=== PATIENT | female | born 1940 | race Caucasian/White ===

== ENCOUNTER 2022-08-07 15:00 | Outpatient (RCR) | payer MEDICARE, SELFPAY | END 2022-10-04 14:42 | disposition home or self-care (01) | PROVIDERS: PCP Internal Medicine; Visit Provider Orthopaedic Surgery | DX: M79.672 Pain in left foot (principal); Z51.89 Encounter for other specified aftercare | CPT/HCPCS: 97035; 97140; 97162 ==

== ENCOUNTER 2022-10-05 07:01 | Outpatient (CLI) | payer MEDICARE, SELFPAY ==
--- OUTSIDE RECORDS SUMMARY | 2022-10-05 07:04 | XMS_ITS | Encounter Summary ---
:1940 Author Organization [facility] Address [address] [place] [address] Care Team Providers Name Role Phone Doctor, None MD Primary Care Provider Unavailable Encounter Details Date Type Department Care Team Description 10/21/2006 GI Procedure [facility] Naseem Menezes MD None [facility]oscopy [place] XX RETIRED XXX [address] [facility] [place] [address] [place] [address] [phone] Social History Tobacco Use Types Packs/Day Years Used Date Smoking Tobacco: Never Assessed Sex Assigned at Date Recorded Not on file documented as of this encounter Plan of Treatment Not on filedocumented as of this encounter Procedures Procedure Name Priority Date/Time Associated Diagnosis Comme [facility] UPPER GI ENDOSCOPY Routine 10/21/2006 11:30 AM Re sults for this BUSINESS LIAISON MANAGER procedure are i n the results section. documented in this encounter Results UPPER GI ENDOSCOPY (10/21/2006 11:30 AM BUSINESS LIAISON MANAGER) Component Value Ref Test Analysis Performed At [facility] Method Time Signature Upper GI Endoscopy RADIOLOGY Endoscopy RESULTS Patient Name: Sheila Blackburn ? Gender: F ? Procedure Date: 10/21/2006 1 1:30 AM ? Date of : 1940 ? Age: 66 ? Admit Type: Outpatient ? Attending MD: Naseem Menezes ? Procedure: ?Upper GI endoscopy Indications: ?Established gastro-esophageal reflux dis ease - long-term. Providers: ?Naseem Menezes MD Referring MD: ?? Rajinder Mars MD Medicines: ?Fentanyl 100 mcg IV, Midazola m 1.5 mg IV, Benzocaine spray Complications: ??No immediate complications Procedure: ?- A History and Physical has been perfo rmed, and patient ?medi cation allergies have been reviewed. The patient The ?risk s and benefits of the procedure and the sedation options ?and risks were discussed with the patient. All questions were ?answered and informed consent was obtained. Patient ?iden tification and proposed procedure were verified prior to ?the procedure by the physician in the procedure room. Mental ?Stat us Examination: normal. Respiratory Examination: clear to ?ausc ultation. CV Examination: normal. ASA Grade Assessment: ?P1 A normal healthy patient. After reviewing the risks and ?bene fits, the patient was deemed in satisfactory condition to ?undergo the procedure. T he anesthesia plan was to use ?moderate sedation / analgesia (con scious sedation). ?Imme diately prior to administration of medications, the ?gerber ent was re-assessed for adequacy to receive sedatives. ?The heart rate, respiratory rate, oxygen saturations, blood ?pres sure, adequacy of pulmonary ventilation, and response to ?care were monitored throughout the procedure. The physical ?stat us of the patient was re-assessed after the procedure. ?Afte r obtaining informed consent, the endoscope was passed ?unde r direct vision. Throughout the procedure, the patient's ?bloo d pressure, pulse, and oxygen saturations were monitored ?cont inuously. The GIF -Q-180 #[id number] was introduced through ?the mouth, and advanced to the second part of duodenum. The ?uppe r GI endoscopy was accomplished without difficulty. The ?patient tolerated the procedure well . ? Findings: ? The Z-line was regular and was fo und thirty-eight cm from the incisors. ? The cricopharyngeus, upper third of the e sophagus, middle third of the ? esophagus and lower third of the esophagus were michael l. The entire ? examined stomach and gastroesophageal junction (on retroflexion) were ? normal. The duodenal bulb and 2nd part of the duodenu m were normal. ? Impression: ? - Z-line r egular, thirty-eight cm from the incisors and right ?@ diaphram. ?- No rmal cricopharyngeus, upper third of the esophagus, ?middle third of the esophagus and lower third of the ?esophagus. ?- Normal stomach. ?- Normal duodenal bulb and 2nd part of the duodenum. Recommendation: - Discharge patient to home (ambulatory). ?- Continue present medicines. ?- Return to primary care provider [place] N. ? R Riri Zuniga Naseem Menezes MD Signed Date: 10/21/2006 11:55 AM Number of Addenda: 0 I was physically present for the entire viewing portion of t he exam. Note generated on 10/21/2006 11:31 AM Upper GI RADIOLOGY Endoscopy RESULTS Specimen (Source) Anatomical Collection Method Collection Time Re ceived Time Location / / Volume Laterality 10/21/2006 11:30 AM BUSINESS LIAISON MANAGER Naseem Menezes MD PROCEDURES Performing Organization Address City/State/ZIP Code Phon e Number RADIOLOGY RESULTS documented in this encounter Visit Diagnoses Not on filedocumented in this encounter Care Teams Bakery Demonstrator Relationship Specialty Start Date End Date No Palm MD PCP - General 01/16/02 07/28/15 documented as of this encounter
--- OUTSIDE RECORDS SUMMARY | 2022-10-05 07:04 | XMS_ITS | Encounter Summary ---
:1940 Author Organization [facility] Address [address] [place] [address] Care Team Providers Name Role Phone Doctor, None MD Primary Care Provider Unavailable Encounter Details Date Type Department Care Team Description 01/20/2006 Emergency room Gustavo Greer MD EMERGENCY PHYSIC [facility] [address] [place], [place] [address] (Wo rk) Social History Tobacco Use Types Packs/Day Years Used Date Smoking Tobacco: Never Assessed Sex Assigned at Date Recorded Not on file documented as of this encounter Progress Notes Gustavo Greer MD - 01/26/2006 7:34 AM [facility] FINAL CHIEF COMPLAINT: The patient is a 65-year-old female with chief complaint of headache, vomiting anddiarrhea. HISTORY OF PRESENT ILLNESS: The patient is a 65-year-old female with a history migraine headaches, peripheral neuropathy. The patient was in normal state of health up until today. She developed a combination of both vomiting and diarrhea. She has had 4-5 episodes of loose watery stool, 3-4 episodes of vomiting last about an hour ago. She denies hematemesis, she denies hematochezia or melena. She hasdeveloped headache diffusely over the forehead and reports to emergency room for evaluation. PAST MEDICAL HISTORY: Peripheral neuropathy. MEDICATIONS: Neurontin. ALLERGIES: The patient is allergic to codeine which makes her vomit. FAMILY HISTORY: Negative. SOCIAL HISTORY: Here with . REVIEW OF SYSTEMS: The patient is on antibiotics as she is taking this is on a trial basis for chronic UTIs. The patient denies travel, denies atypical food ingestion. All other systems negative except as above. PHYSICAL EXAMINATION: GENERAL: This is a mildly uncomfortable 65-year-old female. VITAL SIGNS: Blood pressure 130/77, pulse 83, respirations 18, oral temperature 95.5 and room air saturation 96%. HEENT: Atraumatic and normocephalic. Conjunctivae are normal. The patient is nonicteric. CHEST: Heart is regular. PULMONARY: Clear. ABDOMEN: No reproducible abdominal tenderness. There is no guarding or rebound. Bowel sounds increased in all 4 quadrants. EXTREMITIES: No edema and edema, no rash. SKIN: Intact. EMERGENCY DEPARTMENT COURSE: Due to complaints of headache and vomiting, the patient had I.V. placed. The patient was given a liter of I.V. fluid. She was given Zofran 4 and Toradol 30 with improvement from 8/10 to 0/10 pain. The patient had lab tests that included white blood cell count, hemoglobin, electrolytes all of which were normal. A stool culture was requested, the patient did not have any diarrhea in the emergency room. I did return to discuss symptoms with the patient. I think most likelythis is either a foodborne illness versus viral gastroenteritis. Differential diagnosis here with diarrhea could also be an early C.diff as patient has been on 2 months of antibiotics. I did discuss this with the patient. For now, the patient's lab tests are normal. She has no fever here. We will discharge with stool culture cup and if she has ongoing diarrhea to bring this to her primary doctor, Dr.Peter Mars with [facility] in [place]. Otherwise, we will discharge with antiemet ics, antidiarrheal medication and follow up. PLAN: Discharge with stool culture cup. Encourage fluids, Zofran p.r.n. nausea and vomiting, Imodium p.r.n. diarrhea. Return with new or worsening symptoms. Follow up with primary doctor. DISCHARGE DIAGNOSES: 1.Viral gastroenteritis 2.Versus foodborne illness. Electronically signed on 01/26/2006 07:33 by GUSTAVO GREER MD MT: [id number] Name: LEIF BLACKBURN Account: [id number] : 1940 Visit Date: 01/20/2006 Document: [id number] FFEUR Gustavo Greer MD - 01/21/2006 9:23 PM [facility] PRELIMINARY CHIEF COMPLAINT: The patient is a 65-year-old female with chief complaint of headache, vomiting anddiarrhea. HISTORY OF PRESENT ILLNESS: The patient is a 65-year-old female with a history migraine headaches, peripheral neuropathy. The patient was in normal state of health up until today. She developed a combination of both vomiting and diarrhea. She has had 4-5 episodes of loose watery stool, 3-4 episodes of vomiting last about an hour ago. She denies hematemesis, she denies hematochezia or melena. She hasdeveloped headache diffusely over the forehead and reports to emergency room for evaluation. PAST MEDICAL HISTORY: Peripheral neuropathy. MEDICATIONS: Neurontin. ALLERGIES: The patient is allergic to codeine which makes her vomit. FAMILY HISTORY: Negative. SOCIAL HISTORY: Here with . REVIEW OF SYSTEMS: The patient is on antibiotics as she is taking this is on a trial basis for chronic UTIs. The patient denies travel, denies atypical food ingestion. All other systems negative except as above. PHYSICAL EXAMINATION: GENERAL: This is a mildly uncomfortable 65-year-old female. VITAL SIGNS: Blood pressure 130/77, pulse 83, respirations 18, oral temperature 95.5 and room air saturation 96%. HEENT: Atraumatic and normocephalic. Conjunctivae are normal. The patient is nonicteric. CHEST: Heart is regular. PULMONARY: Clear. ABDOMEN: No reproducible abdominal tenderness. There is no guarding or rebound. Bowel sounds increased in all 4 quadrants. EXTREMITIES: No edema and edema, no rash. SKIN: Intact. EMERGENCY DEPARTMENT COURSE: Due to complaints of headache and vomiting, the patient had I.V. placed. The patient was given a liter of I.V. fluid. She was given Zofran 4 and Toradol 30 with improvement from 8/10 to 0/10 pain. The patient had lab tests that included white blood cell count, hemoglobin, electrolytes all of which were normal. A stool culture was requested, the patient did not have any diarrhea in the emergency room. I did return to discuss symptoms with the patient. I think most likelythis is either a foodborne illness versus viral gastroenteritis. Differential diagnosis here with diarrhea could also be an early C.diff as patient has been on 2 months of antibiotics. I did discuss this with the patient. For now, the patient's lab tests are normal. She has no fever here. We will discharge with stool culture cup and if she has ongoing diarrhea to bring this to her primary doctor, Dr.Peter Mars with [facility] in [place]. Otherwise, we will discharge with antiemet ics, antidiarrheal medication and follow up. PLAN: Discharge with stool culture cup. Encourage fluids, Zofran p.r.n. nausea and vomiting, Imodium p.r.n. diarrhea. Return with new or worsening symptoms. Follow up with primary doctor. DISCHARGE DIAGNOSES: 1.Viral gastroenteritis 2.Versus foodborne illness. GUSTAVO GREER MD MT: [id number] Name: LEIF BLACKBURN Account: [id number] : 1940 Visit Date: 01/20/2006 Document: [id number] FFEUR documented in this encounter Plan of Treatment Not on filedocumented as of this encounter Visit Diagnoses Not on filedocumented in this encounter Care Teams Jewel Inserter Relationship Specialty Start Date End Date Doctor, MD No PCP - General 01/16/02 07/28/15 documented as of this encounter
--- OUTSIDE RECORDS SUMMARY | 2022-10-05 07:04 | XMS_ITS | Clinical Summary ---
:1940 Author Organization [facility] Address [address] [place] [address] Care Team Providers Name Role Phone Rajinder Mars MD Primary Care Provider Resolved Problems Problem Noted Date Resolved Date Muscle weakness (generalized) 08/06/2019 08/26/2019 Mixed incontinence 08/06/2019 08/26/2019 Urinary frequency 08/06/2019 08/26/2019 Encounters Date Type Specialty Care Team Description 07/23/2022 Travel from Last 3 Months Social History Tobacco Use Types Packs/Day Years Used Date Smoking Tobacco: Never Assessed Sex Assigned at Date Recorded Not on file Plan of Treatment Health Maintenance Due Date Last Done Comments ADVANCE CARE PLANNING 1940 ANNUAL REVIEW OF HM ORDERS 1940 HEPATITIS B IMMUNIZATION (1 1940 of 3 - 3-dose series) COVID-19 Vaccine (#1) 1940 DTAP/TDAP/TD IMMUNIZATION (1 1966 - Tdap) ZOSTER IMMUNIZATION (1 of 2) 1991 FALL RISK ASSESSMENT 2006 MEDICARE ANNUAL WELLNESS 2006 VISIT Pneumococcal Vaccine: 65+ 2006 Years (1 - PCV) PHQ-2 (once per calendar 12/02/2021 year) INFLUENZA VACCINE (#1) 2022 10/06/2002 DEXA 09/15/2030 09/15/2015, 09/07/2015 IPV IMMUNIZATION Aged Out No longer eligi ble based on patient's age to complete this to pic MENINGITIS IMMUNIZATION Aged Out No longe r eligible based on patient's age to complete this to pic Care Teams Television Writer Relationship Specialty Start Date End Date Rajinder Mars MD PCP - General Family Practice 07/29/15 [facility] [address] [place] [phone]
--- OUTSIDE RECORDS SUMMARY | 2022-10-05 07:04 | XMS_ITS | Encounter Summary ---
:1940 Author Organization [facility] Address [address] [place] [address] Care Team Providers Name Role Phone Rajinder Mars MD Primary Care Provider Encounter Details Date Type Department Care Team Description 09/14/2015 Radiant Appointment [facility] [address] [place] [address] Social History Tobacco Use Types Packs/Day Years Used Date Smoking Tobacco: Never Assessed Sex Assigned at Date Recorded Not on file documented as of this encounter Plan of Treatment Not on filedocumented as of this encounter Procedures Procedure Name Priority Date/Time Associated Diagnosis Comme nts DX HIP/PELVIS/SPINE Routine 09/15/2015 10:35 Asymptomatic Resu lts for this AM CDT menopausal state procedure a re in the results section. 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 ??Degenerative changes of the lumbar spine which may fa lsely elevate results. Comparisons from different scanners that have not been cross calibrated, are not necessarily valid. Such a compar dinesh has been performed here; one should interpret with caution. ?? There has been probable significant decr ease in bone density of the lumbar spine. There has been probably no signif icant change in bone density of the hip(s). Recommendations include ensuring adequat e Calcium and Vitamin D. The current NOF Guidelines recommend herminia atment for patients with prior hip or vertebral fracture, T-score -2.5 or b elow, or 10 year risk of any major osteoporotic fracture >20% or [address] of hip fracture >3%, as calculated using the FRAX calculator (adrian w.shef.ac.uk/FRAX or you can google FRAX). ?? Based on these guidelines, treatment (in addition to calcium and vitamin D) is recommended for this patient, afte r ruling out other causes of osteoporosis. This is meant as an aid to clinical deci kip making; one must still use clinical judgement. Follow up can be considered in 2 years. Vania Eng M.D. Electronically signed ?? Narrative 09/15/2015 12:00 PM CDT BONE DENSITOMETRY [address] [address] 09/15/2015 PATIENT: Sheila Blackburn CHART: [id number] : 1940 AGE: [age] year old SEX: female REFERRING PROVIDER: Elvin Pierre MD PROCEDURE: Bone density scanning was per formed using DXA technology of the lumbar spine and hip. Scanning was perfo rmed on a kenxus scanner. Reporting is completed in the form of a T-score. The T-score represents the standard deviation from peak bone ma ss based on a young healthy adult. REFERENCE T-SCORES: Normal -1.0 and greater Osteopenia Between -1.0 and -2.5 Osteoporosis -2.5 and less RISK FACTORS: Post-menopausal, Parent hi story of osteoporosis, history of vertebral fracture. CURRENT TREATMENT: Calcium FINDINGS: Lumbar Spine (L1-L3) T-score: -2.0, leilani ed degenerative changes present at L4, so only L1-3 are evaluated. Left Femoral Neck T-score: -1.4 Right Femoral Neck T-score: -1.8 Forearm (radius 33%) T-score: -1.7 Lumbar spine (L1-3) BMD: 0.927 Previous 0.996 Total Hip Mean BMD: 0.864 ??Previous 0.8 58 Forearm (radius 33%) BMD: 0.588 Previous NA LATERAL VERTEBRAL ASSESSMENT Procedure: ??Vertebral fracture assessme nt was performed in the lateral decubitus position using a Lunar Prodigy ??densitometer. Indications for VFA: T-score of -1.0 or worse and age (female>69) Confounding factors for VFA: Arthritis/d egenerative disc disease, scoliosis and rib shadows. ??The LVA sca n is interpretable from T7 to T12 and L4. VFA Findings: Using the semi-quantitativ e analysis of [employer] there was evidence of spinal deformity as follows: ??moderate (grade 2) wedge fracture of T9. VFA Impression: Sheila Blackburn has one vertebral fracture identified on the LVA. ??If alternative etiologies for the presence of vertebral fractures are excluded, the diagnosis is consistent with severe osteoporosis. Elvin Pierre MD IMG DEXA ORDERABLES documented in this encounter Visit Diagnoses Diagnosis Asymptomatic menopausal state Asymptomatic postmenopausal status (age- related) (natural) documented in this encounter Care Teams Electric Shovel Operator Relationship Specialty Start Date End Date Rajinder Mars MD PCP - General Family Practice 07/29/15 [facility] [address] [place] [address] documented as of this encounter
--- OUTSIDE RECORDS SUMMARY | 2022-10-05 07:04 | XMS_ITS ---
:1940 Author Care Team Providers Name Role Phone Radha Byers Primary Care Provider Unavailable Allergies Code Code System Name Reaction Severity Status Onset 2670 RxNorm Codeine Vomiting ? Active ? Morphine Sulfate ? ? Active ? Medications Name Status Start Date Stop Date ? ? amoxicillin 875 mg tablet Completed ? 2021 TAKE ONE TABLET BY MOUTH TWICE DAILY FOR 10 DAYS gabapentin 600 mg tablet Active ? Not db ilable TAKE TWO TABLETS BY MOUTH NIGHTLY AT BEDTIME Macrobid 100 mg capsule Active ? Not avai lable Take 1 capsule twice a day by oral route as directed for 3 days . omeprazole 20 mg capsule,delayed release Active ? Not available TAKE 1 CAPSULE BY MOUTH ONE TIME DAILY pravastatin 10 mg tablet Active ? Not db ilable TAKE ONE TABLET BY MOUTH EVERY NIGHT AT BEDTIME rosuvastatin 20 mg tablet Active ? Not av ailable TAKE ONE TABLET BY MOUTH EVERY NIGHT AT BEDTIME sumatriptan 25 mg tablet Active ? Not db ilable TAKE 1 TABLET BY MOUTH FOR MIGRAINE NEEDED Problems Name Status Onset Date Source ? Urinary Tract Infectious Disease Active 08/06/2013 History Cystitis Active 11/05/2013 History Nocturia Active 11/05/2013 History Chronic Cystitis Active 06/09/2019 History Overactive Bladder Active 07/21/2019 History Procedures Date Name Performed by ? 02/02/2020 Insert Bladder Catheter Information not available Notes: 02/02/2020 - INSERT BLADDER CAT HETER 10/27/2019 Resect Phalanx of Toe Tumor Information not available Notes: 10/27/2019 - RESECT PHALANX OF TOE TUMOR 07/21/2019 Us Urine Capacity Measure Information no t available Notes: 07/21/2019 - US URINE CAPACITY MEASURE 06/09/2019 Insert Bladder Catheter Information not available Notes: 06/09/2019 - INSERT BLADDER CAT HETER 07/10/2014 Colonoscopy Thru Stoma Spx Information n ot available Notes: 07/10/2014 - COLONOSCOPY THRU S JOSE SPX 08/06/2013 Cystoscopy Information not avai lable Notes: 08/06/2013 - CYSTOSCOPY 08/06/2013 Insert Bladder Catheter Information not available Notes: 08/06/2013 - INSERT BLADDER CAT HETER ? Anterior Colporrhaphy Information not av ailable Notes: ANTERIOR COLPORRHAPHY ? Division of Fallopian Tube Information n ot available Notes: DIVISION OF FALLOPIAN TUBE ? Hysterectomy/revise Vagina Information n ot available Notes: HYSTERECTOMY/REVISE VAGINA ? Removal of Gallbladder Information not a vailable Notes: REMOVAL OF GALLBLADDER ? Removal of Tonsils Information not avai lable Notes: REMOVAL OF TONSILS ? Total Knee Arthroplasty Information not available Notes: TOTAL KNEE ARTHROPLASTY 10/01/2022 US, [facility] Radiology Department [address] [place] [address] (Work Place) Results Lab Results Date Name Specimen Result Interpretation Description Value Range Status Address ? 10/01/2022 Urinalysis, UR ? Color yellow yellow Final [place] [facility]: [address] ? ? UR ? Appearance clear clear Final [place] [facility]: [address] ? ? UR ? Glucose negative negative Final [place] [facility] mg/dL mg/dL [facility]: [address] ? ? UR ? Bilirubin negative negative Final [place] [facility]: [address] ? ? UR ? Ketones negative negative Final [place] [facility] mg/dL mg/dL [facility]: [address] ? ? UR ? Sp. Gill 1.010 1.010-1.0 Final [place] [facility] 25 [facility]: [address] ? ? UR ? pH -[facility] 5.5 5.0-8.0 Final [place] [facility]: [address] ? ? UR ? Protein negative negative Final [place] [facility] mg/dL mg/dL [facility]: [address] ? ? UR ? Urobilinogen 0.2 normal Final [place] [facility]: [address] [address], [place] ? ? UR ? Nitrites negative negative Final [place] [facility]: [address] [address], [place] ? ? UR ? Blood negative negative Final [place] [facility]: [address] [address], [place] ? ? UR ABNORMAL Leukocytes trace negative Final [place] [facility]: [address] [address], [place] ? ? UR ? Performed by romero Nayak ? Final [place] [facility]: [address] [address], [place] ? ? UR ? Total Urine 15 /mL ? Final [place] Volume (mL) [facility]: [address] 10/01/2022 Urinalysis, ABNORMAL U-WBC 2 - 5 0 - 2 Final [place] Microscopic [hpf] [hpf] [facility]: [address] [address], [place] ? ? ? U-RBC 0 - 2 0 - 2 Final [place] [hpf] [hpf] [facility]: [address] [address], [place] ? ? ABNORMAL Bacteria large negative Final [place] [hpf] [hpf] [facility]: [address] [address], [place] ? ? ? Squamous Epi small negative, Final [place] /lpf small Urology - /lpf [facility]: [address] [address], [place] Past Encounters 10/01/2022 Atrophic Vaginitis; Chronic Cystitis; No cturia; Incomplete Emptying of Bladder Radha Byers MD: [address] [facility] , [facility] [address], [place] [address], Ph. Social History Tobacco Smoking Status Former Smoker Vaccine List Vaccine Type COVID-19, mRNA, LNP-S, PF, 30 mcg/0.3 mL dose ([employer]) 01/07/2021 01/28/2021 08/30/2021 COVID-19, mRNA, LNP-S, PF, 30 mcg/0.3 mL dose, alejandro-sucrose ([employer]) 03/21/2022 Hep A, adult 02/18/2008 09/10/2008 Hep B, adult 02/18/2008 03/29/2008 09/10/2008 Influenza vaccine, quadrivalent, adjuvan jesse 08/09/2020 08/23/2021 08/16/2022 influenza, high dose seasonal 09/22/2015 08/06/2017 09/23/2018 09/07/2019 influenza, injectable, quadrivalent, pre servative free 12/26/2009 influenza, seasonal, injectable 10/16/2003 10/01/2008 08/10/2012 novel [id number], all formulation s 12/26/2009 pneumococcal conjugate PCV 13 03/17/2015 10/28/2019 pneumococcal polysaccharide [id number] 06/16/2009 Td (adult) preservative free 11/19/2006 Tdap 09/09/2020 typhoid, ViCPs 02/18/2008 zoster recombinant 05/05/2022 07/25/2022 Plan of Care Reminders Provider Appointments None recorded. ? ? Lab None recorded. ? ? Referral None recorded. ? ? Procedures None recorded. ? ? Surgeries None recorded. ? ? Imaging None recorded. ? ? Vitals None recorded.
--- OUTSIDE RECORDS SUMMARY | 2022-10-05 07:04 | XMS_ITS | Encounter Summary ---
:1940 Author Organization [place] Address [address] [place] [address] Care Team Providers Name Role Phone Doctor, None MD Primary Care Provider Unavailable Encounter Details Date Type Department Care Team Description 01/20/2006 Historic Results INTERFACED REPORT Loretta Fernandez MD EMERGENCY PHYSIC [facility] [address] [place], [place] [address] (Wo rk) Social History Tobacco Use Types Packs/Day Years Used Date Smoking Tobacco: Never Assessed Sex Assigned at Date Recorded Not on file documented as of this encounter Plan of Treatment Not on filedocumented as of this encounter Procedures Procedure Name Priority Date/Time Associated Comments Diagnosis HEMOGRAM DIFFERENTIAL STAT 01/20/2006 9:55 PM Results for this AND PLATELET CHOCOLATE DIPPER procedure are i n the results section. BASIC METABOLIC PANEL STAT 01/20/2006 9:55 PM Results for this CHOCOLATE DIPPER procedure are i n the results section. UA MACROSCOPIC WITH STAT 01/20/2006 9:45 PM Re sults for this REFLEX TO MICRO CHOCOLATE DIPPER procedure ar e in the results section. URINE MICROSCOPIC Routine 01/20/2006 9:45 PM Resu lts for this EXAM CHOCOLATE DIPPER procedure are i n the results section. documented in this encounter Results (ABNORMAL) Hemogram differential and platelet (01/20/2006 9:55 PM CHOCOLATE DIPPER) [facility] Method Time Signature MCV 98 78 - 100 [place] fl MCH 34.3 (H) 26.5 - [facility] 33.0 pg MCHC 34.9 32.0 - [facility] 36.0 g/dL RDW 12.0 10.0 - [facility] 15.0 % WBC 5.5 4.0 - [facility] 11.0 10e9/L RBC Count 4.11 3.8 - 5.2 [facility] 10e12/L Hemoglobin 14.1 11.7 - [facility] 15.7 g/dL Hematocrit 40.3 35.0 - [facility] 47.0 % % Neutrophils 83 (H) 40 - 75 % [facility] % Lymphocytes 9 (L) 20 - 48 % [facility] % Monocytes 6 0 - 12 % [facility] % Eosinophils 0 0 - 6 % [facility] % Basophils 2 0 - 2 % [facility] Platelet Count 203 150 - 450 [place] 10e9/L Absolute 4.6 1.6 - 8.3 [facility] Neutrophil 10e9/L Absolute 0.5 (L) 0.8 - 5.3 [facility] Lymphocytes 10e9/L Absolute 0.3 0.0 - 1.3 [facility] Monocytes 10e9/L Absolute 0.0 0.0 - 0.7 [facility] Eosinophils 10e9/L Absolute 0.1 0.0 - 0.2 [facility] Basophils 10e9/L Diff Method Automated [facility] Method Specimen Anatomical Collection Method Collection Time Receive d Time (Source) Location / / Volume Laterality 01/20/2006 9:55 PM 6 9:33 CHOCOLATE DIPPER PM CHOCOLATE DIPPER Kurtis Fernandez MD LAB - BLOOD ORDERABLES Performing Organization Address City/State/ZIP Code Phon e Number [facility] (ABNORMAL) Basic metabolic panel (01/20/2006 9:55 PM CHOCOLATE DIPPER) P athologist Signature Sodium 136 133 - 144 [place] mmol/L Potassium 3.5 3.4 - 5.3 [place] mmol/L Chloride 99 94 - 109 [place] mmol/L Carbon Dioxide 26 20 - 32 [place] mmol/L Glucose 113 (H) 60 - 110 [place] mg/dL Urea Nitrogen 12 7 - 30 [place] mg/dL Creatinine 0.80 0.60 - [facility] 1.30 mg/dL GFR Estimate 77 >60 [facility] mL/min/1.7 m2 GFR Estimate If >90 >60 [facility] Black mL/min/1.7 m2 Calcium 8.7 8.5 - 10.4 [facility] mg/dL Anion Gap 11 6 - 17 [place] mmol/L Specimen Anatomical Collection Method Collection Time Receive d Time (Source) Location / / Volume Laterality 01/20/2006 9:55 PM 6 9:33 CHOCOLATE DIPPER PM CHOCOLATE DIPPER Kurtis Fernandez MD LAB - BLOOD ORDERABLES Performing Organization Address City/[facility]/ZIP Code Phon e Number [facility] (ABNORMAL) UA macroscopic with reflex to micro (01/20/2006 9:45 PM CHOCOLATE DIPPER) [facility] Method Time Signature Source Midstream [facility] Urine Color Urine Yellow [facility] Appearance Urine Clear [facility] Glucose Urine Negative NEG mg/dL [facility] Bilirubin Urine Negative NEG [facility] Ketones Urine Trace (A) NEG mg/dL [facility] Specific Thorp >1.030 1.003 - [facility] Urine 1.035 Blood Urine Negative NEG [facility] pH Urine 5.5 5.0 - 7.0 [facility] pH Protein Albumin Trace (A) NEG mg/dL [facility] Urine Urobilinogen 0.2 0.2 - 1.0 [facility] Urine EU/dL Nitrite Urine Negative NEG [facility] Leukocyte Negative NEG [facility] Esterase Urine Specimen Anatomical Collection Method Collection Time Receive d Time (Source) Location / / Volume Laterality 01/20/2006 9:45 PM 6 9:33 CHOCOLATE DIPPER PM CHOCOLATE DIPPER Kurtis Fernandez MD LAB - URINE ORDERABLES Performing Organization Address City/[facility]/ZIP Code Phon e Number [facility] (ABNORMAL) Microscopic exam urine (01/20/2006 9:45 PM CHOCOLATE DIPPER) [facility] Method Time Signature WBC Urine 2-5 (A) 0 - 2 [facility] /HPF RBC Urine O - 2 0 - 2 [facility] /HPF Squamous Few FEW /LPF [facility] Epithelial /LPF Urine Bacteria Urine Moderate (A) NEG /HPF [facility] Mucous Urine Present (A) NEG /LPF [facility] Specimen Anatomical Collection Method Collection Time Receive d Time (Source) Location / / Volume Laterality 01/20/2006 9:45 PM 6 CHOCOLATE DIPPER 10:27 PM CHOCOLATE DIPPER Kurtis Fernandez MD LAB - URINE ORDERABLES Performing Organization Address City/State/ZIP Code Phon e Number M[facility] documented in this encounter Visit Diagnoses Not on filedocumented in this encounter Care Teams Grounds Restoration Specialist Relationship Specialty Start Date End Date Doctor, No, PCP - General 01/16/02 07/28/15 documented as of this encounter
--- OUTSIDE RECORDS SUMMARY | 2022-10-05 07:04 | XMS_ITS | Encounter Summary ---
:1940 Author Organization [place] Address [address] [place] [address] [place] [address] Care Team Providers Name Role Phone Rajinder Mars MD Primary Care Provider Reason for Visit (Routine) - Closed Specialty Diagnoses / Procedures Referred By Contact Refer red To Contact Cardiology Procedures Zz Rh Echocardiography ECH DOBUTAMINE STRESS TEST [address] [place] [phone] Phone: Referral ID Status Reason Start Date Expiration Date Visits Requ ested Visits Authorized [id number] Closed 08/01/2015 07/31/2016 1 1 Encounter Details Date Type Department Care Team Description 08/01/2015 Hospital Encounter [facility] Christina Alcantara R , Other chest pain Cardiopulmonary [address] [place] [facility] [id number] [place] [address] [address] (Wo rk) Social History Tobacco Use Types Packs/Day Years Used Date Smoking Tobacco: Never Assessed Sex Assigned at Date Recorded Not on file documented as of this encounter Progress Notes Ember Davey RT - 08/01/2015 1:30 PM CDT Stress echo completed- ordered for a dobutamine stress test and opted to walk on treadmill. documented in this encounter Plan of Treatment Not on filedocumented as of this encounter Procedures Procedure Name Priority Date/Time Associated Diagnosis Comme nts ECHO STRESS TEST Routine 08/01/2015 1:01 PM Other chest pain R esults for this CDT procedure are i n the results section. documented in this encounter Results Exercise Stress Echocardiogram (08/01/2015 1:01 PM CDT) Anatomical Region Laterality Modality Echocardiography Specimen (Source) Anatomical Collection Method Collection Time Re ceived Time Location / / Volume Laterality 08/01/2015 12:43 PM CDT Narrative 08/01/2015 1:57 PM CDT Interpretation Summary [facility]ocardiography [facility] [address] [place] [address] Name: LEIF BLACKBURN : 1940 Study Date: 08/01/2015 12:43 PM Age: 75 yrs Gender: Female Patient Location: [facility] Reason For Study: Chest pain History: Chest Pain Ordering Physician: CHRISTINA ALCANTARA Referring Physician: CHRISTINA ALCANTARA Performed By: Valente Reese RDCS BSA: 2.0 m2 Height: 69 in Weight: 188 lb HR: 71 BP: 118/76 mmHg Medications: gabapentin Procedure Stress Echo Complete. Interpretation Summary A moderate workload was achieved. There was no chest pain or significant S T changes with exercise. No arrhythmia noted. The visual ejection fraction is estimate d at 60-65%. Global LV systolic function augments wit h exercise. Stress Exercise was stopped due to fatigue. The patient did not exhibit any symptoms during exercise. A moderate workload was achieved. Normal blood pressure response to exerci se. Target Heart Rate was achieved. There was no chest pain or significant S T changes with exercise. No arrhythmia noted. The visual ejection fraction is estimate d at 60-65%. Global LV systolic function augments wit h exercise. Left ventricular cavity size decreases w ith exercise. Baseline Normal baseline electrocardiogram. Normal LVEF, aortic sclerosis, mild TR. Stress Results ? Protocol: MODIFIED EDITA ? Maximum Predicted HR: ??146 bpm ?Target HR: ? 124 bpm% Max ? imum Predicted HR: ?? 90 % ?+---------+-------- + +------+---------+ ?: ??Stage ??:Jp on:Heart Rate: ??BPCom ?ment : ?: ? : (mm :ss): ?? (bpm) ??: ?: ? : ?+---------+-------- + +------+---------+ ?: Stage 1 : ??3:00 10 ?0 ?? :140/70: ? : ?+---------+-------- + +------+---------+ ?: Stage 2 : ??3:00 10 ?2 ?? :150/70: ? : ?+---------+-------- + +------+---------+ ?: Stage 3 : ??3:00 11 ?3 ?? :160/70: ? : ?+---------+-------- + +------+---------+ ?: Stage 4 : ??1:23 13 ?1 ?? :170/70:[facility] [id number]: ?+---------+-------- + +------+---------+ ?:Recovery : ??6:00 83 ?:140/70: ? : ?+---------+-------- + +------+---------+ ? Stress Duration: ??10:23 mm:ss * ?Recovery Time: 6:00 mm:ss ?Maximum Stress HR: ?? 131 bpm * ME ?TS: ?6 Doppler Measurements & Calculations TR max octavia: 244.3 cm/sec TR max P.9 mmHg Report approved by: Valentin Solitario 08/01/2015 01:57 PM Procedure Note Biju Arthur MD - 08/01/2015Fo rmatting of this note might be different from the original. Interpretation Summary [facility] [address] [place] [address] Name: LEIF BLACKBURN : 1940 Study Date: 08/01/2015 12:43 PM Age: 75 yrs Gender: Female Patient Location: [facility] Reason For Study: Chest pain History: Chest Pain Ordering Physician: CHRISTINA ALCANTARA Referring Physician: CHRISTINA ALCANTARA Performed By: Valente Reese RDCS BSA: 2.0 m2 Height: 69 in Weight: 188 lb HR: 71 BP: 118/76 mmHg Medications: gabapentin Procedure Stress Echo Complete. Interpretation Summary A moderate workload was achieved. There was no chest pain or significant S T changes with exercise. No arrhythmia noted. The visual ejection fraction is estimate d at 60-65%. Global LV systolic function augments wit h exercise. Stress Exercise was stopped due to fatigue. The patient did not exhibit any symptoms during exercise. A moderate workload was achieved. Normal blood pressure response to exerci se. Target Heart Rate was achieved. There was no chest pain or significant S T changes with exercise. No arrhythmia noted. The visual ejection fraction is estimate d at 60-65%. Global LV systolic function augments wit h exercise. Left ventricular cavity size decreases w ith exercise. Baseline Normal baseline electrocardiogram. Normal LVEF, aortic sclerosis, mild TR. Stress Results Protocol: MODIFIED EDITA Maximum Predic jesse HR: 146 bpm Target HR: 124 bpm% Max imum Predicted HR: 90 % +---------+--------+ +------+- --------+ : Stage :Duration:Heart Rate: BPCom men t : : : (mm:ss): (bpm) : : : +---------+--------+ +------+- --------+ : Stage 1 : 3:00 10 0 :140/70: : +---------+--------+ +------+- --------+ : Stage 2 : 3:00 10 2 :150/70: : +---------+--------+ +------+- --------+ : Stage 3 : 3:00 11 3 :160/70: : +---------+--------+ +------+- --------+ : Stage 4 : 1:23 13 1 :170/70:[facility] [address] : +---------+--------+ +------+- --------+ :Recovery : 6:00 83 :140/70: : +---------+--------+ +------+- --------+ Stress Duration: 10:23 mm:ss * Recovery Time: 6:00 mm:ss Maximum Stress HR: 131 bpm *ME TS: 6 Doppler Measurements & Calculations TR max octavia: 244.3 cm/sec TR max P.9 mmHg Report approved by: Valentin Solitario 08/01/2015 01:57 PM Christina Alcantara MD CV ECHO ORDERABLES documented in this encounter Visit Diagnoses Diagnosis Other chest pain documented in this encounter Care Teams Third Officer Relationship Specialty Start Date End Date Rajinder Mars MD PCP - General Family Practice 07/29/15 [facility] [address] [place] [phone] documented as of this encounter
--- OUTSIDE RECORDS SUMMARY | 2022-10-05 07:04 | XMS_ITS | Clinical Summary ---
:1940 Author Organization [facility] [place] [address] Care Team Providers Name Role Phone Lori Barreto PA-C Unavailable [facility], [facility] Primary Care Provider [phone] Allergies Active Allergy Reactions Severity Noted Date Comments Codeine Vomiting 03/13/2007 Morphine *Unknown High 05/12/2019 Medications Medication Sig Dispensed Refills Start Date End Date Status CRANBERRY ORAL Take 1 Capsule 0 Active by mouth once daily. [id number] Take 1 Tablet by 0 Active utein (Multivitamin 50 mouth once Plus) tab tablet daily. gabapentin (NEURONTIN) Take 1,200 mg by 0 Active 600 mg tablet mouth at bedtime. aspirin chewable 81 mg Chew 81 mg by 0 Active chewable tablet mouth once daily if needed (for pain). omeprazole (PRILOSEC) 20 Take 20 mg by 0 Active mg Delayed-Release mouth once daily capsule if needed (acid reflux). SUMAtriptan (IMITREX) 25 Take 25 mg by 0 Active mg tablet mouth once daily if needed for Migraine. Give at minimum 2hrs apart. Max Dose: 200mg per 24hrs. pravastatin (PRAVACHOL) Take 1 Tablet 90 Tablet 1 07/10/2022 Active 10 mg tabletIndications: (10 mg) by mouth Hyperlipidemia, at bedtime. 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 P t states feeling well to day. Denies current symptom s) 07/10/2022 Travel from Last 3 Months Immunizations Name Administration Dates Next Due Influenza, IIV3 (Age >=3 years) 10/06/2002 Family History Medical History Relation Name Comments Genetic Other nil for cancer ~ no family history with anesthesia Other Sister glaucoma Relation Name Status Comments Other Sister Social History Tobacco Use Types Packs/Day Years Used Date Former Smoker 0 Smokeless Tobacco: Never Used Comments: 1991 Alcohol Use Standard Drinks/Week Comments Not Asked 0 (1 standard drink = 0.6 oz pure alcoho l) rare Alcohol Habits Answer Date Recorded How often do you have a drink containing alcohol? Not asked How many drinks containing alcohol do you have on a typical Not asked day when you are drinking? How often do you have six or more drinks on one occasion? No t asked Comment: rare 07/10/2022 Sex Assigned at Date Recorded Not on file Obstetrics History Last Filed Vital Signs Vital Sign Reading Time Taken Comments Blood Pressure 116/62 07/10/2022 3:01 PM CDT Pulse 62 07/10/2022 3:01 PM CDT Temperature 36.6 ??C (97.8 ??F) 02/04/2022 12:25 PM FILM CLEANER Respiratory Rate 16 02/04/2022 12:25 PM FILM CLEANER Oxygen Saturation 96% 07/10/2022 3:01 PM CDT Inhaled Oxygen Concentration - - Weight 79.4 kg (175 lb) 07/10/2022 3:01 PM CDT Height 177.8 cm (5' 10) 07/10/2022 3:01 PM CDT Body Mass Index 25.11 07/10/2022 3:01 PM CDT Plan of Treatment Health Maintenance Due Date Last Done Comments Tdap 1952 Depression screening for age 12+ 1953 Tetanus booster 1961 Zoster (shingles) series for age 0403/07/1991 50+ (1 of 2) DEXA/DXA scan for age 65+ 2006 Medicare Wellness for age 65+ 2006 Pneumococcal series for age 65+ (1 2006 - PCV) COVID-19 vaccine series (5 - 05/16/2022 03/21/2022, 021, Booster for Pfizer series) 01/28/2021, Additiona l history exists Influenza for age 65+ 08/02/2022 10/06/2002 BMI (ht and wt on same day) for 07/10/2023 07/10/2022 age 18+ Results Not on filefrom Last 3 Months Insurance Payer Benefit Plan / Subscriber ID Effective Dates Phone Addre ss Type Group [employer] MEDICARE [id number] 2021-Present [address] [place] [address] Care Teams Driver Utility Worker Relationship Specialty Start Date End Date Clinic, [facility] PCP - General 07/06/22 [place] [address] [place] [address] Lori Barreto, PARaymonC Family Practice Physician Trestle Mechanic 02/27/22 [address] [place] [address]
--- OUTSIDE RECORDS SUMMARY | 2022-10-05 07:04 | XMS_ITS | Encounter Summary ---
:1940 Author Organization [facility] Address [address] [place] [address] Care Team Providers Name Role Phone Rajinder Mars MD Primary Care Provider Encounter Details Date Type Department Care Team Description 09/07/2015 Radiant Appointment [facility] Osteopenia [address] [place] [address] Social History Tobacco Use Types Packs/Day Years Used Date Smoking Tobacco: Never Assessed Sex Assigned at Date Recorded Not on file documented as of this encounter Plan of Treatment Not on filedocumented as of this encounter Procedures Procedure Name Priority Date/Time Associated Diagnosis Comme nts DX HIP/PELVIS/SPINE Routine 09/07/2015 1:43 PM Osteopenia Re sults for this W LAT FRACTION CDT procedure are in ANALYSIS the results section. documented in this encounter Results DX Hip/Pelvis/Spine w Lateral (09/07/2015 1:43 PM CDT) Anatomical Region Laterality Modality Dexa Computed [...] 2 years. Vania Eng M.D. Electronically signed Narrative 09/15/2015 12:00 PM CDT BONE DENSITOMETRY [address] [address] 09/15/2015 PATIENT: Sheila Blackburn CHART: [id number] : 1940 AGE: [age] year old SEX: female REFERRING PROVIDER: Elvin Pierre MD PROCEDURE: Bone density scanning was per formed using DXA technology of the lumbar spine and hip. Scanning was perfo rmed on a [employer] scanner. Reporting is completed in the form [...] in the lateral decubitus position using a [employer] ??densitometer. Indications for VFA: T-score of -1.0 [...] the diagnosis is consistent with severe osteoporosis. Xu Baltazar MD IMG DEXA ORDERABLES documented in this encounter Visit Diagnoses Diagnosis Osteopenia Disorder of bone and cartilage, unspecif ied documented in this encounter Care Teams Piano Accompanist Relationship Specialty Start Date End Date Rajinder Mars MD PCP - General Family Practice 07/29/15 [facility] [address] [facility] [address] documented as of this encounter
--- OUTSIDE RECORDS SUMMARY | 2022-10-05 07:04 | XMS_ITS | Encounter Summary ---
:1940 Author Organization [facility] Address [address] [place] [address]. [place] [address] Care Team Providers Name Role Phone Rajinder Mars MD Primary Care Provider Encounter Details Date Type Department Care Team Description 07/23/2022 Travel Social History Tobacco Use Types Packs/Day Years Used Date Smoking Tobacco: Never Assessed Sex Assigned at Date Recorded Not on file COVID-19 Exposure Response Date Recorded In the last 10 days, have you been in contact with No / Unsu re 07/23/2022 9:42 PM CDT someone who was confirmed or suspected to have Coronavirus/COVID-19? documented as of this encounter Plan of Treatment Not on filedocumented as of this encounter Visit Diagnoses Not on filedocumented in this encounter Care Teams Licensing Court Magistrate Relationship Specialty Start Date End Date Rajinder Mars MD PCP - General Family Practice 07/29/15 [facility] [address] [place] [phone] documented as of this encounter
--- OUTSIDE RECORDS SUMMARY | 2022-10-05 07:04 | XMS_ITS | Encounter Summary ---
:1940 Author Organization [facility] Address [facility] [place] [address] Care Team Providers Name Role Phone Rajinder Mars MD Primary Care Provider Encounter Details Date Type Department Care Team Description 09/07/2015 [facility] Xu Baltazar R, Os teoporosis Encounter [facility] LEAL (Primary Dx) [address] [facility] [address] [facility] [address] [address] [place] [address] [place], [place] [address] (Wo rk) Social History Tobacco Use Types Packs/Day Years Used Date Smoking Tobacco: Never Assessed Sex Assigned at Date Recorded Not on file documented as of this encounter Plan of Treatment Not on filedocumented as of this encounter Procedures Procedure Name Priority Date/Time Associated Diagnosis Comme nts VITAMIN D DEFICIENCY Routine 09/07/2015 1:00 PM Osteoporosis R esults for this SCREENING CDT procedure are i n the results section. PHOSPHORUS Routine 09/07/2015 1:00 PM Osteoporosis Results f or this CDT procedure are i n the results section. PARATHYROID HORMONE Routine 09/07/2015 1:00 PM Osteoporosis Re sults for this INTACT CDT procedure are i n the results section. CALCIUM Routine 09/07/2015 1:00 PM Osteoporosis Results f or this CDT procedure are i n the results section. BONE SPECIFIC ALK Routine 09/07/2015 1:00 PM Osteoporosis Resu lts for this PHOSPHATASE CDT procedure are i n the results section. documented in this encounter Results Bone specific alk phosphatase (09/07/2015 1:00 PM CDT) P athologist Signature Bone Spec Alk 17.5 [facility] Comment: Unit: ug/L (Note) INTERPRETIVE INFORMATION: Bone Specific Alkaline Phosphatase Premenopausal Female: ?4.5 - 16.9 u g/L Postmenopausal Female: ?? 7.0 - 22.4 ug /L INTERPRETIVE INFORMATION: Bone Specific Alkaline Phosphatase Liver alkaline phosphatase can affect th e measurement of bone specific alkaline phosphatase in th is assay. Each 100 U/L of liver alkaline phosphatase contri butes an additional 2.5 to 5.8 ug/L to the bone specific alk basilio phosphatase result. Performed by [employer], [address] [place] [id number] [email or web address], Geo Balderas MD, L ab. Director Specimen Anatomical Collection Method Collection Time Receive d Time (Source) Location / / Volume Laterality Blood specimen 09/07/2015 1:00 PM 015 1:17 (specimen) CDT PM CDT Xu Baltazar MD LAB - BLOOD ORDERABLES Performing Organization Address City/State/ZIP Code Phon e Number M [facility] [address] [place] [address] [place] [address] [address] [place] [phone] Vitamin D deficiency screening (09/07/2015 1:00 PM CDT) athologist Signature Vitamin D 26 20 - 75 [facility] Deficiency ug/L OR MEDICAL screening [facility] Comment: Season, race, dietary intake, and treatm ent affect the concentration of 54-qfxhmcg-Iipyqsi D. Values may decrea se during winter months and increase during summer months. Values 20-29 ug/L may indicate Vitamin D insufficiency and values <20 ug/L may indicate Vitami n D deficiency. Vitamin D determination is routinely pe rformed by an immunoassay specific for 25 hydroxyvitamin D3. ??If an individua l is on vitamin D2 (ergocalciferol) supplementation, please specify 25 [place] v itamin D2 and D3 level determination by LCMSMS test VITD23. Specimen Anatomical Collection Method Collection Time Receive d Time (Source) Location / / Volume Laterality Blood specimen 09/07/2015 1:00 PM 015 1:17 (specimen) CDT PM CDT Xu Baltazar MD LAB - BLOOD ORDERABLES Performing Organization Address City/[facility]/ZIP Code Phon e Number [address] [address] [facility] Parathormone intact (09/07/2015 1:00 PM CDT) athologist Signature Parathyroid 48 12 - 72 [facility] Hormone Intact pg/mL [facility] Specimen Anatomical Collection Method Collection Time Receive d Time (Source) Location / / Volume Laterality Blood specimen 09/07/2015 1:00 PM 015 1:17 (specimen) CDT PM CDT Xu Baltazar MD LAB - BLOOD ORDERABLES Performing Organization Address City/[facility]/ZIP Code Phon e Number [facility] [address] [place] [address] [facility] Phosphorus (09/07/2015 1:00 PM CDT) athologist Signature Phosphorus 3.2 2.5 - 4.5 [facility] mg/dL HOSPITAL Specimen Anatomical Collection Method Collection Time Receive d Time (Source) Location / / Volume Laterality Blood specimen 09/07/2015 1:00 PM 015 1:17 (specimen) CDT PM CDT Xu Baltazar MD LAB - BLOOD ORDERABLES Performing Organization Address City/[facility]/ZIP [facility] Phon e Number [place] [address] [address] [place] [address] [place] [phone] Calcium (09/07/2015 1:00 PM CDT) athologist Signature Calcium 9.3 8.5 - 10.1 [facility] mg/dL [facility] Specimen Anatomical Collection Method Collection Time Receive d Time (Source) Location / / Volume Laterality Blood specimen 09/07/2015 1:00 PM 015 1:17 (specimen) CDT PM CDT Xu Baltazar MD LAB - BLOOD ORDERABLES Performing Organization Address City/[facility]/ZIP Code Phon e Number M [facility] [address] [place], [place] [address] [facility] [address] [place], [place] [address] [place] [address] documented in this encounter Visit Diagnoses Diagnosis Osteoporosis - Primary Osteoporosis, unspecified documented in this encounter Care Teams Instrument Technologist Relationship Specialty Start Date End Date Rajinder Mars MD PCP - General Family Practice 07/29/15 [facility] [address] [place] [phone] documented as of this encounter
--- OUTSIDE RECORDS SUMMARY | 2022-10-05 07:04 | XMS_ITS | Encounter Summary ---
:1940 Author Organization [facility] Address [address] [place] [address] Care Team Providers Name Role Phone Rajinder Mars MD Primary Care Provider Reason for Visit [facility] (Routine) - Closed Specialty Diagnoses / Procedures Referred By Contact Refer red To Contact Physical Therapist / Diagnoses >4 Urge Incontinence / Dr.Jodi Byers @ [facility] referral exists for 20 visits to 12.01.19 (ab) Patricia Valente, PT Physical Therapy Procedures [facility] [address] [place], [place] [address] Phone: Referral ID Status Reason Start Date Expiration Date Visits Requ ested Visits Authorized [id number] Closed 08/05/2019 12/01/2019 20 18 Encounter Details Date Type Department Care Team Description 08/05/2019 Therapy Visit [facility] Patricia Valente, Pauline le weakness (generalized); Rehabilitation Services PT Mixed incontinence; [place] [address] [address] Urinary frequency [address] [facility] [id number] Social History Tobacco Use Types Packs/Day Years Used Date Smoking Tobacco: Never Assessed Sex Assigned at Date Recorded Not on file documented as of this encounter Progress Notes Patricia Valente PT - 08/05/2019 9:30 AM CDT [facility] Initial Evaluation Subjective: The history is provided by the patient. Type of problem: Incontinence (mixed urge, stress and frequency) Problem details: Patient has chief complaint of mixed incontinence and urinary frequency which started about 2 years ago (MD orders 07/24/2019). She also has incomplete emptying. She gets up 4-5x/nightto void. She wears pads inconsistently, but needs to change clothes frequently. She had a hysterectomy with BSO, AP repair in 01/2010. History of recurrent urinary tract infections. She also had her gall bladder removed in 2009 and scoliosis. Patient reports pain: N/a. Symptoms are exacerbated by coughing, laughing and sneezing and relieved by nothing. Objective: System Pelvic Dysfunction Evaluation: Bladder/Pelvic Problems: Storage Problem: Frequency, urge incontinence and stress incontinence Emptying Problem: Strain to void and incomplete emptying Diagnostic Tests: UA/Urine Sample: UTI's in the past, none recently Flexibility: Tightness present at:Piriformis Abdominal Wall: Trigger Points: Internal obliques, external obliques and transverse abdominals Pelvic Clock Exam: Ischiocavernosis pain: - Bulbocavernosis pain: - Transverse Perineal: - Levator ANI: - Perineal Body: - SI Provocation: NA Reflex Testing: normal External Assessment: Skin Condition: Normal Bearing Down/Coughing: Normal Tissue Symmetry: Normal Introitus: Normal Muscle Contraction/Perineal Mobility: Slight lift, no urogential triangle descent Internal Assessment: Sensory Exam: Normal Contraction/Grade: Fair squeeze, definite lift (3) SEMG Biofeedback: NA Additional History: Delivery History: Vaginal delivery Number of Pregnancies: 4 Number of Live Births: 4 Caffeine Consumption: 2 cups coffee in am General ROS Assessment/Plan: Patient is a 79 year old female with pelvic complaints. Patient has the following significant findings with corresponding treatment plan. Diagnosis 1: Pelvic floor dysfunction Decreased ROM/flexibility - manual therapy and therapeutic exercise Decreased strength - therapeutic exercise, therapeutic activities and home program Impaired muscle performance - biofeedback and neuro re-education Decreased function - therapeutic activities and home program Therapy Evaluation Codes: 1) History comprised of: Personal factors that impact the plan of care: None. Comorbidity factors that impact the plan of care are: None. Medications impacting care: None. 2) Examination of Body Systems comprised of: Body structures and functions that impact the plan of care: Pelvis. Activity limitations that impact the plan of care are: Frequency, Stress incontinence and Urge incontinence. 3) Clinical presentation characteristics are: Stable/Uncomplicated. 4) Decision-Making Low complexity using standardized patient assessment instrument and/or measureable assessment of functional outcome. Cumulative Therapy Evaluation is: Low complexity. 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 Treatment Explanation - The following has been discussed with the patient: RX ordered/plan of care Anticipated outcomes Possible risks and side effects This patient would benefit from PT intervention to resume normal activities. Rehab potential is excellent. Frequency: 1 X week, once daily Duration: for 6 weeks Discharge Plan: Achieve all LTG. Independent in home treatment program. Reach maximal therapeutic benefit. Please refer to the daily flowsheet for treatment today, total treatment time and time spent performing 1:1 timed codes. Archana Lockhart - 08/05/2019 9:30 AM CDT [facility] Initial Evaluation Subjective: Pertinent medical history includes: Implanted device, menopausal, smoking, migraines/headaches, numbness/tingling and osteoarthritis. Objective: System Physical Exam General ROS Assessment/Plan: documented in this encounter Plan of Treatment Not on filedocumented as of this encounter Procedures Procedure Name Priority Date/Time Associated Diagnosis Comme nts [facility] SELF CARE MNGMENT Routine 08/06/2019 11:28 AM Muscle weakn ess TRAINING CDT (generalized) Mixed incontinen ce Urinary frequency [facility] THERAPEUTIC Routine 08/06/2019 11:28 AM Muscle weakness EXERCISES CDT (generalized) Mixed incontinen ce Urinary frequency documented in this encounter Visit Diagnoses Diagnosis Muscle weakness (generalized) Mixed incontinence Mixed incontinence urge and stress (male )(female) Urinary frequency documented in this encounter Care Teams Manager Telecom Relationship Specialty Start Date End Date Rajinder Mars MD PCP - General Family Practice 07/29/15 [facility] [address] [place] [phone] documented as of this encounter
--- OUTSIDE RECORDS SUMMARY | 2022-10-05 07:05 | XMS_ITS | Encounter Summary ---
:1940 Author Reason for Visit None recorded. Assessment and Plan 1. Atrophic vaginitis chronic stable 2. Chronic cystitis chronic improved ? urinalysis, dipstick 3. Nocturia new 4. Incomplete emptying of bladder new ? US, kidney - Please call patient to s chedule ? urodynamic testing, complex (PROC) ? Macrobid 100 mg capsule ? urodynamic studies: about these tests Discussion Note hx of prolapse surgery with co nocturia , daytime frequeny and some incontinence pvr 180 cc today to have urodyanics to help define doubel void Plan of Care Reminders Provider Appointments None recorded. ? ? Lab Urinalysis, Dipstick [facility]2022 [facility] None recorded. ? ? Procedures Urodynamic Testing, Complex 10/01/2022 ? (PROC) Surgeries None recorded. ? ? Imaging US, Kidney 10/01/2022 [facility] Depart ment Medications Name Start Date ? ? gabapentin 600 mg tablet ? TAKE TWO TABLETS BY MOUTH NIGHTLY AT BEDTIME Macrobid 100 mg capsule ? Take 1 capsule twice a day by oral route as directed for 3 days. omeprazole 20 mg capsule,delayed release ? TAKE 1 CAPSULE BY MOUTH ONE TIME DAILY pravastatin 10 mg tablet ? TAKE ONE TABLET BY MOUTH EVERY NIGHT AT BEDTIME rosuvastatin 20 mg tablet ? TAKE ONE TABLET BY MOUTH EVERY NIGHT AT BEDTIME sumatriptan 25 mg tablet ? TAKE 1 TABLET BY MOUTH FOR MIGRAINE NEEDED Medications Administered None recorded. Vitals None recorded. Results Lab Results Date Name Specimen Result Interpretation Description Value Range Status Address ? 10/01/2022 Urinalysis, UR ? Color yellow yellow Final [place] Dipstick -[facility]: [address] [facility] [address], [place] ? ? UR ? Appearance clear clear Final [place] [facility]: [address] [facility] [address], [place] ? ? UR ? Glucose negative negative Final [place] [facility] mg/dL mg/dL [facility]: [address] [place] [address], [place] ? ? UR ? Bilirubin negative negative Final [place] [facility]: [address] [place] [address], [place] ? ? UR ? Ketones negative negative Final [place] [facility] mg/dL mg/dL [facility]: [address] [place] [address], [place] ? ? UR ? Sp. [place] 1.010 1.010-1.0 Final [place] [facility] 25 [facility]: [address] [place] [address], [place] ? ? UR ? pH -[facility] 5.5 5.0-8.0 Final [place] [facility]: [address] [place] [address], [place] ? ? UR ? Protein negative negative Final [place] [facility] mg/dL mg/dL [facility]: [address] [place] [address], [place] ? ? UR ? Urobilinogen 0.2 normal Final [place] [facility]: [address] [place] [address], [place] ? ? UR ? Nitrites negative negative Final [place] [facility]: [address] [place] [address], [place] ? ? UR ? Blood negative negative Final [place] -[facility]: [address] [place] [address], [place] ? ? UR ABNORMAL Leukocytes trace negative Final [place] [facility]: [address] [place] [address], [place] ? ? UR ? Performed by romero Nayak ? Final [place] [facility]: [address] ? ? UR ? Total Urine 15 /mL ? Final [place] Volume (mL) [facility]: [address] [place] [address], [place] Allergies Code Code System Name Reaction Severity Onset 2670 RxNorm Codeine Vomiting ? ? Morphine Sulfate ? ? ? Problems Name Status Onset Date Source ? [...] not available Notes: TOTAL KNEE ARTHROPLASTY 10/01/2022 , [facility] Radiology Department [address] [place] [address] (Work Place) Vaccine List Vaccine Type COVID-19, mRNA, LNP-S, PF, 30 mcg/0.3 mL dose (Pfizer-BioNTech) 01/07/2021 01/28/2021 08/30/2021 COVID-19, mRNA, LNP-S, PF, 30 mcg/0.3 mL dose, alejandro-sucrose ([employer]-BioNTech) 03/21/2022 Hep A, adult 02/18/2008 09/10/2008 Hep B, adult 02/18/2008 03/29/2008 09/10/2008 Influenza vaccine, quadrivalent, adjuvan jesse 08/09/2020 08/23/2021 08/16/2022 influenza, high dose seasonal 09/22/2015 08/06/2017 09/23/2018 09/07/2019 influenza, injectable, quadrivalent, pre servative free 12/26/2009 influenza, seasonal, injectable 10/16/2003 10/01/200808/10/2012 novel [id number], all formulation s 12/26/2009 pneumococcal conjugate PCV 13 03/17/2015 10/28/2019 pneumococcal polysaccharide PPV23 06/16/2009 Td (adult) preservative free 11/19/2006 Tdap 09/09/2020 typhoid, ViCPs 02/18/2008 zoster recombinant 05/05/2022 07/25/2022 Social History Tobacco Smoking Status Former Smoker Marital status Single Race White Functional Status Unknown. Past Encounters 10/01/2022 Atrophic Vaginitis; Chronic Cystitis; No cturia; Incomplete Emptying of Bladder Radha Byers MD: [address] [facility] , [address], [place] [address], Ph. History of Present Illness Note: <div>82 yo female seen last over 2.5 yrs ago with hx of pop repair with mesh at [place] and hx of mixed incotnience with utis. </div><div>when last seen was using estrogren for UTI prevention, she is not using the estrogren cream for at least 2 years. </div><div>
</div><div>2/6 Cr 0.78 </div><div>no urines listed in her charting </div><div>no infections as she used to. she is not using soap near the vagina</div><div>
</div><div>she is coming back as she is bothered with nocturia 3-4 times per night. </div><div>DF q 2 hrs day times, she is drinking more as well </div><div>using a pantyliner (even a drop irritates her) </div><div>caffeine: 2 cups 8 oz in the morning </div><div>stops fluids at night near dinner also pills at night time with water.</div><div>BMs: more diarrhea, daily. </div><div>
</div> Review of Systems ? Comprehensive General Adult ROS Reported By: Patient Physical Exam ? Notes: <div><strong> PHYSICAL EXA MINATION:</strong></div><div><strong>External Genitalia: </strong> No hirs utism, no rash, no scarring, no cyst, no erythematous lesion, no papu lar lesion, no blanched lesion, no warty lesion. No edema.</div><div><strong> Urethral Meatus: </strong> Normal size. Normal position. No discharge.</div ><div><strong>Urethra: </strong> No tenderness, no mass, no scarring.{{No sm all* medium large}} hypermobility. {{No* with +}} leakage. small caruncle </di v><div>Bladder: Normal to palpation, no tenderness, no mass, normal size.</div><div><strong>Vagina: </strong> {{No mild* moderate severe}} atrophy, no stenosis. {{No* small medium large}} rectocele.{{No* small medium large}} cystocele. {{No* small medium large}} enterocele. No mesh felt.</d iv><div> <strong>Kegel: </strong> {{None weak* strong}} </div> <div><strong>Muscle tenderness :</strong> {{None* tight,tender}} sacro iliac {{None* tight,tender}} Levator {{None* tight,tender}} Obtur ator </div><div><strong>Cervix:</strong> No inflammation, no discharge, no lesion, no tenderness, no wart.</div><div><strong>Uter us: </strong> Normal size. Normal consistency. Normal position. No mobility . No descent.</div><div><strong> Parametria:</strong> No tend erness. No adnexal mass. Normal left ovary. Normal right ovary.</div><div><stro ng>Anus and Perineum: </strong> No hemorrhoids. No anal stenosis. No rectal fis sure, no anal fissure. No edema, no dimple, no perineal tenderness, no anal tenderness.</div><div>
</ div><div><strong>MULTI-SYSTEM PHYSICAL EXAMINATION:</strong></div>< div><strong>Constitutional:</strong> Well-nourished. No physical deformities. Normally developed. Good grooming.</div><div><stro ng>Respiratory:</strong> No labored breathing, no use of accessory muscles.</d iv><div><strong>Cardiovascular:</strong> Normal temperature, {{No* small med ium large}} swelling, {{No* +}} varicosities.</div><div><str robin>Skin:</strong> No paleness, no jaundice, no cyanosis. No lesion, no ulce r, no rash.</div><div><strong> Psychiatric: </strong> Oriented to time, oriented to place, oriented to person. No depression, no anxiety, no a gitation.</div><div><strong>Gastrointestinal: </strong> No mass, no tender ness, no rigidity,{{Non obese* obese}} abdomen.</div><div><strong>E yes:</strong> Normal conjunctivae. Normal eyelids.</div><div><strong>M usculoskeletal: </strong> Normal gait and station of head and neck.</div>
--- NOTE | 2022-10-05 07:15 | CRLHL7_ITS ---
For Patients: As a result of the Century Cures Act, medical imaging exams and procedure reports are released immediately into your electronic medical record. You may view this report before your referring provider. If you have questions, please contact your health care provider. CLINICAL HISTORY: INCOMPLETE EMPTYING OF BLADDER COMPARISON: none TECHNIQUE: Perez scale and color Doppler images were acquired of the kidneys and urinary bladder. FINDINGS: Left renal parapelvic cysts are present. No hydronephrosis or solid mass. No stone. The right kidney measures 11.1cm in length and the left kidney measures 10.3cm in length. The renal cortex appears of normal thickness. Prevoid bladder volume 191 cc. Postvoid bladder volume 135-146 cc. Bladder wall 2 millimeters. Mild layering debris noted. Color Doppler images reveal a normal appearance of both ureteral jets. IMPRESSION: Large postvoid residual bladder volume. No hydronephrosis. Dictated by Tian Sharpe MD @ 10/05/2022 1:04:15 PM (Electronically Signed)
== END 2022-10-05 07:02 | disposition home or self-care (01) ==
LOC: US 07:02
PROVIDERS: PCP Internal Medicine; Visit Provider Urology
DX: R39.14 Feeling of incomplete bladder emptying (principal); N28.1 Cyst of kidney, acquired
CPT/HCPCS: 76770

== ENCOUNTER 2022-11-20 13:59 | Outpatient (CLI) | payer MEDICARE, SELFPAY ==
[2022-11-20 21:50] LABS: Albumin* 3.8 g/dL (3.3-5.0); Chloride* 103 mmol/L (96-114); Sodium* 139 mmol/L (135-149)
[2022-11-20 21:51] LABS: Potassium* 4.9 mmol/L (3.6-5.1)
[2022-11-20 21:53] LABS: Aspartate Amino Transferase* 25 U/L (12-35); Bilirubin Total* 0.5 mg/dL (0.1-1.5); Blood Urea Nitrogen* 28 mg/dL (7-30); Carbon Dioxide* 32 mmol/L (20-32); Cholesterol* 119 mg/dL (90-199); Creatinine* 0.6 mg/dL (0.5-1.5); Estimated Glomerular Filt Rate 90 ml/min; Total Protein* 6.3 g/dL (6.0-8.3)
[2022-11-20 21:54] LABS: Alanine Aminotransferase* 18 U/L (4-35); Alkaline Phosphatase* 129 U/L (40-150); Calcium* 9.1 mg/dL (8.4-10.6); Glucose* 77 mg/dL (60-115); HDL Cholesterol* 35 mg/dL (>=50); LDL Cholesterol Calculated 46 mg/dL (<100); Triglycerides* 188 mg/dL (40-149)
== END 2022-11-20 14:00 | disposition home or self-care (01) ==
PROVIDERS: PCP Internal Medicine; Visit Provider Physician Assistant Medical
DX: E78.5 Hyperlipidemia, unspecified (principal); E78.1 Pure hyperglyceridemia; G62.9 Polyneuropathy, unspecified
CPT/HCPCS: 80053; 80061

== ENCOUNTER 2023-05-21 21:37 | Outpatient (REF) | payer MEDICARE, SELFPAY ==
--- OUTSIDE RECORDS SUMMARY | 2023-05-21 21:40 | XMS_ITS | Continuity of Care Document ---
Author Name Unknown Organization [facility] Address [address] [address] [place] [address] Phone Care Team Providers Care Inspector Paper Products Name Role Phone Simon Weinstein CRNA Unavailable Unavailable Allergies, Adverse Reactions, Alerts Substance Reaction Status Criticality morphine Active No Information codeine Vomiting Active No Information Medications Medication Instructions Dosage Effective Dates (start - stop) Status Comments Herbal Medications/Suppleme nts unknown niteworks- po - Active Vitamin D3 1,000 unit tablet take 1 by Oral route every day 1 - Active cranberry 400 mg capsule take 1 Capsule by Oral route every day 1 Capsule - Active sumatriptan 25 mg tablet take 1 tablet by oral route once with fluids as early as possible after the onset of a migraine attack;may repeat after 2 hours if headache returns, not to exceed 200mgin 24hrs 25 MG - Active Imvexxy Maintenance Pack 4 mcg vaginal insert insert 1 vaginal insert by vaginal route 2 times every week (every 3 or 4 days) 4 MCG - Active Neurontin 600 mg Tab Take two tablets by mouth daily - Active Advil 200 mg tablet take 2 Tablet by ORA L route every 6 hours as needed with food 400 MG - Active Procedures Procedure Date Colonoscopy Flex; W/remov Les- 19 Colonoscopy Flex; W/bx 1/mx Level Iv-surg Path Gross/micro 19 Colonoscopy Flex; W/remov Les- 14 Level Iv-surg Path Gross/micro 14 Colorectal Ca Screen Hi Risk I 09 Advance Directives Directive Yes / No Effective Date File Name No Information Encounters Encounter Description Practice Location Reason(s) For Visit Diagnoses Date Provider Providers Copied on Encounter [facility], [address] [address], [place], [place], [id number], [place] [phone] [facility] No Information 9 Js Montes. [address] [facility], [facility] [address], [place], [place], [id number] , [place]. [phone] Referring Provider: Saulo Nayak, [address] [facility] [address], [place], [address]. tel:[phone] [facility], [address] [address], [place], [place], [id number], [place] tel:[phone] [facility] Colorectal polypsEncounter for screening for malignant neoplasm of colonPersonal history of colonic polypsBenign neoplasm of cecumBenign neoplasm of transverse colonBenign neoplasm of cecum 9 Gricelda Vernon. [address] [address], [place], [place], [address] , [place]. tel:[phone] Lorie Youngblood MD. tel:[phone] ring Provider: Rajinder Betts, [address] [place], [address]. [phone] [facility], [address] [address], [place], [place], [id number], [place] [phone] [facility] Colonic polypColon Cancer ScreeningBenign Neoplasm ColonPersonal History Colon Polyps 4 Juarez Gambino. [address] [facility], [facility] [address], [place], [place], [address] , [place]. [phone] Referring Provider: Rajinder Betts, [address] [place], [address]. tel:[phone] [facility], [address] [address], [place], [place], [address], [place] [phone] [facility] Personal History Colon Polyps 9 Juarez Gambino. [address] [facility], [place], [place], [address] , [place]. tel:[phone] Referring Provider: Rajinder Mars MD C, [address] [place], [address]. tel:[phone] Family History Family Member Type Diagnosis Age At Onset Son Problem (finding) diverticulitis of colon Mother Problem (finding) malignant neoplasm of l adam Sister Problem (finding) GERD Son Problem (finding) gallbladder disease Father Problem (finding) stomach cancer Sister Problem (finding) gallbladder disease Sister Problem (finding) Irritable bowel syndrom e Mother Problem (finding) malignant neop lasm of breast in first degree relative Sister Problem (finding) diverticulitis of colon Payers Payer name Insurance type Covered libertarian ID Authoriza tikevin(s) [employer] Medicare MB [id number] Social History Type Description Quantity Date Captured Comments Sex Female Smoking Status No Information Chief Complaint And Reason For Visit No Information Reason For Referral Reason For Referral No Information Plan Of Treatment Date Type Action Status No Information History Of Present Illness Encounter Date Complaint History Of Prese nt Illness No Information Functional Status Date Functional Assessmen t No Information Instructions Date Instruction Additional Infor mation Colon Cancer Prevention Related to Colorectal polyps Colon Polyps Related to Color ectal polyps Hemorrhoids Related to Color ectal polyps Colon Cancer Prevention Related to Colonic polyp Colon Polyps Related to Colon ic polyp Assessments Type Assessment Date No Information Patient Care Teams Name Effective Dates (start - stop) Status Members No Information
[2023-05-21 22:43] LABS: Vitamin D 25 Hydroxy* 46 ng/mL (30-80)
== END 2023-05-21 21:38 | disposition home or self-care (01) ==
LOC: NPINS 21:37
PROVIDERS: PCP Internal Medicine; Visit Provider Orthopaedic Surgery
DX: M25.571 Pain in right ankle and joints of right foot (principal); M85.80 Other specified disorders of bone density and structure, unspecified site; G62.9 Polyneuropathy, unspecified
CPT/HCPCS: 82040; 82306

== ENCOUNTER 2023-05-29 11:02 | Outpatient (CLI) | payer MEDICARE, SELFPAY ==
--- NOTE | 2023-05-29 11:30 | CRLHL7_ITS ---
For Patients: As a result of the Cures Act, medical imaging exams and procedure reports are released immediately into your electronic medical record. You may view this report before your referring provider. If you have questions, please contact your health care provider. BILATERAL SCREENING MAMMOGRAM WITH COMPUTER-AIDED DETECTION AND TOMOSYNTHESIS TECHNIQUE: CC and MLO views were obtained. These mammographic images have been obtained using full-field digital technique. These mammographic images were interpreted with the benefit of computer-aided detection. Breast tomosynthesis was used in this interpretation. COMPARISON FILM: 05/22/21, 05/19/20, 12/01/18. FINDINGS: There are scattered areas of fibroglandular density. IMPRESSION: There is no radiographic evidence for malignancy. ASSESSMENT: BI-RADS Category 1: Negative RECOMMENDATION: Routine screening mammogram in 1 year. A lay language report of this examination will be provided to the patient. TIAN MASSEY M.D. Diagnostic Radiologist [email or web address] Transcribed: 05/29/2023, 2:[address]/Dictated by: Tian Massey MD @ 05/29/2023 11:51:00 AM (Electronically Signed)
== END 2023-05-29 11:03 | disposition home or self-care (01) ==
LOC: MAMMO 11:03
PROVIDERS: PCP Internal Medicine; Visit Provider Internal Medicine
DX: Z12.31 Encounter for screening mammogram for malignant neoplasm of breast (principal)
CPT/HCPCS: 77063; 77067

== ENCOUNTER 2023-07-08 20:40 | Emergency (ER) | payer MEDICARE, SELFPAY ==
[2023-07-08 20:53] VITALS: BP 145/66; PULSE 74; RESP 18; TEMP 36.7; O2SAT 99; BMI 23.6
--- NOTE | 2023-07-08 21:56 | CRLHL7_ITS ---
For Patients: As a result of the Cures Act, medical imaging exams and procedure reports are released immediately into your electronic medical record. You may view this report before your referring provider. If you have questions, please contact your health care provider. INDICATION: Chest pain. TECHNIQUE: Chest 2 views. COMPARISON: February 04, 2022. FINDINGS: Cardiovascular and mediastinum: Heart size and vasculature are normal in caliber and appearance. Lungs and pleural spaces: Lungs are clear. No sign of infiltrate or mass. No sign of pleural effusion. No pneumothorax. Bones and soft tissues: No significant findings. IMPRESSION: No acute findings and no significant changes from the prior exam. Dictated by Saulo Mcgill MD @ 07/08/2023 10:17:10 PM (Electronically Signed)
--- NOTE | 2023-07-08 21:57 | ED_ITS ---
HPI - General Adult General Time Seen by Provider: 21:40 Date Seen: 07/08/23 Chief complaint: Chest Pain Stated complaint: Chest pain Time Seen by Provider: 07/08/23 21:00 Source: patient, RN notes reviewed and old records reviewed Mode of arrival: ambulatory Limitations: no limitations History of Present Illness HPI narrative: 83-year-old female who presents today with substernal chest pain. She has met for brushing her dog and she experienced substernal chest pain the last about 2 hours. No associated nausea, vomiting, or shortness of breath. Did not take a ny medication and pain is now resolved. Pain started about 3 hours prior to coming the emergency department. No prior cardiac history, no lightheadedness or dizziness with this. Related Data Home Medications Medication Instructions Recorded Confirmed digestive enzymes (Enzyme Digest 1 cap PO QDAY 08/10/22 07/08/23 capsule) lactobacillus combination no.4 3 3,000 mmu cells PO QDAY 08/10/22 07/08/23 billion cell capsule (Probiotic) multivitamin 1 tab PO QDAY 08/10/22 07/08/23 omega 4-iqo-ocv-fish oil 100 2 cap PO QDAY 08/10/22 07/08/23 mg-160 mg-1,000 mg capsule (Fish Oil) pravastatin 10 mg tablet 10 mg PO HS heart 07/08/23 07/08/23 trospium 20 mg tablet 20 mg PO BID 07/08/23 07/08/23 Previous Rx's Medication Instructions Recorded gabapentin 600 mg tablet 600 mg PO TID #270 tabs 11/20/22 Allergies Allergy/AdvReac Type Severity Reaction Status Date / Time codeine AdvReac Mild nausea and Verified 07/08/23 20:56 vomitting morphine AdvReac Mild Nausea Verified 07/08/23 20:56 PFSH PFSH Surgical History (Updated 11/02/22 @ 16:28 by Madelaine Middleton) History of cholecystectomy (12/11/10) ?Z90.49 - Acquired absence of other specified parts of digestive tract (ICD- 10) History of tubal ligation (12/11/10) ?Z98.51 - Tubal ligation status (ICD-10) History of tonsillectomy (12/11/10) ?Z90.89 - Acquired absence of other organs (ICD-10) History of hysterectomy (02/29/12) ?Z90.710 - Acquired absence of both cervix and uterus (ICD-10) History of colonoscopy with polypectomy ?Z98.890 - Other specified postprocedural states (ICD-10) ?Z86.010 - Personal history of colonic polyps (ICD-10) Status post bilateral foot surgery (04/07/08) ?Z98.890 - Other specified postprocedural states (ICD-10) Status post finger joint fusion (01/04/10) ?Z98.1 - Arthrodesis status (ICD-10) Status post right foot surgery (01/04/10) ?Z98.890 - Other specified postprocedural states (ICD-10) Status post arthroscopy of right shoulder (06/02/14) ?Z98.890 - Other specified postprocedural states (ICD-10) Status post left foot surgery (~2019) ?Z98.890 - Other specified postprocedural states (ICD-10) 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) ?Z96.659 - Presence of unspecified artificial knee joint (ICD-10) History of foot surgery (09/20/10) ?Z98.890 - Other specified postprocedural states (ICD-10) Family History (Updated 11/02/22 @ 16:29 by Madelaine Middleton) Mother Breast cancer CHF (congestive heart failure) Sister COPD (chronic obstructive pulmonary disease) Father Stomach cancer Social History (Reviewed 02/07/23 @ 12:48 by Amira Isabel ~ [facility]) Narrative: Does not drink alcohol Does not use illicit drugs Former smoker Smoking Status: Former smoker What tobacco products do you use: cigarettes Smoking quit date/years: >15 years ago Do you use any of these nicotine containing products: None Second hand tobacco smoke exposure: No How often do you have a drink containing alcohol: monthly or less How many standard drinks containing alcohol do you have on a typical day: 1 or 2 How often do you have six or more drinks on one occasion: Never AUDIT-C Alcohol total score: 1 Non-prescribed substance use: denies use service: No Exam Narrative: Exam Narrative: General: Well-developed and well-nourished, no acute distress Head: Atraumatic and normocephalic Eyes: Pupils are equal reactive, extraocular motions intact, conjunctiva clear ENT: External nose and ears are normal, posterior pharynx without erythema or exudate Neck: No midline cervical tenderness, full spontaneous range of motion the neck, trachea midline, no adenopathy Heart: Regular rate and rhythm no murmurs or thrills Lungs: Clear to auscultation bilaterally without wheezes or crackles Abdomen: Soft, nontender, nondistended with active bowel sounds Musculoskeletal: No tenderness, deformity, or edema Neurologic: Awake, alert, and oriented x3, no gross focal neurologic deficits, cranial nerves intact as tested Psych: Mood and affect are appropriate Skin: No rashes Const: Vital Signs, click to edit/add: Vital Signs - 24 hr 07/08/23 20:53 Temperature 98.0 F Pulse Rate [Right Pulse Oximeter] 74 Respiratory Rate 18 Blood Pressure [Ri ght Upper Arm] 145/66 H Pulse Oximetry 99 Oxygen Delivery Me thod Room Air Course Course Hospital Course: Patient seen examined, prior records reviewed. Patient presents today with episode of chest pain at home, substernal, nonradiating, occurred when she was bending forward. EKG is reassuring, labs are ordered including troponin. EKG is reassuring and patient is currently pain-free. Reevaluation(s) Time of Reevaluation #1: 23:01 Reevaluation #1: Labs independently interpreted be me with negative troponin, mild hyponatremia, normal CBC. Chest x-ray independently interpreted by me negative for acute findings. Patient remains pain-free. Discussed admission for continued observation, patient declines and would like to go home with outpatient follow- up. Vital Signs Vital signs: Initial Vital Signs Temperature 98.0 F 07/08/23 20:53 Temperature Source Temporal Artery Scan 07/08/23 20:53 Pulse Rate 74 07/08/23 20:53 Respiratory Rate 18 07/08/23 20:53 Blood Pressure 145/66 H 07/08/23 20:53 Blood Pressure Mean 92 07/08/23 20:53 Blood Pressure Position Sitting 07/08/23 20:53 Pulse Oximetry 99 07/08/23 20:53 Oxygen Delivery Method Room Air 07/08/23 20:53 Vital Signs Temperature 98.0 F 07/08/23 20:53 Pulse Rate 74 07/08/23 20:53 Respiratory Rate 18 07/08/23 20:53 Blood Pressure 145/66 H 07/08/23 20:53 Pulse Oximetry 99 07/08/23 20:53 Oxygen Delivery Method Room Air 07/08/23 20:53 Temperature 98.0 F 07/08/23 20:53 Pulse Rate 74 07/08/23 20:53 Respiratory Rate 18 07/08/23 20:53 Blood Pressure 145/66 H 07/08/23 20:53 Pulse Oximetry 99 07/08/23 20:53 Oxygen Delivery Method Room Air 07/08/23 20:53 Medical Decision Making Lab Data Labs: Lab Results 07/08/23 07/08/23 Range/Units 21:47 22:20 WBC 6.98 (4.50-11.00) K/uL RBC 3.82 L (4.00-5.20) m/uL Hgb 13.3 (12.0-16.0) gm/dL Hct 38.9 (33.0-51.0) % MCV 102 H (80-100) fL MCH 35 H (26-34) pg MCHC 34 (32-36) gm/dL RDW Coeff of Laurent 12.0 (11.5-15.5) % Plt Count 178 (140-440) K/uL Neut % (Auto) 56.7 (42.0-72.0) % Lymph % (Auto) 32.7 (20-44) % [place] % (Auto) 7.3 (0.0-11.0) % Eos % (Auto) 2.0 (0.0-7.0) % Baso % (Auto) 0.3 (0.0-3.0) % Neut # (Auto) 3.96 (1.7-7.0) K/uL Lymph # (Auto) 2.28 (0.90-2.90) K/uL [place] # (Auto) 0.50 (0.00-0.90) K/UL Eos # (Auto) 0.14 (0.00-0.50) K/uL Baso # (Auto) 0.02 (0.00-0.30) K/uL Abs Immat Gran (auto) 0.07 (0.00-0.30) K/uL Imm/Tot Granulo (auto) 1.0 % Sodium 132 L (135-149) mmol/L Potassium 5.1 (3.6-5.1) mmol/L Chloride 95 L (96-114) mmol/L Carbon Dioxide 33 H (20-32) mmol/L BUN 21 (7-30) mg/dL Creatinine 0.7 (0.5-1.5) mg/dL Estimated Creat Clear 43.75 Estimated GFR 86 ml/min Glucose 87 (60-115) mg/dL Calcium 9.1 (8.4-10.6) mg/dL Magnesium 1.9 (1.5-2.6) mg/dL POC Troponin I 0.00 L (0.01-0.04) ng/ml ECG Data Attestation: I personally reviewed and interpreted this ECG as follows: Prior ECG tracings: not available for review Interpretation: Performed at 8:55 p.m. demonstrates normal sinus rhythm rate 65, no acute ST elevations or depressions, normal intervals, normal axis, QTC 430, NV 144. No prior for comparison. Discharge Plan Discharge Clinical Impression: Chest pain Patient Disposition: Home, Self-Care Condition: Stable Instructions: Chest Pain (DC) Additional Instructions: Your tests today do not show any sign of heart damage or heart attack. Follow- up with your primary care doctor this week for further testing. Activity Level: No Restrictions Prescriptions: No Action multivitamin Tablet 1 tab PO QDAY Probiotic 3 billion cell capsule 3,000 mmu cells PO QDAY Rx Instructions: administer with a meal Enzyme Digest Capsule 1 cap PO QDAY Rx Instructions: administer with food; swallow whole; do not crush/chew/dissolve/break/cut Fish Oil 100-160-1,000 mg capsule 2 cap PO QDAY gabapentin 600 mg tablet 600 mg PO TID Qty: 270 3RF pravastatin 10 mg tablet 10 mg PO HS trospium 20 mg tablet 20 mg PO BID Follow Up/Referrals: Lorie Youngblood MD [Primary Care Provider] - Stand Alone Forms: My[facility] Info Instructions
--- NOTE | 2023-07-08 22:01 | ED.NURSE ---
Pt reports the chest pain started while she was brushing her large dog. Pain has now resolved. EKG showed normal sinus rhythm, given to Dr. Mcgee for review. Pt placed on patient monitor.
[2023-07-08 22:41] LABS: Chloride* 95 mmol/L (96-114); Potassium* 5.1 mmol/L (3.6-5.1); Sodium* 132 mmol/L (135-149)
[2023-07-08 22:44] LABS: Basophils Absolute Auto 0.02 K/uL (0.00-0.30); Basophils Percent Auto 0.3 % (0.0-3.0); Carbon Dioxide* 33 mmol/L (20-32); Creatinine* 0.7 mg/dL (0.5-1.5); Eosinophils Absolute Auto 0.14 K/uL (0.00-0.50); Est. Creatinine Clearance* 43.75; Estimated Glomerular Filt Rate 86 ml/min; Hematocrit 38.9 % (33.0-51.0); Hemoglobin* 13.3 gm/dL (12.0-16.0); Immature Granulocytes Abs Auto 0.07 K/uL (0.00-0.30); Lymphocytes Absolute Auto 2.28 K/uL (0.90-2.90); Lymphocytes Percent Auto 32.7 % (20-44); Mean Corpuscular HGB Conc 34 gm/dL (32-36); Mean Corpuscular Hemoglobin 35 pg (26-34); Mean Corpuscular Volume 102 fL (80-100); Monocytes Percent Auto 7.3 % (0.0-11.0); Neutrophils Absolute Auto 3.96 K/uL (1.7-7.0); Neutrophils Percent Auto 56.7 % (42.0-72.0); Platelet Count* 178 K/uL (140-440); Red Blood Count 3.82 m/uL (4.00-5.20); White Blood Count* 6.98 K/uL (4.50-11.00)
[2023-07-08 22:45] LABS: Blood Urea Nitrogen* 21 mg/dL (7-30); Calcium* 9.1 mg/dL (8.4-10.6); Glucose* 87 mg/dL (60-115); Magnesium* 1.9 mg/dL (1.5-2.6)
[2023-07-08 22:48] LABS: Slide Review Reflex No
== END 2023-07-08 23:12 | disposition home or self-care (01) ==
PROVIDERS: Emergency Provider Family Medicine; PCP Internal Medicine
DX: R07.9 Chest pain, unspecified (principal)
CPT/HCPCS: 36415; 71046; 80048; 83735; 84484; 85025; 93005; 99284

== ENCOUNTER 2024-01-03 09:33 | Outpatient (CLI) | payer MEDICARE, SELFPAY | END 2024-01-03 09:34 | disposition home or self-care (01) | LOC: CT 09:34 | PROVIDERS: PCP Internal Medicine; Visit Provider Orthopaedic Surgery Sports Medicine | DX: M19.011 Primary osteoarthritis, right shoulder (principal); M12.811 Other specific arthropathies, not elsewhere classified, right shoulder; M75.101 Unspecified rotator cuff tear or rupture of right shoulder, not specified as traumatic | CPT/HCPCS: 73200 ==

== ENCOUNTER 2024-01-16 10:25 | Outpatient (CLI) | payer MEDICARE, SELFPAY | END 2024-01-16 10:26 | disposition home or self-care (01) | PROVIDERS: PCP Internal Medicine; Visit Provider Physician Assistant Medical | DX: E78.2 Mixed hyperlipidemia (principal); Z79.899 Other long term (current) drug therapy | CPT/HCPCS: 80061; 84450; 84460 ==

== ENCOUNTER 2024-01-27 06:27 | Inpatient (IN) | payer MEDICARE, SELFPAY ==
[2024-01-27] VITALS (23 sets, daily range): BP systolic 94–144; BP diastolic 49–93; PULSE 62–82; RESP 14–20; TEMP 35–36.7; O2SAT 87–98; BMI 23.8
[2024-01-27] MEDS: ACETAMINOPHEN 500 MG TABLET 1000 MG PO ×3 (07:00→20:59)
[2024-01-27] MEDS: LACTATED RINGERS 1000 ML 1,000 ML 100 ML IV ×2 (07:00→09:10)
[2024-01-27] MEDS: OXYCODONE (CR) 10 MG TAB.ER.12H PO (07:00)
[2024-01-27] MEDS: SODIUM CHLORIDE 0.9 % (FLUSH) 10 ML SYRINGE IVF (07:00)
--- NOTE | 2024-01-27 07:14 | XR_ITS ---
Patient: LEIF HUTCHISON Facility:?[facility] Patient ID:?[id number] Site Patient ID:?[id number]. Site :?[id number] Study:?XRay-Extremity Right SHOULDER 2V-01/27/2024 10:23:18 AM Ordering Physician:BRIAN Final Report: Indication: Postop Technique: Two views right shoulder Findings/Impression: Hardware from a right total shoulder arthroplasty is in satisfactory position. Bone alignment is normal. No sign of acute fracture. Postop changes are within normal limits. Dictated by Tian Sharpe MD @ 01/27/2024 10:25:36 AM Signed by:?Tian Sharpe MD @01/27/2024 10:25:36 AM (Electronic Signature)
[2024-01-27] MEDS: fentaNYL 100 MCG/2 ML inj IVP (07:30)
[2024-01-27] MEDS: MIDAZOLAM HCL 1 MG/ML inj IVP (07:30)
--- NOTE | 2024-01-27 07:43 | SUR.PREOP ---
TIME?OUT:?0730 PT/RN/MDA?VERIFICATION?OF?SURGICAL?SITE,?PROCEDURE,?AND?CONSENT OBTAINED?PRIOR?TO?INVASIVE?PROCEDURE.
[2024-01-27] MEDS: CEFAZOLIN 2 GM in 0.9 % SODIUM CHLORIDE Mini-bag 100 ML IVPB (07:48)
[2024-01-27] MEDS: TRANEXAMIC ACID 100 MG/ML INJ 1000 MG IV (07:48)
--- NOTE | 2024-01-27 09:34 | W.PM.H&PU ---
History & Physical Update History & Physical Update H&P Reviewed and patient assessed: No changes noted
--- NOTE | 2024-01-27 09:35 | P.ORPRC_ITS ---
Procedure Note Date of procedure: 01/27/24 Procedure: PREOPERATIVE DIAGNOSIS: 1. Right shoulder osteoarthrosis, with deficient supraspinatus rotator cuff 2. Right long head of the biceps tendinopathy and tenosynovitis POSTOPERATIVE DIAGNOSIS: 1. Right shoulder osteoarthrosis, with deficient supraspinatus rotator cuff 2. Right long head of the biceps tendinopathy and tenosynovitis PROCEDURE: 1. Right reverse shoulder arthroplasty. 2. Right long head of biceps open tenodesis SURGEON: Home Neal MD. ASSET LIABILITY ANALYST: Scar CONNOLLY - Of note, a skilled geological survey field assistant was critical for this case to aid in patient positioning, tissue retraction, limb manipulation/positioning, retraction for glenoid exposure, which was challenging, awareness and protection of critical structures, and closure. ANESTHESIA: General plus supraclavicular block EBL: 100 ml IMPLANTS: DJ0 surgical Altivate humeral stem size 10 small shell, short with P2 porous coating vitamin E neutral poly small socket insert RSP glenoid base plate P2 porous coating with 4 perimeter locking screws 32 neutral glenosphere with retaining screw COMPLICATIONS: None evident INDICATIONS: The patient is a pleasant 83-year-old female who has experienced severe right shoulder pain and difficulty with use. Workup included imaging which revealed severe osteoarthrosis along with concern for rotator cuff quality. Physical exam was consistent with associated pain. Given the deformity, the dysfunction, and the pain, and failure of nonoperative management, recommendation was made for surgery. DESCRIPTION OF PROCEDURE: Following a thorough discussion of risks, benefits, and alternatives, consent was obtained and the left shoulder was marked. The patient was brought to the operating room and placed supine on the operating table. Induction of anesthesia was undertaken. 1 g IV Ancef and 1 g tranex amic acid was administered within 1 hr of incision preoperatively. Appropriate time-out was performed identifying proper patient, site, and procedure. The operative extremity was prepped and draped in the appropriate sterile fashion using ChloraPrep after the patient was positioned in the lazy beach chair position with head in neutral alignment and all bony prominences well padded. A longitudinal incision was made for deltopectoral approach. Deltoid was retracted laterally. Cephalic vein was identified and retracted laterally initially, but did require ligation eventually. The clavipectoral fascia was identified and divided longitudinally staying lateral to the conjoined tendon / coracoid. The conjoined tendon was protected with a blunt Hohmann. The long head of the biceps tendon was identified and the bicipital sheath released. The upper 1/4 of the pectoralis major was also released from its insertion. The long head of the biceps was tenodesed to the pectoralis major tendon. The remaining proximal tendon tissue was excised. The rotator cuff was inspected and found to have good integrity with the subscapularis but fair integrity with a supraspinatus], and a decision for a reverse shoulder arthroplasty was confirmed. The long head of biceps, of note, was significant flattened, thickened, with abundant tenosynovitis. A subscapularis cuff of tissue was left via tenotomy for later repair with the remaining subscapularis released in a subperiosteal fashion with the Bovie. This was tagged for later repair. The 3 sisters were cauterized. The upper subscapularis was released from the capsule with a curved Moffett scissors towards the glenoid. The inferior subscapularis was divided from the capsular tissue on its caudal surface with particular caution for the axillary nerve. This was palpated anterior to the subscapularis both prior to and near the finish of the case. Inferior humeral head osteophytes were excised with caution taken throughout the case with regards to the axillary nerve. The humerus was dislocated, and humeral head cut completed. Then a protector plate was applied. We turned our attention to the glenoid. The humerus was retracted posteriorly. The subscap was protected anteriorly and the labrum/long head biceps origin was excised circumferentially. The capsule was released along the anterior and inferior portions of the glenoid cautiously with a Callejas elevator being careful not to penetrate deep. The glenoid had appropriate exposure, and was prepared with the cannulated system with a target of approximately 5-10? of inferior tilt and neutral anteversion (patient had 9? of retroversion initially). [Utilizing the match templating process, the pin location was estimated, placed, and palpated along the anterior glenoid. It could not clearly be palpated confirming that its position was appropriate. We also estimated given the 10 degree inferior tilt guide and adjusted based on the preop plan. The tap was placed and reaming performed over the tap. The real base plate was opened, and inserted, and excellent compression/purchase was achieved with the central screw. Peripheral screws were then drilled, measured, and placed. The glenosphere was then placed consistent with the preoperative plan utilizing the above noted glenosphere. After securing the glenosphere with the locking, torque limited screw, attention was turned back to the humerus. A canal finder was placed followed by various reamers by hand. The real humeral stem was then opened and inserted with excellent metaphyseal fit and stability. Trial poly was placed and the shoulder reduced. Excellent reduction and stability achieved with appropriate tension on the conjoined tendon. At this stage, trial implants were removed, and the real implants inserted and the shoulder reduced. A 3 minute Betadine soak was performed followed by a thorough irrigation with normal saline. Subscapularis was repaired with #1 PDS to the cuff of tissue on the lesser tuberosity. Excellent reapproximation of tissue achieved. Hemostasis was found to be appropriate. The deltopectoral interval was reapproximated with 0 Vicryl, subcutaneous and subcuticular closure was then performed with number 2-0 Vicryl and 4-0 Monocryl, respectively. A skilled geological survey field assistant was critical for this case to aid in patient positioning, tissue retraction, limb manipulation/positioning, retraction for glenoid exposure, which was challenging, awareness and protection of critical structures, and closure. PLAN: 1. Sling at all times for the operative upper extremity. 2. AROM of elbow, forearm, wrist, and digits as tolerated. 3. PT/OT consults for education and assistance. 4. Social consult for discharge planning. 5. 23 hr perioperative antibiotics. 6. Early ambulation, and SCDs for DVT prophylaxis. 7. Admit to the hospital for the above 8. Analgesics p.r.n.
--- NOTE | 2024-01-27 10:16 | W.ANESCHARGE ---
Anesthesia Charges Start Date/Time Anesthesia Start Date: 01/27/24 Anesthesia Start Time: 07:34 Stop Date/Time Anesthesia Stop Date: 01/27/24 Anesthesia Stop Time: 10:02
--- NOTE | 2024-01-27 11:20 | P.NB_ITS ---
Nerve Block Nerve Block Time Seen by Provider: 07: Date Seen: 01/27/24 Type of block requested by surgeon for post-operative analgesia: supraclavicular Side: right Time out performed: Yes Verification of patient name: Yes Verification of date of : Yes Site marking: site marked Name of person performing procedure: Juan Continuous monitoring Was continuous monitoring of O2 sat, B/P, technology resource teacher, recorded every 15 minutes?: Yes Procedure Checklist: sterile prep, needles and gloves Ultrasound guided. Images saved: Yes Medications given in 5ml increments after negative aspiration: Ropivicaine %: 0.5 mL: 20 Needle gauge: 22 Decadron (mg): 10 Precedex (mcg): 25 Patient tolerated procedure well: Yes Block Charges Block Charge (with Pro Fee): Brachial Plexus Use of Ultrasound Machine for Block: Yes- US Guidance/pain block
--- NOTE | 2024-01-27 11:20 | W.ANESCHARGE ---
Anesthesia Charges Start Date/Time Anesthesia Start Date: 01/27/24 Anesthesia Start Time: 07:34 Stop Date/Time Anesthesia Stop Date: 01/27/24 Anesthesia Stop Time: 10:02 Summary Extremes of Age - Over 70 or under 1: MDA
[2024-01-27] MEDS: CEFAZOLIN 1 GM in 0.9 % SODIUM CHLORIDE Mini-bag 100 ML IVPB ×2 (14:34→22:55)
--- NOTE | 2024-01-27 15:17 | PC.NURSE ---
End of Shift Note: Patient arrived to the unit around 11:30 from PACU. She had a block placed and has not complained of pain as of yet. Did state she was getting a little sensation back but is not able to wiggle her fingers yet. She did receive scheduled tylenol and was assisted to sit up in the chair. She is tolerating her diet. VSS. Will continue to monitor until next shift arrives.
[2024-01-27] MEDS: BENZOCAINE/MENTHOL 1 EACH LOZENGE MUCOUS MEM ×3 (16:31→22:34)
--- NOTE | 2024-01-27 16:58 | PC.SOCIAL ---
Discharge planning: Met with pt multiple times throughout the day regarding discharge plan. Pt is requesting rehab placement at a group home facility. Provided pt with resource list of facilities with Department of Health ratings. Pt initially requested placement at [facility] and was accepted to a double room at that facility for discharge tomorrow. When social group worker met with pt, she refused a double room and requested a private room at one of the following facilities. Contacted the following facilities with the listed results: 1. [facility] - no bed available for tomorrow. 2. [facility] - only a shared room available. 3. [facility] - only a shared room available. 4. [facility] - has a private room and offered for admit tomorrow between 11-1 or 3pm-7pm. Met with pt who is accepting the private room at [facility] and has requested her brother pick her up for transport from the hospital at noon tomorrow. rubber factory worker to follow up as needed.
--- NOTE | 2024-01-27 17:26 | P.IMCN_ITS ---
Date of Consult Consult date: 01/27/24 Primary Care Provider: Lori Barreto PA-C Consult Narrative Reason for consult: Medical management of comorbidities Narrative: Sheila Blackburn is a 83 year old female who presented to the hospital today for an elective R total shoulder with Dr. Neal of Orthopedic Surgery. There were no surgical or anesthetic complications noted during procedure. Patient's H&P reviewed, PCP is Lori Barreto. Past medical history significant for: Osteopenia, peripheral neuropathy, urinary incontinence History of blood clots: No Postoperative plan: SNF given right hand dominance; patient also lives alone Review of Systems Status of ROS: Reports: 10 or more systems reviewed and unremarkable except as noted in History and below [facility] Medical History (Updated 01/23/24 @ 13:02 by Deysi Hercules RN) Hyperlipidemia ?E78.5 - Hyperlipidemia, unspecified (ICD-10) Tubular adenoma of colon (07/28/19) ?D12.6 - Benign neoplasm of colon, unspecified (ICD-10) Recurrent urinary tract infection (12/11/10) ?N39.0 - Urinary tract infection, site not specified (ICD-10) Polyp of colon (12/11/10) ?K63.5 - Polyp of colon (ICD-10) Peripheral neuropathy (12/11/10) ?G62.9 - Polyneuropathy, unspecified (ICD-10) Osteopenia (12/11/10) ?M85.80 - Other specified disorders of bone density and structure, unspecified site (ICD-10) Migraine headache (12/11/10) ?G43.909 - Migraine, unspecified, not intractable, without status migrainosus (ICD-10) Mean red blood cell volume increased ?R71.8 - Other abnormality of red blood cells (ICD-10) Lung nodule (12/11/10) ?R91.1 - Solitary pulmonary nodule (ICD-10) Hypertriglyceridemia ?E78.1 - Pure hyperglyceridemia (ICD-10) Counseling regarding advanced directives (11/19/17) ?Z71.89 - Other specified counseling (ICD-10) Scapular dyskinesis ?G25.89 - Other specified extrapyramidal and movement disorders (ICD-10) Right rotator cuff tear arthropathy ?M75.101 - Unspecified rotator cuff tear or rupture of right shoulder, not specified as traumatic (ICD-10) ?M12.811 - Other specific arthropathies, not elsewhere classified, right shoulder (ICD-10) Osteoarthritis of left knee ?M17.12 - Unilateral primary osteoarthritis, left knee (ICD-10) Surgical History (Updated 01/27/24 @ 18:54 by Lynda Eisenberg MD) Status post total shoulder arthroplasty ?Z96.619 - Presence of unspecified artificial shoulder joint (ICD-10) History of cholecystectomy (12/11/10) ?Z90.49 - Acquired absence of other specified parts of digestive tract (ICD- 10) History of tubal ligation (12/11/10) ?Z98.51 - Tubal ligation status (ICD-10) History of tonsillectomy (12/11/10) ?Z90.89 - Acquired absence of other organs (ICD-10) History of hysterectomy (02/29/12) ?Z90.710 - Acquired absence of both cervix and uterus (ICD-10) History of colonoscopy with polypectomy ?Z98.890 - Other specified postprocedural states (ICD-10) ?Z86.010 - Personal history of colonic polyps (ICD-10) Status post bilateral foot surgery (04/07/08) ?Z98.890 - Other specified postprocedural states (ICD-10) Status post finger joint fusion (01/04/10) ?Z98.1 - Arthrodesis status (ICD-10) Status post right foot surgery (01/04/10) ?Z98.890 - Other specified postprocedural states (ICD-10) Status post arthroscopy of right shoulder (06/02/14) ?Z98.890 - Other specified postprocedural states (ICD-10) Status post left foot surgery (~2019) ?Z98.890 - Other specified postprocedural states (ICD-10) 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) ?Z96.659 - Presence of unspecified artificial knee joint (ICD-10) History of foot surgery (09/20/10) ?Z98.890 - Other specified postprocedural states (ICD-10) Family History (Updated 11/02/22 @ 16:29 by Madelaine Middleton) Mother Breast cancer CHF (congestive heart failure) Sister COPD (chronic obstructive pulmonary disease) Father Stomach cancer Social History Narrative: Does not drink alcohol Does not use illicit drugs Former smoker What is your current living situation?: I presently have a place to live Problems where you live: no known problems Problems where you live details: none In the past 12 months, utilities in danger of being shut off: no In past 12 months, lack of transportation kept you from medical appts, meetings, work, or getting things needed for daily living: no In the past 12 mos, have been you worried that your food would run out before you had money to buy more?: never true In the past 12 mos, the food you bought just didn't last and you didn't have money to buy more?: never true Smoking Status: Never smoker Do you use any of these nicotine containing products: None Second hand tobacco smoke exposure: No How often do you have a drink containing alcohol: never How many standard drinks containing alcohol do you have on a typical day: 1 or 2 How often do you have six or more drinks on one occasion: Never AUDIT-C Alcohol total score: 0 Non-prescribed substance use: denies use Caffeine: Yes (2c/day) How often does anyone, including family, friends and others, physically hurt you : never How often does anyone, including family, friends and others, insult or talk down to you: never How often does anyone, including family, friends and others, threaten you with harm: never How often does anyone, including family, friends and others, scream or curse at you: never service: No Meds Home Medications and Allergies Home Medications Medication Instructions Recorded Confirmed Type digestive enzymes (Enzyme Digest 1 cap PO DAILY 08/10/22 01/27/24 History capsule) lactobacillus combination no.4 3 3,000 mmu cells PO DAILY 08/10/22 01/27/24 History billion cell capsule (Probiotic) trospium 20 mg tablet 20 mg PO BID 07/08/23 01/27/24 History multivitamin (Multiple Vitamins 1 tab PO DAILY 10/30/23 01/27/24 History tablet) gabapentin 600 mg tablet 1,200 mg PO QHS 01/27/24 01/27/24 History gabapentin 600 mg tablet 600 mg PO QAM 01/27/24 01/27/24 History Allergies Allergy/AdvReac Type Severity Reaction Status Date / Time codeine AdvReac Mild nausea and Verified 01/16/24 10:40 vomitting morphine AdvReac Mild Nausea Verified 01/16/24 10:40 Exam Narrative: Exam Narrative: GEN: Alert and sitting up in bed, answering questions appropriately HEENT: EOMIs bilaterally, no scleral icterus CV: RRR, + systolic murmur heard best at RSB, no radiation (per patient, she's had murmur for years and is asymptomatic) R: LCTA bilaterally without concerning wheezing, air movement adequate Ext: wwp, no concerning edema Skin: No concerning skin lesions or rashes on exposed skin Neuro: Nonfocal Psych: Appropriate Const: Vital Signs, click to edit/add: Vital Signs - 24 hr 01/27/24 07:00 01/27/24 09:57 01/27/24 10:05 Temperature 97.2 F L 97.0 F L Pulse Rate 73 70 65 Pulse Rate [Left P ulse Oximeter] Respiratory Rate 16 14 16 Blood Pressure 134/66 116/60 106/55 L Blood Pressure [Le ft Arm] Pulse Oximetry 98 89 95 Oxygen Delivery Me thod Room Air Nasal Cannula Nasal Cannula Oxygen Flow Rate 2 2 Fraction of Inspir ed Oxygen 100 100 01/27/24 10:10 01/27/24 10:15 01/27/24 10:20 Temperature Pulse Rate 68 67 72 Pulse Rate [Left P ulse Oximeter] Respiratory Rate 14 14 16 Blood Pressure 94/70 102/54 L 106/56 L Blood Pressure [Le ft Arm] Pulse Oximetry 96 95 94 Oxygen Delivery Me thod Nasal Cannula Nasal Cannula Nasal Cannula Oxygen Flow Rate 2 2 2 Fraction of Inspir ed Oxygen 100 100 100 01/27/24 10:25 01/27/24 10:30 01/27/24 10:42 Temperature 97.1 F L 97.1 F L 96.0 F L Pulse Rate 69 70 69 Pulse Rate [Left P ulse Oximeter] Respiratory Rate 16 16 16 Blood Pressure 104/57 L 103/88 Blood Pressure [Le ft Arm] 101/57 L Pulse Oximetry 92 91 87 L Oxygen Delivery Me thod Nasal Cannula Room Air Nasal Cannula Oxygen Flow Rate 2 1 Fraction of Inspir ed Oxygen 100 01/27/24 10:42 01/27/24 12:00 01/27/24 12:15 Temperature 96.0 F L 95.0 F L 96.0 F L Pulse Rate Pulse Rate [Left P ulse Oximeter] 62 76 75 Respiratory Rate 16 18 18 Blood Pressure Blood Pressure [Le ft Arm] 102/55 L 104/52 L 109/62 Pulse Oximetry 92 93 93 Oxygen Delivery Me thod Nasal Cannula Nasal Cannula Room Air Oxygen Flow Rate 2 2 Fraction of Inspir ed Oxygen 01/27/24 12:30 01/27/24 12:45 01/27/24 13:00 Temperature 96.0 F L 96.0 F L Pulse Rate Pulse Rate [Left P ulse Oximeter] 76 82 76 Respiratory Rate 20 20 20 Blood Pressure Blood Pressure [Le ft Arm] 111/84 113/60 104/59 L Pulse Oximetry 94 94 91 Oxygen Delivery Me thod Room Air Room Air Room Air Oxygen Flow Rate Fraction of Inspir ed Oxygen 01/27/24 13:15 01/27/24 13:45 01/27/24 14:45 Temperature Pulse Rate Pulse Rate [Left P ulse Oximeter] 77 Respiratory Rate 20 Blood Pressure Blood Pressure [Le ft Arm] 115/59 L 144/93 H 118/60 Pulse Oximetry 90 Oxygen Delivery Me thod Room Air Oxygen Flow Rate Fraction of Inspir ed Oxygen 01/27/24 15:00 01/27/24 15:00 01/27/24 15:15 Temperature 98.1 F Pulse Rate Pulse Rate [Left P ulse Oximeter] 82 Respiratory Rate 20 Blood Pressure Blood Pressure [Le ft Arm] 109/55 L 109/55 L 101/55 L Pulse Oximetry 94 96 Oxygen Delivery Me thod Room Air Room Air Oxygen Flow Rate Fraction of Inspir ed Oxygen Assessment and Plan Assessment and plan (1) Status post total shoulder arthroplasty: Problem comment: Ángel Roman, 01/27/24 Status: Acute Plan - pain management and prophylaxis per orthopedic surgery team - continue home medications for comorbidities - anticipate routine postoperative course and discharge to [facility] tomorrow
[2024-01-27] MEDS: LACTATED RINGERS 1000 ML 1,000 ML 75 ML IV (17:27)
--- NOTE | 2024-01-27 19:28 | PC.NURSE ---
End of Shift: Patient pleasant and cooperative. Afebrile. Denies pain. Dressing to right shoulder C/D/I. Unable to move right hand/fingers, CMS intact. Up to bathroom and chair with SBA and gait belt. Tolerating regular diet with no nausea.
[2024-01-27] MEDS: GABAPENTIN 600 MG TABLET 1200 MG PO (20:59)
[2024-01-27] MEDS: SENNOSIDES 1 TAB TABLET 2 TAB PO (20:59)
[2024-01-27] MEDS: PRAVASTATIN SODIUM 20 MG TABLET 10 MG PO (20:59)
[2024-01-28] MEDS: OXYCODONE 5 MG TABLET PO ×4 (02:03→10:30)
[2024-01-28 03:00] VITALS: BP 104/58; PULSE 72; RESP 18; TEMP 36.4; O2SAT 91
[2024-01-28] MEDS: ACETAMINOPHEN 500 MG TABLET 1000 MG PO ×2 (03:19→08:29)
--- NOTE | 2024-01-28 05:25 | PC.NURSE ---
Shift note: Pt is doing well with SBA. Able to wiggle right fingers and raise arm. Hand feels warm to touch but slight diminish pulse on palpation. Tolerated regular diet well. Pain level rated at 3 maximum. dressing appears clean and dry. Right arm has been sling throughout the shift. Vitally stable.
[2024-01-28] MEDS: CEFAZOLIN 1 GM in 0.9 % SODIUM CHLORIDE Mini-bag 100 ML IVPB (06:04)
[2024-01-28 06:54] LABS: Potassium* 4.2 mmol/L (3.6-5.1); Sodium* 136 mmol/L (135-149)
[2024-01-28 06:55] LABS: Hematocrit 34.4 % (33.0-51.0); Hemoglobin* 11.5 gm/dL (12.0-16.0); Mean Corpuscular HGB Conc 33 gm/dL (32-36); Mean Corpuscular Hemoglobin 35 pg (26-34); Mean Corpuscular Volume 105 fL (80-100); Platelet Count* 187 K/uL (140-440); Red Blood Count 3.29 m/uL (4.00-5.20); White Blood Count* 10.24 K/uL (4.50-11.00)
[2024-01-28 06:57] LABS: Blood Urea Nitrogen* 12 mg/dL (7-30); Creatinine* 0.5 mg/dL (0.5-1.5); Est. Creatinine Clearance* 43.75; Estimated Glomerular Filt Rate 94 ml/min
[2024-01-28 06:59] LABS: Slide Review Reflex No
[2024-01-28 07:00] VITALS: BP 120/62; PULSE 75; RESP 20; TEMP 35.6; O2SAT 97
[2024-01-28] MEDS: SENNOSIDES 1 TAB TABLET 2 TAB PO (08:29)
[2024-01-28] MEDS: GABAPENTIN 600 MG TABLET PO (08:29)
--- NOTE | 2024-01-28 09:35 | PC.NURSE ---
Patient will be transferring to [facility] today for continued rehab from having shoulder surgery. Nurse to Nurse report was given to Maryanne. All questions have been answered. Awaiting for her brother to arrive who will transport patient to the rehab facility.
--- NOTE | 2024-01-28 09:43 | PM.IMPN1 ---
Progress Note: A&P Assessment and plan (1) Status post total shoulder arthroplasty: Problem details: - Ángel Gillespie, 01/27/24. Postoperative recommendations and follow-up per Orthopedic surgery Status: Acute Plan Discharged to [facility] Time Spent With Patient Total time spent: Total time spent caring for the patient today was 30 minutes. This includes time spent for the visit reviewing the chart, time spent during the visit, time spent after the visit and documentation and planning in coordination of care. Subjective Date Seen: 01/28/24 Interval history: Patient is seen on morning of discharge, following up on consultation from yesterday. Patient is being discharged to [facility] and will be transported by her brother. No events reported overnight. Remains vitally stable. Postoperative recommendations and follow-up per Orthopedic surgery. Exam Narrative: Exam Narrative: PHYSICAL EXAM General: Pleasant, conversant, NAD Cardiovascular: RRR Pulmonary: No dyspnea Neurological: Alert, answering questions appropriately Skin: Warm, dry. Const: Vital Signs, click to edit/add: Vital Signs - 24 hr 01/27/24 09:57 01/27/24 10:05 01/27/24 10:10 Temperature 97.0 F L Pulse Rate 70 65 68 Pulse Rate [Left P ulse Oximeter] Pulse Rate [Right Radial] Respiratory Rate 14 16 14 Blood Pressure 116/60 106/55 L 94/70 Blood Pressure [Le ft Arm] Pulse Oximetry 89 95 96 Oxygen Delivery Me thod Nasal Cannula Nasal Cannula Nasal Cannula Oxygen Flow Rate 2 2 2 Fraction of Inspir ed Oxygen 100 100 100 01/27/24 10:15 01/27/24 10:20 01/27/24 10:25 Temperature 97.1 F L Pulse Rate 67 72 69 Pulse Rate [Left P ulse Oximeter] Pulse Rate [Right Radial] Respiratory Rate 14 16 16 Blood Pressure 102/54 L 106/56 L 104/57 L Blood Pressure [Le ft Arm] Pulse Oximetry 95 94 92 Oxygen Delivery Me thod Nasal Cannula Nasal Cannula Nasal Cannula Oxygen Flow Rate 2 2 2 Fraction of Inspir ed Oxygen 100 100 100 01/27/24 10:30 01/27/24 10:42 01/27/24 10:42 Temperature 97.1 F L 96.0 F L 96.0 F L Pulse Rate 70 69 Pulse Rate [Left P ulse Oximeter] 62 Pulse Rate [Right Radial] Respiratory Rate 16 16 16 Blood Pressure 103/88 Blood Pressure [Le ft Arm] 101/57 L 102/55 L Pulse Oximetry 91 87 L 92 Oxygen Delivery Me thod Room Air Nasal Cannula Nasal Cannula Oxygen Flow Rate 1 2 Fraction of Inspir ed Oxygen 01/27/24 12:00 01/27/24 12:15 01/27/24 12:30 Temperature 95.0 F L 96.0 F L 96.0 F L Pulse Rate Pulse Rate [Left P ulse Oximeter] 76 75 76 Pulse Rate [Right Radial] Respiratory Rate 18 18 20 Blood Pressure Blood Pressure [Le ft Arm] 104/52 L 109/62 111/84 Pulse Oximetry 93 93 94 Oxygen Delivery Me thod Nasal Cannula Room Air Room Air Oxygen Flow Rate 2 Fraction of Inspir ed Oxygen 01/27/24 12:45 01/27/24 13:00 01/27/24 13:15 Temperature 96.0 F L Pulse Rate Pulse Rate [Left P ulse Oximeter] 82 76 77 Pulse Rate [Right Radial] Respiratory Rate 20 20 20 Blood Pressure Blood Pressure [Le ft Arm] 113/60 104/59 L 115/59 L Pulse Oximetry 94 91 90 Oxygen Delivery Me thod Room Air Room Air Room Air Oxygen Flow Rate Fraction of Inspir ed Oxygen 01/27/24 13:45 01/27/24 14:45 01/27/24 15:00 Temperature Pulse Rate Pulse Rate [Left P ulse Oximeter] Pulse Rate [Right Radial] Respiratory Rate Blood Pressure Blood Pressure [Le ft Arm] 144/93 H 118/60 109/55 L Pulse Oximetry 94 Oxygen Delivery Me thod Room Air Oxygen Flow Rate Fraction of Inspir ed Oxygen 01/27/24 15:00 01/27/24 15:15 01/27/24 16:00 Temperature 98.1 F Pulse Rate Pulse Rate [Left P ulse Oximeter] 82 76 Pulse Rate [Right Radial] Respiratory Rate 20 18 Blood Pressure Blood Pressure [Le ft Arm] 109/55 L 101/55 L 104/59 L Pulse Oximetry 96 92 Oxygen Delivery Me thod Room Air Room Air Oxygen Flow Rate Fraction of Inspir ed Oxygen 01/27/24 17:00 01/27/24 19:00 01/27/24 23:00 Temperature 97.0 F L 97.5 F L Pulse Rate Pulse Rate [Left P ulse Oximeter] 75 75 Pulse Rate [Right Radial] 77 77 Respiratory Rate 18 18 Blood Pressure Blood Pressure [Le ft Arm] 108/60 109/49 L Pulse Oximetry 96 91 Oxygen Delivery Me thod Room Air Room Air Oxygen Flow Rate Fraction of Inspir ed Oxygen 01/27/24 23:00 01/28/24 03:00 01/28/24 07:00 Temperature 97.5 F L 97.5 F L 96.0 F L Pulse Rate Pulse Rate [Left P ulse Oximeter] Pulse Rate [Right Radial] 77 72 75 Respiratory Rate 18 18 20 Blood Pressure Blood Pressure [Le ft Arm] 102/50 L 104/58 L 120/62 Pulse Oximetry 91 91 97 Oxygen Delivery Me thod Room Air Room Air Room Air Oxygen Flow Rate Fraction of Inspir ed Oxygen 01/28/24 07:00 Temperature Pulse Rate Pulse Rate [Left P ulse Oximeter] 75 Pulse Rate [Right Radial] 75 Respiratory Rate 20 Blood Pressure Blood Pressure [Le ft Arm] Pulse Oximetry Oxygen Delivery Me thod Oxygen Flow Rate Fraction of Inspir ed Oxygen Labs Labs: Laboratory Results - last 24 hr 01/28/24 06:00 WBC 10.24 RBC 3.29 L Hgb 11.5 L Hct 34.4 MCV 105 H MCH 35 H MCHC 33 Plt Count 187 Sodium 136 Potassium 4.2 BUN 12 Creatinine 0.5 Estimated Creat Clear 43.75 Estimated GFR 94
--- NOTE | 2024-01-28 09:49 | PM.ORPN ---
Subjective Subjective Date Seen: 01/28/24 Principal diagnosis: Status postop day 1 right reverse total shoulder arthroplasty Interval history: Patient reports doing okay, noticing right shoulder pain as the block wears off. No acute events over night. Pain managed with scheduled and PRN medications, ice. DVT prophylaxis: Bilateral knee high Yariel stockings, SCDs, walking. Denies fevers, chills, aches, N/V, CP, SOB/LUNDBERG, or lightheadedness. She asks me to help with her cell phone, as she is spilled orange juice on it. Ortho Exam Narrative Exam Narrative: -Patient appears comfortable in recliner; no apparent acute distress -Alert and oriented times 3 -Operative shoulder mildly swollen; soft, supple tissues; no obvious erythema. Ecchymosis minimal. Warmth appropriate -Surgical dressing clean, dry, intact; no obvious drainage, no erythematous streaking peripheral to the bandage -Bilateral calves soft and supple; no significant swelling, edema, tenderness, erythema, discoloration, warmth, or palpable cords -2+ radial pulse, intact dermatomes and myotomes distally (5/5 strength) Const Vital Signs, click to edit/add: Vital Signs - 24 hr 01/27/24 09:57 01/27/24 10:05 01/27/24 10:10 Temperature 97.0 F L Pulse Rate 70 65 68 Pulse Rate [Left Pulse Oximeter] Pulse Rate [Right Radial] Respiratory Rate 14 16 14 Blood Pressure 116/60 106/55 L 94/70 Blood Pressure [Left Arm] Pulse Oximetry 89 95 96 Oxygen Delivery Method Nasal Cannula Nasal Cannula Nasal Cannula Oxygen Flow Rate 2 2 2 Fraction of Inspired Oxygen 100 100 100 01/27/24 10:15 01/27/24 10:20 01/27/24 10:25 Temperature 97.1 F L Pulse Rate 67 72 69 Pulse Rate [Left Pulse Oximeter] Pulse Rate [Right Radial] Respiratory Rate 14 16 16 Blood Pressure 102/54 L 106/56 L 104/57 L Blood Pressure [Left Arm] Pulse Oximetry 95 94 92 Oxygen Delivery Method Nasal Cannula Nasal Cannula Nasal Cannula Oxygen Flow Rate 2 2 2 Fraction of Inspired Oxygen 100 100 100 01/27/24 10:30 01/27/24 10:42 01/27/24 10:42 Temperature 97.1 F L 96.0 F L 96.0 F L Pulse Rate 70 69 Pulse Rate [Left Pulse Oximeter] 62 Pulse Rate [Right Radial] Respiratory Rate 16 16 16 Blood Pressure 103/88 Blood Pressure [Left Arm] 101/57 L 102/55 L Pulse Oximetry 91 87 L 92 Oxygen Delivery Method Room Air Nasal Cannula Nasal Cannula Oxygen Flow Rate 1 2 Fraction of Inspired Oxygen 01/27/24 12:00 01/27/24 12:15 01/27/24 12:30 Temperature 95.0 F L 96.0 F L 96.0 F L Pulse Rate Pulse Rate [Left Pulse Oximeter] 76 75 76 Pulse Rate [Right Radial] Respiratory Rate 18 18 20 Blood Pressure Blood Pressure [Left Arm] 104/52 L 109/62 111/84 Pulse Oximetry 93 93 94 Oxygen Delivery Method Nasal Cannula Room Air Room Air Oxygen Flow Rate 2 Fraction of Inspired Oxygen 01/27/24 12:45 01/27/24 13:00 01/27/24 13:15 Temperature 96.0 F L Pulse Rate Pulse Rate [Left Pulse Oximeter] 82 76 77 Pulse Rate [Right Radial] Respiratory Rate 20 20 20 Blood Pressure Blood Pressure [Left Arm] 113/60 104/59 L 115/59 L Pulse Oximetry 94 91 90 Oxygen Delivery Method Room Air Room Air Room Air Oxygen Flow Rate Fraction of Inspired Oxygen 01/27/24 13:45 01/27/24 14:45 01/27/24 15:00 Temperature Pulse Rate Pulse Rate [Left Pulse Oximeter] Pulse Rate [Right Radial] Respiratory Rate Blood Pressure Blood Pressure [Left Arm] 144/93 H 118/60 109/55 L Pulse Oximetry 94 Oxygen Delivery Method Room Air Oxygen Flow Rate Fraction of Inspired Oxygen 01/27/24 15:00 01/27/24 15:15 01/27/24 16:00 Temperature 98.1 F Pulse Rate Pulse Rate [Left Pulse Oximeter] 82 76 Pulse Rate [Right Radial] Respiratory Rate 20 18 Blood Pressure Blood Pressure [Left Arm] 109/55 L 101/55 L 104/59 L Pulse Oximetry 96 92 Oxygen Delivery Method Room Air Room Air Oxygen Flow Rate Fraction of Inspired Oxygen 01/27/24 17:00 01/27/24 19:00 01/27/24 23:00 Temperature 97.0 F L 97.5 F L Pulse Rate Pulse Rate [Left Pulse Oximeter] 75 75 Pulse Rate [Right Radial] 77 77 Respiratory Rate 18 18 Blood Pressure Blood Pressure [Left Arm] 108/60 109/49 L Pulse Oximetry 96 91 Oxygen Delivery Method Room Air Room Air Oxygen Flow Rate Fraction of Inspired Oxygen 01/27/24 23:00 01/28/24 03:00 01/28/24 07:00 Temperature 97.5 F L 97.5 F L 96.0 F L Pulse Rate Pulse Rate [Left Pulse Oximeter] Pulse Rate [Right Radial] 77 72 75 Respiratory Rate 18 18 20 Blood Pressure Blood Pressure [Left Arm] 102/50 L 104/58 L 120/62 Pulse Oximetry 91 91 97 Oxygen Delivery Method Room Air Room Air Room Air Oxygen Flow Rate Fraction of Inspired Oxygen 01/28/24 07:00 Temperature Pulse Rate Pulse Rate [Left Pulse Oximeter] 75 Pulse Rate [Right Radial] 75 Respiratory Rate 20 Blood Pressure Blood Pressure [Left Arm] Pulse Oximetry Oxygen Delivery Method Oxygen Flow Rate Fraction of Inspired Oxygen Assessment and Plan Assessment and plan (1) Status post total shoulder arthroplasty: Problem details: - Ángel Gillespie, 01/27/24. Postoperative recommendations and follow-up per Orthopedic surgery Status: Acute Plan - Complete 23 hour perioperative antibiotics. - PT/OT consult for education and assistance. - Social work consult for discharge planning - she is requesting SNF, which social work has found for [place] - she will go there today for recovery. - Prescribed analgesics as needed - DVT prophylaxis: bilateral knee high Yariel Hose stockings and SCDs - Anticipation is for discharge to SNF today, 01/28/2024 if the patient remains medically stable, pain is controlled, and they are safe with mobilization. - Of note, with verbal permission from patient, I was able to restart her cellphone and reapply the protective covering/case. When leaving her room, her phone appeared to be restarting successfully.
== END 2024-01-28 12:01 | DRG 483 ==
PROVIDERS: Admitting Provider Orthopaedic Surgery Sports Medicine; PCP Physician Assistant Medical; Visit Provider Orthopaedic Surgery Sports Medicine
PROC: 0RRJ0JZ Replacement of Right Shoulder Joint with Synthetic Substitute, Open Approach (ICD-10-PCS; CPT 23472; principal; 2024-01-27 07:30)
DX: M19.011 Primary osteoarthritis, right shoulder (principal); M75.101 Unspecified rotator cuff tear or rupture of right shoulder, not specified as traumatic; M75.21 Bicipital tendinitis, right shoulder; G89.18 Other acute postprocedural pain; E78.5 Hyperlipidemia, unspecified; G62.9 Polyneuropathy, unspecified; M85.80 Other specified disorders of bone density and structure, unspecified site
CPT/HCPCS: 01638; 36415; 64415; 73030; 76942; 82565; 84132; 84295; 84520; 85027; 97161; 97165; 99100; A9270; C1713; C1776; J0330; J0690; J1100; J2250; J2371; J2405; J2704; J2710; J2795; J3010; J7120

== ENCOUNTER 2024-05-13 15:15 | Outpatient (RCR) | payer MEDICARE, SELFPAY ==
--- NOTE | 2024-01-09 13:39 | OT.OPOE ---
OT Outpatient Ortho Eval OT Outpatient Ortho Eval* Start: 01/09/24 09:45 Freq: Status: Active Protocol: Document 01/09/24 09:45 KATIA (Rec: 01/09/24 13:25 KATIA [id number]) E-signed By Chacha Ulrich OTR/L, CLT OT OP Ortho Eval Details Complexity Complexity Medium Insurance Information Insurance Information Medicare B Outpatient History/Precautions Current Condition/Medical Diagnosis Referring Provider Dr. Neal Treatment Diagnosis Primary Osteoarthritis, right shoulder & Pain in R shoulder Date of Onset Chronic Other Precautions MEDICAL DX: M19.011 Primary Osteoarthritis of the R shoulder Other Conditions MAGING: Grashey, Y-view and Axillary views of the right shoulder were compared to images obtained on 02/15/2022, and show severe osteoarthrosis with gplj-kg-thad joint space loss glenohumeral joint, moderate inferior humeral head osteophyte. Superior humeral migration that is moderate as well suggesting cuff tear arthropathy. Slight flattening to the humeral head . Some subchondral sclerosis as well of the humeral head. Assessment & Plan (1) Scoliosis: Problem Comment: Scoliosis (thoracic right curvature and lumbar left curvature) Scoliosis type: unspecified scoliosis Spinal region: thoracolumbar (2) Right rotator cuff tear arthropathy: Per the provider's note, patient's R rotator cuff tear arthropathy/osteoarthritic changes have progressed since 2021. Medical/Functional History Medical History Reviewed Yes Prior Level of Function/Mobility Instability of left foot joint (Acute) M25.375 - Other instability, left foot (ICD-10) Hyperlipidemia (Acute) E78.5 - Hyperlipidemia, unspecified (ICD-10) Tubular adenoma of colon ( Acute 07/28/19) Two tubular adenoma removed by outside colonoscopy at [facility], 07/28/2019 D12.6 - Benign neoplasm of colon, unspecified (ICD-10) Recurrent urinary tract infection (Acute 12/11/10) N39.0 - Urinary tract infection, site not specified (ICD-10) Polyp of colon (Acute 12/11/10 ) by history benign in 2004, repeat tubular adenoma by colonoscopy 07/15 due again 5Y K63.5 - Polyp of colon (ICD-10 ) Peripheral neuropathy (Acute 12/11/10) stable on gabapentin G62.9 - Polyneuropathy, unspecified (ICD-10) Osteopenia (Acute 12/11/10) M85.80 - Other specified disorders of bone density and structure, unspecified site ( ICD-10) Migraine headache (Acute 12/11) G43.909 - Migraine, unspecified, not intractable, without status migrainosus ( ICD-10) Mean red blood cell volume increased (Acute) R71.8 - Other abnormality of red blood cells (ICD-10) Lung nodule (Acute 12/11/10) Resolved, stable by multiple imaging (02/07, 08/10, 08/11), no further imaging needed R91.1 - Solitary pulmonary nodule (ICD-10) Hypertriglyceridemia (Acute) E78.1 - Pure hyperglyceridemia (ICD-10) Counseling regarding advanced directives (Acute 11/19/17) Health care directive completed on 11/19/2017. 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 G25.89 - Other specified extrapyramidal and movement disorders (ICD-10) Scoliosis (Acute) Scoliosis (thoracic right curvature and lumbar left curvature) M41.9 - Scoliosis, unspecified (ICD-10) Right rotator cuff tear arthropathy (Acute) M75.101 - Unspecified rotator cuff tear or rupture of right shoulder, not specified as traumatic (ICD-10) M12.811 - Other specific arthropathies, not elsewhere classified, right shoulder ( ICD-10) Osteoarthritis of left knee ( Acute) M17.12 - Unilateral primary osteoarthritis, left knee (ICD -10) Osteoarthritis (Acute 12/11/10 ) M19.90 - Unspecified osteoarthritis, unspecified site (ICD-10) Social History Employment Status Retired Other Critical Job Demands Taking care of her 2 dogs Hobbies Bird Watching and Gardening Fitness Very Active Ortho Subjective Subjective Subjective Patient lives in [place], in a split entry home. From the garage to enter the home she reports 3 steps to enter the house (no railings) Recommending a railing being properly installed. 7 steps to go up or down. To go upstairs the railing is on the Right Side. To go downstairs the railing is on the Right side. Tub shower combo upstairs ( with railings installed, left side horizontal and front wall of shower vertical bar) this has a glass door. Comfort height toilets installed, with one raised toilet seat that has hand rails. Upstairs bathroom has a countertop on the L side Laundry room downstairs with a full bathroom, again shower tub combo Sliding door to the back deck, right off the dining room, patient uses this to let her dogs out multiple times per day (son will keep both dogs for a little bit, then just the little dog will be home initially). Master bedroom has a door that goes right into the bathroom, she sleeps on the L side of the bed, getting out towards her left side. She sleeps in a Maurizio size bed-standard flat mattress (she reports it is high off the ground but doesn 't know the height. Recommending we do a home assessment Pain Assessment Pain Present Pain Present Pain Reported Location Right Shoulder Description Radiating,Sharp,Throbbing,With Movement Intensity 4 Hand Pinch/Steel Pourer Strength Hand Left Steel Pourer Strength Position 1 (lbs) 40 Steel Pourer Strength Position 2 (lbs) 40 Lateral Pinch Strength (lbs) 10 Three Point Pinch (lbs) 7 Right Steel Pourer Strength Position 1 (lbs) 45 Steel Pourer Strength Position 2 (lbs) 45 Lateral Pinch Strength (lbs) 10 Three Point Pinch (lbs) 12 OT Problems Problems Problems Decreased Strength,Decreased Range of Motion,Pain Problems Comments Patient reports that her Right hand goes asleep on her when holding the steering wheel, unable to tell therapist which fingers, she states her whole hand, all the fingers go numb Other Problems Opening Containers,Fasteners Patient Potential Good Assessment Assessment Assessment Patient is a 83-year-old female patient who has been chronically dealing with pain in her R (dominant UE) for years due to severe OA in the R shoulder as well as tearing of her RC muscle (CT was ordered to further evaluate this. Upon her apt with Ortho, a plan was made for surgery to address her discomfort after conservative measures have not provided relief (has had PT and injections to the R shoulder). Patient will have a right reverse shoulder arthroplasty on 01/27/24 with follow up in 10-14 days with a PA for wound check. Follow up with Dr. Neal in 6 weeks for clinical reassessment and repeat x-rays, three views right shoulder. During today's Eval, therapist thought a home assessment prior to surgery was warranted and patient agreed with this plan. Therapist will go to patient' s house next week and patient will do a dry run of her day -to-day routine while wearing a sling to the R UE. Therapist will then be able to make appropriate recommendations based on findings at home Eval . Occupational Therapy Treatment Plan - OP Potential Rehabilitation Potential Good Barriers Barriers to goal attainment Patient's willingness to change-follow recommendations given Patient does not want to ask for help, lives alone and may do more than she should do (1) Scoliosis: (thoracic right curvature and lumbar left curvature) Scoliosis type: unspecified scoliosis: thoracolumbar (2) Right rotator cuff tear arthropathy: IMAGING: Grashey, Y-view and Axillary views of the right shoulder were compared to images obtained on 02/15/2022 and show severe osteoarthrosis with xmdw-rd-sinc joint space loss glenohumeral joint, moderate inferior humeral head osteophyte. Superior humeral migration that is moderate as well suggesting cuff tear arthropathy. Slight flattening to the humeral head . Some subchondral sclerosis as well of the humeral head. Set Goals Goals Set with Patient Yes Goals Goals 1. Patient will be Indep with her HEP that is for post-op RSA of the R (dominant) UE ( surgery on 01/27/24). 2. Patient will complete a home assessment in order to have the necessary resources/ recommendations in place to successfully recover s/p RSA ( surgery on 01/27/24). Target Date 2 weeks Treatment Plan Treatment Plan Evaluation,Therapeutic Exercise,Self Care/Home Management,Education Expected Frequency As Needed Expected Duration 2-4 Weeks Home Program Home Program Home Program Initiated Home Program Specifics Showed patient her post surgery exercises for her R UE , handout was included in her folder and will review again at her Home Assessment next week. Recertification Information Recertification Information Initial Certification Date 01/09/24 Recertification Due Date 04/08/24 Click To Default 'Per treatment plan' Per treatment plan Continued Plan of Care and Interventions Per treatment plan Provider Signature Shows Agreement With POC & Medical Necessity Physician Comment/Change Comment or Changes Physician NPI Number #
--- NOTE | 2024-02-11 12:24 | PT.OPE ---
PT [place] Out[facility] Eval PT [facility] Outpatient Eval Start: 02/11/24 10:38 Freq: Status: Active Protocol: Document 02/11/24 10:58 LSL (Rec: 02/11/24 12:12 LSL [id number]) E-signed By Courtney Ennis PT Physical Therapy Outpatient Evaluation Insurance Information Recert Due Date 05/11/24 Insurance Name Medicare B,are Medical Diagnosis s/p R rev TSA, open biceps tenodesis Referring MD Neal Subjective Subjective Pt. reports she is able to manage pain with Tylenol, not wearing sling as much as I should because it is aggravating my scoliosis. Mostly I am sitting and reading. The pain I had the surgery for is gone. I am seeing a chiropractor and he adjusts me with an activator in sitting and standing. Before surgery I was walking 2 -3 miles/day. I only have my little dog right now and my son still has my bigger dog. Denies struggling with things at home except for folding blankets. I do what I can do and leave what I can't and then my cleaning lady who comes once a month does the things I can't. Currently pain is in the posterior shoulder along the lats. Pain Comments 0/10 best, 5/10 worst Date of Last Physician Visit 02/06/24 Date of Next Physician Visit 03/12/24 Date of Surgery (If applicable) 01/27/24 Current Work Status Retired Precautions Therapy Limitations/Systems Review Other Medical Problem Objective Range of Motion PROM - elbow WNL, shoulder flexion 115, abduction 95, ER in neutral 26 degrees, IR in neutral WNL AROM - elbow WNL Strength Elbow and Wrist - 5/5 with mild pain on elbow extension Swelling Mild to none Palpation R thoracic paraspinals tight and painful, infraspinatus, teres, lats, subscapularis, UT , biceps all tender Posture Significant kyphoscoliosis with forward head, 3 incision in the anterior shoulder Assessment Assessment/Impression Pt. is doing well s/p R rev TSA with minimal pain that she can control with Tylenol and good first session PROM for flexion and abduction. Due to her significant kyphosis she is having pain wearing her sling, so she tends to avoid it. I encouraged her to wear it when she is up and moving and to prop with a pillow under her arm when sleeping to avoid excessive extension. Treatment will be 1x/week until her follow up when AAROM can begin and then we will progress to 2x/week to work on functional ROM and strength so she is able to return to her hobbies of bluebirding and gardening. Primary Functional Limitations dressing, reaching, tucking in a shirt, wearing a bra, lifting, carrying, squeezing Plan of Care Rehabilitation Potential Good Physical Therapy Goals SHORT TERM GOALS: (4 weeks) 1. Functional abduction and flexion PROM to allow progression into AAROM. 2. Pt. to maintain elbow ROM. 3. Pt. preventing shoulder extension during sleep by using a pillow. SKILLED NURSING GOALS: (12 weeks) 1. Pt. to have 4/5 or greater RC and scap stabilizer strength to allow her to lift and carry up to 20 pounds with both UE. 2. Pt. able to squeeze bluebird houses to check them. 3. Pt. able to manage her bigger dog with both UE. 4. Pt. able to complete household cleaning chores with pain less than 3/10. 5. Functional AROM of R shoulder. Coordination/Communication With Referral Source Treatment Plan/Direct Interventions Manual Therapy,Neuromuscular Re-ed,Self-Care/Home Management,Therapeutic Exercises Frequency/Duration 1x/week 4 weeks, then 2x/week 4-6 weeks, then 1x/week 4 weeks Patient Will Be Discharged From Therapy Completion of LTG(s),Skills Plateau,Independent w/HEP, Independently Progressing Evaluation Billing Untimed Code Treatment Minutes 25 Complexity Low Certification Information Initial Certification Date 02/11/24 Ending Certification Date 05/11/24 Provider Signature Shows Agreement With POC & Medical Necessity Physician Signature & Date Requested Please Sign/Date Here Physician Comment/Change : Physician NPI Number #
== END 2024-07-08 11:26 | disposition home or self-care (01) ==
PROVIDERS: PCP Internal Medicine; Visit Provider Orthopaedic Surgery Sports Medicine
DX: M19.011 Primary osteoarthritis, right shoulder (principal); Z96.611 Presence of right artificial shoulder joint; Z51.89 Encounter for other specified aftercare
CPT/HCPCS: 97110; 97140; 97161; 97166; 97535; X5282

== ENCOUNTER 2024-06-09 09:56 | Outpatient (CLI) | payer MEDICARE, SELFPAY ==
--- OUTSIDE RECORDS SUMMARY | 2024-06-09 09:59 | XMS_ITS | Clinical Summary ---
Author Organization [facility] Address [address] [place] [id number] Care Team Providers Care Road Maker Name Role Phone Rajinder Mars MD Primary Care Provider [phone] Resolved Problems Problem Noted Date Diagnosed Date Resolved Date Muscle weakness (generalized) 08/06/2019 08/26/2019 Mixed incontinence 08/06/2019 9 Urinary frequency 08/06/2019 08/26/2019 Social History Tobacco Use Types Packs/Day Years Used Date Smoking Tobacco: Never Assessed Adolescent Education Answer Date Record ed Getting School Help Needed Not on file 09/01 Sex and Gender Information Value Date Recorded Sex Assigned at Not on file Gender Identity Not on file Sexual Orientation Not on file Plan of Treatment Health Maintenance Due Date Last Done Comments ADVANCE CARE PLANNING 1940 ANNUAL REVIEW OF HM ORDERS 1940 DTAP/TDAP/TD IMMUNIZATION (1 - Tdap) 1966 ZOSTER IMMUNIZATION (1 of 2) 1991 RSV VACCINE ( & 60+ ) (1 - 1-dose 60+ series) 2001 FALL RISK ASSESSMENT 2006 MEDICARE ANNUAL WELLNESS VISIT 2006 Pneumococcal Vaccine: 65+ Years (1 of 1 - PCV) 2006 COVID-19 Vaccine ( - 2022-2 4 season) 2023 PHQ-2 (once per calendar year) 2023 INFLUENZA VACCINE (Season Ended) 2024 10/06/2002 DEXA 09/15/2030 09/15/2015, 09/07/2015 HPV IMMUNIZATION Aged Out No longer e ligible based on patient's age to complete this topic IPV IMMUNIZATION Aged Out No longer e ligible based on patient's age to complete this topic MENINGITIS IMMUNIZATION Aged Out No l onger eligible based on patient's age to complete this topic RSV MONOCLONAL ANTIBODY Aged Out No l onger eligible based on patient's age to complete this topic Procedures Procedure Name Priority Date/Time Associated Diagnosis Comments DX BONE DENSITY Routine 09/15/2015 10:35 AM CDT Asymptomatic menopausal state from Last 3 Months or Most Recently Relevant to Health Maintenance Results * DX Hip/Pelvis/Spine (09/15/2015 10:35 AM CDT) Anatomical Region Laterality Modality Dexa Computed Radiogr aphy Impressions 09/15/2015 12:00 PM CDT 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 ??Degenerative changes of the lumbar spine which may falsely elevate results. Comparisons from different scanners that have not been cross calibrated, are not necessarily valid. Such a comparison has been performed here; one should interpret with caution. ?? There has been probable significant decrease in bone density of the lumbar spine. There has been probably no significant change in bone density of the hip(s). Recommendations include ensuring adequate Calcium and Vitamin D. The current NOF Guidelines recommend treatment for patients with prior hip or vertebral fracture, T-score -2.5 or below, or 10 year risk of any major osteoporotic fracture >20% or 10 year risk of hip fracture >3%, as calculated using the FRAX calculator (www.shef.ac.uk/FRAX or you can google FRAX). ?? Based on these guidelines, treatment (in addition to calcium and vitamin D) is recommended for this patient, after ruling out other causes of osteoporosis. This is meant as an aid to clinical decision making; one must still use clinical judgement. Follow up can be considered in 2 years. Vania Eng M.D. Electronically signed ?? Narrative 09/15/2015 12:00 PM CDT BONE DENSITOMETRY [address] [address] 09/15/2015 PATIENT: Sheila Blackburn CHART: [id number] : 1940 AGE: [age] year old SEX: female REFERRING PROVIDER: Elvin Pierre MD PROCEDURE: Bone density scanning was performed using DXA technology of the lumbar spine and hip. Scanning was performed on a [employer] scanner. Reporting is completed in the form of a T-score. The T-score represents the standard deviation from peak bone mass based on a young healthy adult. REFERENCE T-SCORES: Normal -1.0 and greater Osteopenia Between -1.0 and -2.5 Osteoporosis -2.5 and less RISK FACTORS: Post-menopausal, Parent history of osteoporosis, history of vertebral fracture. CURRENT TREATMENT: Calcium FINDINGS: Lumbar Spine (L1-L3) T-score: -2.0, marked degenerative changes present at L4, so only L1-3 are evaluated. Left Femoral Neck T-score: -1.4 Right Femoral Neck T-score: -1.8 Forearm (radius 33%) T-score: -1.7 Lumbar spine (L1-3) BMD: 0.927 Previous 0.996 Total Hip Mean BMD: 0.864 ??Previous 0.858 Forearm (radius 33%) BMD: 0.588 Previous NA LATERAL VERTEBRAL ASSESSMENT Procedure: ??Vertebral fracture assessment was performed in the lateral decubitus position using a [employer] ??densitometer. Indications for VFA: T-score of -1.0 or worse and age (female>69) Confounding factors for VFA: Arthritis/degenerative disc disease, scoliosis and rib shadows. ??The LVA scan is interpretable from T7 to T12 and L4. VFA Findings: Using the semi-quantitative analysis of Genradha there was evidence of spinal deformity as follows: ??moderate (grade 2) wedge fracture of T9. VFA Impression: Sheila Blackburn has one vertebral fracture identified on the LVA. ??If alternative etiologies for the presence of vertebral fractures are excluded, the diagnosis is consistent with severe osteoporosis. Elvin Pierre MD IMG DEXA ORDERABLES from Last 3 Months or Most Recently Relevant to Health Maintenance Care Teams Road Maker Relationship Specialty Start Date End Date Rajinder Mars MD [facility] [address] [place] [id number] PCP - General Family Practice 07/29/15
--- OUTSIDE RECORDS SUMMARY | 2024-06-09 09:59 | XMS_ITS | Clinical Summary ---
Author Organization [facility] Address [address] [place] [address] Care Team Providers Care Anesthetic Assistant Name Role Phone Unavailable Primary Care Provider Unavailabl e Source Comments You are receiving this document as you are listed as the primary care provider,follow-up provider, or the patient has been referred to you for consultation.This is in compliance with the Medicare and[facility] EHR Incentive Program,which states Providers who transition their patient to another setting of careor provider of care or refers their patient to another provider of care shouldprovide summary care record for each transition of care or referral. [facility] Allergies No known active allergies Medications No known medications Social History Tobacco Use Types Packs/Day Years Used Date Smoking Tobacco: Never Assessed Sex and Gender Information Value Date Recorded Sex Assigned at Not on file Gender Identity Not on file Sexual Orientation Not on file Last Filed Vital Signs Vital Sign Reading Time Taken Comments Blood Pressure - - Pulse - - Temperature - - Respiratory Rate - - Oxygen Saturation - - Inhaled Oxygen Concentration - - Weight 69.9 kg (154 lb) 06/27/2023 10:11 AM CDT Height 172.7 cm (5' 8) 06/27/2023 10:11 AM CDT Body Mass Index 23.42 06/27/2023 10:11 AM CDT Plan of Treatment Health Maintenance Due Date Last Done Comments Dexa 2006 COVID-19 Vaccine ( season) 2023 10/05/2022, 03/21/2022, 08/30/2021, Additional history exists Medicare Annual Wellness Visit 12/02/2023 Influenza (#1) 2024 08/16/2022, 08/03, 08/09/2020, Additional history exists DTaP/Tdap/Td (2 - Tdap) 09/09/2030 09/09/2020, 11/19 HepA Aged Out 09/10/2008, 02/18/2008 No lo nger eligible based on patient's age to complete this topic Pneumococcal 65+ Yrs Completed 10/28/2019, 03/17/2015, 06/16/2009 Zoster/Shingles Completed 07/25/2022, 05/05/2022 HepB Aged Out No longer eligi ble based on patient's age to complete this topic Hib Aged Out No longer eligi ble based on patient's age to complete this topic IPV (Polio) Aged Out No longer eligi ble based on patient's age to complete this topic MCV4 Aged Out No longer eligi ble based on patient's age to complete this topic
--- OUTSIDE RECORDS SUMMARY | 2024-06-09 09:59 | XMS_ITS | Referral Summary ---
Author Organization [facility] Address [address] [place] [address] Care Team Providers Care Monogram Maker Name Role Phone Rajinder Mars MD Primary Care Provider [phone] Resolved Problems Problem Noted Date Diagnosed Date [...] Orientation Not on file Plan of Treatment Not on file Procedures Procedure Name Priority Date/Time Associated Diagnosis [...] Narrative 09/15/2015 12:00 PM CDT BONE DENSITOMETRY [address] [address] 09/15/2015 PATIENT: Sheila Blackburn CHART: [id number] : 1940 AGE: [age] year old SEX: female REFERRING PROVIDER: Elvin Pierre MD PROCEDURE: Bone density scanning was performed using DXA technology of the lumbar spine and hip. Scanning was performed on a [employer] scanner. Reporting is completed in the form [...] in the lateral decubitus position using a [employer] ??densitometer. Indications for VFA: T-score of -1.0 [...] Recently Relevant to Health Maintenance Care Teams Monogram Maker Relationship Specialty Start Date End Date Rajinder Mars MD [facility] [address] [place] [id number] PCP - General Family Practice 07/29/15
--- OUTSIDE RECORDS SUMMARY | 2024-06-09 09:59 | XMS_ITS | Clinical Summary ---
Author Organization [facility] Address [place], [place] [address] Care Team Providers Care Cableman Name Role Phone Lori Barreto KINGSLEY Unavailable [phone] Pcp, No Primary Care Provider Unavailabl e Allergies Active Allergy Reactions Criticality Noted Date Comments Codeine Vomiting 03/13/2007 Morphine *Unknown High 05/12/2019 Medications Medication Sig Dispensed Refills Start Date End Date Status multivitamins-minera ls-lutein (Multivitamin 50 Plus) tab tablet Take 1 Tablet by mouth once daily. Active pravastatin (PRAVACHOL) 10 mg tabletIndications:Hy perlipidemia, unspecified hyperlipidemia type Take 1 Tablet (10 mg) by mouth at bedtime. 90 Tablet 1 07/10/2022 Active acetaminophen (TYLENOL EXTRA STRGTH) 500 mg tablet Take 1-2 Tablets (500-1,000 mg) by mouth 3 times daily if needed. Max acetaminophen dose: 4000mg in 24 hrs. 01/28/2024 Active Lactobacillus rhamnosus GG (Culturelle) 15 billion cell capsule Take 1 Capsule by mouth once daily. 01/28/2024 Active gabapentin (NEURONTIN) 600 mg tablet Take 1 Tablet (600 mg) by mouth every morning AND 2 Tablets (1,200 mg) at bedtime. 01/28/2024 Active oxyCODONE (ROXICODONE) 5 mg immediate release tablet Take 0.5-1 Tablets (2.5-5 mg) by mouth every 4 hours if needed for Pain. 01/28/2024 Active sennosides-docusate (SENOKOT S) (8.6-50 mg) tablet Take 1-4 Tablets by mouth 2 times daily if needed for Constipation. 01/28/2024 Active trospium (SANCTURA) 20 mg tablet Take 1 Tablet by mouth two times daily. 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 12/13/2016 Blepharitis of upper eyelids of both eyes 2016 Nuclear senile cataract of both eyes 12/13/2016 VITREOUS DEGENERATION-OD 01/07/2003 THROMBOPHLEBITIS NOS 10/28/2000 ALLERGIES 05/27/2000 SINUSITIS, ACUTE NOS BRONCHITIS, ACUTE Immunizations Name Administration Dates Next Due Influenza, IIV3 (Age >=3 years) 10/06/2002 Family History Medical History Relation Name Comments Genetic Other nil for cancer ~no family history with anesthesia Other Sister glaucoma Relation Name Status Comments Other Sister Social History Tobacco Use Types Packs/Day Years Used Date Smoking Tobacco: Former Cigarettes Smokeless Tobacco: Never Comments:1991 Alcohol Use Standard Drinks/Week Comments Not Asked 0 (1 standard drink = 0.6 oz pur e alcohol) rare Social Connections Answer Date Recorded Frequency of Communication with Friends and Fami ly Not on file 07/10/2022 Sex and Gender Information Value Date Recorded Sex Assigned at Not on file Gender Identity Not on file Sexual Orientation Not on file Obstetrics History Last Filed Vital Signs Vital Sign Reading Time Taken Comments Blood Pressure 116/62 07/10/2022 3:01 PM CDT Pulse 62 07/10/2022 3:01 PM CDT Temperature 36.6 ??C (97.8 ??F) 02/04/2022 12:[address] Respiratory Rate 16 02/04/2022 12:25 PM LYE PEEL OPERATOR Oxygen Saturation 96% 07/10/2022 3:01 PM CDT [...] booster 1961 Zoster (shingles) series for age 50+ (1 of 2) 1991 DEXA/DXA scan for age 65+ 2006 Medicare Wellness for age 65+ 2006 Pneumococcal series for age 65+ (1 of 1 - PCV) 2006 BMI (ht and wt on same day) for age 18+ 07/10/2023 07/10/2022 COVID-19 vaccine series (2022-24 season) 2023 10/05/2022, 03/21/2022, 08/30/2021, Additional history exists Influenza for age 65+ 08/02/2024 10/06/2002 Care Teams Cableman Relationship Specialty Start Date End Date Pcp, No . PCP - General 11/13/23 Lori Barreto, [facility] [address] [place] [address] Family Practice Physician Material Analyst 02/27/22
--- NOTE | 2024-06-09 10:15 | CRLHL7_ITS ---
For Patients: As a result of the Cures Act, medical imaging exams and procedure reports are released immediately into your electronic medical record. You may view this report before your referring provider. If you have questions, please contact your health care provider. BILATERAL SCREENING MAMMOGRAM WITH COMPUTER-AIDED DETECTION AND TOMOSYNTHESIS TECHNIQUE: CC and MLO views were obtained. These mammographic images have been obtained using full-field digital technique. These mammographic images were interpreted with the benefit of computer-aided detection. Breast Tomosynthesis was used in this interpretation. COMPARISON FILM: 05/29/23, 05/28/22, 05/22/21. FINDINGS: There are scattered areas of fibroglandular density IMPRESSION: There is no radiographic evidence for malignancy. ASSESSMENT: BI-RADS Category 2: Benign RECOMMENDATION: Routine screening mammogram in 1 year. A lay language report of this examination will be provided to the patient. PAULO CHANDLER M.D. Diagnostic/Nuclear Medicine Radiologist [email or web address] CANDE:sharan Transcribed: 1:37 p.mJoe tsang/Dictated by: Paulo Chandler MD @ 06/11/2024 9:40:00 AM (Electronically Signed)
== END 2024-06-09 09:57 | disposition home or self-care (01) ==
LOC: MAMMO 09:57
PROVIDERS: PCP Physician Assistant Medical; Visit Provider Physician Assistant Medical
DX: Z12.31 Encounter for screening mammogram for malignant neoplasm of breast (principal)
CPT/HCPCS: 77063; 77067

== ENCOUNTER 2024-09-02 21:22 | Inpatient (IN) | payer MEDICARE, SELFPAY ==
[2024-09-02 21:32] VITALS: BP 122/81; PULSE 100; RESP 18; TEMP 36.7; O2SAT 97; BMI 23.6
--- NOTE | 2024-09-02 21:44 | CRLHL7_ITS ---
For Patients: As a result of the Century Cures Act, medical imaging exams and procedure reports are released immediately into your electronic medical record. You may view this report before your referring provider. If you have questions, please contact your health care provider. INDICATION: Abdominal pain. TECHNIQUE: CT abdomen and pelvis acquired with 76 cc Isovue 370 IV contrast. COMPARISON: None. FINDINGS: Lower chest: Small peripheral areas of bronchiolitis. Liver: Unremarkable. Normal in size and attenuation. No suspicious masses. Gallbladder and bile ducts: Post cholecystectomy. Pancreas: Unremarkable. No mass or inflammation. Spleen: Unremarkable. Normal in size. No masses. Adrenal glands: Unremarkable. No nodules. Kidneys: Unremarkable. No suspicious masses, stones, or hydronephrosis. GI tract: There is what appears to be an internal hernia in the right lower quadrant resulting in a small bowel obstruction. The herniated small bowel loop is dilated up to 5.5 cm. Remainder of the GI tract is unremarkable. Vasculature: Abdominal aorta is normal in caliber. Mesenteric arteries are patent. Lymph nodes: No lymphadenopathy. Peritoneum/Abdominal Wall: Unremarkable. No sign of mass or infiltration. No free air or significant free fluid. Pelvis: Unremarkable. Bones: Unremarkable for age. IMPRESSION: Right lower quadrant internal hernia resulting in a small bowel obstruction. This could be a closed loop obstruction. Surgical consultation is recommended for management. No other acute abnormality evident. Please note that all CT scans at this facility use dose modulation, iterative reconstruction, and/or weight-based dosing when appropriate to reduce radiation dose to as low as reasonably achievable. Dictated by Yusef Sheikh MD @ 09/02/2024 11:00:08 PM (Electronically Signed)
--- NOTE | 2024-09-02 21:47 | ED.ABDPAIN ---
HPI - Abdominal Pain General Chief Complaint: Abdominal Pain Stated Complaint: abdominal pain, bloating Time Seen by Provider: 09/02/24 21:31 History of Present Illness HPI narrative: This 84-year-old female comes in with abdominal pain and nausea with occasional vomiting. This is been going on for several days or more than a week and she has attributed it to gas pain. She did present to clinic a couple times and labs an x-ray returned with no findings to explain the symptoms. She was encouraged to get a CT scan and an order was placed for this to occur perhaps tomorrow. She comes in stating that she did not think she could make it through the night because of her abdominal pain. She has not had any diarrhea or passing any gas for the past couple days. She states that if she takes anything by mouth she has immediate nausea and a feeling like she wants to vomit. Related Data Home Medications ?Medication ?Instructions ?Recorded ?Confirmed digestive enzymes (Enzyme Digest 1 cap PO DAILY 08/10/22 09/02/24 capsule) lactobacillus combination no.4 3 3,000 mmu cells PO DAILY 08/10/22 09/02/24 billion cell capsule (Probiotic) multivitamin (Multiple Vitamins 1 tab PO DAILY 10/30/23 09/02/24 tablet) gabapentin 600 mg tablet 1,200 mg PO QHS 01/27/24 09/02/24 gabapentin 600 mg tablet 600 mg PO QAM 01/27/24 09/02/24 Previous Rx's ?Medication ?Instructions ?Recorded pravastatin 10 mg tablet 10 mg PO HS heart #90 tabs 01/16/24 acetaminophen 500 mg capsule 500 - 1,000 mg (1 - 2 x 500 mg) PO 01/28/24 Q8H PRN #60 caps Allergies Allergy/AdvReac Type Severity Reaction Status Date / Time codeine AdvReac Mild nausea and Verified 09/02/24 21:53 vomitting morphine AdvReac Mild Nausea Verified 09/02/24 21:53 Review of Systems Status of ROS Reports: 10 or more systems reviewed and unremarkable except as noted in History and below Narrative Constitutional: No fevers, no weight gain or loss. Eyes: No discharge. No vision changes. HENT: No congestion, no sore throat, no ear pain. Cardiovascular: No chest pain, no palpitations. Respiratory: No shortness of breath, no wheezes, no cough. Gastrointestinal: Abdominal pain with nausea and vomiting. Genitourinary: No dysuria, no hematuria. Musculoskeletal: Normal range of motion. Skin: No rashes, no pruritis. Neurological: No dizziness, weakness, sensory change, speech change. Endo/Heme/Allergies: No bruising or bleeding. No polydipsia. Pysch: no suicidality, no anxiety, no insomnia. All other systems reviewed and are negative. [facility] Medical History (Updated 09/02/24 @ 23:12 by Biju Mckinney MD) Polyp of colon (12/11/10) ?K63.5 - Polyp of colon (ICD-10) Mean red blood cell volume increased ?R71.8 - Other abnormality of red blood cells (ICD-10) Lung nodule (12/11/10) ?R91.1 - Solitary pulmonary nodule (ICD-10) Instability of left foot joint ?M25.375 - Other instability, left foot (ICD-10) Tubular adenoma of colon (07/28/19) ?D12.6 - Benign neoplasm of colon, unspecified (ICD-10) Hordeolum of right lower eyelid ?H00.012 - Hordeolum externum right lower eyelid (ICD-10) Blister (nonthermal), right foot, initial encounter ?S90.821A - Blister (nonthermal), right foot, initial encounter (ICD-10) Right foot pain ?M79.671 - Pain in right foot (ICD-10) Counseling regarding advanced directives (11/19/17) ?Z71.89 - Other specified counseling (ICD-10) Scapular dyskinesis ?G25.89 - Other specified extrapyramidal and movement disorders (ICD-10) Right rotator cuff tear arthropathy ?M75.101 - Unspecified rotator cuff tear or rupture of right shoulder, not specified as traumatic (ICD-10) ?M12.811 - Other specific arthropathies, not elsewhere classified, right shoulder (ICD-10) Osteoarthritis of left knee ?M17.12 - Unilateral primary osteoarthritis, left knee (ICD-10) Surgical History (Updated 08/31/24 @ 10:50 by Lori Barreto PA-C) 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) ?Z96.619 - Presence of unspecified artificial shoulder joint (ICD-10) 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) ?Z96.611 - Presence of right artificial shoulder joint (ICD-10) History of cholecystectomy (12/11/10) ?Z90.49 - Acquired absence of other specified parts of digestive tract (ICD-10) History of tubal ligation (12/11/10) ?Z98.51 - Tubal ligation status (ICD-10) History of tonsillectomy (12/11/10) ?Z90.89 - Acquired absence of other organs (ICD-10) History of hysterectomy (02/29/12) ?Z90.710 - Acquired absence of both cervix and uterus (ICD-10) History of colonoscopy with polypectomy ?Z98.890 - Other specified postprocedural states (ICD-10) ?Z86.010 - Personal history of colonic polyps (ICD-10) Status post bilateral foot surgery (04/07/08) ?Z98.890 - Other specified postprocedural states (ICD-10) Status post finger joint fusion (01/04/10) ?Z98.1 - Arthrodesis status (ICD-10) Status post right foot surgery (01/04/10) ?Z98.890 - Other specified postprocedural states (ICD-10) Status post arthroscopy of right shoulder (06/02/14) ?Z98.890 - Other specified postprocedural states (ICD-10) Status post left foot surgery (~2019) ?Z98.890 - Other specified postprocedural states (ICD-10) 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) ?Z96.659 - Presence of unspecified artificial knee joint (ICD-10) History of foot surgery (09/20/10) ?Z98.890 - Other specified postprocedural states (ICD-10) Family History (Updated 11/02/22 @ 16:29 by Madelaine Middleton) Mother Breast cancer CHF (congestive heart failure) Sister COPD (chronic obstructive pulmonary disease) Father Stomach cancer Social History Narrative: Does not drink alcohol Does not use illicit drugs Former smoker What is your current living situation?: I presently have a place to live Problems where you live: no known problems Problems where you live details: none In the past 12 months, utilities in danger of being shut off: no In past 12 months, lack of transportation kept you from medical appts, meetings, work, or getting things needed for daily living: no In the past 12 mos, have been you worried that your food would run out before you had money to buy more?: never true In the past 12 mos, the food you bought just didn't last and you didn't have money to buy more?: never true Smoking Status: Never smoker Do you use any of these nicotine containing products: None Second hand tobacco smoke exposure: No How often do you have a drink containing alcohol: never How many standard drinks containing alcohol do you have on a typical day: 1 or 2 How often do you have six or more drinks on one occasion: Never AUDIT-C Alcohol total score: 0 Non-prescribed substance use: denies use Caffeine: Yes (2c/day) How often does anyone, including family, friends and others, physically hurt you: never How often does anyone, including family, friends and others, insult or talk down to you: never How often does anyone, including family, friends and others, threaten you with harm: never How often does anyone, including family, friends and others, scream or curse at you: never service: No Exam Narrative: Exam Narrative: Constitutional: Well-developed, well-nourished, no acute distress. HEENT: Normocephalic, atraumatic. Neck: Normal range of motion. Nontender. Supple. Heart: Regular. No murmurs. Normal rate. Intact distal pulses. Lungs: Clear to auscultation. No chest discomfort. No wheezes, rhonchi, or rales. Abdomen: Decreased bowel sounds. Tenderness is more present across the lower abdomen. Rebound tenderness is present. Genitalia: Deferred. Back: No midline tenderness. Normal range of motion. Extremities: Normal range of motion. No injury. Skin: Intact. No rash. Warm. No erythema or pallor. Neurologic: No altered sensation. No weakness. Alert and oriented. Psychiatric: No suicidality. No anxiety or depression. No insomnia. Nursing notes and vitals signs are reviewed. Const: Vital Signs, click to edit/add: Vital Signs - 24 hr 09/02/24 21:32 09/02/24 22:39 Temperature 98.1 F Pulse Rate [Pulse Oximeter] 100 79 Respiratory Rate 18 16 Blood Pressure [Ri ght Upper Arm] 122/81 125/61 Pulse Oximetry 97 98 Oxygen Delivery Me thod Room Air Nasal Cannula Oxygen Flow Rate 2 Course Vital Signs Vital signs: Initial Vital Signs Temperature 98.1 F 09/02/24 21:32 Temperature Source Temporal Artery Scan 09/02/24 21:32 Pulse Rate 100 09/02/24 21:32 Pulse Rhythm Regular 09/02/24 21:32 Respiratory Rate 18 09/02/24 21:32 Blood Pressure 122/81 09/02/24 21:32 Blood Pressure Mean 94 09/02/24 21:32 Blood Pressure Position Sitting 09/02/24 21:32 Pulse Oximetry 97 09/02/24 21:32 Oxygen Delivery Method Room Air 09/02/24 21:32 Vital Signs Temperature 98.1 F 09/02/24 21:32 Pulse Rate 100 09/02/24 21:32 Respiratory Rate 18 09/02/24 21:32 Blood Pressure 122/81 09/02/24 21:32 Pulse Oximetry 97 09/02/24 21:32 Oxygen Delivery Method Room Air 09/02/24 21:32 Temperature 98.1 F 09/02/24 21:32 Pulse Rate 79 09/02/24 22:39 Respiratory Rate 16 09/02/24 22:39 Blood Pressure 125/61 09/02/24 22:39 Pulse Oximetry 98 09/02/24 22:39 Oxygen Delivery Method Nasal Cannula 09/02/24 22:39 Oxygen Flow Rate 2 09/02/24 22:39 Medications Administered Medications: Discontinued Medications Generic Name Dose Route Start Last Admin Trade Name Freq PRN Reason Stop Dose Admin Hydromorphone HCl 0.2 mg 09/02/24 21:44 09/02/24 21:56 Hydromorphone 0.5 Mg/0.5 Ml Inj IVP 09/02/24 21:45 0.2 mg ONCE ONE Administration Sodium Chloride 1,000 mls @ 1,000 mls/hr 09/02/24 22:00 09/02/24 21:58 0.9 % Sodium Chloride 1000 Ml IV 09/02/24 22:59 1,000 mls/hr .Q1H ROSANGELA Administration Ondansetron HCl 4 mg 09/02/24 21:46 09/02/24 21:57 Ondansetron 2 Mg/Ml Inj IVP 09/02/24 21:47 4 mg ONCE ONE Administration MDM - Abdominal Pain MDM Narrative Medical decision making narrative: This 84-year-old female comes in with severe abdominal pain. An IV was established and CT imaging of the abdomen and pelvis is obtained. This shows evidence of an internal hernia with the possibility of a closed loop obstruction. The patient did receive an IV dose of Dilaudid 0.2 mg and Zofran 4 mg. I spoke with the surgeon on-call, Dr. Escalante, who will arrange for surgery this evening. Lab Data Labs: Lab Results 09/02/24 Range/Units 21:55 WBC 7.43 (4.50-11.00) K/uL RBC 3.95 L (4.00-5.20) m/uL Hgb 13.6 (12.0-16.0) gm/dL Hct 40.7 (33.0-51.0) % MCV 103 H (80-100) fL MCH 34 (26-34) pg MCHC 33 (32-36) gm/dL RDW Coeff of Laurent 12.7 (11.5-15.5) % Plt Count 185 (140-440) K/uL Neut % (Auto) 71.1 (42.0-72.0) % Lymph % (Auto) 17.4 L (20-44) % Phillips % (Auto) 8.1 (0.0-11.0) % Eos % (Auto) 2.6 (0.0-7.0) % Baso % (Auto) 0.1 (0.0-3.0) % Neut # (Auto) 5.29 (1.7-7.0) K/uL Lymph # (Auto) 1.30 (0.90-2.90) K/uL Phillips # (Auto) 0.60 (0.00-0.90) K/UL Eos # (Auto) 0.19 (0.00-0.50) K/uL Baso # (Auto) 0.01 (0.00-0.30) K/uL Abs Immat Gran (auto) 0.05 (0.00-0.30) K/uL Imm/Tot Granulo (auto) 0.7 % Sodium 132 L (135-149) mmol/L Potassium 3.9 (3.6-5.1) mmol/L Chloride 97 (96-114) mmol/L Carbon Dioxide 28 (20-32) mmol/L Anion Gap 7 (7-15) mEq/L BUN 17 (7-30) mg/dL Creatinine 0.7 (0.5-1.5) mg/dL Estimated Creat Clear 43.00 Estimated GFR 86 ml/min Glucose 105 (60-115) mg/dL Lactate 0.7 (0.5-1.9) mmol/L Calcium 9.4 (8.4-10.6) mg/dL Total Bilirubin 0.7 (0.1-1.5) mg/dL Direct Bilirubin 0.2 (0.0-0.5) mg/dL AST 33 (12-35) U/L ALT 15 (4-35) U/L Alkaline Phosphatase 114 (40-150) U/L Total Protein 7.2 (6.0-8.3) g/dL Albumin 4.4 (3.3-5.0) g/dL Imaging Data CT scan - abdomen: Radiologist's impression: Right lower quadrant internal hernia resulting in a small bowel obstruction. This could be a closed loop obstruction. Surgical consultation is recommended for management. No other acute abnormality evident. Discharge Plan Discharge Clinical Impression: Bowel obstruction Patient Disposition: XFER to OR Condition: Unchanged Prescriptions: No Action Probiotic 3 billion cell capsule 3,000 mmu cells PO DAILY Rx Instructions: administer with a meal Enzyme Digest Capsule 1 cap PO DAILY Rx Instructions: administer with food; swallow whole; do not crush/chew/dissolve/break/cut multivitamin [Multiple Vitamins] Tablet 1 tab PO DAILY pravastatin 10 mg tablet 10 mg PO HS Qty: 90 3RF gabapentin 600 mg tablet 1,200 mg PO QHS gabapentin 600 mg tablet 600 mg PO QAM acetaminophen 500 mg capsule 500 - 1,000 mg PO Q8H MDD 3000mg PRNQty: 60 0RF Follow Up/Referrals: Lori Barreto PA-C [Primary Care Provider] -
[2024-09-02] MEDS: HYDROmorphone 0.5 mg/0.5 ml inj 0.2 MG IVP (21:56)
[2024-09-02] MEDS: ONDANSETRON 2 MG/ML inj 4 MG IVP (21:57)
[2024-09-02] MEDS: 0.9 % SODIUM CHLORIDE 1000 ml 1,000 ML IV (21:58)
[2024-09-02 22:00] LABS: Lactate* 0.7 mmol/L (0.5-1.9)
[2024-09-02 22:19] LABS: Albumin* 4.4 g/dL (3.3-5.0); Chloride* 97 mmol/L (96-114); Sodium* 132 mmol/L (135-149)
[2024-09-02 22:20] LABS: Potassium* 3.9 mmol/L (3.6-5.1)
[2024-09-02 22:21] LABS: Bilirubin Direct* 0.2 mg/dL (0.0-0.5); Bilirubin Total* 0.7 mg/dL (0.1-1.5)
[2024-09-02 22:22] LABS: Alanine Aminotransferase* 15 U/L (4-35); Alkaline Phosphatase* 114 U/L (40-150); Aspartate Amino Transferase* 33 U/L (12-35); Creatinine* 0.7 mg/dL (0.5-1.5); Estimated Glomerular Filt Rate 86 ml/min; Total Protein* 7.2 g/dL (6.0-8.3)
[2024-09-02 22:23] LABS: Anion Gap 7 mEq/L (7-15); Blood Urea Nitrogen* 17 mg/dL (7-30); Calcium* 9.4 mg/dL (8.4-10.6); Carbon Dioxide* 28 mmol/L (20-32); Glucose* 105 mg/dL (60-115)
[2024-09-02 22:30] LABS: Basophils Absolute Auto 0.01 K/uL (0.00-0.30); Basophils Percent Auto 0.1 % (0.0-3.0); Eosinophils Absolute Auto 0.19 K/uL (0.00-0.50); Eosinophils Percent Auto 2.6 % (0.0-7.0); Hematocrit 40.7 % (33.0-51.0); Hemoglobin* 13.6 gm/dL (12.0-16.0); Immature Granulocytes Abs Auto 0.05 K/uL (0.00-0.30); Immature Granulocytes Pct Auto 0.7 %; Lymphocytes Percent Auto 17.4 % (20-44); Mean Corpuscular HGB Conc 33 gm/dL (32-36); Mean Corpuscular Hemoglobin 34 pg (26-34); Mean Corpuscular Volume 103 fL (80-100); Monocytes Percent Auto 8.1 % (0.0-11.0); Neutrophils Absolute Auto 5.29 K/uL (1.7-7.0); Neutrophils Percent Auto 71.1 % (42.0-72.0); Platelet Count* 185 K/uL (140-440); RDW Coefficient of Variation % 12.7 % (11.5-15.5); Red Blood Count 3.95 m/uL (4.00-5.20); White Blood Count* 7.43 K/uL (4.50-11.00)
[2024-09-02 22:39] VITALS: BP 125/61; PULSE 79; RESP 16; O2SAT 98
[2024-09-02 22:47] LABS: Slide Review Reflex No
--- OUTSIDE RECORDS SUMMARY | 2024-09-02 23:08 | XMS_ITS | Encounter Summary ---
Author Organization [facility] Address [address] [place] [address]. [place] [address] Care Team Providers Care Industrial Relations Commissioner Name Role Phone Rajinder Mars MD Primary Care Provider [phone] Encounter Details Date Type Department Care Team (Latest Contact Info) Description 07/17/2024 Travel Social History Tobacco Use Types Packs/Day Years Used Date Smoking Tobacco: Never Assessed Adolescent Education Answer Date Record ed Getting School Help Needed Not on file 09/01 Sex and Gender Information Value Date Recorded Sex Assigned at Not on file Gender Identity Not on file Sexual Orientation Not on file documented as of this encounter Plan of Treatment Not on file documented as of this encounter Visit Diagnoses Not on filedocumented in this encounter Care Teams Industrial Relations Commissioner Relationship Specialty Start Date End Date Rajinder Mars MD [facility] [address] [place] [address] PCP - General Family Practice 07/29/15 documented as of this encounter
--- OUTSIDE RECORDS SUMMARY | 2024-09-02 23:08 | XMS_ITS | Encounter Summary ---
Author Organization [facility] Address [address] [place] [address] Care Team Providers Care Relationship Counselor Name Role Phone Rajinder Mars MD Primary Care Provider [phone] Reason for Visit * Rehab Therapy Integrated Services - Authorized Specialty Diagnoses / Procedures Referred By Ailyn nieto Referred To Contact Diagnoses Overactive bladder [address] [address] Referral ID Status Reason Start Date Expiration Date V isits Requested Visits Authorized [id number] Authorized 07/09/2024 12/01/2024 365 365 Encounter Details Date Type Department Care Team (Latest Contact Info) Description 07/24/2024 8:00 AM CDT Therapy Visit [facility] [address] [place] [address] Abril Cabezas PA-C [facility] [address] [place] [phone] Arabella Duran, PT [facility] [address] [place] [address] [address] [place] [address] Mixed incontinence (Primary Dx) Social History Tobacco Use Types Packs/Day Years [...] documented as of this encounter Visit Diagnoses Diagnosis Mixed incontinence- Primary Mixed incontinence urge and stress (male)(female) documented in this encounter Care Teams Relationship Counselor Relationship Specialty Start Date End Date Rajinder Mars MD [facility] [address] [place] [address] PCP - General Family Practice 07/29/15 documented as of this encounter
--- OUTSIDE RECORDS SUMMARY | 2024-09-02 23:08 | XMS_ITS | Encounter Summary ---
Author Organization [facility] Address [address] [place] [address] Care Team Providers Care Yarn Packer Name Role Phone Rajinder Mars MD Primary Care Provider [phone] Reason for Referral * Rehab Therapy Integrated Services - Authorized Specialty Diagnoses / Procedures Referred By Ailyn nieto Referred To Contact Diagnoses Overactive bladder [address] [address] Referral ID Status Reason Start Date Expiration Date V isits Requested Visits Authorized [id number] Authorized 07/09/2024 12/01/2024 365 365 Question Answer Course of Action: Evaluation and Treatment Specialty Services: Pelvic Health Pelvic Health: Urinary Frequency/Urgency Scheduling Instructions: [facility] will call you to coordinate your care as prescribed by your provider. If you don't hear from a client services representative within 2 business days, please call . Additional Information: [place] location Comments Please be aware that coverage of these services is subject to the terms and limitations of your health insurance plan. Call member services at your health plan with any benefit or coverage questions. [facility] will call you to coordinate your care as prescribed by your provider. If you don't hear from a client services representative within 2 business days, please call . Encounter Details Date Type Department Care Team (Latest Contact Info) Description 06/15/2024 Transcribe Orders GENERIC EXTERNAL DATA DEPARTMENT Abril Cabezas PA-C [facility] [place] [address] Overactive bladder (Primary Dx) Social History Tobacco Use Types Packs/Day Years Used Date Smoking Tobacco: Never Assessed Adolescent Education Answer Date Record ed Getting School Help Needed Not on file 09/01 Sex and Gender Information Value Date Recorded Sex Assigned at Not on file Gender Identity Not on file Sexual Orientation Not on file documented as of this encounter Plan of Treatment Scheduled Referrals Name Type Priority Associated Diagnoses Orde r Schedule Physical Therapy Er Nurse Referral Referral Routine Overactive bladder Expected: 06/15/2024 (Approximate), Expires: 06/15/2025 documented as of this encounter Visit Diagnoses Diagnosis Overactive bladder- Primary Hypertonicity of bladder documented in this encounter Care Teams Yarn Packer Relationship Specialty Start Date End Date Rajinder Mars MD [facility] [address] [place] [address] PCP - General Family Practice 07/29/15 documented as of this encounter
--- OUTSIDE RECORDS SUMMARY | 2024-09-02 23:08 | XMS_ITS | Continuity of Care Document ---
Author Organization [facility] Address [address] [address] [place] [address] Phone Care Team Providers Care Slicing Machine Operator Name Role Phone Simon Weinstein CRNA Unavailable Unavailable Allergies, Adverse Reactions, Alerts Substance Reaction Status Criticality morphine Active No Information codeine Vomiting Active No Information Medications Medication Instructions Dosage Effective Dates (start - stop) Status Comments Herbal Medications/Supplemen ts unknown niteworks- po - Active Vitamin D3 1,000 unit tablet take 1 by Oral route every day 1 - Active cranberry 400 mg capsule take 1 Capsule by Oral route every day - Active sumatriptan 25 mg tablet take [...] Procedures Procedure Date Colonoscopy Flex; W/remov Les- Colonoscopy Flex; W/bx 1/mx Level Iv-surg Path Gross/micro 19 Colonoscopy Flex; W/remov Les- 14 Level Iv-surg Path Gross/micro 14 Colorectal Ca Screen Hi Risk I 09 Advance Directives Directive Yes / No Effective Date File Name No Information Encounters Encounter Description Practice Location Reason(s) For Visit Diagnoses Date Provider Providers Copied on Encounter [facility], [address] [address], [place], [place], [id number], [place] tel:[phone] [facility] No Information 9 Js Montes. [address] [facility], [facility] [address], [place], [place], [id number] , [place]. tel:[phone] Referring Provider: Saulo Nayak, [address] [facility] [address], [place], [address]. tel:[phone] [facility], [address] [address], [place], [place], [id number], [place] tel:[phone] [facility] Colorectal polypsEncounter for screening for malignant neoplasm of colonPersonal history of colonic polypsBenign neoplasm of cecumBenign neoplasm of transverse colonBenign neoplasm of cecum 9 Gricelda Vernon. [address] [facility], [facility] [address], [place], [id number] , [place]. tel:[phone] Lorie Youngblood MD. tel:[phone] ring Provider: Rajinder Betts, [address] [place], [address]. [phone] [facility], [address] [address], [place], [place], [id number], [place] tel:[phone] [facility] Colonic polypColon Cancer ScreeningBenign Neoplasm ColonPersonal History Colon Polyps 4 Juarez Gambino. [address] [facility], [address], [place], [place], [id number] , [place]. [phone] Referring Provider: Rajinder Betts, [address] [place], [address]. tel:[phone] [facility], [address] [address], [place], [place], [id number], [place] tel:[phone] [facility] Personal History Colon Polyps 9 Juarez Gambino. [address] [facility], [address], [place], [place], [id number] , [place]. [phone] Referring Provider: Rajinder Mars MD [place], [address] [place], [address]. tel:[phone] Family History Family Member Type Diagnosis Age [...] colon Payers Payer name Insurance type Covered republican ID Authorsherria jaye(s) [employer] Medicare [place] [id number] Social History Type Description Quantity Date Captured Comments Sex Female Smoking Status No Information Chief Complaint And Reason For Visit No Information Reason For Referral Reason For Referral No Information History Of Present Illness Encounter [...]
--- OUTSIDE RECORDS SUMMARY | 2024-09-02 23:08 | XMS_ITS | Encounter Summary ---
Author Organization [facility] Address [address] [place] [address]. [place] [address] Care Team Providers Care Mixing Plant Operator Name Role Phone Rajinder Mars MD Primary Care Provider [phone] Encounter Details Date Type Department Care Team (Latest Contact Info) Description 07/30/2024 Travel Social History Tobacco Use Types Packs/Day [...] on filedocumented in this encounter Care Teams Mixing Plant Operator Relationship Specialty Start Date End Date Rajinder Mars MD [facility] [address] [place] [address] PCP - General Family Practice 07/29/15 documented as of this encounter
--- OUTSIDE RECORDS SUMMARY | 2024-09-02 23:08 | XMS_ITS | Encounter Summary ---
Author Organization [facility] Address [address] [place] [address] Care Team Providers Care Blood Tester Name Role Phone Rajinder Mars MD Primary Care Provider [phone] Reason for Visit * Rehab Therapy Integrated Services - Authorized Specialty Diagnoses / Procedures Referred By Ailyn nieto Referred To Contact Diagnoses Overactive bladder [address] [address] Referral ID Status Reason Start Date Expiration Date V isits Requested Visits Authorized [id number] Authorized 07/09/2024 12/01/2024 365 365 Encounter Details Date Type Department Care Team (Latest Contact Info) Description 07/17/2024 8:00 AM CDT Therapy Visit [facility] [address] [place] [address] Abril Cabezas PA-C [facility] [address] [place] [phone] Arabella Duran, PT [facility] [address] [place] [address] [address] [place] [address] Mixed incontinence (Primary Dx); Overactive bladder Social History Tobacco Use Types Packs/Day Years Used Date Smoking Tobacco: Never Assessed Adolescent Education Answer Date Record ed Getting School Help Needed Not on file 09/01 Sex and Gender Information Value Date Recorded Sex Assigned at Not on file Gender Identity Not on file Sexual Orientation Not on file documented as of this encounter Progress Notes * Arabella Duran, PT - 07/17/2024 8:00 AM CDT PHYSICAL THERAPY EVALUATION Type of Visit: Evaluation Fall Risk Screen: Fall screen completed by: PT Have you fallen 2 or more times in the past year?: Yes Have you fallen and had an injury in the past year?: No Is patient a fall risk?: No Subjective Pt reporting urine leaking case when she stands up after sitting for a long period of time. Pt wearspads at all times. Urgency overnight. Voiding as often as once every 60-90 minutes. VEENA with coughing and sneezing on a full bladder. Normal bowel movements. Pt reports low plain water intake. Pt drinks carbonated flavored water (ICE), Sandy Tea, milk, coffee, V8. Working on drinking some plain water. Walks dogs 2-3 miles, sometimes has leaking of loose stool. Pt did do two visits of PFPT in 2018, had a good experience and her bladder symptoms were reduced. Pt has a history of gallbladder removal, bladder prolapse surgery, and total hysterectomy. Getting TKA in September of this year. Presenting condition or subjective complaint: urine leakage Date of onset: 06/15/24 (MD order) Relevant medical history: Dates & types of surgery: too many to list Prior diagnostic imaging/testing results: Other Prior therapy history for the same diagnosis, illness or injury: Prior Level of Function Transfers: Independent Ambulation: Independent ADL: Independent Living Environment Social support: Alone Type of home: House; 2-story Stairs to enter the home: Ramp: No Stairs inside the home: Yes 7 Is there a railing: Yes Help at home: None Equipment owned: Employment: Hobbies/Interests: Patient goals for therapy: hold urine until I get to the bathroom Pain assessment: Pain denied Objective PELVIC EVALUATION ADDITIONAL HISTORY: Sex assigned at : Female Gender identity: Female Pronouns: Bladder History: Feels bladder filling: No Triggers for feeling of inability to wait to go to the bathroom: Yes during the night How long can you wait to urinate: I cannot hold it then Gets up at night to urinate: Yes 1 to 2 times or more Can stop the flow of urine when urinating: No Volume of urine usually released: Other issues: Slow or hesitant urine stream Number of bladder infections in last 12 months: Fluid intake per day: Medications taken for bladder: Activities causing urine leak: Cough; Sneeze; Hurrying to the bathroom due to a strong urge to urinate (pee); Other activities Amount of urine typically leaked: Pads used to help with leaking: Bowel History: Frequency of bowel movement: usually daily Consistency of stool: Soft Ignores the urge to defecate: No Other bowel issues: Length of time spent trying to have a bowel movement: Sexual Function History: Sexual orientation: Straight Sexually active: Lubrication used: Pelvic pain: Pain or difficulty with orgasms/erection/ejaculation: No State of menopause: Post-menopause (I am done with menopause) Hormone medications: Are you currently : No Number of previous pregnancies: 4 Number of deliveries: 4 If you have delivered before, did you have any of these issues during delivery: Tearing; Vaginal delivery Have you been diagnosed with pelvic prolapse or abdominal separation: No Have you tried pelvic floor strengthening exercises for 4 weeks: No Do you have any history of trauma that is relevant to your care that you???d like to share: No Discussed reason for referral regarding pelvic health needs and external/internal pelvic floor muscle examination with patient/guardian. Opportunity provided to ask questions and verbal consent for assessment and intervention was given. POSTURE: Sitting Posture: Rounded shoulders, Forward head, Thoracic kyphosis increased, pt also with scoliosis PELVIC EXAM External Visual Inspection: At rest: Normal With voluntary pelvic floor contraction: Uncertain Integumentary: Introitus: Unremarkable External Digital Palpation per Perineum: Ischiocavernosis: Unremarkable Bulbo cavernosis: Unremarkable Transverse perineal: Unremarkable Levator ani: Unremarkable Internal Digital Palpation: Per Vagina: Digital Muscle Performance: P (Power): 1/5 before coaching, 2/5 with exhale Assessment & Plan CLINICAL IMPRESSIONS Medical Diagnosis: urinary frequency/urgency Treatment Diagnosis: mixed incontinence Impression/Assessment: Patient is a 84 year old female with mixed incontinence complaints. The following significant findings have been identified: Decreased strength, Impaired muscle performance, and Decreased activity tolerance. These impairments interfere with their ability to perform self care tasks, recreational activities, household mobility, and community mobility as compared to previous level of function. Clinical Decision Making (Complexity): Clinical Presentation: Stable/Uncomplicated Clinical Presentation Rationale: based on medical and personal factors listed in PT evaluation Clinical Decision Making (Complexity): Low complexity PLAN OF CARE Treatment Interventions: Interventions: Manual Therapy, Neuromuscular Re-education, Therapeutic Activity, Therapeutic Exercise, Self-Care/Home Management Agriculture Manager Goals PT Goal 1 Goal Identifier: incontinence Goal Description: pt will be able to reduce leaking from daily to a few times a week Rationale: to maximize safety and independence with performance of ADLs and functional tasks Target Date: 10/09/24 Frequency of Treatment: once per week Duration of Treatment: 12 weeks Recommended Referrals to Other Professionals: NA Education Assessment: Learner/Method: Patient Education Comments: Pt educated on PT role and plan of care Risks and benefits of evaluation/treatment have been explained. Patient/Family/caregiver agrees with Plan of Care. Evaluation Time: PT Mihir Jean Minutes ([id number]): 25 Signing Clinician: Arabella Duran PT [facility] OUTPATIENT PHYSICAL THERAPY PLAN OF TREATMENT FOR OUTPATIENT REHABILITATION Patient's Last Name, First Name, TessJoeGarrettJoe BlackburnSheila B Date of : 1940 Provider's Name [facility] Onset Date: 06/15/24 (MD order) Start of Care Date: 07/17/24 Medical Diagnosis: urinary frequency/urgency PT Treatment Diagnosis: mixed incontinence Plan of Treatment Frequency/Duration: once per week/ 12 weeks Certification date from 07/17/24 to 10/09/24 See note for plan of treatment details and functional goals Arabella Duran, PT I CERTIFY THE NEED FOR THESE SERVICES FURNISHED UNDER THIS PLAN OF TREATMENT AND WHILE UNDER MY CARE (Physician attestation of this document indicates review and certification of the therapy plan). Referring Provider: Abril Cabezas V Initial Assessment See Epic Evaluation- Start of Care Date: 07/17/24 Associated attestation - Abril Cabezas PA-C - 07/23/2024 11:30 AM CDT Physician Attestation I agree with the information in this note. Abril Cabezas PA-C documented in this encounter Plan of Treatment Not on file documented as of this encounter Visit Diagnoses Diagnosis Mixed incontinence- Primary Mixed incontinence urge and stress (male)(female) Overactive bladder Hypertonicity of bladder documented in this encounter Care Teams Blood Tester Relationship Specialty Start Date End Date Rajinder Mars MD [facility] [address] [place] [address] PCP - General Family Practice 07/29/15 documented as of this encounter
--- OUTSIDE RECORDS SUMMARY | 2024-09-02 23:08 | XMS_ITS | Encounter Summary ---
Author Organization [facility] Address [address] [place] [address] Care Team Providers Care Utility Worker Name Role Phone Rajinder Mars MD Primary Care Provider [phone] Reason for Visit * Rehab Therapy Integrated Services - Authorized Specialty Diagnoses / Procedures Referred By Ailyn nieto Referred To Contact Diagnoses Overactive bladder [address] [address] Referral ID Status Reason Start Date Expiration Date V isits Requested Visits Authorized [id number] Authorized 07/09/2024 12/01/2024 365 365 Encounter Details Date Type Department Care Team (Latest Contact Info) Description 07/30/2024 8:00 AM CDT Therapy Visit [facility] [address] [place] [address] Abril Cabezas PA-C [facility] [address] [place] [phone] Arabella Duran, PT [facility] [address] [place] [address] [address] [place] [address] Mixed incontinence (Primary Dx) Social History Tobacco [...] (male)(female) documented in this encounter Care Teams Utility Worker Relationship Specialty Start Date End Date Rajinder Mars MD [facility] [address] [place] [address] PCP - General Family Practice 07/29/15 documented as of this encounter
--- OUTSIDE RECORDS SUMMARY | 2024-09-02 23:08 | XMS_ITS | Encounter Summary ---
Author Organization [facility] Address [address] [place] [address]. [place] [address] Care Team Providers Care Senior Design Engineer Name Role Phone Rajinder Mars MD Primary Care Provider [phone] Encounter Details Date Type Department Care Team (Latest Contact Info) Description 07/24/2024 Travel Social History Tobacco Use Types Packs/Day [...] on filedocumented in this encounter Care Teams Senior Design Engineer Relationship Specialty Start Date End Date Rajinder Mars MD [facility] [address] [place] [phone] PCP - General Family Practice 07/29/15 documented as of this encounter
--- OUTSIDE RECORDS SUMMARY | 2024-09-02 23:08 | XMS_ITS | Clinical Summary ---
Author Organization [facility] Address [address] [place] [address] Care Team Providers Care Hydraulic Press Tender Name Role Phone Rajinder Mars MD Primary Care Provider [phone] Active Problems Problem Noted Date Diagnosed Date Mixed incontinence 08/06/2019 Resolved Problems Problem Noted Date Diagnosed Date Resolved Date Muscle weakness (generalized) 08/06/2019 08/26/2019 Urinary frequency 08/06/2019 08/26/2019 Encounters Date Type Department Care Team Description 07/30/2024 8:00 AM CDT Therapy Visit [address] [place] [address] Abril Cabezas PA-C Dickinson, Kelly, PT Mixed incontinence (Primary Dx) 07/30/2024 Travel 07/24/2024 8:00 AM CDT Therapy Visit [address] [place] [address] Abril Cabezas PA-C Dickinson, Kelly, PT Mixed incontinence (Primary Dx) 07/24/2024 Travel 07/17/2024 8:00 AM CDT Therapy Visit [address] [place] [address] Abril Cabezas PA-C Dickinson, Kelly, PT Mixed incontinence (Primary Dx); Overactive bladder 07/17/2024 Travel 06/15/2024 Transcribe Orders GENERIC EXTERNAL DATA DEPARTMENT Abril Cabezas PA-C Overactive bladder (Primary Dx) from Last 3 Months Social History Tobacco Use Types Packs/Day Years Used Date Smoking Tobacco: Never Assessed Adolescent Education Answer Date Record ed Getting School Help Needed Not on file 10/01 /2023 Sex and Gender Information Value Date Recorded Sex Assigned at Not on file Gender Identity Not on file Sexual Orientation Not on file Plan of Treatment Health Maintenance Due Date Last Done Comments ADVANCE CARE PLANNING 1940 ANNUAL REVIEW OF HM ORDERS 1940 FALL RISK ASSESSMENT 2006 MEDICARE ANNUAL WELLNESS VISIT 2006 RSV VACCINE (1 - 1-dose 75+ series) 2016 PHQ-2 (once per calendar year) 2023 COVID-19 Vaccine ( - 2023- season) 2024 10/05/2022, 03/21/2022, 08/30/2021, Additional history exists INFLUENZA VACCINE (#1) 2024 2, 08/16/2022, 08/23/2021, Additional history exists DTAP/TDAP/TD IMMUNIZATION (2 - Td or Tdap) 09/09/2030 09/09/2020, 11/19/2006 DEXA 09/15/2030 09/15/2015, 09/07/2015 Pneumococcal Vaccine: 65+ Years Completed 10/28/2019, 03/17/2015, 06/16/2009 ZOSTER IMMUNIZATION Completed 07/25/2022, 2 HPV IMMUNIZATION Aged Out No longer e [...] Narrative 09/15/2015 12:00 PM CDT BONE DENSITOMETRY [address] [address] 09/15/2015 PATIENT: Sheila Blackburn CHART: [id number] : 1940 AGE: [age] year old SEX: female REFERRING PROVIDER: Elvin Pierre MD PROCEDURE: Bone density scanning was performed using DXA technology of the lumbar spine and hip. Scanning was performed on a Satellier scanner. Reporting is completed in the form [...] in the lateral decubitus position using a Oligasisigy ??densitometer. Indications for VFA: T-score of -1.0 [...] Recently Relevant to Health Maintenance Care Teams Hydraulic Press Tender Relationship Specialty Start Date End Date Rajinder Mars MD [facility] [address] [place] [phone] PCP - General Family Practice 07/29/15
--- OUTSIDE RECORDS SUMMARY | 2024-09-02 23:08 | XMS_ITS | Clinical Summary ---
Author Organization [facility] Address [address] [place] [address] Care Team Providers Care Animal Hospital Clerk Name Role Phone Unavailable Primary Care Provider Unavailabl e Source Comments You are receiving this document as you are listed as the primary care provider,follow-up provider, or the patient has been referred to you for consultation.This is in compliance with the Medicare andSt. [facility] Hospital[facility] EHR Incentive Program,which states Providers who [...] Due Date Last Done Comments Dexa 2006 RSV (1 - 1-dose 75+ series) 2016 Medicare Annual Wellness Visit 12/02/2023 COVID-19 Vaccine ( season) 2024 10/05/2022, 03/21/2022, 08/30/2021, Additional history exists Influenza (#1) 2024 08/16/2022, 08/03, 08/09/2020, Additional [...]
--- OUTSIDE RECORDS SUMMARY | 2024-09-02 23:08 | XMS_ITS | Referral Summary ---
Author Organization [facility] Address [address] [place] [address] Care Team Providers Care Clinic Charge Nurse Name Role Phone Rajinder Mars MD Primary Care Provider [phone] Encounters Date Type Department Care Team Description 07/30/2024 Travel 07/30/2024 8:00 AM CDT Therapy Visit [address] [place] [address] Abril Cabezas PA-C Dickinson, Kelly, PT Mixed incontinence (Primary Dx) 07/24/2024 Travel 07/24/2024 8:00 AM CDT Therapy Visit [address] [place] [address] Abril Cabezas PA-C Dickinson, Kelly, PT Mixed incontinence (Primary Dx) 07/17/2024 Travel 07/17/2024 8:00 AM CDT Therapy Visit [address] [place] [address] Abril Cabezas PA-C Dickinson, Kelly, PT Mixed incontinence (Primary Dx); Overactive bladder 06/15/2024 Transcribe Orders GENERIC EXTERNAL DATA DEPARTMENT Abril Cabezas PA-C Overactive bladder (Primary Dx) from Last 3 Months Active Problems Problem Noted Date Diagnosed Date Mixed incontinence 08/06/2019 Resolved Problems Problem Noted Date Diagnosed Date Resolved Date Muscle weakness (generalized) 08/06/2019 08/26/2019 Urinary frequency 08/06/2019 08/26/2019 Social History Tobacco [...] Narrative 09/15/2015 12:00 PM CDT BONE DENSITOMETRY [address] [address] 09/15/2015 PATIENT: Sheila Blackburn CHART: [id number] : 1940 AGE: [age] year old SEX: female REFERRING PROVIDER: Elvin Pierre MD PROCEDURE: Bone density scanning was performed using DXA technology of the lumbar spine and hip. Scanning was performed on a Kihon scanner. Reporting is completed in the form [...] in the lateral decubitus position using a StreetHubigy ??densitometer. Indications for VFA: T-score of -1.0 [...] Recently Relevant to Health Maintenance Care Teams Clinic Charge Nurse Relationship Specialty Start Date End Date Rajinder Mars MD [facility] [address] [place] [address] PCP - General Family Practice 07/29/15
--- OUTSIDE RECORDS SUMMARY | 2024-09-02 23:09 | XMS_ITS | Clinical Summary ---
Author Organization [facility] Address [place], [place] [address] Care Team Providers Care Aviation Operations Specialist Name Role Phone Lori Barreto KINGSLEY Unavailable [phone] Pcp, No Primary Care Provider Unavailabl [...] ST Respiratory Rate 16 02/04/2022 12:25 PM DIRECTOR OF BUSINESS CONTINUITY Oxygen Saturation 96% 07/10/2022 3:01 PM CDT [...] 65+ (1 of 1 - PCV) 2006 RSV vaccine for adults or (1 - 1-dose 75+ series) 2016 BMI (ht and wt on same day) for age 18+ 07/10/2023 07/10/2022 COVID-19 vaccine series (2023- season) 2024 10/05/2022, 03/21/2022, 08/30/2021, Additional history exists Influenza for age 65+ 08/02/2024 10/06/2002 Care Teams Aviation Operations Specialist Relationship Specialty Start Date End Date Pcp, No . PCP - General 11/13/23 Lori Barreto, PARaymonC [address] [place] [address] Family Practice Physician Business Integration Analyst 02/27/22
--- OUTSIDE RECORDS SUMMARY | 2024-09-02 23:12 | XMS_ITS | Continuity of Care Document ---
Author Organization [facility] Address [address] [address] [place] [address] Phone Care Team Providers Care Winder Fixer Name Role Phone Simon Weinstein CRNA Unavailable [...] Diagnoses Date Provider Providers Copied on Encounter [facility], [address] [address], [place], [place], [id number], [place] tel:[phone] [facility] No Information 9 Js Montes. [address] [facility], [facility] [address], [place], [place], [id number] , [place]. [phone] Referring Provider: Saulo Nayak, [address] [facility] [address], [place], [address]. tel:[phone] [facility], [address] [address], [place], [place], [id number], [place] tel:[phone] [facility] Colorectal polypsEncounter for screening for malignant neoplasm of colonPersonal history of colonic polypsBenign neoplasm of cecumBenign neoplasm of transverse colonBenign neoplasm of cecum 9 Gricelda Vernon. [address] [facility], [facility] [address], [place], [id number] , [place]. tel:[phone] Lorie Youngblood MD. tel:[phone] ring Provider: Rajinder Betts, [address] [place], [address]. [phone] [facility], [address] [address], [place], [place], [id number], [place] tel:[phone] [facility] Colonic polypColon Cancer ScreeningBenign Neoplasm ColonPersonal History Colon Polyps 4 Juarez Gambino. [address] [facility], [address], [place], [place], [id number] , [place]. [phone] Referring Provider: Rajinder Betts, [address] [place], [address]. tel:[phone] [facility], [address] [address], [place], [place], [address], [place] tel:[phone] [facility] Personal History Colon Polyps 9 Juarez Gambino. [address] [facility], [address], [place], [place], [id number] , [place]. [phone] Referring Provider: Rajinder Mars MD C, [address] [place], [address]. tel:[phone] Family History Family Member Type Diagnosis Age [...] colon Payers Payer name Insurance type Covered alliance party ID Authorsherria jaye(s) [employer] Medicare [place] [id number] Social History Type Description Quantity Date Captured [...]
[2024-09-02] MEDS: LACTATED RINGERS 1000 ML 1,000 ML 125 ML IV (23:30)
--- NOTE | 2024-09-02 23:54 | PM.IMHP1 ---
Hospitalist- H&P: HPI History of Present Illness Date Seen: 09/02/24 Chief complaint: abdominal pain, bloating Narrative: Sheila Blackburn is a 84 year old female admitted through the emergency department with 6 day history of abdominal pain and vomiting. Symptoms were initially milder and intermittent. During the week the became more severe. She had recurrent emesis, initially yellow in color than green in color. Nonbloody. She had a diarrhea stool 2 days ago but no BM or passing gas since then. She has been eating and drinking poorly. Her last meal was this morning about 9:30 a.m.. She did not vomit after that meal. Since then she has had no food but she has been taking sips of water on and off during the day. Her last attempt to drink water was before coming to the hospital. She arrived here about 9:[address] in the emergency department showed a small bowel obstruction possibly caused by an internal hernia with a closed loop obstruction. No previous bowel obstruction. She has had previous abdominal surgery including cholecystectomy. She had tubal ligation. Had a hysterectomy which was possibly vaginal hysterectomy. Multiple other orthopedic surgeries. She reports no serious problems with anesthesia except for postoperative nausea. No history of bleeding or clotting problems. She is not aware of any heart disease. She has been told she has a heart murmur. She has no cardiac or respiratory symptoms associated with her routine activity. She is quite active. She has 2 dogs that she takes for a walk every day. She walks about 2 miles. She also mows her lawn. No dyspnea or chest pain associated with her walks. She has continued to do these activities despite her abdominal symptoms. Review of Systems Narrative: Prior to this past 6 days of abdominal symptoms she reports generally doing well. [facility] Medical History (Updated 09/03/24 @ 00:16 by Thomas Marie MD) Heart murmur ?R01.1 - Cardiac murmur, unspecified (ICD-10) Polyp of colon (12/11/10) ?K63.5 - Polyp of colon (ICD-10) Mean red blood cell volume increased ?R71.8 - Other abnormality of red blood cells (ICD-10) Lung nodule (12/11/10) ?R91.1 - Solitary pulmonary nodule (ICD-10) Instability of left foot joint ?M25.375 - Other instability, left foot (ICD-10) Tubular adenoma of colon (07/28/19) ?D12.6 - Benign neoplasm of colon, unspecified (ICD-10) Hordeolum of right lower eyelid ?H00.012 - Hordeolum externum right lower eyelid (ICD-10) Blister (nonthermal), right foot, initial encounter ?S90.821A - Blister (nonthermal), right foot, initial encounter (ICD-10) Right foot pain ?M79.671 - Pain in right foot (ICD-10) Counseling regarding advanced directives (11/19/17) ?Z71.89 - Other specified counseling (ICD-10) Scapular dyskinesis ?G25.89 - Other specified extrapyramidal and movement disorders (ICD-10) Right rotator cuff tear arthropathy ?M75.101 - Unspecified rotator cuff tear or rupture of right shoulder, not specified as traumatic (ICD-10) ?M12.811 - Other specific arthropathies, not elsewhere classified, right shoulder (ICD-10) Osteoarthritis of left knee ?M17.12 - Unilateral primary osteoarthritis, left knee (ICD-10) Surgical History 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) ?Z96.619 - Presence of unspecified artificial shoulder joint (ICD-10) 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) ?Z96.611 - Presence of right artificial shoulder joint (ICD-10) History of cholecystectomy (12/11/10) ?Z90.49 - Acquired absence of other specified parts of digestive tract (ICD-10) History of tubal ligation (12/11/10) ?Z98.51 - Tubal ligation status (ICD-10) History of tonsillectomy (12/11/10) ?Z90.89 - Acquired absence of other organs (ICD-10) History of hysterectomy (02/29/12) ?Z90.710 - Acquired absence of both cervix and uterus (ICD-10) History of colonoscopy with polypectomy ?Z98.890 - Other specified postprocedural states (ICD-10) ?Z86.010 - Personal history of colonic polyps (ICD-10) Status post bilateral foot surgery (04/07/08) ?Z98.890 - Other specified postprocedural states (ICD-10) Status post finger joint fusion (01/04/10) ?Z98.1 - Arthrodesis status (ICD-10) Status post right foot surgery (01/04/10) ?Z98.890 - Other specified postprocedural states (ICD-10) Status post arthroscopy of right shoulder (06/02/14) ?Z98.890 - Other specified postprocedural states (ICD-10) Status post left foot surgery (~2019) ?Z98.890 - Other specified postprocedural states (ICD-10) 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 She has 2 dogs that she takes for a walk every day for about 2 miles. She does her own lawn mowing. She lives very independently. Closest family is her son, Naseem De Leon, of [place] who was taking care of her dogs and is designated healthcare power of consumer attorney . Secondary healthcare power of consumer attorney would be her brother Jai Blackburn who lives in [place]. Does not drink alcohol Does not use illicit drugs Former smoker What is your current living situation?: I presently have a place to live Problems where you live: no known problems Problems where you live details: none In the past 12 months, utilities in danger of being shut off: no In past 12 months, lack of transportation kept you from medical appts, meetings, work, or getting things needed for daily living: no In the past 12 mos, have been you worried that your food would run out before you had money to buy more?: never true In the past 12 mos, the food you bought just didn't last and you didn't have money to buy more?: never true Smoking Status: Never smoker Do you use any of these nicotine containing products: None Second hand tobacco smoke exposure: No How often do you have a drink containing alcohol: never How many standard drinks containing alcohol do you have on a typical day: 1 or 2 How often do you have six or more drinks on one occasion: Never AUDIT-C Alcohol total score: 0 Non-prescribed substance use: denies use Caffeine: Yes (2c/day) How often does anyone, including family, friends and others, physically hurt you: never How often does anyone, including family, friends and others, insult or talk down to you: never How often does anyone, including family, friends and others, threaten you with harm: never How often does anyone, including family, friends and others, scream or curse at you: never service: No Meds Home Medications and Allergies Home Medications ?Medication ?Instructions ?Recorded ?Confirmed ?Type digestive enzymes (Enzyme Digest 1 cap PO DAILY 08/10/22 09/02/24 History capsule) lactobacillus combination no.4 3 3,000 mmu cells PO DAILY 08/10/22 09/02/24 History billion cell capsule (Probiotic) multivitamin (Multiple Vitamins 1 tab PO DAILY 10/30/23 09/02/24 History tablet) gabapentin 600 mg tablet 1,200 mg PO QHS 01/27/24 09/03/24 History gabapentin 600 mg tablet 600 mg PO QAM 01/27/24 09/03/24 History Allergies Allergy/AdvReac Type Severity Reaction Status Date / Time codeine AdvReac Mild nausea and Verified 09/02/24 21:53 vomitting morphine AdvReac Mild Nausea Verified 09/02/24 21:53 Exam Narrative: Exam Narrative: She is alert and appears in no distress. She gives her own history. Eyes normal. Oropharynx with dry mucous membranes. Otherwise normal. Neck is supple without mass or adenopathy. Respirations are clear to auscultation. Breathing is unlabored. Cardiovascular: S1, S2, 2/6 systolic ejection murmur heard across the precordium most prominently in the right upper sternal border. Regular rate and rhythm. Abdomen is soft with diminished bowel sounds. Tenderness primarily in the left lower quadrant. There is a fullness there was some guarding but no distinct mass. Const: Vital Signs, click to edit/add: Vital Signs - 24 hr 09/02/24 21:32 09/02/24 22:39 Temperature 98.1 F Pulse Rate [Pulse Oximeter] 100 79 Respiratory Rate 18 16 Blood Pressure [Ri ght Upper Arm] 122/81 125/61 Pulse Oximetry 97 98 Oxygen Delivery Me thod Room Air Nasal Cannula Oxygen Flow Rate 2 Documenting provider has reviewed patient's vital signs: yes Hospitalist - H&P: Result Labs Labs: Short CBC 09/02/24 Range/Units 21:55 WBC 7.43 (4.50-11.00) K/uL Hgb 13.6 (12.0-16.0) gm/dL Hct 40.7 (33.0-51.0) % Plt Count 185 (140-440) K/uL BMP 09/02/24 21:55 Sodium 132 L Potassium 3.9 Chloride 97 Carbon Dioxide 28 BUN 17 Creatinine 0.7 Glucose 105 Calcium 9.4 Liver Function 09/02/24 Range/Units 21:55 Total Bilirubin 0.7 (0.1-1.5) mg/dL Direct Bilirubin 0.2 (0.0-0.5) mg/dL AST 33 (12-35) U/L ALT 15 (4-35) U/L Alkaline Phosphatase 114 (40-150) U/L Albumin 4.4 (3.3-5.0) g/dL ECG Attestation: I personally reviewed and interpreted this ECG as follows: (Normal sinus rhythm. Rate of 82. No acute ST-T changes) ECG interpretation date: 09/02/[address] scan - abdomen: Radiologist's impression: INDICATION: Abdominal pain. TECHNIQUE: CT abdomen and pelvis acquired with 76 cc Isovue 370 IV contrast. COMPARISON: None. FINDINGS: Lower chest: Small peripheral areas of bronchiolitis. Liver: Unremarkable. Normal in size and attenuation. No suspicious masses. Gallbladder and bile ducts: Post cholecystectomy. Pancreas: Unremarkable. No mass or inflammation. Spleen: Unremarkable. Normal in size. No masses. Adrenal glands: Unremarkable. No nodules. Kidneys: Unremarkable. No suspicious masses, stones, or hydronephrosis. GI tract: There is what appears to be an internal hernia in the right lower quadrant resulting in a small bowel obstruction. The herniated small bowel loop is dilated up to 5.5 cm. Remainder of the GI tract is unremarkable. Vasculature: Abdominal aorta is normal in caliber. Mesenteric arteries are patent. Lymph nodes: No lymphadenopathy. Peritoneum/Abdominal Wall: Unremarkable. No sign of mass or infiltration. No free air or significant free fluid. Pelvis: Unremarkable. Bones: Unremarkable for age. IMPRESSION: Right lower quadrant internal hernia resulting in a small bowel obstruction. This could be a closed loop obstruction. Surgical consultation is recommended for management. No other acute abnormality evident. Assessment and Plan Assessment and plan (1) Bowel obstruction: Problem comment: Bowel obstruction with possible closed loop obstruction and internal hernia. Going to the OR for surgery tonight. Status: Acute (2) Heart murmur: Problem comment: Systolic outflow murmur heard across the precordium, prominent at right upper sternal border, suspicious for aortic stenosis. Currently not symptomatic. Consider further evaluation after surgery. Status: Acute (3) Peripheral neuropathy: Problem comment: On moderately high dose of gabapentin. At risk for withdrawal symptoms if she is unable to take oral gabapentin postoperatively Status: Acute Plan 84-year-old female with bowel obstruction possibly caused by internal hernia and closed loop obstruction. Urgent surgery is indicated. At this time I see no contraindication to proceeding directly to surgery. She appears to be volume depleted at this time so will recommend additional fluid resuscitation. Grande catheter to monitor urine output and also will be needed for surgery. Total Time Spent Total Time Spent: Total time spent is 60 minutes in reviewing records and evaluation and management and discussing with patient and other providers management of bowel obstruction
[2024-09-03] VITALS (26 sets, daily range): BP systolic 91–139; BP diastolic 40–69; PULSE 60–96; RESP 14–18; TEMP 35.9–37.2; O2SAT 88–100
--- NOTE | 2024-09-03 00:40 | P.GSCN_ITS ---
History of Present Illness Consult details Date Seen: 09/03/24 Consult date: 09/03/24 Narrative: Patient is an 84-year-old female who presented to the emergency department this evening with a bowel obstruction. For the past 5-6 days she states that she has felt bloated? like a balloon. ? She has not been passing gas from below. She states that she has had a significant amount of belching. She has not been able to eat much. On Saturday she vomited. Today she was able to take in apple juice and toast for breakfast. However after that she was unable to eat. She states that if she tried to eat after this she would have significant pressure and pain in her abdomen. She presented to the clinic 2 days ago and x-ray and labs were obtained. She was encouraged to get a CT scan and an order was placed, however her pain became more severe, up to a 8 of [address] herself to the emergency department. She was found to have what appeared to be a closed loop obstruction from an internal hernia. She has had a cholecystectomy and tubal ligation as well as a vaginal hysterectomy in the past. She has never had a bowel obstruction previously. Pain medication has helped her discomfort. [facility] Medical History (Updated 09/03/24 @ 00:16 by Thomas Marie MD) Heart murmur ?R01.1 - Cardiac murmur, unspecified (ICD-10) Polyp of colon (12/11/10) ?K63.5 - Polyp of colon (ICD-10) Mean red blood cell volume increased ?R71.8 - Other abnormality of red blood cells (ICD-10) Lung nodule (12/11/10) ?R91.1 - Solitary pulmonary nodule (ICD-10) Instability of left foot joint ?M25.375 - Other instability, left foot (ICD-10) Tubular adenoma of colon (07/28/19) ?D12.6 - Benign neoplasm of colon, unspecified (ICD-10) Hordeolum of right lower eyelid ?H00.012 - Hordeolum externum right lower eyelid (ICD-10) Blister (nonthermal), right foot, initial encounter ?S90.821A - Blister (nonthermal), right foot, initial encounter (ICD-10) Right foot pain ?M79.671 - Pain in right foot (ICD-10) Counseling regarding advanced directives (11/19/17) ?Z71.89 - Other specified counseling (ICD-10) Scapular dyskinesis ?G25.89 - Other specified extrapyramidal and movement disorders (ICD-10) Right rotator cuff tear arthropathy ?M75.101 - Unspecified rotator cuff tear or rupture of right shoulder, not specified as traumatic (ICD-10) ?M12.811 - Other specific arthropathies, not elsewhere classified, right shoulder (ICD-10) Osteoarthritis of left knee ?M17.12 - Unilateral primary osteoarthritis, left knee (ICD-10) Surgical History 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) ?Z96.619 - Presence of unspecified artificial shoulder joint (ICD-10) 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) ?Z96.611 - Presence of right artificial shoulder joint (ICD-10) History of cholecystectomy (12/11/10) ?Z90.49 - Acquired absence of other specified parts of digestive tract (ICD- 10) History of tubal ligation (12/11/10) ?Z98.51 - Tubal ligation status (ICD-10) History of tonsillectomy (12/11/10) ?Z90.89 - Acquired absence of other organs (ICD-10) History of hysterectomy (02/29/12) ?Z90.710 - Acquired absence of both cervix and uterus (ICD-10) History of colonoscopy with polypectomy ?Z98.890 - Other specified postprocedural states (ICD-10) ?Z86.010 - Personal history of colonic polyps (ICD-10) Status post bilateral foot surgery (04/07/08) ?Z98.890 - Other specified postprocedural states (ICD-10) Status post finger joint fusion (01/04/10) ?Z98.1 - Arthrodesis status (ICD-10) Status post right foot surgery (01/04/10) ?Z98.890 - Other specified postprocedural states (ICD-10) Status post arthroscopy of right shoulder (06/02/14) ?Z98.890 - Other specified postprocedural states (ICD-10) Status post left foot surgery (~2019) ?Z98.890 - Other specified postprocedural states (ICD-10) 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 She has 2 dogs that she takes for a walk every day for about 2 miles. She does her own lawn mowing. She lives very independently. Closest family is her son, Naseem De Leon, of [place] who was taking care of her dogs and is designated healthcare power of senior trial attorney . Secondary healthcare power of senior trial attorney would be her brother Jai Blackburn who lives in [place]. Does not drink alcohol Does not use illicit drugs Former smoker What is your current living situation?: I presently have a place to live Problems where you live: no known problems Problems where you live details: none In the past 12 months, utilities in danger of being shut off: no In past 12 months, lack of transportation kept you from medical appts, meetings, work, or getting things needed for daily living: no In the past 12 mos, have been you worried that your food would run out before you had money to buy more?: never true In the past 12 mos, the food you bought just didn't last and you didn't have money to buy more?: never true Smoking Status: Never smoker Do you use any of these nicotine containing products: None Second hand tobacco smoke exposure: No How often do you have a drink containing alcohol: never How many standard drinks containing alcohol do you have on a typical day: 1 or 2 How often do you have six or more drinks on one occasion: Never AUDIT-C Alcohol total score: 0 Non-prescribed substance use: denies use Caffeine: Yes (2c/day) How often does anyone, including family, friends and others, physically hurt you : never How often does anyone, including family, friends and others, insult or talk down to you: never How often does anyone, including family, friends and others, threaten you with harm: never How often does anyone, including family, friends and others, scream or curse at you: never service: No Meds Home Medications and Allergies Home Medications ?Medication ?Instructions ?Recorded ?Confirmed ?Type digestive enzymes (Enzyme Digest 1 cap PO DAILY 08/10/22 09/02/24 History capsule) lactobacillus combination no.4 3 3,000 mmu cells PO DAILY 08/10/22 09/02/24 History billion cell capsule (Probiotic) multivitamin (Multiple Vitamins 1 tab PO DAILY 10/30/23 09/02/24 History tablet) gabapentin 600 mg tablet 1,200 mg PO QHS 01/27/24 09/03/24 History gabapentin 600 mg tablet 600 mg PO QAM 01/27/24 09/03/24 History Allergies Allergy/AdvReac Type Severity Reaction Status Date / Time codeine AdvReac Mild nausea and Verified 09/02/24 21:53 vomitting morphine AdvReac Mild Nausea Verified 09/02/24 21:53 Exam Narrative: Exam Narrative: General appearance: Alert, cooperative, and in no distress Eyes: PERRLA, eye lids clear, and sclera white HENT Head: Normocephalic Ears: External ears normal Pulmonary: Breathing nonlabored on room air Cardiovascular Heart: Regular rate Extremities: warm and well perfused Gastrointestinal Abdominal: Scars consistent with surgical history. Laparoscopic scars noted. She has a distended abdomen which is firm and she is tender about the mid abdomen to palpation. No guarding or rebound. Musculoskeletal: Extremities: Upper: Both upper extremities have normal joint range of motion and intact strength. Lower: Both lower extremities have normal joint range of motion and intact strength. Skin: Normal skin color, texture, and turgor. Neurologic: No focal deficits Psychiatric: Alert, oriented, cooperative, normal affect. Const: Vital Signs, click to edit/add: Vital Signs - 24 hr 09/02/24 21:32 09/02/24 22:39 Temperature 98.1 F Pulse Rate [Pulse Oximeter] 100 79 Respiratory Rate 18 16 Blood Pressure [Ri ght Upper Arm] 122/81 125/61 Pulse Oximetry 97 98 Oxygen Delivery Me thod Room Air Nasal Cannula Oxygen Flow Rate 2 Results Labs Labs: Abnormal lab results 09/02/24 Range/Units 21:55 RBC 3.95 L (4.00-5.20) m/uL MCV 103 H (80-100) fL Lymph % (Auto) 17.4 L (20-44) % Sodium 132 L (135-149) mmol/L Diabetes panel 09/02/24 Range/Units 21:55 Sodium 132 L (135-149) mmol/L Potassium 3.9 (3.6-5.1) mmol/L Chloride 97 (96-114) mmol/L Carbon Dioxide 28 (20-32) mmol/L BUN 17 (7-30) mg/dL Creatinine 0.7 (0.5-1.5) mg/dL Glucose 105 (60-115) mg/dL Calcium 9.4 (8.4-10.6) mg/dL AST 33 (12-35) U/L ALT 15 (4-35) U/L Alkaline Phosphatase 114 (40-150) U/L Total Protein 7.2 (6.0-8.3) g/dL Albumin 4.4 (3.3-5.0) g/dL Calcium panel 09/02/24 Range/Units 21:55 Calcium 9.4 (8.4-10.6) mg/dL Albumin 4.4 (3.3-5.0) g/dL Pituitary panel 09/02/24 Range/Units 21:55 Sodium 132 L (135-149) mmol/L Potassium 3.9 (3.6-5.1) mmol/L Chloride 97 (96-114) mmol/L Carbon Dioxide 28 (20-32) mmol/L BUN 17 (7-30) mg/dL Creatinine 0.7 (0.5-1.5) mg/dL Glucose 105 (60-115) mg/dL Calcium 9.4 (8.4-10.6) mg/dL Adrenal panel 09/02/24 Range/Units 21:55 Sodium 132 L (135-149) mmol/L Potassium 3.9 (3.6-5.1) mmol/L Chloride 97 (96-114) mmol/L Carbon Dioxide 28 (20-32) mmol/L BUN 17 (7-30) mg/dL Creatinine 0.7 (0.5-1.5) mg/dL Glucose 105 (60-115) mg/dL Calcium 9.4 (8.4-10.6) mg/dL Total Bilirubin 0.7 (0.1-1.5) mg/dL AST 33 (12-35) U/L ALT 15 (4-35) U/L Alkaline Phosphatase 114 (40-150) U/L Total Protein 7.2 (6.0-8.3) g/dL Albumin 4.4 (3.3-5.0) g/dL All other labs normal. Imaging Abdominal x-ray: report reviewed and image reviewed Abdomen CT scan report/results: report reviewed and image reviewed Additional studies: X-ray abdomen 08/31/2024: Findings: Curvature of the spine. Postop changes right upper quadrant. No large volume pleural effusion. No dilated bowel loops. Impression: No bowel obstruction. Dictated by Tian Sharpe MD @ 08/31/2024 11:14:[address] abdomen pelvis done 09/02/2024: IMPRESSION: Right lower quadrant internal hernia resulting in a small bowel obstruction. This could be a closed loop obstruction. Surgical consultation is recommended for management. No other acute abnormality evident. Dictated by Yusef Sheikh MD @ 09/02/2024 11:00:08 PM Progress Note:A&P Assessment and plan (1) Bowel obstruction: Status: Acute (2) Peripheral neuropathy: Status: Acute Plan The patient is an 84-year-old female with what appears to be a closed loop bowel obstruction. I reviewed the imaging myself and with the radiologist. Radiologist feels as though the very extremely dilated loop of bowel in her abdomen is small bowel. Surprisingly her labs are normal, however given her radiographic findings and abdominal discomfort I do think exploration is warranted. I explained the pathology of adhesions and the cause of the adhesion. I discussed that given the twisting and dilatation of her bowel, there is risk for vascular compromise leading to ischemia. I discussed laparotomy, lysis of adhesions and possible bowel resection with Sheila. If the large dilated loop of bowel happens to be her colon, we did discuss the small possibility possibility of ostomy, which would be reversible with a 2nd surgery in the future. We discussed other risks of surgery including bleeding, infection, anastomotic leak and her expected recovery including 3-5 days in the hospital followed by discharge home versus rehab. She is agreeable to proceed to the OR emergently.
--- NOTE | 2024-09-03 00:53 | PM.GSPRC ---
Operative Note Date of procedure: 09/03/24 Pre-op diagnosis: Closed loop bowel obstruction causing internal hernia Post-op diagnosis: Closed loop obstruction causing cecal volvulus, secondary to intra-abdominal adhesions Type of Procedure: 1. Exploratory laparotomy 2. Lysis of adhesions 3. Right hemicolectomy with primary anastomosis Indications: The patient is an 84-year-old female who has had 5-6 days of abdominal pain and bloating. Her symptoms became worse today and she presented to the emergency department to be evaluated. She was found to have what appeared to be a closed loop obstruction with a markedly dilated loop of small bowel. Because of this finding and her 8 pain, I recommended exploration. Procedure Description: After discussing the risks and benefits of the procedure, the patient signed informed consent.? The operative site was marked and the patient was brought to the operating room and placed on the operating table in supine position.? Care was taken to pad the patient's pressure points.?? The patient was then intubated by anesthesia. A TAP block was performed. Please see their note for details.?? The operative site was then prepped and draped in the usual sterile fashion.? A time-out was then performed. An upper midline incision was created using a scalpel. Dissection was taken down through the subcutaneous fat using cautery. The fascia was incised in the midline. The peritoneum was then entered sharply with a scissor. The fascia was opened along the length of the incision exposing the bowel. There was some ascites noted. Immediately a dilated cecum was noted in the field. This was identified because of the attached appendix. The cecum was dilated with patchy hemorrhagic areas. I was able to determine that there was an adhesion wrapped around the mesentery of the terminal ileum and cecum causing twisting of the cecal mesentery and cecal volvulus. The adhesion appeared to be omentum which was adherent down in the pelvis. There were actually 2 different adhesions adjacent to each other. I was able to divide this using a combination of cautery as well as clamps and ties to divide the omentum. Once this was free I was then able to untwist the cecum. At this point, given the extremely mobile and floppy nature of the cecum as well as the hemorrhagic areas from distension and possible ischemia from the mesenteric volvulus, I elected to resect the right colon. The lateral peritoneal attachments were incised using cautery. The hepatic flexure was tethered at the site of the patient's prior cholecystectomy. This was able to be carefully dissected free using cautery, dissecting the filmy attachments with a right angle. I was able to pull the hepatic flexure up into view, fully mobilizing the hepatic flexure. Once this was done an [employer] wound protector was then placed into the wound. Green towels were placed down and I chose my location for resection. A healthy area of ileum just proximal to the ileal fat pad was chosen. A mesenteric window was created and a blue load JENNIFER stapler was passed through. The bowel was divided. A small bleeding vessel on the mesentery was oversewn with 3-0 silk suture. I then chose an area on the transverse colon that was proximal to the middle colic vessels and where there was a palpable pulse in the mesentery. The omental fat overlying this area was dissected away with cautery. A mesenteric window was then created and through this a blue load JENNIFER stapler was passed. This was fired, dividing the colon. There is no bleeding from the staple line. I then divided the colon and small bowel mesentery using LigaSure. The mesentery was hemostatic at the completion of this. The specimen was sent to pathology. I then turned my attention to creating the anastomosis. A stay stitch was then created at the ends of the bowel with care to ensure that there was no twisting of the mesentery. A colotomy and enterotomy were then created with cautery. Through this, each end of a blue load JENNIFER stapler was passed. A 70 cm anastomosis was created 1 the stapler was fired. The staple line was inspected and there was no bleeding. The common enterotomy was then closed with interrupted 3-0 silk Lembert sutures. The anastomosis was widely patent. A crotch stitch was placed. The abdomen was examined and there was no bleeding noted. The anastomosis was placed down into the abdomen in the right upper quadrant. Instruments and gloves were then changed for a clean closure. The fascia was then closed with looped 0 Maxon in a running fashion. The skin was closed with 3-0 Vicryl dermal and 4-0 Monocryl running subcuticular suture. Sterile dressings were applied. The patient was then woken and transported to the recovery area in stable condition. ? The patient tolerated the procedure well. Findings: Intra-abdominal adhesion causing closed loop obstruction and cecal volvulus. Anesthesia: GETA Surgeon: Kymberly Escalante MD Estimated blood loss (mL): 5 Specimen: Other Additional Specimen Information: Right colon and terminal ileum Condition: stable Disposition: PACU
[2024-09-03] MEDS: PIPERACILLIN/TAZOBACTAM 3.375 GM INJ IVPB (01:11)
--- NOTE | 2024-09-03 01:53 | SUR.OPER ---
DENTURES REMOVED, PUT IN CONTAINER, LABELED, & SENT WITH PATIENT TO FLOOR/MED/SURG.
[2024-09-03] MEDS: LACTATED RINGERS 1000 ML 1,000 ML 125 ML IV ×2 (02:06→06:27)
--- NOTE | 2024-09-03 02:20 | W.PM.NB ---
Nerve Block Nerve Block Time Seen by Provider: 01:05 Date Seen: 09/03/24 Type of block requested by surgeon for post-operative analgesia: TAP Side: bilateral Time out performed: Yes Verification of patient name: Yes Verification of date of : Yes Site marking: site marked Name of person performing procedure: Azeem Johnson Continuous monitoring Was continuous monitoring of O2 sat, B/P, electronic device monitor, recorded every 15 minutes?: Yes Procedure Checklist: sterile prep, needles and gloves Ultrasound guided. Images saved: Yes Medications given in 5ml increments after negative aspiration: Marcaine %: 0.25 mL: 30 Needle gauge: 20 and Exparel mL: 10 Needle gauge: 20 Patient tolerated procedure well: Yes Additional comments: Injected in 5 mL increments after negative aspiration Block Charges Block Charge (with Pro Fee): TAP Bilateral Use of Ultrasound Machine for Block: Yes- US Guidance/pain block
--- NOTE | 2024-09-03 03:15 | P.ANES_ITS ---
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
--- NOTE | 2024-09-03 03:15 | W.ANESCHARGE ---
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
[2024-09-03] MEDS: fentaNYL 100 MCG/2 ML inj 50 MCG IVP ×3 (03:19→03:40)
[2024-09-03] MEDS: 0.9 % SODIUM CHLORIDE 1000 ml 1,000 ML IV (04:55)
--- NOTE | 2024-09-03 07:58 | PC.NURSE ---
Alert and oriented x3. Afebrile. Pt reports 0-4/10 pain in abdomen, pain medications offered pt refused. Pt's abdomen dressing is CDI. Pt is up SBA, voiding and tolerating ice chips. Pt had soft bp's after coming back from PACU around 0355, hot metal charger updated MD Gann, orders given for a 1 L bolus NS, blood pressure improved. Pt came back from PACU on 2L O2 via nasal cannula, pt was titrated to room air but then stats dropped to 88% while asleep, place pt back on 0.5 L to maintain O2 stats of 90%.
[2024-09-03] MEDS: HYDROCODONE-ACETAMIN 5-325 MG 1 TAB PO ×3 (08:42→21:43)
[2024-09-03] MEDS: GABAPENTIN 600 MG TABLET PO (08:43)
[2024-09-03] MEDS: PIPERACILLIN/TAZOBACTAM 3.375 GM in 0.9 % SODIUM CHLORIDE Mini-bag 100 ML IVPB ×3 (08:45→20:56)
[2024-09-03 09:13] LABS: Basophils Absolute Auto 0.01 K/uL (0.00-0.30); Basophils Percent Auto 0.1 % (0.0-3.0); Hematocrit 38.5 % (33.0-51.0); Hemoglobin* 12.7 gm/dL (12.0-16.0); Immature Granulocytes Abs Auto 0.02 K/uL (0.00-0.30); Immature Granulocytes Pct Auto 0.2 %; Mean Corpuscular HGB Conc 33 gm/dL (32-36); Mean Corpuscular Hemoglobin 35 pg (26-34); Mean Corpuscular Volume 105 fL (80-100); Monocytes Percent Auto 4.4 % (0.0-11.0); Neutrophils Percent Auto 91.3 % (42.0-72.0); Platelet Count* 159 K/uL (140-440); RDW Coefficient of Variation % 12.8 % (11.5-15.5); Red Blood Count 3.66 m/uL (4.00-5.20); White Blood Count* 10.42 K/uL (4.50-11.00)
[2024-09-03 09:15] LABS: Slide Review Reflex No
[2024-09-03 09:21] LABS: Chloride* 100 mmol/L (96-114); Sodium* 132 mmol/L (135-149)
[2024-09-03 09:23] LABS: Creatinine* 0.5 mg/dL (0.5-1.5); Estimated Glomerular Filt Rate 93 ml/min
[2024-09-03 09:24] LABS: Anion Gap 7 mEq/L (7-15); Blood Urea Nitrogen* 12 mg/dL (7-30); Calcium* 8.2 mg/dL (8.4-10.6); Carbon Dioxide* 25 mmol/L (20-32); Glucose* 178 mg/dL (60-115)
--- NOTE | 2024-09-03 11:59 | PM.GSPN ---
Subjective Subjective Date Seen: 09/03/24 Interval history: Sheila is doing well this morning. She states that her pain is well controlled. No nausea. She is in good spirits. She has been up walking this morning without difficulty. Exam Narrative: Exam Narrative: General: No acute distress CV: Regular rate Respiratory: Breathing nonlabored on room air Abdomen: Dressing is clean and dry. Const: Vital Signs, click to edit/add: Vital Signs - 24 hr 09/02/24 21:32 09/02/24 22:39 09/03/24 03:00 Temperature 98.1 F 97.6 F Pulse Rate 68 Pulse Rate [Pulse Oximeter] 100 79 Respiratory Rate 18 16 17 Blood Pressure 125/69 Blood Pressure [Ri ght Arm] Blood Pressure [Ri ght Upper Arm] 122/81 125/61 Pulse Oximetry 97 98 97 Oxygen Delivery Me thod Room Air Nasal Cannula OxyMask Oxygen Flow Rate 2 6 09/03/24 03:05 09/03/24 03:10 09/03/24 03:15 Temperature 98.5 F Pulse Rate 66 66 69 Pulse Rate [Pulse Oximeter] Respiratory Rate 17 17 17 Blood Pressure 139/66 134/66 131/62 Blood Pressure [Ri ght Arm] Blood Pressure [Ri ght Upper Arm] Pulse Oximetry 99 97 99 Oxygen Delivery Me thod OxyMask OxyMask OxyMask Oxygen Flow Rate 6 3 3 09/03/24 03:20 09/03/24 03:25 09/03/24 03:30 Temperature 97.3 F L Pulse Rate 69 69 65 Pulse Rate [Pulse Oximeter] Respiratory Rate 18 18 18 Blood Pressure 125/67 125/67 120/59 L Blood Pressure [Ri ght Arm] Blood Pressure [Ri ght Upper Arm] Pulse Oximetry 99 99 100 Oxygen Delivery Me thod Room Air Room Air OxyMask Oxygen Flow Rate 3 6 09/03/24 03:35 09/03/24 03:40 09/03/24 03:45 Temperature Pulse Rate 71 63 71 Pulse Rate [Pulse Oximeter] Respiratory Rate 18 18 14 Blood Pressure 127/61 108/60 106/63 Blood Pressure [Ri ght Arm] Blood Pressure [Ri ght Upper Arm] Pulse Oximetry 99 98 92 Oxygen Delivery Me thod Nasal Cannula Room Air Room Air Oxygen Flow Rate 4 09/03/24 03:50 09/03/24 04:15 09/03/24 04:28 Temperature 97.5 F L 97.4 F L Pulse Rate 64 62 Pulse Rate [Pulse Oximeter] 60 Respiratory Rate 14 14 14 Blood Pressure 110/56 L 93/50 L Blood Pressure [Ri ght Arm] 102/50 L Blood Pressure [Ri ght Upper Arm] Pulse Oximetry 97 92 95 Oxygen Delivery Me thod Nasal Cannula Nasal Cannula Nasal Cannula Oxygen Flow Rate 2 1 2 09/03/24 04:28 09/03/24 04:30 09/03/24 05:00 Temperature 97.5 F L 97.6 F Pulse Rate 64 71 Pulse Rate [Pulse Oximeter] Respiratory Rate 14 14 14 Blood Pressure 92/45 L 91/54 L Blood Pressure [Ri ght Arm] Blood Pressure [Ri ght Upper Arm] Pulse Oximetry 95 94 91 Oxygen Delivery Me thod Room Air Nasal Cannula Nasal Cannula Oxygen Flow Rate 2 1 1 09/03/24 05:16 09/03/24 05:46 09/03/24 05:46 Temperature 97.6 F Pulse Rate 69 70 70 Pulse Rate [Pulse Oximeter] Respiratory Rate 14 14 18 Blood Pressure 92/45 L 115/62 115/62 Blood Pressure [Ri ght Arm] Blood Pressure [Ri ght Upper Arm] Pulse Oximetry 96 96 96 Oxygen Delivery Me thod Nasal Cannula Room Air Room Air Oxygen Flow Rate 1 09/03/24 06:30 09/03/24 07:00 09/03/24 07:00 Temperature 97.7 F Pulse Rate 72 Pulse Rate [Pulse Oximeter] Respiratory Rate 16 14 Blood Pressure 99/55 L Blood Pressure [Ri ght Arm] Blood Pressure [Ri ght Upper Arm] Pulse Oximetry 88 98 98 Oxygen Delivery Me thod Room Air Room Air Oxygen Flow Rate 0.5 09/03/24 07:00 09/03/24 07:30 09/03/24 08:30 Temperature 96.9 F L 96.7 F L Pulse Rate 62 83 Pulse Rate [Pulse Oximeter] 80 Respiratory Rate 16 16 16 Blood Pressure 95/52 L 128/62 Blood Pressure [Ri ght Arm] Blood Pressure [Ri ght Upper Arm] Pulse Oximetry 98 96 Oxygen Delivery Me thod Nasal Cannula Nasal Cannula Oxygen Flow Rate 0.5 09/03/24 09:30 Temperature 96.9 F L Pulse Rate 71 Pulse Rate [Pulse Oximeter] Respiratory Rate 16 Blood Pressure 95/50 L Blood Pressure [Ri ght Arm] Blood Pressure [Ri ght Upper Arm] Pulse Oximetry 98 Oxygen Delivery Me thod Room Air Oxygen Flow Rate Labs/Imaging Labs Labs: Hemoglobin is normal at 12. Remains mildly hyponatremic. Progress Note:A&P Assessment and plan (1) Cecal volvulus: Status: Acute (2) S/P right hemicolectomy: Status: Acute (3) Hypertriglyceridemia: Status: Acute (4) Hyponatremia: Status: Acute Plan Sheila is an 84-year-old female who is postop day 0 from right hemicolectomy for cecal volvulus secondary to closed loop obstruction due to intra-abdominal adhesion. -okay to continue clear diet -have restarted home dose of gabapentin. -continue Zosyn for 24 hours postop secondary to bowel resection. -maintenance IV fluids changed to normal saline given mild hyponatremia saline lock when p.o. adequate -encourage IS and ambulation -will recheck hemoglobin tomorrow and start Lovenox for DVT prophylaxis if this is within acceptable range. -patient has been doing well ambulating, however if there are concerns about ability to discharge home when she has met treatment goals, may consider PT consult.
[2024-09-03] MEDS: 0.9 % SODIUM CHLORIDE 1000 ml 1,000 ML 100 ML IV (13:08)
--- NOTE | 2024-09-03 13:21 | PM.IMPN1 ---
Progress Note: A&P Assessment and plan (1) Cecal volvulus: Problem details: POD#0 s/p right hemicolectomy for cecal volvulus secondary to close loop obstruction due to intra-abdominal adhesion, Dr Escalante SBP 90-120 postoperatively, asymptomatic, receiving IVF, continue to monitor Continue clear diet, maintenance IVF Encourage IS and ambulation Status: Acute (2) Bowel obstruction: Problem details: CT shows Right lower quadrant internal hernia resulting in a small bowel obstruction. This could be a closed loop obstruction. As above in #1 Status: Acute (3) Heart murmur: Problem details: Systolic outflow murmur heard across the precordium, prominent at right upper sternal border, suspicious for aortic stenosis. Currently not symptomatic. Consider further outpatient evaluation after surgery. Status: Acute (4) Peripheral neuropathy: Problem details: On moderately high dose of gabapentin. Restarted postoperatively Status: Acute (5) Hyponatremia: Problem details: Acute on chronic, sodium 132 perioperatively. Receive normal saline IVF. Monitor Status: Acute Plan Postoperative management, discharge planning per General surgery Time Spent With Patient Total time spent: Total time spent caring for the patient today was 45 minutes. This includes time spent for the visit reviewing the chart, time spent during the visit, time spent after the visit and documentation and planning in coordination of care. Subjective Date Seen: 09/03/24 Interval history: Patient is seen sitting up in bed this morning. Reports feeling pretty good. Pain thus far has been well managed. Tolerating clears without nausea or vomiting. Has not yet passed gas. Remains afebrile. Denies headache or dizziness. Denies chest pain or shortness of breath Exam Narrative: Exam Narrative: PHYSICAL EXAM General: Pleasant, conversant, NAD HEENT: Normocephalic, atraumatic, sclera white, EOMI, oral mucosa moist Cardiovascular: RRR, S1S2. No pitting edema Pulmonary: CTA bilaterally without rhonchi, rales, expiratory wheezes. No dyspnea on room air Abdominal: Soft, nondistended, dressing in place, dry. No significant postoperative tenderness on palpate Neurological: Alert, answering questions appropriately, cranial nerves intact, no focal findings Extremities: No gross joint deformity or swelling. AROMI. Neurovascularly intact Skin: Warm, dry. Const: Vital Signs, click to edit/add: Vital Signs - 24 hr 10/02/24 21:32 09/02/24 22:39 09/03/24 03:00 Temperature 98.1 F 97.6 F Pulse Rate 68 Pulse Rate [Pulse Oximeter] 100 79 Respiratory Rate 18 16 17 Blood Pressure 125/69 Blood Pressure [Ri ght Arm] Blood Pressure [Ri ght Upper Arm] 122/81 125/61 Pulse Oximetry 97 98 97 Oxygen Delivery Me thod Room Air Nasal Cannula OxyMask Oxygen Flow Rate 2 6 09/03/24 03:05 09/03/24 03:10 09/03/24 03:15 Temperature 98.5 F Pulse Rate 66 66 69 Pulse Rate [Pulse Oximeter] Respiratory Rate 17 17 17 Blood Pressure 139/66 134/66 131/62 Blood Pressure [Ri ght Arm] Blood Pressure [Ri ght Upper Arm] Pulse Oximetry 99 97 99 Oxygen Delivery Me thod OxyMask OxyMask OxyMask Oxygen Flow Rate 6 3 3 09/03/24 03:20 09/03/24 03:25 09/03/24 03:30 Temperature 97.3 F L Pulse Rate 69 69 65 Pulse Rate [Pulse Oximeter] Respiratory Rate 18 18 18 Blood Pressure 125/67 125/67 120/59 L Blood Pressure [Ri ght Arm] Blood Pressure [Ri ght Upper Arm] Pulse Oximetry 99 99 100 Oxygen Delivery Me thod Room Air Room Air OxyMask Oxygen Flow Rate 3 6 09/03/24 03:35 09/03/24 03:40 09/03/24 03:45 Temperature Pulse Rate 71 63 71 Pulse Rate [Pulse Oximeter] Respiratory Rate 18 18 14 Blood Pressure 127/61 108/60 106/63 Blood Pressure [Ri ght Arm] Blood Pressure [Ri ght Upper Arm] Pulse Oximetry 99 98 92 Oxygen Delivery Me thod Nasal Cannula Room Air Room Air Oxygen Flow Rate 4 09/03/24 03:50 09/03/24 04:15 09/03/24 04:28 Temperature 97.5 F L 97.4 F L Pulse Rate 64 62 Pulse Rate [Pulse Oximeter] 60 Respiratory Rate 14 14 14 Blood Pressure 110/56 L 93/50 L Blood Pressure [Ri ght Arm] 102/50 L Blood Pressure [Ri ght Upper Arm] Pulse Oximetry 97 92 95 Oxygen Delivery Me thod Nasal Cannula Nasal Cannula Nasal Cannula Oxygen Flow Rate 2 1 2 09/03/24 04:28 09/03/24 04:30 10/03/24 05:00 Temperature 97.5 F L 97.6 F Pulse Rate 64 71 Pulse Rate [Pulse Oximeter] Respiratory Rate 14 14 14 Blood Pressure 92/45 L 91/54 L Blood Pressure [Ri ght Arm] Blood Pressure [Ri ght Upper Arm] Pulse Oximetry 95 94 91 Oxygen Delivery Me thod Room Air Nasal Cannula Nasal Cannula Oxygen Flow Rate 2 1 1 09/03/24 05:16 09/03/24 05:46 09/03/24 05:46 Temperature 97.6 F Pulse Rate 69 70 70 Pulse Rate [Pulse Oximeter] Respiratory Rate 14 14 18 Blood Pressure 92/45 L 115/62 115/62 Blood Pressure [Ri ght Arm] Blood Pressure [Ri ght Upper Arm] Pulse Oximetry 96 96 96 Oxygen Delivery Me thod Nasal Cannula Room Air Room Air Oxygen Flow Rate 1 09/03/24 06:30 09/03/24 07:00 09/03/24 07:00 Temperature 97.7 F Pulse Rate 72 Pulse Rate [Pulse Oximeter] Respiratory Rate 16 14 Blood Pressure 99/55 L Blood Pressure [Ri ght Arm] Blood Pressure [Ri ght Upper Arm] Pulse Oximetry 88 98 98 Oxygen Delivery Me thod Room Air Room Air Oxygen Flow Rate 0.5 09/03/24 07:00 09/03/24 07:30 09/03/24 08:30 Temperature 96.9 F L 96.7 F L Pulse Rate 62 83 Pulse Rate [Pulse Oximeter] 80 Respiratory Rate 16 16 16 Blood Pressure 95/52 L 128/62 Blood Pressure [Ri ght Arm] Blood Pressure [Ri ght Upper Arm] Pulse Oximetry 98 96 Oxygen Delivery Me thod Nasal Cannula Nasal Cannula Oxygen Flow Rate 0.5 09/03/24 09:30 09/03/24 11:00 Temperature 96.9 F L 96.8 F L Pulse Rate 71 Pulse Rate [Pulse Oximeter] 77 Respiratory Rate 16 16 Blood Pressure 95/50 L Blood Pressure [Ri ght Arm] 100/63 Blood Pressure [Ri ght Upper Arm] Pulse Oximetry 98 94 Oxygen Delivery Me thod Room Air Room Air Oxygen Flow Rate Labs Labs: Laboratory Results - last 24 hr 09/02/24 09/03/24 21:55 09:03 WBC 7.43 10.42 RBC 3.95 L 3.66 L Hgb 13.6 12.7 Hct 40.7 38.5 MCV 103 H 105 H MCH 34 35 H MCHC 33 33 RDW Coeff of Laurent 12.7 12.8 Plt Count 185 159 Neut % (Auto) 71.1 91.3 H Lymph % (Auto) 17.4 L 4.0 L [place] % (Auto) 8.1 4.4 Eos % (Auto) 2.6 0.0 Baso % (Auto) 0.1 0.1 Neut # (Auto) 5.29 9.50 H Lymph # (Auto) 1.30 0.40 L [place] # (Auto) 0.60 0.50 Eos # (Auto) 0.19 0.00 Baso # (Auto) 0.01 0.01 Abs Immat Gran (auto) 0.05 0.02 Imm/Tot Granulo (auto) 0.7 0.2 Sodium 132 L 132 L Potassium 3.9 4.0 Chloride 97 100 Carbon Dioxide 28 25 Anion Gap 7 7 BUN 17 12 Creatinine 0.7 0.5 Estimated Creat Clear 43.00 43.00 Estimated GFR 86 93 Glucose 105 178 H Lactate 0.7 Calcium 9.4 8.2 L Total Bilirubin 0.7 Direct Bilirubin 0.2 AST 33 ALT 15 Alkaline Phosphatase 114 Total Protein 7.2 Albumin 4.4
[2024-09-03] MEDS: GABAPENTIN 600 MG TABLET 1200 MG PO (18:13)
--- NOTE | 2024-09-03 20:13 | PC.NURSE ---
Shift Note: Pt friendly and cooperative. BP's mildly soft, VS otherwise WNL. Afebrile. Moves well with SBA, she ambulated around the unit 200ft as well as throughout her room. Surgical dressing c,d,and i with active ice as tolerated. Rates pain 5/10 with movement, otherwise denies any discomfort. Denies flatus but has reported burping. BS active. Tolerating clears without difficulty.
[2024-09-03] MEDS: PRAVASTATIN SODIUM 20 MG TABLET 10 MG PO (20:58)
[2024-09-03] MEDS: 0.9 % SODIUM CHLORIDE 500 ML 500 ML IV (21:41)
[2024-09-04] VITALS (9 sets, daily range): BP systolic 91–139; BP diastolic 44–73; PULSE 82–93; RESP 16–18; TEMP 36.4–37.7; O2SAT 90–94
[2024-09-04] MEDS: 0.9 % SODIUM CHLORIDE 1000 ml 1,000 ML 100 ML IV (00:48)
[2024-09-04] MEDS: PIPERACILLIN/TAZOBACTAM 3.375 GM in 0.9 % SODIUM CHLORIDE Mini-bag 100 ML IVPB (02:41)
[2024-09-04] MEDS: HYDROmorphone 0.5 mg/0.5 ml inj IVP (02:55)
--- NOTE | 2024-09-04 06:15 | PC.NURSE ---
End of shift note [id number]: Pt alert & oriented x 4 and able to make needs known. IV to L forearm patent with NS running per order. One dose of PRN [place] and one dose of IV Dilaudid given for c/o ?8/10? abdominal pain. Pt describes pain as ?gas pain?. Pt noted to be hypotensive though asymptomatic with B/P of 91/40 last evening. 500 mL IV bolus given per order. Pt transferring/ambulating with SBA using IV pole. SCDs worn to BLEs. Bowel sounds noted to be hypoactive x 4 and pt reports she is not yet passing flatus when asked. Surgical dressing to abdomen noted to be C/D/I upon inspection. Pt tolerating CL diet and has been denying nausea when asked. SCDs worn to BLEs most of shift. ?
[2024-09-04 06:38] LABS: Basophils Absolute Auto 0.01 K/uL (0.00-0.30); Basophils Percent Auto 0.1 % (0.0-3.0); Eosinophils Absolute Auto 0.18 K/uL (0.00-0.50); Eosinophils Percent Auto 2.2 % (0.0-7.0); Hematocrit 34.5 % (33.0-51.0); Hemoglobin* 11.2 gm/dL (12.0-16.0); Immature Granulocytes Abs Auto 0.01 K/uL (0.00-0.30); Immature Granulocytes Pct Auto 0.1 %; Lymphocytes Percent Auto 15.3 % (20-44); Mean Corpuscular HGB Conc 33 gm/dL (32-36); Mean Corpuscular Hemoglobin 34 pg (26-34); Mean Corpuscular Volume 105 fL (80-100); Neutrophils Percent Auto 76.3 % (42.0-72.0); Platelet Count* 166 K/uL (140-440); Red Blood Count 3.28 m/uL (4.00-5.20); White Blood Count* 8.11 K/uL (4.50-11.00)
[2024-09-04 06:41] LABS: Slide Review Reflex No
[2024-09-04 06:51] LABS: Chloride* 103 mmol/L (96-114); Sodium* 133 mmol/L (135-149)
[2024-09-04 06:52] LABS: Potassium* 4.5 mmol/L (3.6-5.1)
[2024-09-04 06:54] LABS: Anion Gap 2 mEq/L (7-15); Blood Urea Nitrogen* 9 mg/dL (7-30); Carbon Dioxide* 28 mmol/L (20-32); Creatinine* 0.6 mg/dL (0.5-1.5); Estimated Glomerular Filt Rate 89 ml/min
[2024-09-04 06:55] LABS: Calcium* 8.3 mg/dL (8.4-10.6); Glucose* 94 mg/dL (60-115)
[2024-09-04] MEDS: GABAPENTIN 600 MG TABLET PO (08:11)
[2024-09-04] MEDS: HYDROCODONE-ACETAMIN 5-325 MG 1 TAB PO ×3 (08:11→22:52)
--- NOTE | 2024-09-04 12:04 | P.GSPN_ITS ---
Subjective Subjective Date Seen: 09/04/24 Interval history: Sheila is doing well. She has been passing gas. She has been walking in the halls. She has no nausea. She would like to try full liquid diet today if possible. He has no chest pain or shortness of breath but did have some s houlder pain earlier. She did get 1 hydrocodone for this. Exam Narrative: Exam Narrative: General: No acute distress CV: Regular rate and rhythm Respiratory: Clear bilaterally. Abdomen: Incision with surrounding ecchymosis. No erythema. Abdomen is nondistended. Const: Vital Signs, click to edit/add: Vital Signs - 24 hr 09/03/24 15:00 09/03/24 15:00 09/03/24 15:00 Temperature Pulse Rate [Pulse Oximeter] 84 Respiratory Rate 16 16 Blood Pressure [Ri ght Arm] Pulse Oximetry 96 94 Oxygen Delivery Me thod Room Air Oxygen Flow Rate 09/03/24 15:00 09/03/24 19:00 09/03/24 23:00 Temperature 97.6 F 98.4 F Pulse Rate [Pulse Oximeter] 78 88 72 Respiratory Rate 16 16 16 Blood Pressure [Ri ght Arm] 109/65 91/40 L Pulse Oximetry 96 92 Oxygen Delivery Me thod Room Air Room Air Oxygen Flow Rate 09/03/24 23:00 09/03/24 23:00 09/03/24 23:00 Temperature 99.0 F Pulse Rate [Pulse Oximeter] 96 Respiratory Rate 18 18 Blood Pressure [Ri ght Arm] 103/62 Pulse Oximetry 94 94 94 Oxygen Delivery Me thod Room Air Room Air Oxygen Flow Rate 0.5 09/04/24 03:00 09/04/24 07:30 09/04/24 07:30 Temperature 98.2 F 98.3 F Pulse Rate [Pulse Oximeter] 88 93 Respiratory Rate 18 18 Blood Pressure [Ri ght Arm] 96/73 124/69 Pulse Oximetry 90 91 91 Oxygen Delivery Me thod Room Air Room Air Oxygen Flow Rate 09/04/24 07:35 09/04/24 07:35 Temperature Pulse Rate [Pulse Oximeter] 93 Respiratory Rate 18 18 Blood Pressure [Ri ght Arm] Pulse Oximetry 91 Oxygen Delivery Me thod Room Air Oxygen Flow Rate Labs/Imaging Labs Labs: Remains mildly hyponatremic with a sodium of 133. Hemoglobin is down slightly today. Progress Note:A&P Assessment and plan (1) Hyponatremia: Status: Acute (2) S/P right hemicolectomy: Status: Acute (3) Cecal volvulus: Status: Acute Plan The patient is an 84-year-old female who is postop day 1 from exploratory laparotomy, lysis of adhesions and right hemicolectomy for cecal volvulus. -she is doing well. She is passing some gas. I think advancement to a full liquid diet is reasonable. -urine output has been excellent. She is taking adequate p.o.. Saline lock IV fluids. -no need for ongoing antibiotics. -will start Lovenox for DVT prophylaxis. -PT and OT ordered today to help with mobilization and to work towards discharge home
--- NOTE | 2024-09-04 13:24 | P.IMPN_ITS ---
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 advance diet and activities as tolerated. I have asked PT and OT to assess and assist. Status: Acute (2) S/P right hemicolectomy: Problem details: 09/03/24 for cecal volvulus Status: Acute (3) Hyponatremia: Problem details: Acute on chronic, sodium 132 perioperatively. Receive normal saline IVF. Monitor Status: Acute (4) Bowel obstruction: Problem details: CT shows Right lower quadrant internal hernia resulting in a small bowel ob struction. This could be a closed loop obstruction. As above in #1 Status: Acute (5) Heart murmur: Problem details: Systolic outflow murmur heard across the precordium, prominent at right upper sternal border, suspicious for aortic stenosis. Currently not symptomatic. Consider further outpatient evaluation after surgery. Status: Acute (6) Peripheral neuropathy: Problem details: On moderately high dose of gabapentin. Restarted postoperatively Status: Acute Plan 1. Reviewed impression with patient 2. Reviewed impression with her general surgeon and agreed upon plan of care 3. Answered patient's questions to her satisfaction 4. Patient agreeable with above stated plans and recommendations. Time Spent With Patient Total time spent: 30 minutes Subjective Date Seen: 09/04/24 Interval history: Postop day 1. Status post right hemicolectomy 09/03/2024. Hospital day 2. Present to the hospital with bowel obstruction and found to have a cecal v olvulus. Underwent emergent right hemicolectomy yesterday. Already starting to pass flatus. Tolerating increased activities. Looking forward to eating and drinking. Exam Narrative: Exam Narrative: Examined patient in her hospital room. Appears comfortable no acute distress. Vision and hearing are adequate. Friendly, articulate, cooperative. Alert and oriented to self, place, time, situation. Lungs are clear to auscultation. Heart tones with regular rhythm. Murmur across precordium. Abdomen with scattered occasional bowel sounds. Nontender. Extremities without edema. Independent with transfers, station, gait. No focal motor neurologic deficits. Const: Vital Signs, click to edit/add: Vital Signs - 24 hr 09/03/24 15:00 09/03/24 15:00 09/03/24 15:00 Temperature Pulse Rate [Pulse Oximeter] 84 Respiratory Rate 16 16 Blood Pressure [Ri ght Arm] Pulse Oximetry 96 94 Oxygen Delivery Me thod Room Air Oxygen Flow Rate 09/03/24 15:00 09/03/24 19:00 09/03/24 23:00 Temperature 97.6 F 98.4 F Pulse Rate [Pulse Oximeter] 78 88 72 Respiratory Rate 16 16 16 Blood Pressure [Ri ght Arm] 109/65 91/40 L Pulse Oximetry 96 92 Oxygen Delivery Me thod Room Air Room Air Oxygen Flow Rate 09/03/24 23:00 09/03/24 23:00 09/03/24 23:00 Temperature 99.0 F Pulse Rate [Pulse Oximeter] 96 Respiratory Rate 18 18 Blood Pressure [Ri ght Arm] 103/62 Pulse Oximetry 94 94 94 Oxygen Delivery Me thod Room Air Room Air Oxygen Flow Rate 0.5 09/04/24 03:00 09/04/24 07:30 09/04/24 07:30 Temperature 98.2 F 98.3 F Pulse Rate [Pulse Oximeter] 88 93 Respiratory Rate 18 18 Blood Pressure [Ri ght Arm] 96/73 124/69 Pulse Oximetry 90 91 91 Oxygen Delivery Me thod Room Air Room Air Oxygen Flow Rate 09/04/24 07:35 09/04/24 07:35 09/04/24 13:04 Temperature 98.5 F Pulse Rate [Pulse Oximeter] 93 82 Respiratory Rate 18 18 18 Blood Pressure [Ri ght Arm] 91/44 L Pulse Oximetry 91 94 Oxygen Delivery Me thod Room Air Room Air Oxygen Flow Rate Labs Labs: Laboratory Results - last 24 hr 09/04/24 05:53 WBC 8.11 RBC 3.28 L Hgb 11.2 L Hct 34.5 MCV 105 H MCH 34 MCHC 33 RDW Coeff of Laurent 13.0 Plt Count 166 Neut % (Auto) 76.3 H Lymph % (Auto) 15.3 L [place] % (Auto) 6.0 Eos % (Auto) 2.2 Baso % (Auto) 0.1 Neut # (Auto) 6.20 Lymph # (Auto) 1.20 [place] # (Auto) 0.50 Eos # (Auto) 0.18 Baso # (Auto) 0.01 Abs Immat Gran (auto) 0.01 Imm/Tot Granulo (auto) 0.1 Sodium 133 L Potassium 4.5 Chloride 103 Carbon Dioxide 28 Anion Gap 2 L BUN 9 Creatinine 0.6 Estimated Creat Clear 43.00 Estimated GFR 89 Glucose 94 Calcium 8.3 L
[2024-09-04] MEDS: GABAPENTIN 600 MG TABLET 1200 MG PO (18:29)
--- NOTE | 2024-09-04 19:10 | PC.NURSE ---
Pt is pleasant, alert, oriented and vitally stable. Pt advanced to a full liquid diet and is tolerating well. Pt is now saline locked per MD. Moves independently and tolerates well, pt did also shower today.
[2024-09-04] MEDS: PRAVASTATIN SODIUM 20 MG TABLET 10 MG PO (21:01)
[2024-09-04] MEDS: ENOXAPARIN 40 MG/0.4 ML INJ SUBCUT (21:02)
--- NOTE | 2024-09-04 22:39 | PC.NURSE ---
End of shift [id number]: Pt AxOx4. Talkative and cooperative. VSS on RA. Pt denies pain/nausea/vomiting/chest pain upon exertion. Surgical site CDI with surrounding bruising. Bowel sounds active. Pt passing flatus. Pt indep, tolerating well. Pt appears resting watching television with call light in reach.
[2024-09-05 03:00] VITALS: BP 111/64; PULSE 88; RESP 16; TEMP 37.4; O2SAT 89
[2024-09-05] MEDS: HYDROCODONE-ACETAMIN 5-325 MG 1 TAB PO (06:17)
--- NOTE | 2024-09-05 06:59 | PC.NURSE ---
END OF SHIFT NOTE: PT PLEASANT AND COOPERATIVE. A&O. DENIES CP, SOB, N/V. AMBULATES INDEPENDENTLY WITHIN ROOM. VSS ON RA; AFEBRILE. REPORTS PAIN TO ABD OF 6-7/10 WITH RELIEF FROM PRN PAIN MED (SEE EMAR). MIDLINE INCISION CDI. PT [place]- PATRICK AT BEDSIDE. CALL LIGHT WITHIN PT?S REACH. NIGHT UNEVENTFUL.
[2024-09-05] MEDS: ACETAMINOPHEN 325 MG TABLET 650 MG PO (08:36)
[2024-09-05] MEDS: GABAPENTIN 600 MG TABLET PO (08:36)
[2024-09-05 08:40] VITALS: BP 126/61; PULSE 91; RESP 20; O2SAT 92
[2024-09-05 11:00] VITALS: BP 114/64; PULSE 77; RESP 16; TEMP 37; O2SAT 92
[2024-09-05] MEDS: BENZOCAINE/MENTHOL 1 EACH LOZENGE MUCOUS MEM (11:15)
--- NOTE | 2024-09-05 13:07 | PM.IMPN1 ---
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 Passing stool and flatus. Patient afraid of eating because of loose stools. Status: Acute (2) S/P right hemicolectomy: Problem details: 09/03/24 for cecal volvulus Status: Acute (3) Hyponatremia: Problem details: Acute on chronic, sodium 132 perioperatively. Receive normal saline IVF. Monitor 09/05/2024: Sodium 133 Status: Acute (4) Bowel obstruction: Problem details: CT shows Right lower quadrant internal hernia resulting in a small bowel obstruction. This could be a closed loop obstruction. As above in #1 Status: Acute (5) Heart murmur: Problem details: Systolic outflow murmur heard across the precordium, prominent at right upper sternal border, suspicious for aortic stenosis. Currently not symptomatic. Consider further outpatient evaluation after surgery. Status: Acute (6) Peripheral neuropathy: Problem details: On moderately high dose of gabapentin. Restarted postoperatively Status: Acute Plan 1. Reviewed impression with patient 2. Reviewed plan recommendations with patient. 3. Patient ready for discharge from medical perspective. General surgeon to determine when patient is ready for discharge. 4. Patient agreeable with above stated plans and recommendations. Time Spent With Patient Total time spent: 30 minutes Subjective Date Seen: 09/05/24 Interval history: Postop day 2. Status post right hemicolectomy 09/03/2024. Hospital day 3. Presented to the hospital with bowel obstruction and found to have a cecal volvulus. Underwent emergent right hemicolectomy 09/03/2024. Passing stool and flatus. Tolerating increased activities. Patient afraid to eat because of loose stools. Denies abdominal pain aside from surgical incision discomfort. Denies nausea vomiting. No blood loss of any sort. Denies dysuria, urgency, frequency, hematuria. Exam Narrative: Exam Narrative: I examine her in her room. Appears comfortable. Friendly, articulate, cooperative. Alert and oriented x4. Lungs clear to auscultation. Heart tones with regular rhythm, chronic murmur unchanged. Abdomen with active bowel sounds, soft. Independent in transfer, station, and gait. Const: Vital Signs, click to edit/add: Vital Signs - 24 hr 09/04/24 14:56 09/04/24 14:57 09/04/24 14:59 Temperature 97.6 F Pulse Rate [Pulse Oximeter] 92 92 Respiratory Rate 18 18 18 Blood Pressure [Ri ght Arm] 136/69 Pulse Oximetry 94 92 Oxygen Delivery Me thod Room Air Room Air 09/04/24 19:00 09/04/24 23:15 09/04/24 23:15 Temperature 98.8 F Pulse Rate [Pulse Oximeter] 92 92 Respiratory Rate 16 16 16 Blood Pressure [Ri ght Arm] 110/63 Pulse Oximetry 90 90 Oxygen Delivery Me thod Room Air Room Air 09/04/24 23:15 09/05/24 03:00 09/05/24 08:40 Temperature 99.8 F H 99.3 F Pulse Rate [Pulse Oximeter] 92 88 91 Respiratory Rate 16 16 20 Blood Pressure [Ri ght Arm] 139/70 111/64 Pulse Oximetry 92 89 Oxygen Delivery Me thod Room Air Room Air 09/05/24 08:40 09/05/24 08:40 09/05/24 11:00 Temperature 98.6 F Pulse Rate [Pulse Oximeter] 91 77 Respiratory Rate 20 20 16 Blood Pressure [Ri ght Arm] 126/61 114/64 Pulse Oximetry 92 92 92 Oxygen Delivery Me thod Room Air Room Air Room Air
[2024-09-05 15:00] VITALS: BP 130/76; PULSE 84; PULSE 88; RESP 16; O2SAT 92
--- NOTE | 2024-09-05 16:44 | PC.NURSE ---
Nursing Care Hours: [id number] Pt this shift calm and cooperative, alert and oriented. Pain rated 5/10, Tylenol given per eMAR in AM. Pain controlled without meds the rest of shift. Pt declines ice d/t getting too cold. Up walking the halls independently. Incision bruised but intact. BS active, pt denies nausea. BM x3, loose and dark red/black. Pt educated on expected findings and signs and symptoms to report. Tolerating regular low fiber diet. VSS. DC instructions given, questions and concerns addressed. IV removed. Wheeled out to friends vehicle.
--- NOTE | 2024-09-07 07:39 | PM.DS1 ---
DS: Providers Provider Date Seen: 09/05/24 Date of admission: 09/03/24 03:59 Primary care physician: Lori Barreto PA-C Admitting Clinician: Kymberly Escalante MD Consults: 09/04/24 11:08 Consult to Occupational Therapy [CONS] Routine Comment: Reason(s) for OT Consult:: Evaluate and Treat Any Restrictions?:: No Restrictions Consult to Physical Therapy [CONS] Routine Comment: Reason(s) for PT Consult:: Evaluate and Treat Any Restrictions?:: No Restrictions Attending Physician on discharge: Kymberly Escalante MD DS: Diagnosis Discharge Diagnosis (1) S/P right hemicolectomy: Status: Acute Problem details: 09/03/24 for cecal volvulus (2) Hyponatremia: Status: Acute Problem details: Acute on chronic, sodium 132 perioperatively. Receive normal saline IVF. Monitor 09/05/2024: Sodium 133 DS: Summary Hospital Course Hospital Course: The patient is an 84 [id number] who Presented to the emergency department on 09/02/24 with abdominal pain. Imaging revealed possible closed loop bowel obstruction. Given her pain and CT findings of what appeared to be a severely dilated small bowel, she was taken emergently to the operating room for exploration. She was found to have cecal volvulus which had volvulized in herniated through an internal hernia from adhesions. She underwent right hemicolectomy. Postoperatively she was admitted to the hospital. by postoperative day 2 she was tolerating a diet and had return of bowel function. Pain was controlled on oral meds. she underwent evaluation with physical therapy and was deemed safe for discharge home. Time Spent with Patient Time attestation: Total time spent providing and/or coordinating discharge services: DS: Data Data Completed and Pending Completed studies during hospitalization: Procedures Replacement of Right Shoulder Joint with Reverse Ball and Socket Synthetic Substitute, Open Approach (01/27/24) Reposition Right Upper Arm Tendon, Open Approach (01/27/24) Discharge Plan Discharge Disposition: Home, Self-Care Date of Admission: 09/03/24 03:59 Primary Care Provider: Lori Barreto Condition: Improved Anticipated Discharge Date/Time: 09/05/24 18:00 Discharge Medications: New hydrocodone-acetaminophen 5-325 mg Tablet 1 tab PO Q6H PRN (Reason: Pain) Qty: 5 0RF Continued Probiotic 3 billion cell capsule 3,000 mmu cells PO DAILY Rx Instructions: administer with a meal Enzyme Digest Capsule 1 cap PO DAILY Rx Instructions: administer with food; swallow whole; do not crush/chew/dissolve/break/cut multivitamin [Multiple Vitamins] Tablet 1 tab PO DAILY pravastatin 10 mg tablet 10 mg PO HS Qty: 90 3RF gabapentin 600 mg tablet 1,200 mg PO QHS gabapentin 600 mg tablet 600 mg PO QAM acetaminophen 500 mg capsule 500 - 1,000 mg PO Q8H MDD 3000mg PRNQty: 60 0RF Discharge Orders: Discharge Order (Routine); Ordered 09/05/24 Ordered By: Kymberly Escalante Patient Education: Hydrocodone/Acetaminophen (By mouth), Bowel Obstruction (DC), Colectomy Diet (DC), Colectomy (DC) Additional Instructions: Wound care: Your sutures are under the skin and will dissolve over time. Leave steri strips (white bandages) over incisions until they fall off (or remove after 7 days). OK to shower tomorrow but avoid bathing, soaking or swimming for 2 weeks. Pat the incisions dry. No need to wash or scrub the area. Apply ice to the area as needed for swelling. It is also OK to use a heating pad if this provides more comfort to you. Pain control: You were prescribed a pain medication. This medication contains acetaminophen (Tylenol). If you are taking your prescribed pain pills 4 times daily, do not take additional acetaminophen. Do not take this medication at the same time as your scheduled gabapentin as both medications can cause drowsiness. As your pain improves, you can try taking acetaminophen instead of the prescribed pain pill. Do not take this medication at the same time as your scheduled gabapentin. Take an [id number]-fluocty stool softener while you are taking prescribed pain medications to help alleviate constipation. I recommend Senna and/or Colace. Take as directed on package. If you have not had a bowel movement in 3 days, try taking Miralax as directed on the package. All of these are available over the counter. Follow-up Follow up with Dr. Escalante in 3-4 weeks in [place] Please call if you are experiencing severe pain, nausea, vomiting, difficulty urinating, fever or have not had bowel movement in 4 days after surgery. Activity Level: Activity as Tolerated and No strenuous activity Activity Detail: No lifting more than 20 lb for 4 weeks after surgery. Discharge Diet: Regular Follow Up Appointments: Kymberly Escalante MD [Staff Physician] - 09/30/24 9:45 am ([facility] for follow-up.) Lori Barreto PA-C [Primary Care Provider] - Forms: [employer] Info Instructions
== END 2024-09-05 16:21 | disposition home or self-care (01) | DRG 330 ==
LOC: ED 23:05 → OR 23:10 → MEDSURG 09-03 04:00
PROVIDERS: Admitting Provider Surgery; Emergency Provider Emergency Medicine Emergency Medical Services; PCP Physician Assistant Medical; Visit Provider Surgery
PROC: 0DTF0ZZ Resection of Right Large Intestine, Open Approach (ICD-10-PCS; CPT 49000; principal; 2024-09-03 00:30)
DX: K56.2 Volvulus (principal); E87.1 Hypo-osmolality and hyponatremia; K45.0 Other specified abdominal hernia with obstruction, without gangrene; K56.50 Intestinal adhesions [bands], unspecified as to partial versus complete obstruction; G89.18 Other acute postprocedural pain; R01.1 Cardiac murmur, unspecified; G62.9 Polyneuropathy, unspecified; E78.1 Pure hyperglyceridemia
CPT/HCPCS: 00840; 36415; 64488; 74177; 76942; 80048; 80076; 83605; 85025; 88307; 94761; 97161; 97165; 97535; 99100; 99140; 99285; A9270; C9290; J0330; J0665; J1100; J1171; J1650; J1885; J2371; J2405; J2543; J2704; J2710; J3010; J7030; J7120; Q9967

== ENCOUNTER 2024-11-10 08:30 | Outpatient (CLI) | payer MEDICARE, SELFPAY | END 2024-11-10 08:31 | disposition home or self-care (01) | PROVIDERS: PCP Physician Assistant Medical; Visit Provider Physician Assistant Medical | DX: E87.1 Hypo-osmolality and hyponatremia (principal); E78.5 Hyperlipidemia, unspecified; E78.1 Pure hyperglyceridemia; M15.2 Bouchard's nodes (with arthropathy); M85.80 Other specified disorders of bone density and structure, unspecified site; G62.9 Polyneuropathy, unspecified; Z13.0 Encounter for screening for diseases of the blood and blood-forming organs and certain disorders involving the immune mechanism; Z13.228 Encounter for screening for other metabolic disorders | CPT/HCPCS: 80053; 80061; 84443 ==

== ENCOUNTER 2024-12-16 12:38 | Outpatient (CLI) | payer MEDICARE, SELFPAY | END 2024-12-16 12:39 | disposition home or self-care (01) | PROVIDERS: PCP Physician Assistant Medical; Visit Provider Physician Assistant Medical | DX: R01.1 Cardiac murmur, unspecified (principal); I35.0 Nonrheumatic aortic (valve) stenosis; I51.7 Cardiomegaly; I34.0 Nonrheumatic mitral (valve) insufficiency; I07.1 Rheumatic tricuspid insufficiency | CPT/HCPCS: 93306 ==

== ENCOUNTER 2024-12-23 12:45 | Outpatient (CLI) | payer MEDICARE, SELFPAY | END 2024-12-23 12:46 | disposition home or self-care (01) | LOC: RAD 12:46 | PROVIDERS: PCP Physician Assistant Medical; Visit Provider Physician Assistant Medical | DX: Z78.0 Asymptomatic menopausal state (principal); M81.0 Age-related osteoporosis without current pathological fracture | CPT/HCPCS: 77080 ==

== ENCOUNTER 2024-12-31 14:01 | Outpatient (CLI) | payer MEDICARE, SELFPAY | END 2024-12-31 14:02 | disposition home or self-care (01) | LOC: FRMREF 14:02 | PROVIDERS: PCP Physician Assistant Medical; Visit Provider Physician Assistant Medical | DX: E87.5 Hyperkalemia (principal); L08.9 Local infection of the skin and subcutaneous tissue, unspecified | CPT/HCPCS: 84132 ==

== ENCOUNTER 2025-01-04 13:51 | Outpatient (CLI) | payer MEDICARE, SELFPAY | END 2025-01-04 13:52 | disposition home or self-care (01) | LOC: WOUND 13:51 | PROVIDERS: PCP Physician Assistant Medical; Visit Provider Nurse Practitioner Family | DX: G90.09 Other idiopathic peripheral autonomic neuropathy (principal); L97.515 Non-pressure chronic ulcer of other part of right foot with muscle involvement without evidence of necrosis | CPT/HCPCS: 11043; 87070; 87186; 96372; G0463; J0696 ==

== ENCOUNTER 2025-01-04 15:18 | Outpatient (CLI) | payer MEDICARE, SELFPAY ==
--- NOTE | 2025-01-04 15:30 | CRLHL7_ITS ---
For Patients: As a result of the Century Cures Act, medical imaging exams and procedure reports are released immediately into your electronic medical record. You may view this report before your referring provider. If you have questions, please contact your health care provider. 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 Intact fixation screw across the big toe interphalangeal joint. Soft tissue ulcer noted. No cortical destruction, fracture or periostitis. Impression: No evidence of osteomyelitis. Dictated by Tian Sharpe MD @ 01/05/2025 8:18:25 AM (Electronically Signed)
== END 2025-01-04 15:19 | disposition home or self-care (01) ==
LOC: RAD 15:19
PROVIDERS: PCP Physician Assistant Medical; Visit Provider Nurse Practitioner Family
DX: L97.512 Non-pressure chronic ulcer of other part of right foot with fat layer exposed (principal)
CPT/HCPCS: 73630

== ENCOUNTER 2025-01-07 14:38 | Outpatient (CLI) | payer MEDICARE, SELFPAY | END 2025-01-07 14:39 | disposition home or self-care (01) | LOC: WOUND 14:38 | PROVIDERS: PCP Physician Assistant Medical; Visit Provider Nurse Practitioner Family | DX: G90.09 Other idiopathic peripheral autonomic neuropathy (principal); L97.515 Non-pressure chronic ulcer of other part of right foot with muscle involvement without evidence of necrosis; L03.031 Cellulitis of right toe | CPT/HCPCS: G0463 ==

== ENCOUNTER 2025-01-08 17:46 | Emergency (ER) | payer MEDICARE, SELFPAY ==
--- OUTSIDE RECORDS SUMMARY | 2025-01-08 17:48 | XMS_ITS | Clinical Summary ---
Author Organization [facility] Address [address] [place] [address] Care Team Providers Care Ios Developer Name Role Phone Unavailable Primary Care Provider Unavailabl e Source Comments You are receiving this document as you are listed as the primary care provider,follow-up provider, or the patient has been referred to you for consultation.This is in compliance with the Medicare and[facility]centive [facility],which states Providers who transition [...] RSV (1 - 1-dose 75+ series) 2016 COVID-19 Vaccine ( season) 2024 10/05/2022, 03/21/2022, 08/30/2021, Additional history exists Influenza (#1) 2024 08/16/2022, 08/03, 08/09/2020, Additional history exists Medicare Annual Wellness Visit 12/02/2024 DTaP/Tdap/Td (2 - Tdap) 09/09/2030 09/09/2020, 11/19 [...]
--- OUTSIDE RECORDS SUMMARY | 2025-01-08 17:48 | XMS_ITS | Clinical Summary ---
Author Organization [email or web address] Address [place], [place] [address] Care Team Providers Care Respiratory Care Technician Name Role Phone Lori Barreto PA-C Unavailable [phone] Pcp, No Primary Care Provider Unavailabl e Allergies Active Allergy Reactions Criticality Noted Date Comments Codeine Vomiting 03/13/2007 Morphine *Unknown High 05/12/2019 Medications multivitamins-mine rals-lutein (Multivitamin 50 Plus) tab tablet Take 1 Tablet by mouth once daily. Active pravastatin (PRAVACHOL) 10 mg tabletIndications: Hyperlipidemia, unspecified hyperlipidemia type Take 1 Tablet (10 mg) by mouth at bedtime. 90 Tablet 1 07/10/20 22 Active acetaminophen (TYLENOL EXTRA STRGTH) 500 mg tablet Take 1-2 Tablets (500-1,000 mg) by mouth 3 times daily if needed. Max acetaminophen dose: 4000mg in 24 hrs. 01/28/20 24 Active Lactobacillus rhamnosus GG (Culturelle) 15 billion cell capsule Take 1 Capsule by mouth once daily. 01/28/20 24 Active gabapentin (NEURONTIN) 600 mg tablet Take 1 Tablet (600 mg) by mouth every morning AND 2 Tablets (1,200 mg) at bedtime. 01/28/20 24 Active oxyCODONE (ROXICODONE) 5 mg immediate release tablet Take 0.5-1 Tablets (2.5-5 mg) by mouth every 4 hours if needed for Pain. 01/28/20 24 Active sennosides-docusat e (SENOKOT S) (8.6-50 mg) tablet Take 1-4 Tablets by mouth 2 times daily if needed for Constipation. 01/28/20 24 Active trospium (SANCTURA) 20 mg tablet Take 1 Tablet by mouth two times daily. 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 12/13/2016 Blepharitis of upper eyelids of both eyes 2016 Nuclear senile cataract of both eyes 12/13/2016 VITREOUS DEGENERATION-OD 01/07/2003 THROMBOPHLEBITIS NOS 10/28/2000 ALLERGIES 05/27/2000 SINUSITIS, ACUTE NOS BRONCHITIS, ACUTE Encounters Date Type Department Care Team Description 01/04[facility]2025 [facility] [address] [facility] [address] [place] [address] Terrance House MD Results (Heart Monitor) 01/04/2025 Orders Only [facility] [address] [place] [address] Sara Blanchard 1 scan: (1-Ord) Zio Report 12/24/2024 10:00 AM PROTECTIVE SERVICES CASE WORKER Office Visit [address] [address] Terrance House MD 12/16/2024 1:00 PM PROTECTIVE SERVICES CASE WORKER Ancillary Procedure [address] [address] from Last 3 Months Immunizations Name Administration [...] and Fami ly Not on file 07/10/2022 Comments No Sex and Gender Information Value Date Recorded Sex Assigned at Not on file Legal Sex Female 6:53 AM PROTECTIVE SERVICES CASE WORKER Gender Identity Not on file Sexual Orientation Not on file Obstetrics History Last Filed Vital Signs Vital Sign Reading Time Taken Comments Blood Pressure 116/62 07/10/2022 3:01 PM CDT Pulse 62 07/10/2022 3:01 PM CDT Temperature 36.6 C (97.8 F) 02/04/2022 12:25 PM PROTECTIVE SERVICES CASE WORKER Respiratory Rate 16 02/04/2022 12:25 PM PROTECTIVE SERVICES CASE WORKER Oxygen Saturation 96% 07/10/2022 3:01 PM CDT Inhaled Oxygen Concentration - - Weight 79.4 kg (175 lb) 07/10/2022 3:01 PM CDT Height 177.8 cm (5' 10) 07/10/2022 3:01 PM CDT Body Mass Index 25.11 07/10/2022 3:01 PM CDT Plan of Treatment Health Maintenance Due Date Last Done Comments Tdap 1952 Depression screening for age 12+ 1953 Pneumococcal series for age 50+ (1 of 2 - PCV) 1960 Tetanus booster 1961 Zoster (shingles) series for age 50+ (1 of 2) 1991 DEXA/DXA scan for age 65+ 2006 Medicare Wellness for age 65+ 2006 RSV vaccine for adults or (1 - 1-dose 75+ series) 2016 BMI (ht and wt on same day) for age 18+ 07/10/2023 07/10/2022 Influenza for age 65+ 08/02/2024 10/06/2002 COVID-19 vaccine series Completed 09/16/20 24, 10/05/2022, 03/21/2022, Additional history exists Procedures Procedure Name Priority Date/Time Associated Diagnosis Comments EXTENDED HOLTER Routine 01/04/2025 PVC (premature ventricular contraction) ECHO TTE COMPLETE WO CONTRAST Routine 12/16/2024 1:46 PM PROTECTIVE SERVICES CASE WORKER Cardiac murmur from Last 3 Months Results * EXTENDED HOLTER (01/04/2025) us Terrance House MD CARDIAC SERVICES ORD F inal Result * ECHO TTE COMPLETE WO CONTRAST (12/16/2024 1:46 PM PROTECTIVE SERVICES CASE WORKER) AORTIC VALVE MEAN PG 25 mmHg EJECTION FRACTION 63 % PEAK TR VELOCITY 2.3 m/s LVEDD 3.8 cm Anatomical Region Laterality Modality Ultrasound 12/16/2024 1:01 PM PROTECTIVE SERVICES CASE WORKER Narrative 12/16/2024 1:57 PM PROTECTIVE SERVICES CASE WORKER ECHOCARDIOGRAM LEIF BLACKBURN : 1940 84 years Study Date: 12/16/2024 1:01:36 PM Gender: F BP: 126/73 mmHg Height: 170.00 cm BSA: 1.81 m Weight: 70.00 kg Tech: DAHLIA Referring MD: LORI BARRETO Site: [facility] Reading Location: Mobile OP Patient Location: Outpatient. Procedure: 2D, Color Doppler and Spectral Doppler. Indication for study: Murmur Cardiac Rhythm: Irregular.Study quality: Good. Final Impressions: 1. Normal left ventricular size, normal wall thickness, normal global systolic function, calculated EF of 63 %. 2. The aortic valve is trileaflet and calcified, moderate to severe stenosis and trivial regurgitation. The aortic valve peak velocity is 3.4 m/s, the peak gradient is 45 mmHg, and the mean gradient is 25 mmHg. The aortic valve area is 0.97 cm with a dimensionless index of 0.31. The stroke volume index is 43.0 ml/m . 3. Mildly enlarged left atrium. 4. The mitral valve is sclerotic, mild mitral regurgitation. 5. Moderate-severe tricuspid regurgitation. 6. 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 Chamber Sizes and Function Normal left ventricular size, normal wall thickness, normal global systolic function, calculated EF of 63 %. No resting regional wall motion abnormality visualized. Left atrial size is mildly enlarged. Right ventricular cavity size is normal, global systolic RV function is normal. The right atrium is mildly enlarged. Right atrial area is 21 cm . The pulmonary artery is of normal size and origin. The sinus of Valsalva is normal sized. The ascending aorta is dilated. Valves, RV Pressures and Diastolic Function The aortic valve is trileaflet and calcified, moderate to severe stenosis and trivial regurgitation. The mitral valve is sclerotic, mild mitral regurgitation. Spectral Doppler shows Grade 1 pattern of LV diastolic filling. The tricuspid valve is normal in structure. Tricuspid regurgitation is moderate-severe. The tricuspid regurgitant velocity is 2.3 m/s, the estimated right ventricular systolic pressure is 22 mmHg plus right atrial pressure. There is normal estimated pulmonary pressure by tricuspid regurgitation velocity and right atrial pressure. The pulmonic valve is normal. Trace pulmonary regurgitation. TTE images do not appear adequate for transcather intervention with patient supine. Masses, Effusion, Shunts There is no pericardial effusion. The inferior vena cava is normal sized, respiratory size variation greater than 50%. No left to right shunting was detected by limited color flow Doppler interrogation of the interatrial septum. MEASUREMENTS AND CALCULATIONS 2-D Measurements and LV Function: LVID (d) 3.8 cm Planimetered EF 63 % LVID (s) 2.2 cm LV FS% (2D) 43 % IVS (d) 1.0 cm LVOT diameter 2.0 cm LVPW (d) 1.1 cm HR 60 bpm Ao Sinus 3.6 cm LA Vol index 40 ml/m2 Asc Ao 4.4 cm RA area 21 cm RV Max 4C (d) 4.0 cm Diastology: Mitral Tissue Doppler E Peak 0.7 m/s e', Septum 0.07 m/s A Peak 0.9 m/s e', Lateral 0.09 m/s E/A 0.8 E/e' Average 9.47 DT 220 msec Aortic Valve: Vmax 3.4 m/s ROSS (V) 0.86 cm VTI 0.80 m ROSS (I) 0.97 cm LVOT V max 0.9 m/s Max PG 45 mmHg LVOT VTI 0.24 m Mean PG 25 mmHg SV 78 ml Dim Index 0.31 SV index 43 ml/m CO 4.7 l/min CI 2.6 l/min/m Mitral Valve: MVA 3.4 cm MV P 1/2 64 msec Tricuspid Valve and estimated PA pressures: TR Vmax 2.3 m/s TAPSE 2.7 cm TR maxG 22 mmHg . This study was interpreted by an IAC accredited facility. CC: [facility] ([facility]) [facility]. Final Procedure Note Eric Gamble MD - 12/16/2024 ECHOCARDIOGRAM LEIF BLACKBURN : 1940 84 years Study Date: 12/16/2024 1:01:36 PM Gender: F BP: 126/73 mmHg Height: 170.00 cm BSA: 1.81 m Weight: 70.00 kg Tech: DAHLIA Referring MD: LORI BARRETO Site: [facility] Reading Location: Mobile OP Patient Location: Outpatient. Procedure: 2D, Color Doppler and Spectral Doppler. Indication for study: Murmur Cardiac Rhythm: Irregular.Study quality: Good. Final Impressions: 1. Normal left ventricular size, normal wall thickness, normal globalsystolic function, calculated EF of 63 %. 2. The aortic valve is trileaflet and calcified, moderate to severestenosis and trivial regurgitation. The aortic valve peak velocity is 3.4m/s, the peak gradient is 45 mmHg, and the mean gradient is 25 mmHg. Theaortic valve area is 0.97 cm with a dimensionless index of 0.31. Thestroke volume index is 43.0 ml/m . 3. Mildly enlarged left atrium. 4. The mitral valve is sclerotic, mild mitral regurgitation. 5. Moderate-severe tricuspid regurgitation. 6. 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 Chamber Sizes and Function Normal left ventricular size, normal wall thickness, normal globalsystolic function, calculated EF of 63 %. No resting regional wall motionabnormality visualized. Left atrial size is mildly enlarged. Rightventricular cavity size is normal, global systolic RV function is normal.The right atrium is mildly enlarged. Right atrial area is 21 cm . Thepulmonary artery is of normal size and origin. The sinus of Valsalva isnormal sized. The ascending aorta is dilated. Valves, RV Pressures and Diastolic Function The aortic valve is trileaflet and calcified, moderate to severe stenosisand trivial regurgitation. The mitral valve is sclerotic, mild mitralregurgitation. Spectral Doppler shows Grade 1 pattern of LV diastolicfilling. The tricuspid valve is normal in structure. Tricuspidregurgitation is moderate-severe. The tricuspid regurgitant velocity is2.3 m/s, the estimated right ventricular systolic pressure is 22 mmHg plusright atrial pressure. There is normal estimated pulmonary pressure bytricuspid regurgitation velocity and right atrial pressure. The pulmonicvalve is normal. Trace pulmonary regurgitation. TTE images do not appearadequate for transcather intervention with patient supine. Masses, Effusion, Shunts There is no pericardial effusion. The inferior vena cava is normal sized,respiratory size variation greater than 50%. No left to right shunting wasdetected by limited color flow Doppler interrogation of the interatrialseptum. MEASUREMENTS AND CALCULATIONS 2-D Measurements and LV Function: LVID (d) 3.8 cm Planimetered EF 63 % LVID (s) 2.2 cm LV FS% (2D) 43 % IVS (d) 1.0 cm LVOT diameter 2.0 cm LVPW (d) 1.1 cm HR 60 bpm Ao Sinus 3.6 cm LA Vol index 40 ml/m2 Asc Ao 4.4 cm RA area 21 cm RV Max 4C (d) 4.0 cm Diastology: Mitral Tissue Doppler E Peak 0.7 m/s e', Septum 0.07 m/s A Peak 0.9 m/s e', Lateral 0.09 m/s E/A 0.8 E/e' Average 9.47 DT 220 msec Aortic Valve: Vmax 3.4 m/s ROSS (V) 0.86 cm VTI 0.80 m ROSS (I) 0.97 cm LVOT V max 0.9 m/s Max PG 45 mmHg LVOT VTI 0.24 m Mean PG 25 mmHg SV 78 ml Dim Index 0.31 SV index 43 ml/m CO 4.7 l/min CI 2.6 l/min/m Mitral Valve: MVA 3.4 cm MV P 1/2 64 msec Tricuspid Valve and estimated PA pressures: TR Vmax 2.3 m/s TAPSE 2.7 cm TR maxG 22 mmHg . This study was interpreted by an IAC accredited facility. CC: [facility] (med records) [facility]. Final Lori Barreto PA-C ECHO ORD Final Result from Last 3 Months Insurance [facility] MEDICARE ADVANTAGE MR Care Teams Respiratory Care Technician Relationship Specialty Start Date End Date Pcp, No . PCP - General 11/13/23 Lori Barreto, SHAVONC [address] [place] [address] Family Practice Physician Mucking Machine Operator 02/27/22
--- OUTSIDE RECORDS SUMMARY | 2025-01-08 17:48 | XMS_ITS | Continuity of Care Document ---
Author Organization [facility] Address [address] [address] [place] [address] Phone Care Team Providers Care Printer Machine Name Role Phone Simon Weinstein CRNA Unavailable [...] Diagnoses Date Provider Providers Copied on Encounter [facility], [address] [address], [place], [place], [id number], [place] tel:[phone] [facility] No Information 9 Js Montes. [address] [facility], [facility] [address], [place], [place], [id number] , [place]. [phone] Referring Provider: Saulo Nayak, [address] [facility] [address], [place], [address]. tel:[phone] [facility], [address] [address], [place], [place], [id number], [place] tel:[phone] [facility] Colorectal polypsEncounter for screening for malignant neoplasm of colonPersonal history of colonic polypsBenign neoplasm of cecumBenign neoplasm of transverse colonBenign neoplasm of cecum 9 Gricelda Vernon. [address] [facility], [facility] [address], [place], [id number] , [place]. [phone] Lorie Youngblood MD. tel:[phone] ring Provider: Rajinder Betts, [address] [place], [address]. [phone] [facility], [address] [address], [place], [place], [id number], [place] tel:[phone] [facility] Colonic polypColon Cancer ScreeningBenign Neoplasm ColonPersonal History Colon Polyps 4 Juarez Gambino. [address] [facility], [address], [place], [place], [id number] , [place]. [phone] Referring Provider: Rajinder Betts, [address] [place], [address]. tel:[phone] [facility], [address] [address], [place], [place], [id number], [place] tel:[phone] [facility] Personal History Colon Polyps 9 Juarez Gambino. [address] [facility], [address], [place], [place], [id number] , [place]. [phone] Referring Provider: Rajinder Mars MD C, [address] [place], [address]. tel:[phone] Family History Family Member Type Diagnosis Age [...] colon Payers Payer name Insurance type Covered green party ID Authorsherria jaye(s) [employer] Medicare MB [id number] Social History Type Description Quantity Date Captured [...]
--- OUTSIDE RECORDS SUMMARY | 2025-01-08 17:49 | XMS_ITS | Clinical Summary ---
Author Organization [facility] Address [address] [place] [id number] Care Team Providers Care Mechanical Equipment Sales Engineer Name Role Phone Rajinder Mars MD Primary Care Provider [phone] Resolved Problems Problem Noted Date Diagnosed Date Resolved Date Muscle weakness (generalized) 08/06/2019 08/26/2019 Mixed incontinence 08/06/2019 4 Urinary frequency 08/06/2019 08/26/2019 Social History Tobacco Use Types Packs/Day Years Used Date Smoking Tobacco: Never Assessed Adolescent Education Answer Date Record ed Getting School Help Needed Not on file 09/01 Comments Unknown Sex and Gender Information Value Date Recorded Sex Assigned at Not on file Legal Sex Female 3:25 AM BROADCAST DIRECTOR OPERATIONS Gender Identity Not on file Sexual Orientation Not on file Plan of Treatment Health Maintenance Due Date Last Done Comments ADVANCE CARE PLANNING 1940 ANNUAL REVIEW OF HM ORDERS 1940 FALL RISK ASSESSMENT 2006 MEDICARE ANNUAL WELLNESS VISIT 2006 RSV VACCINE (1 - 1-dose 75+ series) 2016 COVID-19 Vaccine ( season) 2024 10/05/2022, 03/21/2022, 08/30/2021, Additional history exists INFLUENZA VACCINE (#1) 2024 2, 08/16/2022, 08/23/2021, Additional history exists PHQ-2 (once per calendar year) 2024 DTAP/TDAP/TD IMMUNIZATION (2 - Td or Tdap) 09/09/2030 09/09/2020, 11/19/2006 DEXA 09/15/2030 09/15/2015, 09/07/2015 Pneumococcal Vaccine: 50+ Years Completed 10/28/2019, 03/17/2015, 06/16/2009 ZOSTER IMMUNIZATION [...] osteoporosis on the basis of vertebral fracture. Degenerative changes of the lumbar spine which may falsely elevate results. Comparisons from different scanners that have not been cross calibrated, are not necessarily valid. Such a comparison has been performed here; one should interpret with caution. There has been probable significant decrease in [...] calculator (www.shef.ac.uk/FRAX or you can google FRAX). Based on these guidelines, treatment (in addition to calcium and vitamin D) is recommended for this patient, after ruling out other causes of osteoporosis. This is meant as an aid to clinical decision making; one must still use clinical judgement. Follow up can be considered in 2 years. Vania Eng M.D. Electronically signed Narrative 09/15/2015 12:00 PM CDT BONE DENSITOMETRY [address] [address] 09/15/2015 PATIENT: Sheila Blackburn CHART: [id number] : 1940 AGE: [age] year old SEX: female REFERRING PROVIDER: Elvin Pierre MD PROCEDURE: Bone density scanning was performed using DXA technology of the lumbar spine and hip. Scanning was performed on a Nanali scanner. Reporting is completed in the form [...] Previous 0.996 Total Hip Mean BMD: 0.864 Previous 0.858 Forearm (radius 33%) BMD: 0.588 Previous NA LATERAL VERTEBRAL ASSESSMENT Procedure: Vertebral fracture assessment was performed in the lateral decubitus position using a Collectricigy densitometer. Indications for VFA: T-score of -1.0 or worse and age (female>69) Confounding factors for VFA: Arthritis/degenerative disc disease, scoliosis and rib shadows. The LVA scan is interpretable from T7 to T12 and L4. VFA Findings: Using the semi-quantitative analysis of Genant there was evidence of spinal deformity as follows: moderate (grade 2) wedge fracture of T9. VFA Impression: Sheila Blackburn has one vertebral fracture identified on the LVA. If alternative etiologies for the presence of vertebral fractures are excluded, the diagnosis is consistent with severe osteoporosis. Elvin Pierre MD IMG DEXA ORDERABLES Final Result from Last 3 Months or Most Recently Relevant to Health Maintenance Insurance [facility] MEDICARE [employer] MEDICARE Care Teams Mechanical Equipment Sales Engineer Relationship Specialty Start Date End Date Rajinder Mars MD [facility] [id number] [place] [phone] PCP - General Family Practice 07/29/15
--- OUTSIDE RECORDS SUMMARY | 2025-01-08 17:49 | XMS_ITS | Data Portability ---
Author Organization [facility] Sushil gy, [facility] Address [address] [place] [address] Care Team Providers Care Dental Internship Name Role Phone ROSA PEREZ Primary Care Provider [phone] Assessment No assessment recorded. Plan of Treatment Reminders Order Date Submit Date Provider Last Modified By Organization Details Last Modified Time Details Appointments None recorded. Lab None recorded. Referral None recorded. Procedures None recorded. Surgeries None recorded. Imaging None recorded. Medication Orders trospium 20 mg tablet 2022 023 [facility], [address] [place], [address], 11:31:58 solifenacin 5 mg tablet 2023 024 [facility] #1651, [address] [place], [address], 14:33:46 tolterodine ER 2 mg capsule,ext ended release 24 hr 2023 024 [facility]1651, [address] [place], [address], 4 14:44:52 Gemtesa 75 mg tablet 2023 024 [email or web address] [facility]1651, [address] [place], [address], 09:51:51 Gemtesa 75 mg tablet 2023 024 [email or web address] [facility] #1651, [address] [place], [address], 4 09:51:51 Gemtesa 75 mg tablet 2023 024 RICARDO [facility]1651, [address] [place], [address], 4 10:07:06 Patient TargetsNo targets recorded. Patient Instructions Encounter Date Encounter Id Patient Instructions Last Modified By Organization Details Last Modified Time 03/27/2023 [id number] History of prola pse surgery, nocturia, daytime frequency and incontinence: -Encourage double voiding. PVR low today. -Improvement with trospium 20 mg BID. Continue. -UDS 01/16/23- no good contraction. -Patient not interested in PFPT. -Follow up in 12 months, sooner if issues. [email or web address] Not available 03/27/2023 15:47:50 04/01/2024 [id number] History of prola pse surgery, nocturia, daytime frequency and incontinence: -Encourage double voiding. PVR low today. -Improvement with trospium 20 mg BID. discontinue. -UDS 01/16/23- no good contraction. -Patient not interested in PFPT. -Trial vesicare 5 mg once daily. monitor for s/e. -Follow up in 2 months with pvr rbourget Not available 04/01/2024 11:33:08 06/11/2024 [id number] History of prola pse surgery, nocturia, daytime frequency and incontinence: -Encourage double voiding. pvr 166 cc today. continue to monitor. -UDS 01/16/23-no VEENA, no detrusor overactivity, compliance intact no inc tonus limb, able to empty her bladder variably, but down to 55 with good flow, coordinated EMG weak detrusor pressure noted, no clear good contraction. -Patient will go to PFPT. referral placed. -Improvement with trospium 20 mg BID initially but discontinued at last visit due to more leakage. -Failed Vesicare 5 mg once daily. Had dry mouth and no benefit -trial tolterodine ER 2 mg once daily. monitor for s/e. -Follow up in 2 months with pvr [email or web address] Not available 06/11/2024 11:40:10 07/20/2024 [id number] History of prola pse surgery, nocturia, daytime frequency and incontinence: -Encourage double voiding. emptying well today. continue to monitor. -UDS 01/16/23-no VEENA, no detrusor overactivity, compliance intact no inc tonus limb, able to empty her bladder variably, but down to 55 with good flow, coordinated EMG weak detrusor pressure noted, no clear good contraction. -continue PFPT and home exercises. -Failed trospium 20 mg BID (lack of benefit), Vesicare 5 mg once daily (dry mouth and no benefit) -discontinue tolterodine ER 2 mg once daily. void anticholinergics with age and side effect profile. -trial gemtesa 75 mg once daily. monitor for s/e. -Reviewed third-line therapies in detail. Gave information on sacral neuromodulation, intravesical Botox, and PTNM. After hearing these options, she will consider. -Follow up in 2 months with pvr [email or web address] Not available 07/20/2024 14:45:19 10/14/2024 [id number] History of prola pse surgery, nocturia, daytime frequency and incontinence: -Encourage double voiding. emptying well today. continue to monitor. -UDS 01/16/23-no VEENA, no detrusor overactivity, compliance intact no inc tonus limb, able to empty her bladder variably, but down to 55 with good flow, coordinated EMG weak detrusor pressure noted, no clear good contraction. -continue PFPT and home exercises. -Failed trospium 20 mg BID (lack of benefit), Vesicare 5 mg once daily (dry mouth and no benefit), tolterodine ER 2 mg once daily. Avoid anticholinergics with age and side effect profile. -continue gemtesa 75 mg once daily. working well. will try a tier exception or PA to see if costs can be down. -Reviewed third-line therapies in detail. Gave information on sacral neuromodulation, intravesical Botox, and PTNM. After hearing these options, she will consider but would rather trial another medicaton prior. -Follow up in 12 months, sooner if needing to change treatment plan. [email or web address] Not available 10/14/2024 10:07:42 Reason for Referral None Reported. Problems Name Problem SNOMED Code Status Onset Date Resolution Date Notes Provider Name and Address Organization Details Recorded Time Chronic cystitis 15126052 Active 2018 N30.20 : Chronic cystitis Not Available [facility] 0 23:42:04 Cystitis 06967337 Active 2012 N30.90 : Cystitis Not Available [facility] 0 23:42:04 Overactiv e urinary bladder 403973496 Active 2018 N32.81 : Bladder muscle dysfunctio n - overactive Not Available [facility] 0 23:42:04 Nocturia 359682443 Active 2012 R35.1 : Nocturia Not Available [facility] 0 23:42:04 Urinary tract infectiou s disease 22156327 Active 2012 N39.0 : Urinary tract infectious disease Not Available [facility] 0 23:42:04 Hyperchol esterolem ia 53498237 Active 2023 Allison la [facility] 4 11:07:14 History of statin therapy 441373423 Active 2023 Allison la [facility] 4 11:07:45 Problem Notes None recorded. Procedures Surgical History Date Name Laterality Status Provider Name and Address Organization Details Recorded Time COMPLEX VISIT completed QASIM Landry [address] [place] [address],[address], [address], [facility] 10/13/2024 22:31:45 024 Bladder Scan completed QASIM Landry [address] [place] [address],[address], [address], [facility] 10/14/2024 09:57:23 024 COMPLEX VISIT completed QASIM Landry [address] [place] [address],[facility] [address], [address], [facility] 07/19/2024 19:32:09 024 Bladder Scan completed Allison Pablo [facility] 07/20/2024 14:26:35 024 Bladder Scan completed QASIM Landry [address], [place], [address], [facility] 06/11/2024 11:21:18 024 COMPLEX VISIT completed QASIM Landry [address], [place], [address], [facility] 04/01/2024 11:15:33 024 Past Data Reviewed completed QASIM Landry [address] [place] [address],[address], [place], [address], [facility] 04/01/2024 11:15:50 024 Bladder Scan completed Allison Pablo [facility] 04/01/2024 11:25:35 023 Bladder Scan completed QASIM Landry [address] [place] [address],[address], [place], [address], [facility] 03/27/2023 15:40:29 023 Urodynamic Studies completed Radha Byers MD [address] [place] [address],[address], [place], [address], [facility] 01/18/2023 08:42:29 023 Urinalysis completed JOSH ENCINAS [address] [place] [address],[address], [place], [address], [facility] 01/15/2023 10:37:53 022 Past Data Reviewed completed Radha Byers MD [address] [place] [address],[address], [place], [address], [facility] 10/01/2022 08:50:58 022 In and Out Catheterization- female completed Radha Byers MD [address] [place] [address],[address], [place], [address], [facility] 10/01/2022 15:59:54 020 Insert bladder catheter completed Not Available [facility] 05/12/2020 13:36:11 019 Resect phalanx of toe tumor completed Not Available [facility] 05/12/2020 13:36:11 08/20/2 019 Us urine capacity measure completed Not Available [facility] 05/12/2020 13:36:11 019 Insert bladder catheter completed Not Available [facility] 05/12/2020 13:36:11 014 Colonoscopy thru stoma spx completed Not Available [facility] 05/12/2020 13:36:11 013 Cystourethroscopy completed Not Available [facility] 05/12/2020 13:36:11 013 Insert bladder catheter completed Not Available [facility] 05/12/2020 13:36:11 Division of fallopian tube completed Not Available [facility] 05/12/2020 13:36:11 Removal of tonsils completed Not Available [facility] 05/12/2020 13:36:11 Removal of gallbladder completed Not Available [facility] 05/12/2020 13:36:11 Hysterectomy/revise vagina completed Not Available [facility] 05/12/2020 13:36:11 Anterior colporrhaphy completed Not Available [facility] 05/12/2020 13:36:11 Total knee arthroplasty completed Not Available [facility] 05/12/2020 13:36:11 Imaging Results None recorded. Procedure Notes None recorded. Medical Equipment None Reported. Allergies Allergen ID Allergen Name Allergen Category Reaction Reaction Severity Criticality Documentation Date Start Date Code Code System Note Provider Name and Address Organization Details Recorded Time 307095 morphine sulfate medicatio n Not available Not available Not available 05/11/2020 04613 RxNorm Not Available Not Available Not Available 785812 codeine medicatio n vomiting Not available Not available 05/11/2020 2670 RxNorm Not Available Not Available Not Available Medications Name Sig Start Date Stop Date Status Note LastModified by Organization Details LastModified Time tolterodine ER 2 mg capsule,ext ended release 24 hr TAKE ONE CAPSULE BY MOUTH EVERY MORNING* 07/20 completed Not Available Not Available Not Available gabapentin 600 mg tablet take 1 tablet by mouth in the morning and 2 tablets at bedtime* active Not Available Not Available No t Available azithromyci n 250 mg tablet TAKE 2 TABLETS BY MOUTH ON DAY 1, THEN 1 TABLET DAILY ON DAYS 2-5* 04/01 completed Not Available Not Available Not Available hydrocodone 5 mg-acetamin ophen 325 mg tablet TAKE ONE TABLET BY MOUTH EVERY SIX HOURS NEEDED FOR PAIN* active Not Available Not Available No t Available sumatriptan 25 mg tablet TAKE 1 TABLET BY MOUTH FOR MIGRAINE NEEDED 04/01 completed Not Available Not Available Not Available tramadol 50 mg tablet TAKE ONE TABLET BY MOUTH TWICE A DAY NEEDED FOR PAIN 04/01 completed Not Available Not Available Not Available amoxicillin 875 mg tablet TAKE ONE TABLET BY MOUTH TWICE DAILY FOR 10 DAYS 10/01 completed Not Available Not Available Not Available pravastatin 10 mg tablet TAKE 1 TABLET BY MOUTH AT BEDTIME FOR HEART (CHOLESTE ROL)* active Not Available Not Available No t Available cephalexin 500 mg capsule TAKE 1 CAPSULE BY MOUTH 4 TIMES DAILY FOR 7 DAYS* active Not Available Not Available No t Available erythromyci n 5 mg/gram (0.5 %) eye ointment 1/4 INCH RIBBON IN THE RIGHT EYE THREE TIMES DAILY X 7 DAYS 04/01 completed Not Available Not Available Not Available polymyxin B sulfate 10,000 unit-trimet hoprim 1 mg/mL eye drops place 1 drop into each eye four times daily for 7 days* 04/01 completed Not Available Not Available Not Available omeprazole 20 mg capsule,del ayed release TAKE 1 CAPSULE BY MOUTH ONE TIME DAILY 04/01 completed Not Available Not Available Not Available rosuvastati n 20 mg tablet TAKE ONE TABLET BY MOUTH EVERY NIGHT AT BEDTIME 04/01 completed Not Available Not Available Not Available nitrofurant oin monohydrate /macrocryst als 100 mg capsule TAKE ONE CAPSULE BY MOUTH TWICE DAILY FOR 3 DAYS PRIOR TO URODYNAMI CS 01/28 completed Not Available Not Available Not Available trospium 20 mg tablet TAKE 1 TABLET BY MOUTH TWICE DAILY* 04/01 completed Not Available Not Available Not Available solifenacin 5 mg tablet TAKE 1 TABLET BY MOUTH ONE TIME DAILY* 07/20 completed Not Available Not Available Not Available Gemtesa 75 mg tablet Take 1 tablet every day by oral route. 2024 active Not Available Not Available Not Avai lable Vitals Date Recorded Body height Body mass index (BMI) Body weight Provider Name and Address Organization Details Last Updated DateTime 04/01/2024 172.72 cm 22.8 kg/m2 46767.86 g Allison Pablo [place] [facility] 04/01/2024 11:06:44 Date Recorded Body height Body mass index (BMI) Body weight Provider Name and Address Organization Details Last Updated DateTime 06/11/2024 172.72 cm 22.8 kg/m2 66030.86 rosie Cooper Pablo [facility] 06/11/2024 11:06:15 Date Recorded Body height Body mass index (BMI) Body weight Provider Name and Address Organization Details Last Updated DateTime 07/20/2024 172.72 cm 22.8 kg/m2 47274.86 rosie Allison Pablo [facility] 07/20/2024 14:21:08 Date Recorded Body weight Provider Name an d Address Organization Details Last Updated DateTime 10/14/2024 81074.04 rosie Allison Pablo [facility] 10/14/2024 09:51:27 Date Recorded Body height Body mass index (BMI) Provider Name and Address Organization Details Last Updated DateTime 10/14/2024 175.26 cm 22.4 kg/m2 Not Available Health Note 09:49:10 Social History Question Answer Notes LastModified by Organizat ion Details LastModified Time Tobacco Smoking Status Former Smoker Not Available Health Note 10/13/2024 16:24:38 Do You Have An Advance Directive? Yes [email or web address] Information not available 10/13/2024 What Is Your Level Of Alcohol Consumption? None Information not available 10/14/2024 What Is Your Level Of Caffeine Consumption? Moderate [email or web address] Information not available 10/13/2024 How Much Tobacco Do You Chew? None [email or web address] Information not available 10/13/2024 Are You Currently Employed? No [email or web address] Information not available 04/01/2024 Do You Or Have You Ever Used E-cigarettes Or Vape? Never Used Electronic Cigarettes [email or web address] Information not available 10/13/2024 When Did You Quit Smoking? 16+yearssincel astcigarette [email or web address] Information not available 10/14/2024 Race White [email or web address] Information n ot available 05/12/2020 Ethnicity Not /Latin o [email or web address] Information not available 04/01/2024 Preferred Language Wallisian [email or web address] Information not available 04/01/2024 Number Of Pregnancies 4 [email or web address] Information not available 04/01/2024 Number Of Vaginal Deliveries 4 [email or web address] Information not available 04/01/2024 Number Of Caesarean Sections 0 [email or web address] Information not available 10/13/2024 Could You Be ? No [email or web address] Information not available 04/01/2024 Marital Status Single radha Informati on not available 05/12/2020 Do You Have A Medical Power Of Die Repairer Stamping? Yes [email or web address] Information not available 10/13/2024 What Was The Date Of Your Most Recent Tobacco Screening? 10/14/2024 [email or web address] Information not available 10/13/2024 What Is Your Relationship Status? [email or web address] Information not available 10/13/2024 Are You Sexually Active? No [email or web address] Information not available 10/13/2024 Do You Or Have You Ever Used Smokeless Tobacco? Never Used Smokeless Tobacco [email or web address] Information not available 10/13/2024 Do You Use Any Illicit Or Recreational Drugs? No [email or web address] Information not available 10/13/2024 Has Tobacco Cessation Counseling Been Provided? No [email or web address] Information not available 01/28/2023 How Many Years Have You Smoked Tobacco? 28 [email or web address] Information not available 10/13/2024 Do You Or Have You Ever Used Any Other Forms Of Tobacco Or Nicotine? No [email or web address] Information not available 01/28/2023 How Many Days In The Past Year Have You Consumed 4 Or More Drinks? 0 [email or web address] Information no t available 10/13/2024 Sex: Unknown Functional Status None recorded. Mental Status None recorded. Family History Nothing Reported Notes:Cancer-reoriductive sy stem :Father Cancer, breast:Mother Congestive Heart Failure:Mother COPD:Sister Cancer, stomach:Father Glaucoma:Sister arthritis:Sister Cancer-reoriductive system :Mother Osteoporosis:Mother Medical History Condition Response Sexually Transmitted Infection N Diabetes N Other N Bleeding Disorder N High Blood Pressure N Kidney Stones N High Cholesterol Y GERD/Acid Reflux N Heart Disease N Cancer N Depression N Lung Disease N Gynecological History Statement/Question Response Irregular periods N If Post Menopausal, Age at Menopause 56 Heavy periods N Hormone Therapy N Sexually Active? N Pain with intercourse N Leaking urine with intercourse N Obstetrics History GPAL:G 0 P 0 0 0 0 Immunizations Vaccine Type Date Status Note Provider Nam e and Address Organization Details Recorded Time pneumococcal polysaccharide PPV23 2 completed Not Available Health Note 10/13/2024 16:24:42 SARS-COV-2 (COVID-19) vaccine, UNSPECIFIED 4 completed Not Available Health Note 10/13/2024 16:24:42 influenza, unspecified formulation 4 completed Not Available Health Note 10/13/2024 16:24:42 zoster live 0 completed Not Available Health Note 10/13/2024 16:24:42 Pneumococcal conjugate PCV 13 3 completed Not Available Health Note 10/13/2024 16:24:42 COVID-19, mRNA, LNP-S, PF, 30 mcg/0.3 mL dose 1 completed Shira Cabezas null, [facility] 10/01/2022 15:44:50 Influenza, high-dose, trivalent, PF 8 completed Shira Cabezas null, [facility] 10/01/2022 15:44:50 Pneumococcal conjugate PCV 13 5 completed Shira Cabezas null, [facility] 10/01/2022 15:44:50 COVID-19, mRNA, LNP-S, PF, 30 mcg/0.3 mL dose, alejandro-sucrose 2 completed Shira la, [facility] 10/01/2022 15:44:50 Novel [id number], all formulations 0 completed Shira Cabezas null, [facility] 10/01/2022 15:44:50 Influenza, split virus, trivalent, preservative 8 completed Shira Cabezas null, [facility] 10/01/2022 15:44:50 Hep B, adult 8 completed Shira L Raulito null, [facility] 10/01/2022 15:44:50 Hep A, adult 8 completed Shira L Raulito null, [facility] 10/01/2022 15:44:50 Influenza, split virus, trivalent, preservative 3 completed Shira Cabezas null, [facility] 10/01/2022 15:44:50 Hep A, adult 8 completed Shira L Raulito null, [facility] 10/01/2022 15:44:50 typhoid, ViCPs 8 completed Shira L Raulito null, [facility] 10/01/2022 15:44:50 Hep B, adult 8 completed Shira L Raulito null, [facility] 10/01/2022 15:44:50 Influenza, adjuvanted, quadrivalent, PF 2 completed Shira L Raulito null, [facility] 10/01/2022 15:44:50 Influenza, adjuvanted, quadrivalent, PF 1 completed Shira L Raulito null, [facility] 10/01/2022 15:44:50 Influenza, high-dose, trivalent, PF 7 completed Shira L Raulito null, [facility] 10/01/2022 15:44:50 Hep B, adult 8 completed Shira L Raulito null, [facility] 10/01/2022 15:44:50 Influenza, adjuvanted, quadrivalent, PF 0 completed Shira L Raulito null, [facility] 10/01/2022 15:44:50 Tdap 0 completed Shira L Raulito null, [facility] 10/01/2022 15:44:50 Influenza, high-dose, trivalent, PF 5 completed Shira L Raulito null, [facility] 10/01/2022 15:44:50 Influenza, split virus, quadrivalent, PF 0 completed Shira L Raulito null, [facility] 10/01/2022 15:44:50 Influenza, split virus, trivalent, preservative 2 completed Shira L Raulito null, [facility] 10/01/2022 15:44:50 COVID-19, mRNA, LNP-S, PF, 30 mcg/0.3 mL dose 1 completed Shira L Raulito null, [facility] 10/01/2022 15:44:50 Td (adult), 5 Lf tetanus toxoid, preservative free, adsorbed 6 completed Shira la, [facility] 10/01/2022 15:44:50 pneumococcal polysaccharide PPV23 9 completed Shira la, [facility] 10/01/2022 15:44:50 zoster recombinant 2 completed Shira la, [facility] 10/01/2022 15:44:50 zoster recombinant 2 completed Shira la, [facility] 10/01/2022 15:44:50 Influenza, high-dose, trivalent, PF 9 completed Shira la, [facility] 10/01/2022 15:44:50 COVID-19, mRNA, LNP-S, PF, 30 mcg/0.3 mL dose 1 completed Shira la, [facility] 10/01/2022 15:44:50 Pneumococcal conjugate PCV 13 9 completed Shira la, [facility] 10/01/2022 15:44:50 Past Encounters Encounter ID Performer Location Encounter Start Date Encounter Closed Date Diagnosis/Indication Diagnosis SNOMED-CT Code Diagnosis ICD10 Code Diagnosis Note [id number] MD Mino Rutledge [address] [place] [address] 10/01/2022 15:27:54 10/01/2022 16:08:56 Atrophic vaginitis 41302134 N95.2 chronic stable Chronic cystitis 9908961 2 N30.20 chronic improved Nocturia 031087575 R35.1 new Incomplete emptying of urinary bladder 475085479 R39.14 new [id number] MD Viridiana Rutledgero_Jennifer hammer [address] [place] [address] 01/16/2023 13:52:49 01/16/2023 16:57:43 Incomplete emptying of urinary bladder 297750231 R39.14 Overactive urinary bladder 035112954 N32.81 [id number] MD Edis Rutledge_Benjamin power [address] [place] [address],[address] [place] [address] 01/28/2023 11:39:59 01/28/2023 13:02:28 Atrophic vaginitis 74712217 N95.2 chronic stable Chronic cystitis 6175644 2 N30.20 chronic improved Nocturia 721832138 R35.1 new [id number] QASIM Landryro_[employer] dbangelique [address] [place] [address],[address] [place] [phone] 03/27/2023 15:33:51 03/27/2023 16:02:53 Atrophic vaginitis 35585702 N95.2 chronic stable Chronic cystitis 6652862 2 N30.20 chronic improved Nocturia 350101815 R35.1 chronic, improved [id number] QASIM Landry ro_[employer] [address] [place] [address],[facility] e [address] [place] [phone] 04/01/2024 11:01:39 04/01/2024 11:36:20 Nocturia 425227128 R35.1 chronic Overactive urinary bladder 087625834 N32.81 chronic [id number] QASIM Landry ro_[employer] jannet [address] [place] [address],[facility] e [address] [place] [phone] 06/11/2024 11:00:43 06/11/2024 14:11:28 Nocturia 006589031 R35.1 chronic Overactive urinary bladder 703461432 N32.81 chronic [id number] QASIM Landry ro[employer] [address] [place] [address] [place] [phone] 07/20/2024 14:16:25 07/20/2024 14:53:03 Nocturia 171652611 R35.1 chronic, improved with regimen of tylenol pm and melatonin Overactive urinary bladder 195928149 N32.81 chronic [id number] QASIM Landry ro_[employer] [address] [place] [address] [place] [id number] 10/14/2024 09:46:44 10/15/2024 10:38:00 Nocturia 303449066 R35.1 chronic, improved with regimen of tylenol pm and melatonin Overactive urinary bladder 081713789 N32.81 chronic Health Concerns Section Related Observation LastModified by Organization Detai ls LastModified Time None Recorded Concern Status LastModified by Organization Details LastModified Time None Recorded Advance Directives Directive Y: Payers Encounter Date Sequence Insurance Name Policy Number Policy De Luna Covered Member ID De Luna Member ID Guarantor Name 03/27/2023 1 [employer] - DOS ON OR AFTER 19 (MEDICARE REPLACEMENT/ ADVANTAGE - HMO) [id number] 6 Sheila B Bere [id number] Sheila B Bere 04/01/2024 1 [employer] - DOS ON OR AFTER 19 (MEDICARE REPLACEMENT/ ADVANTAGE - HMO) [id number] Sheila B Bere [id number] Sheila B Bere 06/11/2024 1 [employer] - DOS ON OR AFTER 19 (MEDICARE REPLACEMENT/ ADVANTAGE - HMO) [id number] 6 Sheila B Bere [id number] Sheila B Bere 07/20/2024 1 [employer] - DOS ON OR AFTER 19 (MEDICARE REPLACEMENT/ ADVANTAGE - HMO) [id number] 6 Sheila B Bere [id number] Sheila B Bere 10/14/2024 1 [employer] - DOS ON OR AFTER 19 (MEDICARE REPLACEMENT/ ADVANTAGE - HMO) [id number] 6 Sheila B Bere [id number] Sheila B Bere Notes Date Note Type Note Provider Name and Address Organization Details Recorded Time 03/27/2023 text/html 03/27/23:Patient presents to follow up for incontinence. Taking Trospium 20 mg BID. Reports constipation with the medication, which is not bothersome as compared to having diarrhea before the medication (since her cholecystectomy). She is happy with current plan. She wakes up 1 times a night. She voids 6 times a day. She uses 2-3 pads per day, changes with minimal leakage. Has been routinely double voiding. 6-78-60 (Dr. Byers -video) last seen in [facility], she is up 2-3 times at nightusing pads due to leakageshe has not had infectionshe would consider medicationshas urge and uui UDS:1. no SUI2. no detrusor overactivity3. compliance intact no inc tonus limb4. able to empty her bladder variably, but down to 55 with good flow5. coordinated EMG weak detrusor pressure noted no clear good contraction.hx of prolapse surgery with co nocturia, daytime frequency and some incontinence 10/01/22: (Dr. Byers)82 yo female seen last over 2.5 yrs ago with hx of pop repair with mesh at [place] and hx of mixed incotnience with utis.when last seen was using estrogren for UTI prevention, she is not using the estrogren cream for at least 2 years. 01/07 Cr 0.78no urines listed in her chartingno infections as she used to. she is not using soap near the vagina she is coming back as she is bothered with nocturia 3-4 times per night.DF q 2 hrs day times, she is drinking more as wellusing a pantyliner (even a drop irritates her)caffeine: 2 cups 8 oz in the morningstops fluids at night near dinner also pills at night time with water.BMs: more diarrhea, daily. QASIM Landry [address] [place] [address],[address], [place], [address], [facility] 03/27/2023 15:48:02 04/01/2024 text/html 04/01/24:Patient presents to follow up for nocturia/ OAB.Taking trospium 20 mg BID. Feels like she leaks a lot. She wakes up 1 times a night. She voids 6-7 times a day. More if has pop/carbonated beverages. She uses 6-7 pads per day. Changes pads even for small amount of leakage. Denies UTIs in the past year. ___03/27/23:Patient presents to follow up for incontinence.Taking Trospium 20 mg BID. Reports constipation with the medication, which is not bothersome as compared to having diarrhea before the medication (since her cholecystectomy). She is happy with current plan. She wakes up 1 times a night. She voids 6 times a day. She uses 2-3 pads per day, changes with minimal leakage. Has been routinely double voiding. 3-02-25 (Dr. Byers -video)last seen in [facility], she is up 2-3 times at nightusing pads due to leakageshe has not had infectionshe would consider medicationshas urge and uuiUDS:1. no SUI2. no detrusor overactivity3. compliance intact no inc tonus limb4. able to empty her bladder variably, but down to 55 with good flow5. coordinated EMG weak detrusor pressure noted no clear good contraction.hx of prolapse surgery with co nocturia, daytime frequency and some incontinence 10/01/22: (Dr. Byers)82 yo female seen last over 2.5 yrs ago with hx of pop repair with mesh at [place] and hx of mixed incotnience with utis.when last seen was using estrogren for UTI prevention, she is not using the estrogren cream for at least 2 years.01/07 Cr 0.78no urines listed in her chartingno infections as she used to. she is not using soap near the vaginashe is coming back as she is bothered with nocturia 3-4 times per night.DF q 2 hrs day times, she is drinking more as wellusing a pantyliner (even a drop irritates her)caffeine: 2 cups 8 oz in the morningstops fluids at night near dinner also pills at night time with water.BMs: more diarrhea, daily. QASIM Landry [address] [facility],[address], [place], [address], [facility] 04/01/2024 11:35:01 06/11/2024 text/html 06/11/24:Patient presents to follow up for overactive bladder (OAB) She is taking vesicare 5 mg. Notes dry mouth is worse. She does not think she has much benefit, initially she thought she did but now not so much. She will consistently double void. She wakes up every 2 hours at night unless she takes a tylenol PM then she will only wake up 1 time. She voids every 2-3 hours during the day. IF can't make it in time, will leak and this is bothersome. Will change pad for any amount of leakage, typically is a small amount but sometimes is a large amount. She uses 10 pads per day, 1 overnight if sleeps well.Fluids: 2 cup coffee in AM, ICE sparkling water with her at all times, no plain water typically.Sometimes has pop but thinks leakage is worse so has been avoiding it since last visit. 04/01/24:Patient presents to follow up for nocturia/ OAB.Taking trospium 20 mg BID. Feels like she leaks a lot. She wakes up 1 times a night. She voids 6-7 times a day. More if has pop/carbonated beverages. She uses 6-7 pads per day. Changes pads even for small amount of leakage. Denies UTIs in the past year. ___03/27/23:Patient presents to follow up for incontinence.Taking Trospium 20 mg BID. Reports constipation with the medication, which is not bothersome as compared to having diarrhea before the medication (since her cholecystectomy). She is happy with current plan. She wakes up 1 times a night. She voids 6 times a day. She uses 2-3 pads per day, changes with minimal leakage. Has been routinely double voiding. 5-12-45 (Dr. Byers -video)last seen in [facility], she is up 2-3 times at nightusing pads due to leakageshe has not had infectionshe would consider medicationshas urge and uuiUDS:1. no SUI2. no detrusor overactivity3. compliance intact no inc tonus limb4. able to empty her bladder variably, but down to 55 with good flow5. coordinated EMG weak detrusor pressure noted no clear good contraction.hx of prolapse surgery with co nocturia, daytime frequency and some incontinence 10/01/22: (Dr. Byers)82 yo female seen last over 2.5 yrs ago with hx of pop repair with mesh at [place] and hx of mixed incotnience with utis.when last seen was using estrogren for UTI prevention, she is not using the estrogren cream for at least 2 years.01/07 Cr 0.78no urines listed in her chartingno infections as she used to. she is not using soap near the vaginashe is coming back as she is bothered with nocturia 3-4 times per night.DF q 2 hrs day times, she is drinking more as wellusing a pantyliner (even a drop irritates her)caffeine: 2 cups 8 oz in the morningstops fluids at night near dinner also pills at night time with water.BMs: more diarrhea, daily. QASIM Landry [address] [facility],[address], [place], [address], [facility] 06/11/2024 11:40:19 07/20/2024 text/html 07/20/24:Patient presents to follow up for overactive bladder (OAB). Taking tolterodine 2 mg. Side effects of dry eyes but not too bothersome. Has gone to 1 session of pelvic floor physical therapy so far, next one this week. She wakes up 1 times a night, with taking tylenol PN and melatonin. She voids 2-3 hours during the day. She uses 10 pads per day, changes for even a small drop of leakage, 1 overnight as well. thicker pad when walking the dogs otherwise if around the house, will wear a small panty liner. 06/11/24: Patient presents to follow up for overactive bladder (OAB) She is taking vesicare 5 mg. Notes dry mouth is worse. She does not think she has much benefit, initially she thought she did but now not so much. She will consistently double void. She wakes up every 2 hours at night unless she takes a tylenol PM then she will only wake up 1 time. She voids every 2-3 hours during the day. IF can't make it in time, will leak and this is bothersome. Will change pad for any amount of leakage, typically is a small amount but sometimes is a large amount. She uses 10 pads per day, 1 overnight if sleeps well.Fluids: 2 cup coffee in AM, ICE sparkling water with her at all times, no plain water typically.Sometimes has pop but thinks leakage is worse so has been avoiding it since last visit. 04/01/24:Patient presents to follow up for nocturia/ OAB.Taking trospium 20 mg BID. Feels like she leaks a lot. She wakes up 1 times a night. She voids 6-7 times a day. More if has pop/carbonated beverages. She uses 6-7 pads per day. Changes pads even for small amount of leakage. Denies UTIs in the past year. ___03/27/23:Patient presents to follow up for incontinence.Taking Trospium 20 mg BID. Reports constipation with the medication, which is not bothersome as compared to having diarrhea before the medication (since her cholecystectomy). She is happy with current plan. She wakes up 1 times a night. She voids 6 times a day. She uses 2-3 pads per day, changes with minimal leakage. Has been routinely double voiding. 0-35-14 (Dr. Byers -video)last seen in [facility], she is up 2-3 times at nightusing pads due to leakageshe has not had infectionshe would consider medicationshas urge and uuiUDS:1. no SUI2. no detrusor overactivity3. compliance intact no inc tonus limb4. able to empty her bladder variably, but down to 55 with good flow5. coordinated EMG weak detrusor pressure noted no clear good contraction.hx of prolapse surgery with co nocturia, daytime frequency and some incontinence 10/01/22: (Dr. Byers)82 yo female seen last over 2.5 yrs ago with hx of pop repair with mesh at [place] and hx of mixed incotnience with utis.when last seen was using estrogren for UTI prevention, she is not using the estrogren cream for at least 2 years.01/07 Cr 0.78no urines listed in her chartingno infections as she used to. she is not using soap near the vaginashe is coming back as she is bothered with nocturia 3-4 times per night.DF q 2 hrs day times, she is drinking more as wellusing a pantyliner (even a drop irritates her)caffeine: 2 cups 8 oz in the morningstops fluids at night near dinner also pills at night time with water.BMs: more diarrhea, daily. QASIM Landry [address] [facility],[address], [place], [address], [facility] 07/20/2024 14:45:22 10/14/2024 text/html 10/14/24:Patient presents to follow up for oabTook the gemtesa samples and worked well but was expensive. No pa was done. not taking anything for bladder right now. she would rather try another medication if gemtesa can't become cheaper.no longer doing tylenol pm but takes melatonin at night. She wakes up 2 times a night. She voids 9 times a day. She uses 5 pads per day. (SARAY-6):9, (IIQ-7):2, Continence Function Questionnaire:15____ 07/20/24:Patie nt presents to follow up for overactive bladder (OAB). Taking tolterodine 2 mg. Side effects of dry eyes but not too bothersome. Has gone to 1 session of pelvic floor physical therapy so far, next one this week. She wakes up 1 times a night, with taking tylenol PN and melatonin. She voids 2-3 hours during the day. She uses 10 pads per day, changes for even a small drop of leakage, 1 overnight as well. thicker pad when walking the dogs otherwise if around the house, will wear a small panty liner. 06/11/24: Patient presents to follow up for overactive bladder (OAB) She is taking vesicare 5 mg. Notes dry mouth is worse. She does not think she has much benefit, initially she thought she did but now not so much. She will consistently double void. She wakes up every 2 hours at night unless she takes a tylenol PM then she will only wake up 1 time. She voids every 2-3 hours during the day. IF can't make it in time, will leak and this is bothersome. Will change pad for any amount of leakage, typically is a small amount but sometimes is a large amount. She uses 10 pads per day, 1 overnight if sleeps well.Fluids: 2 cup coffee in AM, ICE sparkling water with her at all times, no plain water typically.Sometimes has pop but thinks leakage is worse so has been avoiding it since last visit. 04/01/24:Patient presents to follow up for nocturia/ OAB.Taking trospium 20 mg BID. Feels like she leaks a lot. She wakes up 1 times a night. She voids 6-7 times a day. More if has pop/carbonated beverages. She uses 6-7 pads per day. Changes pads even for small amount of leakage. Denies UTIs in the past year. ___03/27/23:Patient presents to follow up for incontinence.Taking Trospium 20 mg BID. Reports constipation with the medication, which is not bothersome as compared to having diarrhea before the medication (since her cholecystectomy). She is happy with current plan. She wakes up 1 times a night. She voids 6 times a day. She uses 2-3 pads per day, changes with minimal leakage. Has been routinely double voiding. 0-99-93 (Dr. Byers -video)last seen in [facility], she is up 2-3 times at nightusing pads due to leakageshe has not had infectionshe would consider medicationshas urge and uuiUDS:1. no SUI2. no detrusor overactivity3. compliance intact no inc tonus limb4. able to empty her bladder variably, but down to 55 with good flow5. coordinated EMG weak detrusor pressure noted no clear good contraction.hx of prolapse surgery with co nocturia, daytime frequency and some incontinence 10/01/22: (Dr. Byers)82 yo female seen last over 2.5 yrs ago with hx of pop repair with mesh at [place] and hx of mixed incotnience with utis.when last seen was using estrogren for UTI prevention, she is not using the estrogren cream for at least 2 years./ Cr 0.78no urines listed in her chartingno infections as she used to. she is not using soap near the vaginashe is coming back as she is bothered with nocturia 3-4 times per night.DF q 2 hrs day times, she is drinking more as wellusing a pantyliner (even a drop irritates her)caffeine: 2 cups 8 oz in the morningstops fluids at night near dinner also pills at night time with water.BMs: more diarrhea, daily. QASIM Landry [address] [facility],[address], [place], [address], [facility] 10/14/2024 10:07:54 OBGyn Episode No OBEpisode recorded.
[2025-01-08 18:05] VITALS: BP 142/71; PULSE 82; RESP 18; TEMP 37.6; O2SAT 99; BMI 23.6
--- NOTE | 2025-01-08 19:54 | ED.GENADULT ---
HPI - General Adult General Chief complaint: Unspecified Complaint, Adult Stated complaint: Wants to see a doctor to get different medication Time Seen by Provider: 01/08/25 19:39 History of Present Illness HPI narrative: This 84-year-old female comes in with concern about high prescription for Cipro that was given to treat a foot infection. She was at the wound clinic and received a prescription for ciprofloxacin and she filled the prescription but read the adverse effects which included the possibility of peripheral neuropathy. She states that she already has peripheral neuropathy and has been taking gabapentin and comes here stating that she wants to have a different prescription because of what she read about Cipro. Related Data Home Medications ?Medication ?Instructions ?Recorded ?Confirmed lactobacillus combination no.4 3 3,000 mmu cells PO DAILY 08/10/22 12/31/24 billion cell capsule (Probiotic) multivitamin (Multiple Vitamins 1 tab PO DAILY 10/30/23 12/31/24 tablet) gabapentin 600 mg tablet 1,200 mg PO QHS 01/27/24 12/31/24 gabapentin 600 mg tablet 600 mg PO QAM 01/27/24 12/31/24 ciprofloxacin HCl 500 mg tablet mg 01/08/25 Previous Rx's ?Medication ?Instructions ?Recorded pravastatin 10 mg tablet 10 mg PO HS heart #90 tabs 01/16/24 acetaminophen 500 mg capsule 500 - 1,000 mg (1 - 2 x 500 mg) PO 01/28/24 Q8H PRN #60 caps celecoxib 100 mg capsule 100 mg PO BID #180 caps 12/21/24 cephalexin 500 mg capsule 500 mg PO BID #20 caps 12/31/24 sumatriptan succinate 50 mg tablet See Rx Instructions PO .COMPLEX 12/31/24 (Imitrex) #10 tabs ibandronate 150 mg tablet 150 mg PO MONTHLY #3 tabs 01/04/25 Allergies Allergy/AdvReac Type Severity Reaction Status Date / Time alendronate sodium (From Allergy Severe Verified 01/08/25 18:10 Fosamax) codeine AdvReac Mild nausea and Verified 01/08/25 18:10 vomitting morphine AdvReac Mild Nausea Verified 01/08/25 18:10 Review of Systems Status of ROS: Reports: 10 or more systems reviewed and unremarkable except as noted in History and below Narrative: Constitutional: No fevers, no weight gain or loss. Eyes: No discharge. No vision changes. HENT: No congestion, no sore throat, no ear pain. Cardiovascular: No chest pain, no palpitations. Respiratory: No shortness of breath, no wheezes, no cough. Gastrointestinal: No abdominal pain, no vomiting, no diarrhea. Genitourinary: No dysuria, no hematuria. Musculoskeletal: Normal range of motion. Foot wound being treated by the Wound Clinic. Skin: No rashes, no pruritis. Neurological: No dizziness, weakness, sensory change, speech change. Endo/Heme/Allergies: No bruising or bleeding. No polydipsia. Pysch: no suicidality, no anxiety, no insomnia. All other systems reviewed and are negative. 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 (ICD-10) Hyponatremia ?E87.1 - Hypo-osmolality and hyponatremia (ICD-10) Polyp of colon (12/11/10) ?K63.5 - Polyp of colon (ICD-10) Mean red blood cell volume increased ?R71.8 - Other abnormality of red blood cells (ICD-10) Lung nodule (12/11/10) ?R91.1 - Solitary pulmonary nodule (ICD-10) Instability of left foot joint ?M25.375 - Other instability, left foot (ICD-10) Tubular adenoma of colon (07/28/19) ?D12.6 - Benign neoplasm of colon, unspecified (ICD-10) Hordeolum of right lower eyelid ?H00.012 - Hordeolum externum right lower eyelid (ICD-10) Blister (nonthermal), right foot, initial encounter ?S90.821A - Blister (nonthermal), right foot, initial encounter (ICD-10) Right foot pain ?M79.671 - Pain in right foot (ICD-10) Counseling regarding advanced directives (11/19/17) ?Z71.89 - Other specified counseling (ICD-10) Scapular dyskinesis ?G25.89 - Other specified extrapyramidal and movement disorders (ICD-10) Right rotator cuff tear arthropathy ?M75.101 - Unspecified rotator cuff tear or rupture of right shoulder, not specified as traumatic (ICD-10) ?M12.811 - Other specific arthropathies, not elsewhere classified, right shoulder (ICD-10) Osteoarthritis of left knee ?M17.12 - Unilateral primary osteoarthritis, left knee (ICD-10) Surgical History (Updated 11/09/24 @ 14:06 by Lori Barreto PA-C) S/P right hemicolectomy ?Z90.49 - Acquired absence of other specified parts of digestive tract (ICD-10) 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) ?Z96.619 - Presence of unspecified artificial shoulder joint (ICD-10) 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) ?Z96.611 - Presence of right artificial shoulder joint (ICD-10) History of cholecystectomy (12/11/10) ?Z90.49 - Acquired absence of other specified parts of digestive tract (ICD-10) History of tubal ligation (12/11/10) ?Z98.51 - Tubal ligation status (ICD-10) History of tonsillectomy (12/11/10) ?Z90.89 - Acquired absence of other organs (ICD-10) History of hysterectomy (02/29/12) ?Z90.710 - Acquired absence of both cervix and uterus (ICD-10) History of colonoscopy with polypectomy ?Z98.890 - Other specified postprocedural states (ICD-10) ?Z86.010 - Personal history of colonic polyps (ICD-10) Status post bilateral foot surgery (04/07/08) ?Z98.890 - Other specified postprocedural states (ICD-10) Status post finger joint fusion (01/04/10) ?Z98.1 - Arthrodesis status (ICD-10) Status post right foot surgery (01/04/10) ?Z98.890 - Other specified postprocedural states (ICD-10) Status post arthroscopy of right shoulder (06/02/14) ?Z98.890 - Other specified postprocedural states (ICD-10) Status post left foot surgery (~2019) ?Z98.890 - Other specified postprocedural states (ICD-10) 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 She has 2 dogs that she takes for a walk every day for about 2 miles. She does her own lawn mowing. She lives very independently. Closest family is her son, Naseem De Leon, of [place] who was taking care of her dogs and is designated healthcare power of commercial litigation attorney . Secondary healthcare power of commercial litigation attorney would be her brother Jai Blackburn who lives in [place]. Does not drink alcohol Does not use illicit drugs Former smoker What is your current living situation?: I have a place to live at present, but am concerned about future Problems where you live: no known problems Problems where you live details: no known problems In the past 12 months, utilities in danger of being shut off: no In past 12 months, lack of transportation kept you from medical appts, meetings, work, or getting things needed for daily living: no In the past 12 mos, have been you worried that your food would run out before you had money to buy more?: never true In the past 12 mos, the food you bought just didn't last and you didn't have money to buy more?: never true Smoking Status: Never smoker Do you use any of these nicotine containing products: None Second hand tobacco smoke exposure: No How often do you have a drink containing alcohol: never How many standard drinks containing alcohol do you have on a typical day: 1 or 2 How often do you have six or more drinks on one occasion: Never AUDIT-C Alcohol total score: 0 Non-prescribed substance use: denies use Caffeine: Yes (Coffee) How often does anyone, including family, friends and others, physically hurt you: never How often does anyone, including family, friends and others, insult or talk down to you: never How often does anyone, including family, friends and others, threaten you with harm: never How often does anyone, including family, friends and others, scream or curse at you: never service: No Health Related Social Needs: housing instability, housed, with risk of homelessness (Z59.811) Exam Narrative: Exam Narrative: Constitutional: Well-developed, well-nourished, no acute distress. HEENT: Normocephalic, atraumatic. Neck: Normal range of motion. Nontender. Supple. Heart: Intact distal pulses. Lungs: No chest discomfort. No wheezes, rhonchi, or rales. Abdomen: Nontender. Back: Normal range of motion. Extremities: Normal range of motion. No injury. Skin: Intact. No rash. Warm. No erythema or pallor. Neurologic: No altered sensation. No weakness. Alert and oriented. Psychiatric: No suicidality. No anxiety or depression. No insomnia. Nursing notes and vitals signs are reviewed. Const: Vital Signs, click to edit/add: Vital Signs - 24 hr 01/08/25 18:05 Temperature 99.7 F H Pulse Rate [Right Pulse Oximeter] 82 Respiratory Rate 18 Blood Pressure [Ri ght Upper Arm] 142/71 H Pulse Oximetry 99 Oxygen Delivery Me thod Room Air Course Vital Signs Vital signs: Initial Vital Signs Temperature 99.7 F H 01/08/25 18:05 Temperature Source Temporal Artery Scan 01/08/25 18:05 Pulse Rate 82 01/08/25 18:05 Pulse Rhythm Regular 01/08/25 18:05 Respiratory Rate 18 01/08/25 18:05 Blood Pressure 142/71 H 01/08/25 18:05 Blood Pressure Mean 94 01/08/25 18:05 Blood Pressure Position Sitting 01/08/25 18:05 Pulse Oximetry 99 01/08/25 18:05 Oxygen Delivery Method Room Air 01/08/25 18:05 Vital Signs Temperature 99.7 F H 01/08/25 18:05 Pulse Rate 82 01/08/25 18:05 Respiratory Rate 18 01/08/25 18:05 Blood Pressure 142/71 H 01/08/25 18:05 Pulse Oximetry 99 01/08/25 18:05 Oxygen Delivery Method Room Air 01/08/25 18:05 Temperature 99.7 F H 01/08/25 18:05 Pulse Rate 82 01/08/25 18:05 Respiratory Rate 18 01/08/25 18:05 Blood Pressure 142/71 H 01/08/25 18:05 Pulse Oximetry 99 01/08/25 18:05 Oxygen Delivery Method Room Air 01/08/25 18:05 Medical Decision Making MDM Narrative Medical decision making narrative: This patient had a wound culture done of the wound on her foot and there were 3 organisms that grew out. She has been taking Augmentin but culture and sensitivity results show that ciprofloxacin or levofloxacin are the it 2 medicines that will effectively treat these 3 particular organisms. IA recommended to the patient that she stay with ciprofloxacin because of the benefits of its ability to treat all 3 organisms. I stated that peripheral neuropathy is a very rare occurrence and personally I have never seen that as an adverse effect when somebody is taking ciprofloxacin. I also consulted with an online program about drug information and there it states that there are many common reactions but none of them were peripheral neuropathy. The patient already has peripheral neuropathy and is taking gabapentin. I advised her to stick with the medicine because the benefits far outweigh the risks and she can discontinue the medicine if it having adverse effects. She is convinced with this discussion to stay with this current plan. Discharge Plan Discharge Clinical Impression: Wound infection Patient Disposition: Home, Self-Care Condition: Stable Additional Instructions: Continue with current plans. Follow up with MD or return if worsening symptoms occur. Prescriptions: No Action Probiotic 3 billion cell capsule 3,000 mmu cells PO DAILY Rx Instructions: administer with a meal multivitamin [Multiple Vitamins] Tablet 1 tab PO DAILY cephalexin 500 mg capsule 500 mg PO BID Qty: 20 0RF sumatriptan succinate [Imitrex] 50 mg tablet See Rx Instructions PO .COMPLEX Qty: 10 0RF Rx Instructions: take 1 tab at onset of headache; if no relief may repeat 1 tab after at least 2 hrs; max = 4 tabs/24 hr PO ibandronate 150 mg tablet 150 mg PO MONTHLY Qty: 3 0RF pravastatin 10 mg tablet 10 mg PO HS Qty: 90 3RF celecoxib 100 mg capsule 100 mg PO BID Qty: 180 2RF ciprofloxacin HCl 500 mg tablet gabapentin 600 mg tablet 1,200 mg PO QHS gabapentin 600 mg tablet 600 mg PO QAM acetaminophen 500 mg capsule 500 - 1,000 mg PO Q8H MDD 3000mg PRNQty: 60 0RF Follow Up/Referrals: Lori Barreto PA-C [Primary Care Provider] - Stand Alone Forms: [employer] Info Instructions
--- OUTSIDE RECORDS SUMMARY | 2025-01-08 20:16 | XMS_ITS | Continuity of Care Document ---
Author Organization [facility] Address [address] [address] [place] [address] Phone Care Team Providers Care Pond Scaler Name Role Phone Simon Weinstein CRNA Unavailable [...] Diagnoses Date Provider Providers Copied on Encounter [facility], [address] [address], [place], [place], [id number], [place] tel:[phone] [facility] No Information 9 Js Montes. [address] [facility], [facility] [address], [place], [place], [address] , [place]. tel:[phone] Referring Provider: Saulo Nayak, [address] [facility] [address], [place], [address]. tel:[phone] [facility], [address] [address], [place], [place], [address], [place] tel:[phone] [facility] Colorectal polypsEncounter for screening for malignant neoplasm of colonPersonal history of colonic polypsBenign neoplasm of cecumBenign neoplasm of transverse colonBenign neoplasm of cecum 9 Gricelda Vernon. [address] [facility], [facility] [address], [place], [address] , [place]. tel:[phone] Lorie Youngblood MD. tel:[phone] ring Provider: Rajinder Betts, [address] [place], [address]. [phone] [facility], [address] [address], [place], [place], [address], [place] tel:[phone] [facility] Colonic polypColon Cancer ScreeningBenign Neoplasm ColonPersonal History Colon Polyps 4 Juarez Gambino. [address] [facility], [address], [place], [place], [address] , [place]. [phone] Referring Provider: Rajinder Betts, [address] [place], [address]. tel:[phone] [facility], [address] [address], [place], [place], [address], [place] tel:[phone] [facility] Personal History Colon Polyps 9 Juarez Gambino. [address] [facility], [address], [place], [place], [address] , [place]. [phone] Referring Provider: Rajinder Mars MD C, [address] [place], [address]. tel:[phone] Family History Family Member Type Diagnosis Age [...] Payer name Insurance type Covered libertarian ID Authorsherria jaye(s) [employer] Medicare [place] [id number] Social History Type Description Quantity Date Captured [...]
--- OUTSIDE RECORDS SUMMARY | 2025-01-08 20:16 | XMS_ITS | Clinical Summary ---
Author Organization [facility] Address [place], [place] [address] Care Team Providers Care Digital Content Producer Name Role Phone Lori Barreto PA-C Unavailable [phone] Pcp, No Primary Care Provider Unavailabl [...] Type Department Care Team Description [facility] [address] [facility] [address] [place] [address] Terrance House MD Results (Heart Monitor) 01/04/2025 Orders Only [facility] [address] [place] [address] Sara Blanchard 1 scan: (1-Ord) Zio Report 12/24/2024 10:00 AM CHAMPAGNE MAKER Office Visit [address] [address] Terrance House MD 12/16/2024 1:00 PM CHAMPAGNE MAKER Ancillary Procedure [address] [address] from Last 3 Months Immunizations Name Administration [...] on file Legal Sex Female 6:53 AM CHAMPAGNE MAKER Gender Identity Not on file Sexual Orientation Not on file Obstetrics History Last Filed Vital Signs Vital Sign Reading Time Taken Comments Blood Pressure 116/62 07/10/2022 3:01 PM CDT Pulse 62 07/10/2022 3:01 PM CDT Temperature 36.6 C (97.8 F) 02/04/2022 12:25 PM CHAMPAGNE MAKER Respiratory Rate 16 02/04/2022 12:25 PM CHAMPAGNE MAKER Oxygen Saturation 96% 07/10/2022 3:01 PM CDT [...] COMPLETE WO CONTRAST Routine 12/16/2024 1:46 PM CHAMPAGNE MAKER Cardiac murmur from Last 3 Months Results * EXTENDED HOLTER (01/04/2025) us Terrance House MD CARDIAC SERVICES ORD F inal Result * ECHO TTE COMPLETE WO CONTRAST (12/16/2024 1:46 PM CHAMPAGNE MAKER) AORTIC VALVE MEAN PG 25 mmHg EJECTION FRACTION 63 % PEAK TR VELOCITY 2.3 m/s LVEDD 3.8 cm Anatomical Region Laterality Modality Ultrasound 12/16/2024 1:01 PM CHAMPAGNE MAKER Narrative 12/16/2024 1:57 PM CHAMPAGNE MAKER ECHOCARDIOGRAM LEIF BLACKBURN : 1940 84 years Study Date: 12/16/2024 1:01:36 PM Gender: F BP: 126/73 mmHg Height: 170.00 cm BSA: 1.81 m Weight: 70.00 kg Tech: DAHLIA Referring MD: LORI BARRETO Site: [facility] Reading Location: Mobile OP Patient [...] interpreted by an IAC accredited facility. CC: [facility] ([facility]) [facility]. Final Procedure Note Eric Gamble MD - 12/16/2024 ECHOCARDIOGRAM LEIF BLACKBURN : 1940 84 years Study Date: 12/16/2024 1:01:36 PM Gender: F BP: 126/73 mmHg Height: 170.00 cm BSA: 1.81 m Weight: 70.00 kg Tech: DAHLIA Referring MD: LORI BARRETO Site: [facility] Reading Location: Mobile OP Patient [...] interpreted by an IAC accredited facility. CC: [facility] (med records) [facility]. Final Lori Barreto PA-C ECHO ORD Final Result from Last 3 Months Insurance [facility] MEDICARE ADVANTAGE MR Care Teams Digital Content Producer Relationship Specialty Start Date End Date Pcp, No . PCP - General 11/13/23 Lori Barreto, SHAVONC [address] [place] [address] Family Practice Physician Underground Drill Operator 02/27/22
--- OUTSIDE RECORDS SUMMARY | 2025-01-08 20:16 | XMS_ITS | Clinical Summary ---
Author Organization [facility] Address [address] [place] [address] Care Team Providers Care Production Material Coordinator Name Role Phone Unavailable Primary Care Provider Unavailabl e Source Comments You are receiving this document as you are listed as the primary care provider,follow-up provider, or the patient has been referred to you for consultation.This is in compliance with the Medicare and[facility] EHR Incentive Program,which states Providers who transition [...]
--- OUTSIDE RECORDS SUMMARY | 2025-01-08 20:16 | XMS_ITS | Clinical Summary ---
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 Scanning was performed on a [employer] scanner. Reporting is completed in the form [...] in the lateral decubitus position using a [employer] densitometer. Indications for VFA: T-score of -1.0 [...] Most Recently Relevant to Health Maintenance Insurance [facility] MEDICARE [employer] MEDICARE Care Teams Supervisor General Relationship Specialty Start Date End Date Rajinder Mars MD [facility] [id number] [phone] PCP - General Family Practice 07/29/15
== END 2025-01-08 20:29 | disposition home or self-care (01) ==
LOC: ED 20:15
PROVIDERS: Emergency Provider Emergency Medicine Emergency Medical Services; PCP Physician Assistant Medical
DX: S91.301A Unspecified open wound, right foot, initial encounter (principal); Z76.0 Encounter for issue of repeat prescription
CPT/HCPCS: 99283; 99284

== ENCOUNTER 2025-01-11 15:23 | Outpatient (CLI) | payer MEDICARE, SELFPAY | END 2025-01-11 15:24 | disposition home or self-care (01) | LOC: WOUND 15:23 | PROVIDERS: PCP Physician Assistant Medical; Visit Provider Nurse Practitioner Family | DX: G90.09 Other idiopathic peripheral autonomic neuropathy (principal); L97.515 Non-pressure chronic ulcer of other part of right foot with muscle involvement without evidence of necrosis | CPT/HCPCS: 11043 ==

== ENCOUNTER 2025-01-13 10:47 | Outpatient (CLI) | payer MEDICARE, SELFPAY | END 2025-01-13 10:48 | disposition home or self-care (01) | PROVIDERS: PCP Physician Assistant Medical; Visit Provider Nurse Practitioner Family | DX: G90.09 Other idiopathic peripheral autonomic neuropathy (principal); L97.515 Non-pressure chronic ulcer of other part of right foot with muscle involvement without evidence of necrosis; L03.031 Cellulitis of right toe | CPT/HCPCS: G0463 ==

== ENCOUNTER 2025-01-13 12:02 | Inpatient (IN) | payer MEDICARE, SELFPAY ==
[2025-01-13] VITALS (17 sets, daily range): BP systolic 77–120; BP diastolic 31–66; PULSE 77–92; RESP 14–29; TEMP 36.3–37.5; O2SAT 91–99; BMI 24.3; BMI 24.9
--- NOTE | 2025-01-13 12:28 | ED.WOUNDLAC ---
HPI - Wound/Laceration General Time Seen by Provider: 12:28 Date Seen: 01/13/25 Chief Complaint: Laceration/Wound Stated Complaint: foot infection from Wound Care Time Seen by Provider: 01/13/25 12:28 Source: patient, RN notes reviewed and old records reviewed Mode of arrival: ambulatory Limitations: no limitations History of Present Illness HPI narrative: This 84-year-old female is sent to us from the wound clinic today for concern of worsening infection despite being on ciprofloxacin since this last Saturday. They noticed more drainage, more tracking per verbal report from the Wound Clinic. Patient states they did put new packing in there and new dressing today. We have her note from the tense. 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 Patient's recent wound culture from last week had Klebsiella oxytoca, Enterococcus gallinarum, staphylococcus pseudintermedius. The only antibiotic that was sensitive for all 3 was ciprofloxacin and levofloxacin. Patient actually came into the ER after getting her ciprofloxacin prescription from the pharmacy last week, was concerned about the reported peripheral neuropathy complication. She was instructed to take it appropriately from the ED physician she saw, has been taking it. She has not noted any fevers but had chills overnight last night. No changes in GI symptoms. She doesn't note increasing pain due to her peripheral neuropathy. No calf pain, no shortness of breath or associated chest pain. Related Data Home Medications ?Medication ?Instructions ?Recorded ?Confirmed lactobacillus combination no.4 3 3,000 mmu cells PO BID 08/10/22 01/13/25 billion cell capsule (Probiotic) multivitamin (Multiple Vitamins 1 tab PO DAILY 10/30/23 01/13/25 tablet) gabapentin 600 mg tablet 1,200 mg PO QHS 01/27/24 01/13/25 gabapentin 600 mg tablet 600 mg PO QAM 01/27/24 01/13/25 ciprofloxacin HCl 500 mg tablet 500 mg PO BID 01/08/25 01/13/25 acetaminophen 500 mg capsule 1,000 mg PO DAILY 01/13/25 01/13/25 celecoxib 100 mg capsule 100 mg PO BID PRN pain 01/13/25 01/13/25 cranberry 500 mg capsule 500 mg PO DAILY 01/13/25 01/13/25 naproxen sodium 220 mg tablet 220 mg PO DAILY 01/13/25 01/13/25 (Aleve) sumatriptan succinate 50 mg tablet 50 mg PO Q2H PRN migraine headache 01/13/25 01/13/25 (Imitrex) Previous Rx's ?Medication ?Instructions ?Recorded pravastatin 10 mg tablet 10 mg PO HS heart #90 tabs 01/16/24 ibandronate 150 mg tablet 150 mg PO MONTHLY #3 tabs 01/04/25 Allergies Allergy/AdvReac Type Severity Reaction Status Date / Time alendronate sodium (From Allergy Severe Verified 01/13/25 12:18 Fosamax) codeine AdvReac Mild nausea and Verified 01/13/25 12:18 vomitting morphine AdvReac Mild Nausea Verified 01/13/25 12:18 Review of Systems Status of ROS: Reports: 6 or more systems reviewed and unremarkable except as noted in History and below 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 (ICD-10) Hyponatremia ?E87.1 - Hypo-osmolality and hyponatremia (ICD-10) Polyp of colon (12/11/10) ?K63.5 - Polyp of colon (ICD-10) Mean red blood cell volume increased ?R71.8 - Other abnormality of red blood cells (ICD-10) Lung nodule (12/11/10) ?R91.1 - Solitary pulmonary nodule (ICD-10) Instability of left foot joint ?M25.375 - Other instability, left foot (ICD-10) Tubular adenoma of colon (07/28/19) ?D12.6 - Benign neoplasm of colon, unspecified (ICD-10) Hordeolum of right lower eyelid ?H00.012 - Hordeolum externum right lower eyelid (ICD-10) Blister (nonthermal), right foot, initial encounter ?S90.821A - Blister (nonthermal), right foot, initial encounter (ICD-10) Right foot pain ?M79.671 - Pain in right foot (ICD-10) Counseling regarding advanced directives (11/19/17) ?Z71.89 - Other specified counseling (ICD-10) Scapular dyskinesis ?G25.89 - Other specified extrapyramidal and movement disorders (ICD-10) Right rotator cuff tear arthropathy ?M75.101 - Unspecified rotator cuff tear or rupture of right shoulder, not specified as traumatic (ICD-10) ?M12.811 - Other specific arthropathies, not elsewhere classified, right shoulder (ICD-10) Osteoarthritis of left knee ?M17.12 - Unilateral primary osteoarthritis, left knee (ICD-10) Surgical History S/P right hemicolectomy ?Z90.49 - Acquired absence of other specified parts of digestive tract (ICD-10) 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) ?Z96.619 - Presence of unspecified artificial shoulder joint (ICD-10) 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) ?Z96.611 - Presence of right artificial shoulder joint (ICD-10) History of cholecystectomy (12/11/10) ?Z90.49 - Acquired absence of other specified parts of digestive tract (ICD-10) History of tubal ligation (12/11/10) ?Z98.51 - Tubal ligation status (ICD-10) History of tonsillectomy (12/11/10) ?Z90.89 - Acquired absence of other organs (ICD-10) History of hysterectomy (02/29/12) ?Z90.710 - Acquired absence of both cervix and uterus (ICD-10) History of colonoscopy with polypectomy ?Z98.890 - Other specified postprocedural states (ICD-10) ?Z86.010 - Personal history of colonic polyps (ICD-10) Status post bilateral foot surgery (04/07/08) ?Z98.890 - Other specified postprocedural states (ICD-10) Status post finger joint fusion (01/04/10) ?Z98.1 - Arthrodesis status (ICD-10) Status post right foot surgery (01/04/10) ?Z98.890 - Other specified postprocedural states (ICD-10) Status post arthroscopy of right shoulder (06/02/14) ?Z98.890 - Other specified postprocedural states (ICD-10) Status post left foot surgery (~2019) ?Z98.890 - Other specified postprocedural states (ICD-10) 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) ?Z96.659 - Presence of unspecified artificial knee joint (ICD-10) History of foot surgery (09/20/10) ?Z98.890 - Other specified postprocedural states (ICD-10) Family History Mother Breast cancer CHF (congestive heart failure) Sister COPD (chronic obstructive pulmonary disease) Father Stomach cancer Social History Narrative: She lives alone in [place]. She has 2 dogs that she takes for a walk every day for about 2 miles. She does her own lawn mowing. She lives very independently. Closest family is her son, Naseem De Leon, of [place] who was taking care of her dogs and is designated healthcare power of deputy commonwealth's attorney . Secondary healthcare power of deputy commonwealth's attorney would be her brother Jai Blackburn who lives in [place]. Does not drink alcohol Does not use illicit drugs Former smoker What is your current living situation?: I presently have a place to live Problems where you live: no known problems Problems where you live details: N/A In the past 12 months, utilities in danger of being shut off: no In past 12 months, lack of transportation kept you from medical appts, meetings, work, or getting things needed for daily living: no In the past 12 mos, have been you worried that your food would run out before you had money to buy more?: never true In the past 12 mos, the food you bought just didn't last and you didn't have money to buy more?: never true Highest level of school completed/degree received: Associate degree: occupational, technical, vocational program Smoking Status: Former smoker What tobacco products do you use: cigarettes Smoking quit date/years: >15 years ago Do you use any of these nicotine containing products: None Second hand tobacco smoke exposure: No How often do you have a drink containing alcohol: monthly or less Alcohol type details: once a year How many standard drinks containing alcohol do you have on a typical day: 1 or 2 How often do you have six or more drinks on one occasion: Never AUDIT-C Alcohol total score: 1 Non-prescribed substance use: denies use Caffeine: Yes How often does anyone, including family, friends and others, physically hurt you: never How often does anyone, including family, friends and others, insult or talk down to you: never How often does anyone, including family, friends and others, threaten you with harm: never How often does anyone, including family, friends and others, scream or curse at you: never service: No Exam Const: Vital Signs, click to edit/add: Vital Signs - 24 hr 01/13/25 12:12 Temperature 97.4 F L Pulse Rate [Right Pulse Oximeter] 86 Respiratory Rate 18 Blood Pressure [Ri ght Upper Arm] 100/66 Pulse Oximetry 98 Oxygen Delivery Me thod Room Air Patient is alert, interactive, no apparent distress. Sclera clear, conjugate gaze, symmetrical facial function, speech normal. Lungs are clear, good air entry, wheeze or crackles. CV regular rate and rhythm, harsh sounding systolic murmur, about 3/6. Normal S1-S2. Abdomen is soft, nontender, nondistended, no organomegaly. She has no calf swelling or tenderness in her lower extremities but soc is removed from the right foot in the right foot itself is swollen, there is significant erythema on the dorsum of this foot. She has a bandage on the plantar surface. Documenting provider has reviewed patient's vital signs: yes Course Course ED Course: Reviewed with patient that will get full complement of labs. Will also look at an x-ray of her foot. I do think she is going to need admission. Her wound was just repacked today, presumably they have done a wound culture. Will see if I can see this in orders. Her note from wound clinic is reviewed but it is from the 10th, I do not see an updated note for today yet. With current presentation, blood cultures not indicated but need to consider this if there is worsening or she develops a fever, any changes in hemodynamics. Reevaluation(s) Time of Reevaluation #1: 13:15 Reevaluation #1: Nursing staff has confirmed with wound clinic that they did culture this today. Thus, are not taking the packing in the bandage down at this point. Have updated Dr. Marie regarding this. Consultations Consultation #1: Did speak with Dr. Marie shortly after seen this patient. She obviously is going to need admission with this worsening culture, probable id telehealth consult. Reviewed with him her history, he would like to forego x-ray imaging and have the MRI ordered. He does wonder if the wound was cultured, will check with wound clinic. I do not want to take down her dressing and her packing that they just put in today if this has been done. Vital Signs Vital signs: Initial Vital Signs Temperature 97.4 F L 01/13/25 12:12 Temperature Source Temporal Artery Scan 01/13/25 12:12 Pulse Rate 86 01/13/25 12:12 Pulse Rhythm Regular 01/13/25 12:12 Pulse Strength 3+ Normal 01/13/25 12:12 Respiratory Rate 18 01/13/25 12:12 Blood Pressure 100/66 01/13/25 12:12 Blood Pressure Mean 77 01/13/25 12:12 Blood Pressure Position Sitting 01/13/25 12:12 Pulse Oximetry 98 01/13/25 12:12 Oxygen Delivery Method Room Air 01/13/25 12:12 Vital Signs Temperature 97.4 F L 01/13/25 12:12 Pulse Rate 86 01/13/25 12:12 Respiratory Rate 18 01/13/25 12:12 Blood Pressure 100/66 01/13/25 12:12 Pulse Oximetry 98 01/13/25 12:12 Oxygen Delivery Method Room Air 01/13/25 12:12 Temperature 98.2 F 01/13/25 13:43 Pulse Rate 77 01/13/25 14:49 Respiratory Rate 29 H 01/13/25 15:27 Blood Pressure 107/55 L 01/13/25 13:43 Pulse Oximetry 93 01/13/25 15:27 Oxygen Delivery Method Room Air 01/13/25 15:27 MDM - Wound/Laceration Lab Data Attestation: I reviewed the patient's lab results. Labs: Lab Results 01/13/25 Range/Units 12:50 WBC 12.18 H (4.50-11.00) K/uL RBC 3.72 L (4.00-5.20) m/uL Hgb 12.3 (12.0-16.0) gm/dL Hct 37.2 (33.0-51.0) % MCV 100 (80-100) fL MCH 33 (26-34) pg MCHC 33 (32-36) gm/dL RDW Coeff of Laurent 12.3 (11.5-15.5) % Plt Count 227 (140-440) K/uL Neut % (Auto) 80.3 H (42.0-72.0) % Lymph % (Auto) 12.0 L (20-44) % Troup % (Auto) 6.9 (0.0-11.0) % Eos % (Auto) 0.4 (0.0-7.0) % Baso % (Auto) 0.2 (0.0-3.0) % Neut # (Auto) 9.80 H (1.7-7.0) K/uL Lymph # (Auto) 1.50 (0.90-2.90) K/uL Troup # (Auto) 0.80 (0.00-0.90) K/UL Eos # (Auto) 0.00 (0.00-0.50) K/uL Baso # (Auto) 0.00 (0.00-0.30) K/uL Abs Immat Gran (auto) 0.00 (0.00-0.30) K/uL Imm/Tot Granulo (auto) 0.2 % Sodium 133 L (135-149) mmol/L Potassium 4.2 (3.6-5.1) mmol/L Chloride 95 L (96-114) mmol/L Carbon Dioxide 28 (20-32) mmol/L Anion Gap 10 (7-15) mEq/L BUN 16 (7-30) mg/dL Creatinine 0.7 (0.5-1.5) mg/dL Estimated Creat Clear 41.45 Estimated GFR 86 ml/min Glucose 94 (60-115) mg/dL Lactate 0.5 (0.5-1.9) mmol/L Calcium 8.9 (8.4-10.6) mg/dL Total Bilirubin 0.7 (0.1-1.5) mg/dL AST 22 (12-35) U/L ALT 13 (4-35) U/L Alkaline Phosphatase 95 (40-150) U/L C-Reactive Protein 6.5 H (0.5-1.0) mg/dL Total Protein 6.4 (6.0-8.3) g/dL Albumin 3.8 (3.3-5.0) g/dL Procalcitonin 0.06 (<0.50) ng/mL Discharge Plan Discharge Clinical Impression: Cellulitis of foot Peripheral neuropathy Qualifiers: Peripheral neuropathy type: polyneuropathy, unspecified Qualified Code(s): G62.9 - Polyneuropathy, unspecified Neuropathic ulcer of foot Qualifiers: Laterality: right Non-pressure ulcer stage: unspecified non-pressure ulcer stage Qualified Code(s): L97.519 - Non-pressure chronic ulcer of other part of right foot with unspecified severity Patient Disposition: Admitted As Observation
[2025-01-13 13:00] LABS: Lactate* 0.5 mmol/L (0.5-1.9)
[2025-01-13 13:06] LABS: Basophils Percent Auto 0.2 % (0.0-3.0); Eosinophils Percent Auto 0.4 % (0.0-7.0); Hematocrit 37.2 % (33.0-51.0); Hemoglobin* 12.3 gm/dL (12.0-16.0); Immature Granulocytes Pct Auto 0.2 %; Mean Corpuscular HGB Conc 33 gm/dL (32-36); Mean Corpuscular Hemoglobin 33 pg (26-34); Mean Corpuscular Volume 100 fL (80-100); Monocytes Percent Auto 6.9 % (0.0-11.0); Neutrophils Percent Auto 80.3 % (42.0-72.0); Platelet Count* 227 K/uL (140-440); RDW Coefficient of Variation % 12.3 % (11.5-15.5); Red Blood Count 3.72 m/uL (4.00-5.20); White Blood Count* 12.18 K/uL (4.50-11.00)
[2025-01-13 13:07] LABS: Slide Review Reflex No
[2025-01-13 17:01] LABS: Albumin* 3.8 g/dL (3.3-5.0); Chloride* 95 mmol/L (96-114)
[2025-01-13 17:02] LABS: Potassium* 4.2 mmol/L (3.6-5.1); Sodium* 133 mmol/L (135-149)
[2025-01-13 17:04] LABS: Creatinine* 0.7 mg/dL (0.5-1.5); Est. Creatinine Clearance* 41.45; Estimated Glomerular Filt Rate 86 ml/min
[2025-01-13 17:05] LABS: Alanine Aminotransferase* 13 U/L (4-35); Alkaline Phosphatase* 95 U/L (40-150); Anion Gap 10 mEq/L (7-15); Aspartate Amino Transferase* 22 U/L (12-35); Bilirubin Total* 0.7 mg/dL (0.1-1.5); Blood Urea Nitrogen* 16 mg/dL (7-30); Carbon Dioxide* 28 mmol/L (20-32); Glucose* 94 mg/dL (60-115); Total Protein* 6.4 g/dL (6.0-8.3)
[2025-01-13 17:08] LABS: C Reactive Protein* 6.5 mg/dL (0.5-1.0)
[2025-01-13 17:22] LABS: Procalcitonin* 0.06 ng/mL (<0.50)
[2025-01-13 17:33] LABS: Calcium* 8.9 mg/dL (8.4-10.6)
--- NOTE | 2025-01-13 18:20 | PM.IMHP1 ---
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 Patient has been following with podiatry and wound care for a large callous on the plantar aspect of her right foot that developed into a tunneled ulcer and ultimately became infected. A wound culture from 01/04/25 grew 3 organisms (klebsiella oxytoca, enterococcus gallinarum and staph pseudintermedius). She was treated with IV rocephin in clinic and then started on ciprofloxacin as the only antimicrobial that would cover all organisms based on sensitivities was fluoroquinolone. She has not seen any improvement and when she was at the wound clinic today they were concerned about a spreading infection with well-demarcated, warm, erythematous rash extending onto the dorsum of the right foot. The plantar wound was treated, packed and bandaged. She was directed to the ER for further assessment and likely admission with concern for potential underlying osteomyelitis. Patient denies any symptoms other than swelling and erythema of her foot. She has tried to only walk with pressure on her heel to offload. She denies fevers, chills, malaise, pain or fatigue. In the ER, there were no signs of sepsis. XR of the foot did not reveal any evidence of osteomyelitis. She is admitted for further cares. Following admission, foot MRI was obtained and concerning for septic arthritis with large fluid collection concerning for abscess of the second MTP and possible osteomyelitis of the 2nd MTP head. There is also concern for soft tissue necrosis lateral to this area under the 3rd and 4th ray. I spoke with Dr. Sims from podiatry who feels that emergent surgical management would be prudent and he will come to manage this evening. 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 (ICD-10) Hyponatremia ?E87.1 - Hypo-osmolality and hyponatremia (ICD-10) Polyp of colon (12/11/10) ?K63.5 - Polyp of colon (ICD-10) Mean red blood cell volume increased ?R71.8 - Other abnormality of red blood cells (ICD-10) Lung nodule (12/11/10) ?R91.1 - Solitary pulmonary nodule (ICD-10) Instability of left foot joint ?M25.375 - Other instability, left foot (ICD-10) Tubular adenoma of colon (07/28/19) ?D12.6 - Benign neoplasm of colon, unspecified (ICD-10) Hordeolum of right lower eyelid ?H00.012 - Hordeolum externum right lower eyelid (ICD-10) Blister (nonthermal), right foot, initial encounter ?S90.821A - Blister (nonthermal), right foot, initial encounter (ICD-10) Right foot pain ?M79.671 - Pain in right foot (ICD-10) Counseling regarding advanced directives (11/19/17) ?Z71.89 - Other specified counseling (ICD-10) Scapular dyskinesis ?G25.89 - Other specified extrapyramidal and movement disorders (ICD-10) Right rotator cuff tear arthropathy ?M75.101 - Unspecified rotator cuff tear or rupture of right shoulder, not specified as traumatic (ICD-10) ?M12.811 - Other specific arthropathies, not elsewhere classified, right shoulder (ICD-10) Osteoarthritis of left knee ?M17.12 - Unilateral primary osteoarthritis, left knee (ICD-10) Surgical History S/P right hemicolectomy ?Z90.49 - Acquired absence of other specified parts of digestive tract (ICD-10) 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) ?Z96.619 - Presence of unspecified artificial shoulder joint (ICD-10) 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) ?Z96.611 - Presence of right artificial shoulder joint (ICD-10) History of cholecystectomy (12/11/10) ?Z90.49 - Acquired absence of other specified parts of digestive tract (ICD-10) History of tubal ligation (12/11/10) ?Z98.51 - Tubal ligation status (ICD-10) History of tonsillectomy (12/11/10) ?Z90.89 - Acquired absence of other organs (ICD-10) History of hysterectomy (02/29/12) ?Z90.710 - Acquired absence of both cervix and uterus (ICD-10) History of colonoscopy with polypectomy ?Z98.890 - Other specified postprocedural states (ICD-10) ?Z86.010 - Personal history of colonic polyps (ICD-10) Status post bilateral foot surgery (04/07/08) ?Z98.890 - Other specified postprocedural states (ICD-10) Status post finger joint fusion (01/04/10) ?Z98.1 - Arthrodesis status (ICD-10) Status post right foot surgery (01/04/10) ?Z98.890 - Other specified postprocedural states (ICD-10) Status post arthroscopy of right shoulder (06/02/14) ?Z98.890 - Other specified postprocedural states (ICD-10) Status post left foot surgery (~2019) ?Z98.890 - Other specified postprocedural states (ICD-10) 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) ?Z96.659 - Presence of unspecified artificial knee joint (ICD-10) History of foot surgery (09/20/10) ?Z98.890 - Other specified postprocedural states (ICD-10) Family History Mother Breast cancer CHF (congestive heart failure) Sister COPD (chronic obstructive pulmonary disease) Father Stomach cancer Social History Narrative: She lives alone in [place]. She has 2 dogs that she takes for a walk every day for about 2 miles. She does her own lawn mowing. She lives very independently. Closest family is her son, Naseem De Leon, of [place] who was taking care of her dogs and is designated healthcare power of contracts attorney . Secondary healthcare power of contracts attorney would be her brother Jai Blackburn who lives in [place]. Does not drink alcohol Does not use illicit drugs Former smoker What is your current living situation?: I presently have a place to live Problems where you live: no known problems Problems where you live details: N/A In the past 12 months, utilities in danger of being shut off: no In past 12 months, lack of transportation kept you from medical appts, meetings, work, or getting things needed for daily living: no In the past 12 mos, have been you worried that your food would run out before you had money to buy more?: never true In the past 12 mos, the food you bought just didn't last and you didn't have money to buy more?: never true Highest level of school completed/degree received: Associate degree: occupational, technical, vocational program Smoking Status: Former smoker What tobacco products do you use: cigarettes Smoking quit date/years: >15 years ago Do you use any of these nicotine containing products: None Second hand tobacco smoke exposure: No How often do you have a drink containing alcohol: monthly or less Alcohol type details: once a year How many standard drinks containing alcohol do you have on a typical day: 1 or 2 How often do you have six or more drinks on one occasion: Never AUDIT-C Alcohol total score: 1 Non-prescribed substance use: denies use Caffeine: Yes How often does anyone, including family, friends and others, physically hurt you: never How often does anyone, including family, friends and others, insult or talk down to you: never How often does anyone, including family, friends and others, threaten you with harm: never How often does anyone, including family, friends and others, scream or curse at you: never service: No Meds Home Medications and Allergies Home Medications ?Medication ?Instructions ?Recorded ?Confirmed ?Type lactobacillus combination no.4 3 3,000 mmu cells PO BID 08/10/22 01/13/25 History billion cell capsule (Probiotic) multivitamin (Multiple Vitamins 1 tab PO DAILY 10/30/23 01/13/25 History tablet) gabapentin 600 mg tablet 1,200 mg PO QHS 01/27/24 01/13/25 History gabapentin 600 mg tablet 600 mg PO QAM 01/27/24 01/13/25 History ciprofloxacin HCl 500 mg tablet 500 mg PO BID 01/08/25 01/13/25 History acetaminophen 500 mg capsule 1,000 mg PO DAILY 01/13/25 01/13/25 History celecoxib 100 mg capsule 100 mg PO BID PRN pain 01/13/25 01/13/25 History cranberry 500 mg capsule 500 mg PO DAILY 01/13/25 01/13/25 History naproxen sodium 220 mg tablet 220 mg PO DAILY 01/13/25 01/13/25 History (Aleve) sumatriptan succinate 50 mg tablet 50 mg PO Q2H PRN migraine headache 01/13/25 01/13/25 History (Imitrex) Allergies Allergy/AdvReac Type Severity Reaction Status Date / Time alendronate sodium (From Allergy Severe Verified 01/13/25 12:18 Fosamax) codeine AdvReac Mild nausea and Verified 01/13/25 12:18 vomitting morphine AdvReac Mild Nausea Verified 01/13/25 12:18 Exam Narrative: Exam Narrative: General: Well appearing, no distress, nontoxic HEENT: NCAT, no nasal congestion Resp: Breathing comfortable and unlabored, CTAB CV: RRR, 4/6 systolic murmur (consistent with her known aortic stenosis) Abd: Soft, nontender extremities: Right foot is significantly edematous Skin: Right foot is dressed (treated at wound clinic this afternoon, so dressing and packing not removed), There is significant erythema and swelling with warmth spreading proximally from wound onto dorsum of foot. There is no tenderness to palpation. Right great toenail is surgically absent Const: Vital Signs, click to edit/add: Vital Signs - 24 hr 01/13/25 12:12 01/13/25 13:43 01/13/25 14:49 Temperature 97.4 F L 98.2 F Pulse Rate 77 Pulse Rate [Pulse Oximeter] 77 Pulse Rate [Right Pulse Oximeter] 86 Respiratory Rate 18 20 Blood Pressure [Le ft Arm] 107/55 L Blood Pressure [Ri ght Upper Arm] 100/66 Pulse Oximetry 98 93 Oxygen Delivery Me thod Room Air Room Air 01/13/25 15:27 Temperature Pulse Rate Pulse Rate [Pulse Oximeter] Pulse Rate [Right Pulse Oximeter] Respiratory Rate 29 H Blood Pressure [Le ft Arm] Blood Pressure [Ri ght Upper Arm] Pulse Oximetry 93 Oxygen Delivery Me thod Room Air Hospitalist - H&P: Result Labs Labs: Short CBC 01/13/25 Range/Units 12:50 WBC 12.18 H (4.50-11.00) K/uL Hgb 12.3 (12.0-16.0) gm/dL Hct 37.2 (33.0-51.0) % Plt Count 227 (140-440) K/uL BMP 01/13/25 12:50 Sodium 133 L Potassium 4.2 Chloride 95 L Carbon Dioxide 28 BUN 16 Creatinine 0.7 Glucose 94 Calcium 8.9 Liver Function 01/13/25 Range/Units 12:50 Total Bilirubin 0.7 (0.1-1.5) mg/dL AST 22 (12-35) U/L ALT 13 (4-35) U/L Alkaline Phosphatase 95 (40-150) U/L Albumin 3.8 (3.3-5.0) g/dL Assessment and Plan Assessment and plan (1) Neuropathic ulcer of foot: Status: Acute Assessment and Plan: Patient has been following with podiatry and wound care for ulcer that started as a large callus under the right 2nd MTP (2) Wound infection: Status: Acute Assessment and Plan: Stemming from neuropathic ulcer. Initially treated with keflex. When not improving, treated with IV reocephin in clinic. Culture obtained 01/04/25 growing klebsiella oxytoca, enterococcus and staph pseudintermedius. Based on sensitivities, she was transitioned to fluoroquinolone (cipro) to cover all three organisms, but continues to worsen and was sent to ER with concern for developing cellulitis. MRI obtained 01/13 showing concern for abscess, septic arthritis of 2nd MTP and probable osteomyelitis of the 2nd MTP. Discussed with podiatry, Dr. Sims, who agrees to urgent surgical management with debridement this evening. ID has been consulted for assistance with antibiotic regiment -Start IV ampicillin 2g Q6H now for Klebsiella and enterococcus -Start IV doxycycline for staph pseudointermedius resistant to clinda, erythromycin and oxacillin -Await ID input -Appreciate podiatry for surgical intervention -Trend labs, monitor for sepsis -Follow cultures (blood culture and wound culture repeated in ER) (3) Cellulitis of foot: Status: Acute Assessment and Plan: Stemming from infected ulcer. No signs of sepsis or significant systemic involvement. -Continue antibiotics as above (4) Abscess of right foot: Status: Acute Assessment and Plan: As above, podiatry to see for debridement and wash out. (5) Septic arthritis of foot: Status: Acute Assessment and Plan: As above, appreciate podiatry cares (6) Osteomyelitis of ankle or foot, right, acute: Status: Acute Assessment and Plan: Suspected based on MRI of right foot 01/13/25. Appreciate podiatry. Continue antibiotics as above, ID consult pending (7) Heart murmur: Problem comment: Aortic stenosis Status: Acute Assessment and Plan: Patient following with cardiology and planning for TAVR in near future. Now admitted with significant deep foot infection. Most likely source of infection is wound. If blood cultures return positive and difficult to clear, consider further imaging of valve but currently no suspicion for endocarditis. (8) Osteoarthritis: Status: Acute (9) Osteoporosis: Problem comment: 12/26 -2.7 hip Declined treatment due to headaches Status: Acute (10) Hyperlipidemia: Status: Acute Plan Admit to med/surg floor for right foot infection, abscess, cellulitis, septic joint and probable osteomyelitis -Antibitoics: IV ampicillin and IV doxycycline -Podiatry consult for urgent surgical management -Monitor for sepsis/labs -ID consult for antibiotic regimen -Follow wound and blood cultures -DVT prophy with lovenox -Full code confirmed with patient on admission -Son, Naseem, notified of plan by telephone Total Time Spent Total Time Spent: Greater than 75 minutes in chart review, patient exam and counselling, multidisciplinary discussions with nursing and podiatry, communication with family and documentation
--- NOTE | 2025-01-13 18:28 | PC.NURSE ---
Shift Summary: Patient pleasant and cooperative. Up with one assist and gait belt, only able to put pressure on heel of right foot. Vitals stable and WNL, afebrile. Denies pain. Dressing appears dry and intact. Swelling/redness on right foot outlined.
[2025-01-13] MEDS: AMPICILLIN 2 GM in 0.9 % SODIUM CHLORIDE Mini-bag 100 ML IVPB (18:51)
[2025-01-13] MEDS: DOXYCYCLINE HYCLATE 100 MG in 0.9 % SODIUM CHLORIDE Mini-bag 100 ML IVPB (19:44)
[2025-01-13] MEDS: GABAPENTIN 600 MG TABLET 1200 MG PO (19:45)
[2025-01-13] MEDS: 0.9 % SODIUM CHLORIDE 250 ml IV (19:45)
[2025-01-13] MEDS: BUPIVACAINE 0.25% 30 ML INJECTION (21:37)
[2025-01-13] MEDS: LACTATED RINGERS 500 ML 500 ML 125 ML IV (22:02)
--- NOTE | 2025-01-13 22:24 | W.ANESCHARGE ---
Anesthesia Charges Start Date/Time Anesthesia Start Date: 01/13/25 Anesthesia Start Time: 21:17 Stop Date/Time Anesthesia Stop Date: 01/13/25 Anesthesia Stop Time: 22:21 Summary Emergency: [facility] Extremes of Age - Over 70 or under 1: [facility] Coding CPT Codes CPT Codes: ANESTH LOWER LEG BONE SURG - 90227 ([id number]) P3 - PATIENT W/SEVERE SYS DISEASE, QZ - [facility] SVC W/O BAG BUILDER BY Additional Codes: Summary - Emergency: [facility] ([id number]) Summary - Extremes of Age - Over 70 or under 1: [facility] ([id number])
--- NOTE | 2025-01-13 22:37 | PM.PODCN1 ---
[facility] - Podiatry Data of Consult Time Seen by Provider: 20:45 Date Seen: 01/13/25 Patient: [facility] Patient Consult date: 01/13/25 Requesting physician: Thomas Marie MD Primary care provider: Lori Barreto PA-C Consult Narrative Reason for consult: Septic 2nd MPJ Right foot with abscess Narrative: Sheila Blackburn is a 84 year old female seen bedside this evening for a right foot infection. History obtained from the patient as well as from hospitalist. She states that she developed an ulceration while walking her dog and that this worsened with time. She states infection seemed to come on fast and did not respond to antibiotics and worsened. 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 Patient has been following with podiatry and wound care for a large callous on the plantar aspect of her right foot that developed into a tunneled ulcer and ultimately became infected. A wound culture from 01/04/25 grew 3 organisms (klebsiella oxytoca, enterococcus gallinarum and staph pseudintermedius). She was treated with IV rocephin in clinic and then started on ciprofloxacin as the only antimicrobial that would cover all organisms based on sensitivities was fluoroquinolone. She has not seen any improvement and when she was at the wound clinic today they were concerned about a spreading infection with well-demarcated, warm, erythematous rash extending onto the dorsum of the right foot. The plantar wound was treated, packed and bandaged. She was directed to the ER for further assessment and likely admission with concern for potential underlying osteomyelitis. Patient denies any symptoms other than swelling and erythema of her foot. She has tried to only walk with pressure on her heel to offload. She denies fevers, chills, malaise, pain or fatigue. In the ER, there were no signs of sepsis. XR of the foot did not reveal any evidence of osteomyelitis. She is admitted for further cares. Following admission, foot MRI was obtained and concerning for septic arthritis with large fluid collection concerning for abscess of the second MTP and possible osteomyelitis of the 2nd MTP head. There is also concern for soft tissue necrosis lateral to this area under the 3rd and 4th ray. 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 (ICD-10) Hyponatremia ?E87.1 - Hypo-osmolality and hyponatremia (ICD-10) Polyp of colon (12/11/10) ?K63.5 - Polyp of colon (ICD-10) Mean red blood cell volume increased ?R71.8 - Other abnormality of red blood cells (ICD-10) Lung nodule (12/11/10) ?R91.1 - Solitary pulmonary nodule (ICD-10) Instability of left foot joint ?M25.375 - Other instability, left foot (ICD-10) Tubular adenoma of colon (07/28/19) ?D12.6 - Benign neoplasm of colon, unspecified (ICD-10) Hordeolum of right lower eyelid ?H00.012 - Hordeolum externum right lower eyelid (ICD-10) Blister (nonthermal), right foot, initial encounter ?S90.821A - Blister (nonthermal), right foot, initial encounter (ICD-10) Right foot pain ?M79.671 - Pain in right foot (ICD-10) Counseling regarding advanced directives (11/19/17) ?Z71.89 - Other specified counseling (ICD-10) Scapular dyskinesis ?G25.89 - Other specified extrapyramidal and movement disorders (ICD-10) Right rotator cuff tear arthropathy ?M75.101 - Unspecified rotator cuff tear or rupture of right shoulder, not specified as traumatic (ICD-10) ?M12.811 - Other specific arthropathies, not elsewhere classified, right shoulder (ICD-10) Osteoarthritis of left knee ?M17.12 - Unilateral primary osteoarthritis, left knee (ICD-10) Surgical History S/P right hemicolectomy ?Z90.49 - Acquired absence of other specified parts of digestive tract (ICD-10) 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) ?Z96.619 - Presence of unspecified artificial shoulder joint (ICD-10) 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) ?Z96.611 - Presence of right artificial shoulder joint (ICD-10) History of cholecystectomy (12/11/10) ?Z90.49 - Acquired absence of other specified parts of digestive tract (ICD-10) History of tubal ligation (12/11/10) ?Z98.51 - Tubal ligation status (ICD-10) History of tonsillectomy (12/11/10) ?Z90.89 - Acquired absence of other organs (ICD-10) History of hysterectomy (02/29/12) ?Z90.710 - Acquired absence of both cervix and uterus (ICD-10) History of colonoscopy with polypectomy ?Z98.890 - Other specified postprocedural states (ICD-10) ?Z86.010 - Personal history of colonic polyps (ICD-10) Status post bilateral foot surgery (04/07/08) ?Z98.890 - Other specified postprocedural states (ICD-10) Status post finger joint fusion (01/04/10) ?Z98.1 - Arthrodesis status (ICD-10) Status post right foot surgery (01/04/10) ?Z98.890 - Other specified postprocedural states (ICD-10) Status post arthroscopy of right shoulder (06/02/14) ?Z98.890 - Other specified postprocedural states (ICD-10) Status post left foot surgery (~2019) ?Z98.890 - Other specified postprocedural states (ICD-10) 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) ?Z96.659 - Presence of unspecified artificial knee joint (ICD-10) History of foot surgery (09/20/10) ?Z98.890 - Other specified postprocedural states (ICD-10) Family History Mother Breast cancer CHF (congestive heart failure) Sister COPD (chronic obstructive pulmonary disease) Father Stomach cancer Social History Narrative: She lives alone in [place]. She has 2 dogs that she takes for a walk every day for about 2 miles. She does her own lawn mowing. She lives very independently. Closest family is her son, Naseem De Leon, of [employer] who was taking care of her dogs and is designated healthcare power of sports attorney . Secondary healthcare power of sports attorney would be her brother Jai Blackburn who lives in [place]. Does not drink alcohol Does not use illicit drugs Former smoker What is your current living situation?: I presently have a place to live Problems where you live: no known problems Problems where you live details: N/A In the past 12 months, utilities in danger of being shut off: no In past 12 months, lack of transportation kept you from medical appts, meetings, work, or getting things needed for daily living: no In the past 12 mos, have been you worried that your food would run out before you had money to buy more?: never true In the past 12 mos, the food you bought just didn't last and you didn't have money to buy more?: never true Highest level of school completed/degree received: Associate degree: occupational, technical, vocational program Smoking Status: Former smoker What tobacco products do you use: cigarettes Smoking quit date/years: >15 years ago Do you use any of these nicotine containing products: None Second hand tobacco smoke exposure: No How often do you have a drink containing alcohol: monthly or less Alcohol type details: once a year How many standard drinks containing alcohol do you have on a typical day: 1 or 2 How often do you have six or more drinks on one occasion: Never AUDIT-C Alcohol total score: 1 Non-prescribed substance use: denies use Caffeine: Yes How often does anyone, including family, friends and others, physically hurt you: never How often does anyone, including family, friends and others, insult or talk down to you: never How often does anyone, including family, friends and others, threaten you with harm: never How often does anyone, including family, friends and others, scream or curse at you: never service: No Exam Narrative: Exam Narrative: General: No distress. Vascular: Palpable posterior tibial pulse. Faint dorsalis pedis pulse due to edema. Capillary fill time less than 3 seconds all digits. Neuro: Completely insensate to light touch throughout the foot and into the lower leg. Musculoskeletal: Muscle strength 5/5 all quadrants. Syndactyly of the 2nd and 3rd toes. Moderate hammertoe deformity of the lesser digits. Shortened great toe. Derm: Plantar ulceration measuring approximately 1 cm sub 2nd metatarsal. Ulceration probes to bone. There is purulent drainage from the ulceration. Extensive erythema incorporating the entire 2nd toe extending onto the dorsal foot short of the ankle joint. Significant edema is noted. Fluctuance to the dorsal 2nd MPJ. Labs: WBC 12.18, neutrophils 80.3, hemoglobin 12.3, CRP 6.5, total protein 6.4, albumin 3.8 Wound culture: Specimen: [id number] COMP Collected: 01/04/25 Received: 01/04/25 Source: Foot Lt Sp Descrip: Sub Dr: WELLINGTON,Michelle David Other Dr: Procedure Result Site Wound Culture* Final ML Organism 1 Klebsiella oxytoca Quantity of Growth Large amount Organism 2 Enterococcus gallinarum Quantity of Growth Moderate amount Organism 3 STAPH PSEUDINTERMEDIUS Quantity of Growth Large amount Kleb oxyto E gallinar STAPH PSEU ABDOULAYE RX ABDOULAYE RX ABDOULAYE RX --------- --- --------- --- --------- --- Ampicillin <=2 S <=2 S Ampicillin/Sulbactam <=2 S Cefazolin >=32 R Cefepime <=0.12 S Ceftazidime >=32 R Ceftriaxone 16 I Ciprofloxacin 0.5 S <=0.5 S <=0.5 S Clindamycin >=4 R Doxycycline 8 I 1 S Erythromycin >=8 R Gentamicin 4 S <=0.5 S Levofloxacin 1 S 1 S <=0.12 S Linezolid 2 S * Meropenem 1 S Nitrofurantoin 32 S * Oxacillin Abdoulaye >=4 R Rifampin 1 S Tetracycline 2 S Tigecycline <=0.12 S Trimethoprim/Sulfamethoxazole <=20 S Vancomycin 1 R <=0.5 S X-ray right foot: Right foot 3 views Comparison: 09/25/2024 Findings: Multifocal postop changes to the distal forefoot. Intact fixation screw across the big toe interphalangeal joint. Soft tissue ulcer noted. No cortical destruction, fracture or periostitis. Impression: No evidence of osteomyelitis. MRI right foot: MRI of the right forefoot performed with and without intravenous contrast (15 milliliters of Dotarem). Comparison: 01/04/2025 right foot radiographs Findings: There is a soft tissue defect in the skin plantar to the 2nd metatarsal head measuring 5 millimeters (4/15). There is a 4 x 3.4 centimeter heterogeneously T2 hyperintense fluid collection surrounding the 2nd metatarsophalangeal joint, the 2nd proximal phalanx, and the 2nd metatarsal neck which demonstrates irregular peripheral enhancement and is highly concerning for an abscess (12/14). The aforementioned collection appears to be contiguous with the 2nd metatarsophalangeal joint highly concerning for septic arthritis. The aforementioned collection also abuts the lateral aspect of the great toe proximal phalanx and the medial aspect of the 3rd metatarsal head. There is edematous nonenhancing tissue in the plantar forefoot at the lateral margin of the aforementioned collection deep to the 3rd and 4th ray which is suspicious for soft tissue necrosis (12/18). Status post screw arthrodesis of the great toe interphalangeal joint. Susceptibility artifact associated with the arthrodesis limits evaluation of adjacent structures. Hallux valgus positioning of the forefoot. Chronically attenuated appearance of the 3rd and 4th proximal phalanx base which is presumed to be postoperative. Mildly attenuated appearance of the 2nd and 5th proximal phalanx base, possibly also postoperative. There is moderate degenerative change of the 1st MTP joint. There are otherwise scattered mild degenerative changes throughout the field of view. Faint marrow edema associated with the 2nd metatarsal head may represent reactive change or osteomyelitis. The Lisfranc ligament is intact. Diffuse soft tissue edema throughout the field of view. Diffuse muscular atrophy and fatty infiltration throughout the field of view. Grossly intact visualized tendons. Impression: Soft tissue defect in the skin plantar to the 2nd metatarsal connecting to a 4 cm peripherally enhancing fluid collection which surrounds the 2nd ray at the 2nd metatarsophalangeal joint and appears to be contiguous with the 2nd metatarsophalangeal joint. These findings are highly concerning for abscess with septic arthritis. There is nonenhancing tissue in the plantar forefoot lateral to this collection and deep to the 3rd and 4th ray which is suspicious for soft tissue necrosis. Faint marrow edema associated with the 2nd metatarsal head may represent reactive change or osteomyelitis. Diffuse soft tissue edema throughout the field of view. Additional details are described above. 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 I reviewed the MRI results with her which indicated significant infection around the 2nd toe and 2nd metatarsal. We discussed that she needs immediate surgical intervention to address infection. Unfortunately she will need the 2nd toe amputated and the 2nd metatarsal head removed. I reviewed the procedure with her. She understands that the wound would be left open to allow the infection to resolve and that this will be a staged procedure. She will need a return trip to the operating room. Will continue with current IV antibiotics per hospitalist and Infectious Disease review. She expresses understanding of the situation and wishes to proceed with surgery. All questions were answered and written consent obtained for the surgery. She has been cleared for general anesthesia. Const: Vital Signs, click to edit/add: Vital Signs - 24 hr 01/13/25 12:12 01/13/25 13:43 01/13/25 14:49 Temperature 97.4 F L 98.2 F Pulse Rate 77 Pulse Rate [Pulse Oximeter] 77 Pulse Rate [Right Pulse Oximeter] 86 Respiratory Rate 18 20 Blood Pressure Blood Pressure [Le ft Arm] 107/55 L Blood Pressure [Ri ght Upper Arm] 100/66 Pulse Oximetry 98 93 Oxygen Delivery Me thod Room Air Room Air 01/13/25 15:27 01/13/25 19:00 01/13/25 22:16 Temperature 98.4 F 99.3 F Pulse Rate 90 Pulse Rate [Pulse Oximeter] Pulse Rate [Right Pulse Oximeter] Respiratory Rate 29 H 20 16 Blood Pressure 116/61 Blood Pressure [Le ft Arm] 109/52 L Blood Pressure [Ri ght Upper Arm] Pulse Oximetry 93 99 92 Oxygen Delivery Me thod Room Air Room Air Room Air 01/13/25 22:20 01/13/25 22:25 01/13/25 22:30 Temperature 99.0 F Pulse Rate 90 92 87 Pulse Rate [Pulse Oximeter] Pulse Rate [Right Pulse Oximeter] Respiratory Rate 16 16 16 Blood Pressure 82/50 L 120/52 L 114/55 L Blood Pressure [Le ft Arm] Blood Pressure [Ri ght Upper Arm] Pulse Oximetry 92 92 92 Oxygen Delivery Me thod Room Air Room Air Room Air 01/13/25 22:35 Temperature Pulse Rate 86 Pulse Rate [Pulse Oximeter] Pulse Rate [Right Pulse Oximeter] Respiratory Rate 16 Blood Pressure 101/60 Blood Pressure [Le ft Arm] Blood Pressure [Ri ght Upper Arm] Pulse Oximetry 92 Oxygen Delivery Me thod Room Air Nail Debridement Qualifies If: Qualifiers If:: A patient qualifies for nail debridement if they have: 1 class A finding (Q7) 2 class B findings (Q8) OR 1 class B & 2 class C findings in addition to a primary condition (Q9)
--- NOTE | 2025-01-13 22:50 | W.PM.PODPROC ---
Date of Procedure: 01/13/25 Surgeon: Jericho Sims DPM Pre-op Diagnosis: 1. Septic arthritis 2nd MPJ right foot 2. Abscess right foot 3. Probable osteomyelitis right foot Post-op Diagnosis: 1. Septic arthritis 2nd MPJ right foot 2. Abscess right foot 3. Probable osteomyelitis right foot Type of Procedure: 1. Partial 2nd ray amputation 2. I and D with wide debridement deep space right foot Indications: Patient has underlying septic arthritis with probable osteomyelitis and large abscess in the right foot. She is in need of immediate surgical intervention. Reviewed the procedure, recovery, expectation potential complications. These include but are not limited to: Continued infection, poor wound healing, definite need for future surgery, potential limb loss, potential loss of life, deep venous thrombosis, pulmonary embolism. She understands risks written consent was obtained. Site marked. Procedure Description: Patient brought the operating room placed supine position on operating table. She was placed under general anesthesia. Local anesthetic injected into the right foot. She was prepped and draped in sterile fashion. The right foot was exsanguinated the tourniquet inflated to 250 mm Hg. A linear incision was started dorsally at the midshaft of the 2nd metatarsal. Incision was extended to the dorsal 2nd toe where then diverged with the medial arm and lateral arm extending around to the base of the toe and meeting then extending down to the ulcer on the plantar foot. Incision was deepened down through subcutaneous tissue into the abscessed area. Large abscess was noted on the dorsal, medial and plantar aspect of the 2nd MPJ. Deep space culture was obtained from this area and sent for culture and sensitivities. Second toe was disarticulated to the metatarsophalangeal joint and removed. Same metatarsal head was identified and transected at the metatarsal neck. A 2 mm proximal cylinder was obtained and sent to pathology for clear margin. Bone this area did appear quite firm and healthy. Significant amount of necrotic tissue was noted medially and plantarly and this was excised using a rongeur back to healthy bleeding tissue. The plantar portion of the incision also ellipsed the ulceration. Remaining tissues appeared healthy and wound was thoroughly irrigated normal sterile saline. The tourniquet was released and all bleeding vessels cauterized. Wound was packed open with saline moistened gauze. Sterile dressing was then applied. She was transferred from a OR to PACU vital signs stable and vascular status intact to the right foot. Anesthesia: GETA and local Hemostasis: ankle Estimated blood loss (mL): 20 Specimens: specimen obtained, sent to pathology (Second metatarsal clear margin, deep space culture) Disposition: PACU
[2025-01-13] MEDS: LACTATED RINGERS 1000 ML 1,000 ML 250 ML IV (23:38)
[2025-01-14] VITALS (18 sets, daily range): BP systolic 90–109; BP diastolic 47–73; PULSE 60–95; RESP 16–18; TEMP 36.1–36.8; O2SAT 68–98; BMI 25.0
[2025-01-14] MEDS: AMPICILLIN 2 GM in 0.9 % SODIUM CHLORIDE Mini-bag 100 ML IVPB ×2 (00:33→06:01)
--- NOTE | 2025-01-14 06:10 | PC.NURSE ---
End of shift [id number]: Pt arrived back from the OR at 2245. Pt awake and alert requesting something to drink. + CMS. Denies any numbness/tingling. Denies pain. Pt has been hypotensive since coming to the floor. She is asymptomatic. MD was updated. See orders. Using bedside commode and tolerating well. Pt had x1 large innocent loose stool. Pt states she has been having loose stools since starting antibiotics two weeks ago. MD updated. Needing to obtain cdiff sample. Tolerating regular diet. Denies n/v, SOB or CP. Voiding adequate amounts. Using call light appropriately.
[2025-01-14] MEDS: DOXYCYCLINE HYCLATE 100 MG in 0.9 % SODIUM CHLORIDE Mini-bag 100 ML IVPB (06:39)
[2025-01-14 06:58] LABS: Hematocrit 34.6 % (33.0-51.0); Hemoglobin* 11.3 gm/dL (12.0-16.0); Immature Granulocytes Abs Auto 0.03 K/uL (0.00-0.30); Immature Granulocytes Pct Auto 0.4 %; Lymphocytes Percent Auto 8.3 % (20-44); Mean Corpuscular HGB Conc 33 gm/dL (32-36); Mean Corpuscular Hemoglobin 33 pg (26-34); Mean Corpuscular Volume 101 fL (80-100); Monocytes Percent Auto 2.4 % (0.0-11.0); Neutrophils Percent Auto 88.9 % (42.0-72.0); Platelet Count* 205 K/uL (140-440); RDW Coefficient of Variation % 12.4 % (11.5-15.5); Red Blood Count 3.42 m/uL (4.00-5.20); White Blood Count* 7.61 K/uL (4.50-11.00)
[2025-01-14 07:00] LABS: Slide Review Reflex No
[2025-01-14 08:46] LABS: C.Difficile Negative (Negative); CDIFFEPI 027 PRESUMPTIVE NEGATIVE (Negative)
[2025-01-14] MEDS: VANCOMYCIN 1.5 GM/300 ML 1.5 GM/300 ML PIGGYBACK IVPB (09:04)
[2025-01-14] MEDS: ACETAMINOPHEN 500 MG TABLET 1000 MG PO (09:04)
[2025-01-14] MEDS: LACTOBACILLUS ACIDOPHILUS 1 TABLET 1 TAB PO ×2 (09:05→21:38)
[2025-01-14] MEDS: SODIUM CHLORIDE 0.9 % (FLUSH) 10 ML SYRINGE 5 ML IVF ×2 (09:05→18:18)
[2025-01-14] MEDS: GABAPENTIN 600 MG TABLET PO (09:05)
[2025-01-14] MEDS: MULTIVITAMIN/MINERALS 1 TABLET 1 TAB PO (09:05)
--- NOTE | 2025-01-14 09:19 | PC.PHA ---
Vancomycin consult note: Indication for vancomycin: foot osteo/abscess Age: [84] Height: [170 cm] Weight: [72.3 kg] Most recent SCr: [0.7] Estimated CrCL: [41.5] Recommended dose and frequency: [loaded with 1.5 gm x 1, then 1 gm IV q12 hr to obtain a AUC/ARUN of just over 600] to obtain an estimated AUC/ARUN of 400-600 mcg*hr/m Additional comment: [aggressive dosing due to foot ulcer, had surgery to clean up toe/foot]
[2025-01-14] MEDS: PIPERACILLIN/TAZOBACTAM 3.375 GM in 0.9 % SODIUM CHLORIDE Mini-bag 100 ML IVPB ×2 (12:06→18:17)
[2025-01-14] MEDS: LACTATED RINGERS 500 ML 500 ML IV (12:07)
--- NOTE | 2025-01-14 13:03 | PM.IMPN1 ---
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 Status: Acute (3) Cellulitis of foot: Problem details: Associated with chronic wound infection, septic 2nd MTP, osteomyelitis of the 2nd metatarsal, abscess and cellulitis Status: Acute (4) Abscess of right foot: Status: Acute (5) Septic arthritis of foot: Status: Acute (6) Osteomyelitis of ankle or foot, right, acute: Status: Acute (7) Heart murmur: Problem details: Aortic stenosis Status: Acute (8) Osteoporosis: Problem details: 12/26 -2.7 hip Declined treatment due to headaches Status: Acute (9) Hyperlipidemia: Status: Acute (10) Peripheral neuropathy: Problem details: On moderately high dose of gabapentin. Restarted postoperatively Status: Acute (11) Diarrhea: Problem details: Probably associated with antibiotics. C diff negative. Imodium and monitor Status: Acute Plan Patient admitted to the hospital for management of right foot infection including osteomyelitis of the 2nd metatarsal, septic arthritis of the 2nd MTP joint status post amputation, abscess and cellulitis. Recent service cultures reviewed. Will treat with vancomycin and Zosyn pending surgical wound cultures. Likely will need Infectious Disease consult when cultures are available. Time Spent With Patient Total time spent: Total time spent today is 50 minutes in review of records, discussion with patient and other providers ongoing management of foot infection. 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 Patient has been following with podiatry and wound care for a large callous on the plantar aspect of her right foot that developed into a tunneled ulcer and ultimately became infected. A wound culture from 01/04/25 grew 3 organisms (klebsiella oxytoca, enterococcus gallinarum and staph pseudintermedius). She was treated with IV rocephin in clinic and then started on ciprofloxacin as the only antimicrobial that would cover all organisms based on sensitivities was fluoroquinolone. She has not seen any improvement and when she was at the wound clinic today they were concerned about a spreading infection with well-demarcated, warm, erythematous rash extending onto the dorsum of the right foot. The plantar wound was treated, packed and bandaged. She was directed to the ER for further assessment and likely admission with concern for potential underlying osteomyelitis. Patient denies any symptoms other than swelling and erythema of her foot. She has tried to only walk with pressure on her heel to offload. She denies fevers, chills, malaise, pain or fatigue. In the ER, there were no signs of sepsis. XR of the foot did not reveal any evidence of osteomyelitis. She is admitted for further cares. Following admission, foot MRI was obtained and concerning for septic arthritis with large fluid collection concerning for abscess of the second MTP and possible osteomyelitis of the 2nd MTP head. There is also concern for soft tissue necrosis lateral to this area under the 3rd and 4th ray. I spoke with Dr. Sims from podiatry who feels that emergent surgical management would be prudent and he will come to manage this evening. Dr. Sims took her to the OR where he performed a partial 2nd ray amputation and I&D with wide debridement of a deep space infection in the right foot. The wound was left open with a plan to go back and closed the wound in the next few days. 11/13/2025: Patient reports feeling fine today. She is having some diarrhea which she attributes to antibiotics, started before hospitalization, C diff test negative today Exam Narrative: Exam Narrative: She is alert appears in no distress. Breathing is unlabored. Lungs are clear to auscultation. Cardiovascular: S1, S2, regular rate and rhythm. 2/6 systolic ejection murmur. Abdomen is soft without tenderness. Bowel sounds are normal. Extremities without significant edema. Right foot is in a bulky bandage which is not removed today. Const: Vital Signs, click to edit/add: Vital Signs - 24 hr 01/13/25 13:43 01/13/25 14:49 01/13/25 15:27 Temperature 98.2 F Pulse Rate 77 Pulse Rate [Pulse Oximeter] 77 Respiratory Rate 20 29 H Blood Pressure Blood Pressure [Le ft Arm] 107/55 L Pulse Oximetry 93 93 Oxygen Delivery Me thod Room Air Room Air Oxygen Flow Rate 01/13/25 19:00 01/13/25 22:16 01/13/25 22:20 Temperature 98.4 F 99.3 F Pulse Rate 90 90 Pulse Rate [Pulse Oximeter] Respiratory Rate 20 16 16 Blood Pressure 116/61 82/50 L Blood Pressure [Le ft Arm] 109/52 L Pulse Oximetry 99 92 92 Oxygen Delivery Me thod Room Air Room Air Room Air Oxygen Flow Rate 01/13/25 22:25 01/13/25 22:30 01/13/25 22:35 Temperature 99.0 F Pulse Rate 92 87 86 Pulse Rate [Pulse Oximeter] Respiratory Rate 16 16 16 Blood Pressure 120/52 L 114/55 L 101/60 Blood Pressure [Le ft Arm] Pulse Oximetry 92 92 92 Oxygen Delivery Me thod Room Air Room Air Room Air Oxygen Flow Rate 01/13/25 22:40 01/13/25 22:45 01/13/25 22:45 Temperature 99.5 F 98.2 F Pulse Rate 84 86 81 Pulse Rate [Pulse Oximeter] Respiratory Rate 14 16 16 Blood Pressure 104/54 L 109/53 L 88/41 L Blood Pressure [Le ft Arm] Pulse Oximetry 92 93 93 Oxygen Delivery Me thod Room Air Room Air Room Air Oxygen Flow Rate 01/13/25 23:00 01/13/25 23:15 01/13/25 23:30 Temperature 98.2 F Pulse Rate 79 79 80 Pulse Rate [Pulse Oximeter] Respiratory Rate 16 16 16 Blood Pressure 90/38 L 93/31 L 99/57 L Blood Pressure [Le ft Arm] Pulse Oximetry 93 93 91 Oxygen Delivery Me thod Room Air Room Air Nasal Cannula Oxygen Flow Rate 1 01/13/25 23:40 01/13/25 23:45 01/14/25 00:00 Temperature 98.0 F 98.0 F Pulse Rate 79 79 71 Pulse Rate [Pulse Oximeter] Respiratory Rate 16 16 16 Blood Pressure 77/40 L 94/49 L 90/53 L Blood Pressure [Le ft Arm] Pulse Oximetry 93 91 92 Oxygen Delivery Me thod Nasal Cannula Nasal Cannula Nasal Cannula Oxygen Flow Rate 1 1 1 01/14/25 00:30 01/14/25 00:43 01/14/25 01:00 Temperature 98.0 F Pulse Rate 79 77 74 Pulse Rate [Pulse Oximeter] Respiratory Rate 16 16 Blood Pressure 101/52 L 90/47 L Blood Pressure [Le ft Arm] Pulse Oximetry 95 96 Oxygen Delivery Me thod Nasal Cannula Nasal Cannula Oxygen Flow Rate 1 1 01/14/25 02:09 01/14/25 03:00 01/14/25 04:00 Temperature Pulse Rate 69 66 63 Pulse Rate [Pulse Oximeter] Respiratory Rate 18 18 18 Blood Pressure 93/55 L 94/51 L 90/50 L Blood Pressure [Le ft Arm] Pulse Oximetry 93 91 93 Oxygen Delivery Me thod Room Air Room Air Room Air Oxygen Flow Rate 1 1 01/14/25 05:00 01/14/25 06:00 01/14/25 07:18 Temperature 97.9 F 97.9 F Pulse Rate 63 63 66 Pulse Rate [Pulse Oximeter] Respiratory Rate 18 18 Blood Pressure 90/48 L 97/64 Blood Pressure [Le ft Arm] Pulse Oximetry 91 94 Oxygen Delivery Me thod Room Air Room Air Oxygen Flow Rate 01/14/25 09:00 01/14/25 11:17 Temperature 97.4 F L 97.6 F Pulse Rate Pulse Rate [Pulse Oximeter] 67 60 Respiratory Rate 18 18 Blood Pressure Blood Pressure [Le ft Arm] 91/67 100/47 L Pulse Oximetry 95 91 Oxygen Delivery Me thod Room Air Room Air Oxygen Flow Rate Documenting provider has reviewed patient's vital signs: yes Labs Labs: Laboratory Results - last 24 hr 01/13/25 01/14/25 01/14/25 12:50 06:06 07:35 WBC 12.18 H 7.61 RBC 3.72 L 3.42 L Hgb 12.3 11.3 L Hct 37.2 34.6 MCV 100 101 H MCH 33 33 MCHC 33 33 RDW Coeff of Laurent 12.3 12.4 Plt Count 227 205 Neut % (Auto) 80.3 H 88.9 H Lymph % (Auto) 12.0 L 8.3 L [place] % (Auto) 6.9 2.4 Eos % (Auto) 0.4 0.0 Baso % (Auto) 0.2 0.0 Neut # (Auto) 9.80 H 6.80 Lymph # (Auto) 1.50 0.60 L [place] # (Auto) 0.80 0.20 Eos # (Auto) 0.00 0.00 Baso # (Auto) 0.00 0.00 Abs Immat Gran (auto) 0.00 0.03 Imm/Tot Granulo (auto) 0.2 0.4 Sodium 133 L Potassium 4.2 Chloride 95 L Carbon Dioxide 28 Anion Gap 10 BUN 16 Creatinine 0.7 Estimated Creat Clear 41.45 Estimated GFR 86 Glucose 94 Calcium 8.9 Total Bilirubin 0.7 AST 22 ALT 13 Alkaline Phosphatase 95 C-Reactive Protein 6.5 H Total Protein 6.4 Albumin 3.8 Procalcitonin 0.06 Stl C. diff Tox B Gene Negative Stl C. diff 027-NAP1-BI PRESUMPTIVE NEGATIVE
--- NOTE | 2025-01-14 13:22 | PC.NURSE ---
Shift Summary: Patient pleasant and cooperative. Up with SBA, walker and gait belt. Vitals stable, did have lower BP around 1100, updated and new orders placed, see MAR. Patient has been asymptomatic, denies dizziness/lightheadedness with ambulation. Encouraged to increase protein intake. Denies SOB, pain or nausea. Continues to have loose BM, updated, see new order in MAR.
[2025-01-14] MEDS: LOPERAMIDE HCL 2 MG CAPSULE PO ×3 (13:29→21:38)
--- NOTE | 2025-01-14 17:54 | W.PM.PODPN ---
Podiatry-PN: Subj Subjective Date Seen: 01/14/25 Interval history: Sheila Blackburn is a 84 year old female seen bedside today. Overall doing well. She has had no pain today. No current complaints. Exam Narrative: Exam Narrative: General: No distress Vascular: Palpable pedal pulses. Neuro: Insensate to light touch. Musculoskeletal: Absent 2nd toe. The hammertoe deformities lesser digits. Muscle strength 5/5 all quadrants. Derm: Continued erythema to the dorsal foot. Edema is improved. There is small amount of necrosis to the lateral skin flap. Central tissues within the wound show no areas of increased necrosis with the exception of the proximal dorsal aspect. This area was highly cauterized mass may simply be eschar. No active bleeding. No purulence. Intraoperative culture: Pending. Path 2nd metatarsal: Pending. 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 Overall wound is mostly healthy. No evidence of worsening infection. We will continue to follow and plan for revision and closure possibly Saturday or Saturday. Wound irrigated with VASHE wound solution. Wet-to-dry dressing with Wound solution applied to the foot in sterile fashion. Sterile dressing applied. Const: Vital Signs, click to edit/add: Vital Signs - 24 hr 01/13/25 19:00 01/13/25 22:16 01/13/25 22:20 Temperature 98.4 F 99.3 F Pulse Rate 90 90 Pulse Rate [Pulse Oximeter] Respiratory Rate 20 16 16 Blood Pressure 116/61 82/50 L Blood Pressure [Le ft Arm] 109/52 L Pulse Oximetry 99 92 92 Oxygen Delivery Me thod Room Air Room Air Room Air Oxygen Flow Rate 01/13/25 22:25 01/13/25 22:30 01/13/25 22:35 Temperature 99.0 F Pulse Rate 92 87 86 Pulse Rate [Pulse Oximeter] Respiratory Rate 16 16 16 Blood Pressure 120/52 L 114/55 L 101/60 Blood Pressure [Le ft Arm] Pulse Oximetry 92 92 92 Oxygen Delivery Me thod Room Air Room Air Room Air Oxygen Flow Rate 01/13/25 22:40 01/13/25 22:45 01/13/25 22:45 Temperature 99.5 F 98.2 F Pulse Rate 84 86 81 Pulse Rate [Pulse Oximeter] Respiratory Rate 14 16 16 Blood Pressure 104/54 L 109/53 L 88/41 L Blood Pressure [Le ft Arm] Pulse Oximetry 92 93 93 Oxygen Delivery Me thod Room Air Room Air Room Air Oxygen Flow Rate 01/13/25 23:00 01/13/25 23:15 01/13/25 23:30 Temperature 98.2 F Pulse Rate 79 79 80 Pulse Rate [Pulse Oximeter] Respiratory Rate 16 16 16 Blood Pressure 90/38 L 93/31 L 99/57 L Blood Pressure [Le ft Arm] Pulse Oximetry 93 93 91 Oxygen Delivery Me thod Room Air Room Air Nasal Cannula Oxygen Flow Rate 1 01/13/25 23:40 01/13/25 23:45 01/14/25 00:00 Temperature 98.0 F 98.0 F Pulse Rate 79 79 71 Pulse Rate [Pulse Oximeter] Respiratory Rate 16 16 16 Blood Pressure 77/40 L 94/49 L 90/53 L Blood Pressure [Le ft Arm] Pulse Oximetry 93 91 92 Oxygen Delivery Me thod Nasal Cannula Nasal Cannula Nasal Cannula Oxygen Flow Rate 1 1 1 01/14/25 00:30 01/14/25 00:43 01/14/25 01:00 Temperature 98.0 F Pulse Rate 79 77 74 Pulse Rate [Pulse Oximeter] Respiratory Rate 16 16 Blood Pressure 101/52 L 90/47 L Blood Pressure [Le ft Arm] Pulse Oximetry 95 96 Oxygen Delivery Me thod Nasal Cannula Nasal Cannula Oxygen Flow Rate 1 1 01/14/25 02:09 01/14/25 03:00 01/14/25 04:00 Temperature Pulse Rate 69 66 63 Pulse Rate [Pulse Oximeter] Respiratory Rate 18 18 18 Blood Pressure 93/55 L 94/51 L 90/50 L Blood Pressure [Le ft Arm] Pulse Oximetry 93 91 93 Oxygen Delivery Me thod Room Air Room Air Room Air Oxygen Flow Rate 1 1 01/14/25 05:00 01/14/25 06:00 01/14/25 07:18 Temperature 97.9 F 97.9 F Pulse Rate 63 63 66 Pulse Rate [Pulse Oximeter] Respiratory Rate 18 18 Blood Pressure 90/48 L 97/64 Blood Pressure [Le ft Arm] Pulse Oximetry 91 94 Oxygen Delivery Me thod Room Air Room Air Oxygen Flow Rate 01/14/25 09:00 01/14/25 11:17 01/14/25 14:23 Temperature 97.4 F L 97.6 F Pulse Rate Pulse Rate [Pulse Oximeter] 67 60 65 Respiratory Rate 18 18 Blood Pressure Blood Pressure [Le ft Arm] 91/67 100/47 L 99/57 L Pulse Oximetry 95 91 Oxygen Delivery Me thod Room Air Room Air Oxygen Flow Rate 01/14/25 15:00 01/14/25 15:48 01/14/25 16:44 Temperature 97.6 F Pulse Rate 65 Pulse Rate [Pulse Oximeter] 68 Respiratory Rate 16 Blood Pressure Blood Pressure [Le ft Arm] 97/49 L 109/61 Pulse Oximetry 98 Oxygen Delivery Me thod Room Air Oxygen Flow Rate Podiatry-PN: Obj Labs Labs: Laboratory Results - last 24 hr 01/14/25 01/14/25 06:06 07:35 WBC 7.61 RBC 3.42 L Hgb 11.3 L Hct 34.6 MCV 101 H MCH 33 MCHC 33 RDW Coeff of Laurent 12.4 Plt Count 205 Neut % (Auto) 88.9 H Lymph % (Auto) 8.3 L [place] % (Auto) 2.4 Eos % (Auto) 0.0 Baso % (Auto) 0.0 Neut # (Auto) 6.80 Lymph # (Auto) 0.60 L [place] # (Auto) 0.20 Eos # (Auto) 0.00 Baso # (Auto) 0.00 Abs Immat Gran (auto) 0.03 Imm/Tot Granulo (auto) 0.4 Stl C. diff Tox B Gene Negative Stl C. diff [id number]-NAP1-BI PRESUMPTIVE NEGATIVE
[2025-01-14] MEDS: GABAPENTIN 600 MG TABLET 1200 MG PO (18:27)
--- NOTE | 2025-01-14 18:48 | PC.NURSE ---
End of shift [id number]: Pt AxOx4, cooperative, pleasant. Pt visiting with a friend upon initial assessment. VSS on RA. Nutritional supplement given. Pt tolerating reg diet/fluids well. SBA W GB. Pt denies pain but requesting Gabapentin early due to taking it normally at home around 1730. PRN Imodium x1 given per Pt request for frequent stools. Continent of the bladder. Pt back to bed resting and watching television. Call light within reach.
[2025-01-14] MEDS: ACETAMINOPHEN 325 MG TABLET PO (21:36)
[2025-01-14] MEDS: PRAVASTATIN SODIUM 20 MG TABLET 10 MG PO (21:37)
[2025-01-14] MEDS: ENOXAPARIN 40 MG/0.4 ML INJ SUBCUT (21:41)
[2025-01-15] VITALS (7 sets, daily range): BP systolic 95–125; BP diastolic 49–93; PULSE 55–69; RESP 16–22; TEMP 36.4–36.8; O2SAT 95–100
[2025-01-15] MEDS: PIPERACILLIN/TAZOBACTAM 3.375 GM in 0.9 % SODIUM CHLORIDE Mini-bag 100 ML IVPB ×4 (00:07→18:12)
[2025-01-15] MEDS: MELATONIN 3 MG TABLET PO ×2 (00:09→20:24)
[2025-01-15] MEDS: LOPERAMIDE HCL 2 MG CAPSULE PO ×2 (04:49→18:17)
[2025-01-15] MEDS: ACETAMINOPHEN 325 MG TABLET PO (04:50)
[2025-01-15 06:41] LABS: Basophils Absolute Auto 0.03 K/uL (0.00-0.30); Basophils Percent Auto 0.4 % (0.0-3.0); Eosinophils Absolute Auto 0.11 K/uL (0.00-0.50); Eosinophils Percent Auto 1.6 % (0.0-7.0); Hemoglobin* 10.2 gm/dL (12.0-16.0); Immature Granulocytes Abs Auto 0.02 K/uL (0.00-0.30); Immature Granulocytes Pct Auto 0.3 %; Lymphocytes Absolute Auto 1.69 K/uL (0.90-2.90); Lymphocytes Percent Auto 24.9 % (20-44); Mean Corpuscular HGB Conc 32 gm/dL (32-36); Mean Corpuscular Hemoglobin 33 pg (26-34); Mean Corpuscular Volume 103 fL (80-100); Monocytes Percent Auto 5.6 % (0.0-11.0); Neutrophils Absolute Auto 4.55 K/uL (1.7-7.0); Neutrophils Percent Auto 67.2 % (42.0-72.0); Platelet Count* 200 K/uL (140-440); RDW Coefficient of Variation % 12.8 % (11.5-15.5); Red Blood Count 3.11 m/uL (4.00-5.20); White Blood Count* 6.78 K/uL (4.50-11.00)
[2025-01-15 06:48] LABS: Slide Review Reflex No
--- NOTE | 2025-01-15 08:20 | PC.NURSE ---
Shift note ([id number]): Patient pleasant, alert and oriented. Right heel touch weight bearing as tolerated. Transferred to bedside commode?and recliner with walker and stand by assist. PRN Tylenol given for pain rated 3/10. PRN Loperamide given for loose stools. No drainage noted to bandage on right foot.??
[2025-01-15] MEDS: ACETAMINOPHEN 500 MG TABLET 1000 MG PO (08:37)
[2025-01-15] MEDS: MULTIVITAMIN/MINERALS 1 TABLET 1 TAB PO (08:37)
[2025-01-15] MEDS: LACTOBACILLUS ACIDOPHILUS 1 TABLET 1 TAB PO ×3 (08:37→20:22)
[2025-01-15] MEDS: GABAPENTIN 600 MG TABLET PO (08:37)
[2025-01-15] MEDS: SODIUM CHLORIDE 0.9 % (FLUSH) 10 ML SYRINGE 5 ML IVF ×2 (10:08→20:23)
--- NOTE | 2025-01-15 12:56 | PM.IMPN1 ---
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 - Stemming from neuropathic ulcer. Initially treated with keflex. When not improving, treated with IV reocephin in clinic. Culture obtained 01/04/25 growing klebsiella oxytoca, enterococcus and staph pseudintermedius. Based on sensitivities, she was transitioned to fluoroquinolone (cipro) to cover all three organisms, but continued to worsen and was sent to ER with concern for developing cellulitis. MRI obtained 01/13 showing concern for abscess, septic arthritis of 2nd MTP and probable osteomyelitis of the 2nd MTP. Discussed with podiatry, Dr. Sims, who agrees to urgent surgical management with debridement this evening. ID has been consulted for assistance with antibiotic regiment - 01/04/25 wound cultures are as follows: Wound Culture* Final ML Organism 1 Klebsiella oxytoca Quantity of Growth Large amount Organism 2 Enterococcus gallinarum Quantity of Growth Moderate amount Organism 3 STAPH PSEUDINTERMEDIUS Quantity of Growth Large amount Kleb oxyto E gallinar STAPH PSEU ABDOULAYE RX ABDOULAYE RX ABDOULAYE RX --------- --- --------- --- --------- --- Ampicillin <=2 S <=2 S Ampicillin/Sulbactam <=2 S Cefazolin >=32 R Cefepime <=0.12 S Ceftazidime >=32 R Ceftriaxone 16 I Ciprofloxacin 0.5 S <=0.5 S <=0.5 S Clindamycin >=4 R Doxycycline 8 I 1 S Erythromycin >=8 R Gentamicin 4 S <=0.5 S Levofloxacin 1 S 1 S <=0.12 S Linezolid 2 S * Meropenem 1 S Nitrofurantoin 32 S * Oxacillin Abdoulaye >=4 R Rifampin 1 S Tetracycline 2 S Tigecycline <=0.12 S Trimethoprim/Sulfamethoxazole <=20 S Vancomycin 1 R <=0.5 S -Initially on IV ampicillin 2g Q6H now for Klebsiella and enterococcus, IV doxycycline for staph pseudointermedius resistant to clinda, erythromycin and oxacillin - Then switched to IV pip/tazo, vanco - 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 Sims - Wound cultures from 01/13/25 no growth - I spoke with Dr. Perez, ID from [facility] who recommends stopping Vancomycin, continuing pip/tazo through the weekend and likely transition back to cipro or possibly no need for antibiotics after closure Saturday since surgical treatment may be definitive. She suggested formal ID consult on Saturday after wound closure. I d/c'd Vanco. Status: Acute (3) Cellulitis of foot: Problem details: Associated with chronic wound infection, septic 2nd MTP, osteomyelitis of the 2nd metatarsal, abscess and cellulitis Status: Acute (4) Abscess of right foot: Status: Acute (5) Septic arthritis of foot: Status: Acute (6) Osteomyelitis of ankle or foot, right, acute: Status: Acute (7) Heart murmur: Problem details: Aortic stenosis Status: Chronic (8) Osteoporosis: Problem details: 12/26 -2.7 hip Declined treatment due to headaches Status: Chronic (9) Hyperlipidemia: Status: Chronic (10) Peripheral neuropathy: Problem details: On moderately high dose of gabapentin. Restarted postoperatively Status: Chronic (11) Diarrhea: Problem details: Probably associated with antibiotics. C diff negative. Imodium and monitor - 01/15/25 Some improvement. Starting probiotic today. Status: Acute Time Spent With Patient Total time spent: Today I spent 60 minute seeing the patient, reviewing [facility] and EPIC notes/diagnostics/labs, discussing the care plan with Infectious Disease and our care team that includes social work, PT/OT, pharmacy, RT, custodial and documenting my impressions and plan in the medical record. Subjective Time Seen by Provider: 10:00 Date Seen: 01/15/25 Interval history: Sheila is feeling okay. She notes some pain/sensitivity of her R foot if the sheets or blankets touch her bandages. She says she has been able to walk in [place] with a walker and has done so several times a day. She is hopeful that her wound will get closed Saturday. Exam Narrative: Exam Narrative: General: No acute distress. Awake, alert, oriented x3. No pallor. No jaundice. Oropharynx: Clear. Mucous membranes moist. Cardiovascular: Regular rate and rhythm. 2/6 systolic murmur loudest at RUSB. Respiratory: Clear to auscultation bilaterally. No wheezes or crackles. Abdomen: Bowel sounds present. Soft, nondistended, nontender. Extremities: No lower extremity edema. Bulky right foot bandage is clean, dry, and intact. Const: Vital Signs, click to edit/add: Vital Signs - 24 hr 01/14/25 14:23 01/14/25 15:00 01/14/25 15:48 Temperature 97.6 F Pulse Rate 65 Pulse Rate [Pulse Oximeter] 65 68 Respiratory Rate 16 Blood Pressure [Le ft Arm] 99/57 L 97/49 L Blood Pressure [Ri ght Arm'] Pulse Oximetry 98 Oxygen Delivery Me thod Room Air 01/14/25 16:44 01/14/25 19:00 01/14/25 23:00 Temperature 97.0 F L 98.3 F Pulse Rate Pulse Rate [Pulse Oximeter] 95 68 Respiratory Rate 18 18 Blood Pressure [Le ft Arm] 109/61 98/73 91/55 L Blood Pressure [Ri ght Arm'] Pulse Oximetry 68 L 95 Oxygen Delivery Me thod Room Air Room Air 01/14/25 23:00 01/15/25 02:48 01/15/25 07:44 Temperature 98.2 F 97.6 F Pulse Rate 60 Pulse Rate [Pulse Oximeter] 64 56 L Respiratory Rate 18 20 Blood Pressure [Le ft Arm] 95/49 L Blood Pressure [Ri ght Arm'] 116/57 L Pulse Oximetry 95 97 Oxygen Delivery Sd thod Room Air Room Air 01/15/25 07:44 01/15/25 10:12 01/15/25 11:41 Temperature 97.6 F Pulse Rate 67 Pulse Rate [Pulse Oximeter] 56 L 55 L Respiratory Rate 20 16 Blood Pressure [Le ft Arm] Blood Pressure [Ri ght Arm'] 114/93 H Pulse Oximetry 97 Oxygen Delivery Me thod Room Air Labs Labs: Laboratory Results - last 24 hr 01/15/25 06:05 WBC 6.78 RBC 3.11 L Hgb 10.2 L Hct 32.0 L MCV 103 H MCH 33 MCHC 32 RDW Coeff of Laurent 12.8 Plt Count 200 Neut % (Auto) 67.2 Lymph % (Auto) 24.9 [place] % (Auto) 5.6 Eos % (Auto) 1.6 Baso % (Auto) 0.4 Neut # (Auto) 4.55 Lymph # (Auto) 1.69 [place] # (Auto) 0.40 Eos # (Auto) 0.11 Baso # (Auto) 0.03 Abs Immat Gran (auto) 0.02 Imm/Tot Granulo (auto) 0.3
--- NOTE | 2025-01-15 14:10 | W.PM.PODPN ---
Podiatry-PN: Subj Subjective Date Seen: 01/15/25 Interval history: Sheila is feeling okay today. She is hopeful that her wound will get closed Saturday. Having some new pain since dressing change yesterday. Exam Narrative: Exam Narrative: General: No distress Vascular: Palpable pedal pulses. Neuro: Insensate to light touch. Musculoskeletal: Absent 2nd toe. The hammertoe deformities lesser digits. Muscle strength 5/5 all quadrants. Derm: Continued erythema to the dorsal foot but much improved. Edema is improved. There is small amount of necrosis to the lateral skin flap unchanged from yesterday. Central tissues within the wound show no areas of increased necrosis. No active bleeding. No purulence. Intraoperative culture: no growth to date. Path 2nd metatarsal: Pending. 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 Overall wound remains mostly healthy. No evidence of worsening infection. We will continue to follow and plan for revision and closure probably Saturday. Wound irrigated with sterile saline. Wet-to-dry dressing with VASHE Wound solution applied to the foot in sterile fashion. Sterile dressing applied. Const: Vital Signs, click to edit/add: Vital Signs - 24 hr 01/14/25 14:23 01/14/25 15:00 01/14/25 15:48 Temperature 97.6 F Pulse Rate 65 Pulse Rate [Pulse Oximeter] 65 68 Respiratory Rate 16 Blood Pressure [Le ft Arm] 99/57 L 97/49 L Blood Pressure [Ri ght Arm'] Pulse Oximetry 98 Oxygen Delivery Me thod Room Air 01/14/25 16:44 01/14/25 19:00 01/14/25 23:00 Temperature 97.0 F L 98.3 F Pulse Rate Pulse Rate [Pulse Oximeter] 95 68 Respiratory Rate 18 18 Blood Pressure [Le ft Arm] 109/61 98/73 91/55 L Blood Pressure [Ri ght Arm'] Pulse Oximetry 68 L 95 Oxygen Delivery Ia thod Room Air Room Air 01/14/25 23:00 01/15/25 02:48 01/15/25 07:44 Temperature 98.2 F 97.6 F Pulse Rate 60 Pulse Rate [Pulse Oximeter] 64 56 L Respiratory Rate 18 20 Blood Pressure [Le ft Arm] 95/49 L Blood Pressure [Ri ght Arm'] 116/57 L Pulse Oximetry 95 97 Oxygen Delivery Me thod Room Air Room Air 01/15/25 07:44 01/15/25 10:12 01/15/25 11:41 Temperature 97.6 F Pulse Rate 67 Pulse Rate [Pulse Oximeter] 56 L 55 L Respiratory Rate 20 16 Blood Pressure [Le ft Arm] Blood Pressure [Ri ght Arm'] 114/93 H Pulse Oximetry 97 Oxygen Delivery Me thod Room Air Podiatry-PN: Obj Labs Labs: Laboratory Results - last 24 hr 01/15/25 06:05 WBC 6.78 RBC 3.11 L Hgb 10.2 L Hct 32.0 L MCV 103 H MCH 33 MCHC 32 RDW Coeff of Laurent 12.8 Plt Count 200 Neut % (Auto) 67.2 Lymph % (Auto) 24.9 [place] % (Auto) 5.6 Eos % (Auto) 1.6 Baso % (Auto) 0.4 Neut # (Auto) 4.55 Lymph # (Auto) 1.69 [place] # (Auto) 0.40 Eos # (Auto) 0.11 Baso # (Auto) 0.03 Abs Immat Gran (auto) 0.02 Imm/Tot Granulo (auto) 0.3
[2025-01-15] MEDS: GABAPENTIN 600 MG TABLET 1200 MG PO (19:04)
--- NOTE | 2025-01-15 19:28 | PC.NURSE ---
End of Shift: Patient pleasant and cooperative. Patient vitally stable, lungs clear, BS WNL, IV SL and intact. Patient independent with walker using commode at bedside. Patient rates right foot pain at most 5/10, scheduled tylenol given. Immodium given for loose stools. Patient tolerating regular diet, urinating well, and has had multiple loose BMs. Steenblock changed wound today. Right foot dressing C/D/I.
[2025-01-15] MEDS: ENOXAPARIN 40 MG/0.4 ML INJ SUBCUT (20:22)
[2025-01-15] MEDS: PRAVASTATIN SODIUM 20 MG TABLET 10 MG PO (20:23)
[2025-01-16] VITALS (9 sets, daily range): BP systolic 105–134; BP diastolic 52–68; PULSE 63–73; RESP 18–22; TEMP 36.4–36.5; O2SAT 95–97
[2025-01-16] MEDS: PIPERACILLIN/TAZOBACTAM 3.375 GM in 0.9 % SODIUM CHLORIDE Mini-bag 100 ML IVPB ×5 (00:33→23:54)
[2025-01-16] MEDS: 0.9 % SODIUM CHLORIDE 250 ml IV ×2 (00:33→23:54)
[2025-01-16] MEDS: GABAPENTIN 600 MG TABLET PO (06:00)
[2025-01-16] MEDS: LOPERAMIDE HCL 2 MG CAPSULE PO ×2 (06:00→17:49)
[2025-01-16 07:04] LABS: Basophils Absolute Auto 0.03 K/uL (0.00-0.30); Basophils Percent Auto 0.4 % (0.0-3.0); Eosinophils Absolute Auto 0.31 K/uL (0.00-0.50); Eosinophils Percent Auto 4.4 % (0.0-7.0); Hematocrit 38.1 % (33.0-51.0); Hemoglobin* 12.2 gm/dL (12.0-16.0); Immature Granulocytes Abs Auto 0.02 K/uL (0.00-0.30); Immature Granulocytes Pct Auto 0.3 %; Lymphocytes Absolute Auto 2.21 K/uL (0.90-2.90); Lymphocytes Percent Auto 31.3 % (20-44); Mean Corpuscular HGB Conc 32 gm/dL (32-36); Mean Corpuscular Hemoglobin 32 pg (26-34); Mean Corpuscular Volume 101 fL (80-100); Monocytes Percent Auto 7.4 % (0.0-11.0); Neutrophils Absolute Auto 3.97 K/uL (1.7-7.0); Neutrophils Percent Auto 56.2 % (42.0-72.0); Platelet Count* 271 K/uL (140-440); RDW Coefficient of Variation % 12.6 % (11.5-15.5); Red Blood Count 3.76 m/uL (4.00-5.20); White Blood Count* 7.06 K/uL (4.50-11.00)
[2025-01-16 07:20] LABS: Slide Review Reflex No
--- NOTE | 2025-01-16 07:22 | PC.NURSE ---
End of shift [id number] -- Pt alert, oriented, cooperative. Up independently with walker in room and wt bearing through heel appropriately per MD order. Pt denied pain, SOB, n/v. Continent of bowel and bladder. Dressing on surgical foot CDI. Pt observed to sleep during shift, appears to be resting comfortably in bed at end of shift with call light within reach.
[2025-01-16] MEDS: LACTOBACILLUS ACIDOPHILUS 1 TABLET 1 TAB PO ×3 (07:47→17:49)
--- NOTE | 2025-01-16 08:28 | PM.IMPN1 ---
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 - Stemming from neuropathic ulcer. Initially treated with keflex. When not improving, treated with IV reocephin in clinic. Culture obtained 01/04/25 growing klebsiella oxytoca, enterococcus and staph pseudintermedius. Based on sensitivities, she was transitioned to fluoroquinolone (cipro) to cover all three organisms, but continued to worsen and was sent to ER with concern for developing cellulitis. MRI obtained 01/13 showing concern for abscess, septic arthritis of 2nd MTP and probable osteomyelitis of the 2nd MTP. Discussed with podiatry, Dr. Sims, who agrees to urgent surgical management with debridement this evening. ID has been consulted for assistance with antibiotic regiment - 01/04/25 wound cultures are as follows: Wound Culture* Final ML Organism 1 Klebsiella oxytoca Quantity of Growth Large amount Organism 2 Enterococcus gallinarum Quantity of Growth Moderate amount Organism 3 STAPH PSEUDINTERMEDIUS Quantity of Growth Large amount Kleb oxyto E gallinar STAPH PSEU ABDOULAYE RX ABDOULAYE RX ABDOULAYE RX --------- --- --------- --- --------- --- Ampicillin <=2 S <=2 S Ampicillin/Sulbactam <=2 S Cefazolin >=32 R Cefepime <=0.12 S Ceftazidime >=32 R Ceftriaxone 16 I Ciprofloxacin 0.5 S <=0.5 S <=0.5 S Clindamycin >=4 R Doxycycline 8 I 1 S Erythromycin >=8 R Gentamicin 4 S <=0.5 S Levofloxacin 1 S 1 S <=0.12 S Linezolid 2 S * Meropenem 1 S Nitrofurantoin 32 S * Oxacillin Abdoulaye >=4 R Rifampin 1 S Tetracycline 2 S Tigecycline <=0.12 S Trimethoprim/Sulfamethoxazole <=20 S Vancomycin 1 R <=0.5 S - Initially on IV ampicillin 2g Q6H now for Klebsiella and enterococcus, IV doxycycline for staph pseudointermedius resistant to clinda, erythromycin and oxacillin - Then switched to IV pip/tazo, vanco - 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 Sims - 01/15 Wound cultures from 01/13/25 no growth. I spoke with Dr. Perez, ID from [facility] who recommends stopping Vancomycin, continuing pip/tazo through the weekend and likely transition back to cipro or possibly no need for antibiotics after closure Saturday since surgical treatment may be definitive. She suggested formal ID consult on Saturday after wound closure. I d/c'd Vanco. - 01/16 Stable. WBC wnl, no fever. Continues to ambulate with walker and assistance. Planning wound closure Saturday. Status: Acute (3) Cellulitis of foot: Problem details: Associated with chronic wound infection, septic 2nd MTP, osteomyelitis of the 2nd metatarsal, abscess and cellulitis Status: Acute (4) Abscess of right foot: Status: Acute (5) Septic arthritis of foot: Status: Acute (6) Osteomyelitis of ankle or foot, right, acute: Status: Acute (7) Heart murmur: Problem details: Aortic stenosis, ECHO in a few months with possible TAVR Status: Chronic (8) Osteoporosis: Problem details: 12/26 -2.7 hip Declined treatment due to headaches Status: Chronic (9) Hyperlipidemia: Problem details: - continue pravastatin Status: Chronic (10) Peripheral neuropathy: Problem details: On moderately high dose of gabapentin. Restarted postoperatively Status: Chronic (11) Diarrhea: Problem details: Probably associated with antibiotics. C diff negative. Imodium and monitor - 01/15/25 Some improvement. Increased probiotics Status: Acute Subjective Time Seen by Provider: 08:05 Date Seen: 01/16/25 Exam Narrative: Exam Narrative: General: No acute distress. Awake, alert, oriented. No pallor. No jaundice. Oropharynx: Clear. Mucous membranes moist. Cardiovascular: Regular rate and rhythm. Systolic murmur unchanged. Respiratory: Clear to auscultation bilaterally. No wheezes or crackles. Abdomen: Bowel sounds present. Soft, nondistended, nontender. Extremities: No lower extremity edema. Bulky right foot bandage is clean, dry, and intact. Const: Vital Signs, click to edit/add: Vital Signs - 24 hr 01/15/25 10:12 01/15/25 11:41 01/15/25 15:56 Temperature 97.6 F 97.5 F L Pulse Rate 67 Pulse Rate [Pulse Oximeter] 55 L 58 L Respiratory Rate 16 22 Blood Pressure [Ri ght Arm'] 114/93 H 125/57 L Pulse Oximetry 97 100 Oxygen Delivery Me thod Room Air Room Air 01/15/25 15:56 01/15/25 16:07 01/15/25 19:00 Temperature 97.6 F Pulse Rate 58 L Pulse Rate [Pulse Oximeter] 58 L 69 Respiratory Rate 22 18 Blood Pressure [Ri ght Arm'] 123/65 Pulse Oximetry 95 Oxygen Delivery Me thod Room Air 01/16/25 01:26 01/16/25 03:27 01/16/25 06:39 Temperature 97.7 F 97.6 F Pulse Rate 63 Pulse Rate [Pulse Oximeter] 73 70 Respiratory Rate 18 18 Blood Pressure [Ri ght Arm'] 134/68 105/52 L Pulse Oximetry 96 95 Oxygen Delivery Me thod Room Air Room Air 01/16/25 07:36 01/16/25 07:43 01/16/25 07:43 Temperature 97.6 F Pulse Rate 69 Pulse Rate [Pulse Oximeter] 67 67 Respiratory Rate 22 22 Blood Pressure [Ri ght Arm'] 118/59 L Pulse Oximetry 95 Oxygen Delivery Me thod Room Air Labs Labs: Laboratory Results - last 24 hr 01/16/25 05:59 WBC 7.06 RBC 3.76 L Hgb 12.2 Hct 38.1 MCV 101 H MCH 32 MCHC 32 RDW Coeff of Laurent 12.6 Plt Count 271 Neut % (Auto) 56.2 Lymph % (Auto) 31.3 [place] % (Auto) 7.4 Eos % (Auto) 4.4 Baso % (Auto) 0.4 Neut # (Auto) 3.97 Lymph # (Auto) 2.21 [place] # (Auto) 0.50 Eos # (Auto) 0.31 Baso # (Auto) 0.03 Abs Immat Gran (auto) 0.02 Imm/Tot Granulo (auto) 0.3
[2025-01-16] MEDS: ACETAMINOPHEN 500 MG TABLET 1000 MG PO (09:16)
[2025-01-16] MEDS: MULTIVITAMIN/MINERALS 1 TABLET 1 TAB PO (09:16)
[2025-01-16] MEDS: SODIUM CHLORIDE 0.9 % (FLUSH) 10 ML SYRINGE 5 ML IVF ×2 (12:03→20:12)
--- NOTE | 2025-01-16 13:33 | W.PM.PODPN ---
Podiatry-PN: Subj Subjective Date Seen: 01/16/25 Interval history: Sheila is feeling okay today. She is in good spirits. no complaints. Exam Narrative: Exam Narrative: General: No distress Vascular: Palpable pedal pulses. Neuro: Insensate to light touch. Musculoskeletal: Absent 2nd toe. The hammertoe deformities lesser digits. Muscle strength 5/5 all quadrants. Derm: Continued erythema to the dorsal foot but continues to improve and nearly resolved. Edema is improved. There is small amount of necrosis to the lateral skin flap improved from yesterday. Central tissues within the wound show no areas of increased necrosis. No active bleeding. No purulence. Intraoperative culture: no growth after [address] 2nd metatarsal: Pending. 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 Overall wound remains mostly healthy. No evidence of worsening infection. We will continue to follow and plan for revision and closure Saturday. Wound irrigated with sterile saline. Wet-to-dry dressing with VASHE Wound solution applied to the foot in sterile fashion. Sterile dressing applied. Const: Vital Signs, click to edit/add: Vital Signs - 24 hr 01/15/25 15:56 01/15/25 15:56 01/15/25 16:07 Temperature 97.5 F L Pulse Rate 58 L Pulse Rate [Pulse Oximeter] 58 L 58 L Respiratory Rate 22 22 Blood Pressure [Ri ght Arm'] 125/57 L Pulse Oximetry 100 Oxygen Delivery Me thod Room Air 01/15/25 19:00 01/16/25 01:26 01/16/25 03:27 Temperature 97.6 F 97.7 F Pulse Rate 63 Pulse Rate [Pulse Oximeter] 69 73 Respiratory Rate 18 18 Blood Pressure [Ri ght Arm'] 123/65 134/68 Pulse Oximetry 95 96 Oxygen Delivery Me thod Room Air Room Air 01/16/25 06:39 01/16/25 07:36 01/16/25 07:43 Temperature 97.6 F 97.6 F Pulse Rate 69 Pulse Rate [Pulse Oximeter] 70 67 Respiratory Rate 18 22 Blood Pressure [Ri ght Arm'] 105/52 L 118/59 L Pulse Oximetry 95 95 Oxygen Delivery Me thod Room Air Room Air 01/16/25 07:43 01/16/25 11:05 Temperature 97.6 F Pulse Rate Pulse Rate [Pulse Oximeter] 67 65 Respiratory Rate 22 20 Blood Pressure [Ri ght Arm'] 120/58 L Pulse Oximetry 97 Oxygen Delivery Me thod Room Air Documenting provider has reviewed patient's vital signs: yes Podiatry-PN: Obj Labs Labs: Laboratory Results - last 24 hr 01/16/25 05:59 WBC 7.06 RBC 3.76 L Hgb 12.2 Hct 38.1 MCV 101 H MCH 32 MCHC 32 RDW Coeff of Laurent 12.6 Plt Count 271 Neut % (Auto) 56.2 Lymph % (Auto) 31.3 [place] % (Auto) 7.4 Eos % (Auto) 4.4 Baso % (Auto) 0.4 Neut # (Auto) 3.97 Lymph # (Auto) 2.21 [place] # (Auto) 0.50 Eos # (Auto) 0.31 Baso # (Auto) 0.03 Abs Immat Gran (auto) 0.02 Imm/Tot Granulo (auto) 0.3
[2025-01-16] MEDS: GABAPENTIN 600 MG TABLET 1200 MG PO (19:06)
--- NOTE | 2025-01-16 19:50 | PC.NURSE ---
End of Shift: Patient pleasant and cooperative. Patient vitally stable, lungs clear, BS WNL, IV SL and intact. Patient independent in room with walker, patient denies pain, but requested pain medication at end of shift, tylenol given. Patient tolerating regular diet, urinating well, with multiple loose stool, loperamide given. Right foot wound dressing changed with Steenblock, foot redness has decreased significantly.
[2025-01-16] MEDS: ENOXAPARIN 40 MG/0.4 ML INJ SUBCUT (20:09)
[2025-01-16] MEDS: MELATONIN 3 MG TABLET PO (20:09)
[2025-01-16] MEDS: PRAVASTATIN SODIUM 20 MG TABLET 10 MG PO (20:11)
[2025-01-16] MEDS: CELECOXIB 100 MG CAPSULE PO (23:55)
[2025-01-16] MEDS: ACETAMINOPHEN 325 MG TABLET PO (23:55)
[2025-01-17] VITALS (10 sets, daily range): BP systolic 102–164; BP diastolic 58–79; PULSE 53–78; RESP 16–20; TEMP 36.5–36.8; O2SAT 94–99
[2025-01-17] MEDS: PIPERACILLIN/TAZOBACTAM 3.375 GM in 0.9 % SODIUM CHLORIDE Mini-bag 100 ML IVPB ×4 (05:06→23:42)
[2025-01-17 06:36] LABS: Basophils Absolute Auto 0.02 K/uL (0.00-0.30); Basophils Percent Auto 0.4 % (0.0-3.0); Eosinophils Absolute Auto 0.36 K/uL (0.00-0.50); Eosinophils Percent Auto 6.5 % (0.0-7.0); Hematocrit 34.7 % (33.0-51.0); Hemoglobin* 11.2 gm/dL (12.0-16.0); Immature Granulocytes Abs Auto 0.03 K/uL (0.00-0.30); Immature Granulocytes Pct Auto 0.5 %; Lymphocytes Absolute Auto 1.63 K/uL (0.90-2.90); Lymphocytes Percent Auto 29.3 % (20-44); Mean Corpuscular HGB Conc 32 gm/dL (32-36); Mean Corpuscular Hemoglobin 33 pg (26-34); Mean Corpuscular Volume 102 fL (80-100); Monocytes Percent Auto 7.7 % (0.0-11.0); Neutrophils Absolute Auto 3.09 K/uL (1.7-7.0); Neutrophils Percent Auto 55.6 % (42.0-72.0); Platelet Count* 222 K/uL (140-440); RDW Coefficient of Variation % 12.7 % (11.5-15.5); Red Blood Count 3.41 m/uL (4.00-5.20); White Blood Count* 5.56 K/uL (4.50-11.00)
[2025-01-17 07:08] LABS: Slide Review Reflex No
--- NOTE | 2025-01-17 07:30 | PC.NURSE ---
End of shift [id number] - Pt alert, oriented, cooperative. Up independently in room with walker and effectively uses heel to bear wt on surgical foot. Pt tolerating RA and regular diet/fluids. Pt reported R foot discomfort related to dressing tightness. RN provided education regarding elevating the operative extremity. Pt verbalized understanding and reported increased comfort. Pt later reported a feeling of cramping and biting in her surgical foot. Described pain in the area of her amputated toe. RN provided medication per MAR and repositioned pt to improve comfort. Pt verbalized improvement and was observed to sleep. Appears to be resting comfortably in bed at end of shift with call light within reach.
[2025-01-17] MEDS: LOPERAMIDE HCL 2 MG CAPSULE PO ×2 (07:33→20:35)
[2025-01-17] MEDS: LACTOBACILLUS ACIDOPHILUS 1 TABLET 1 TAB PO ×3 (07:33→17:48)
[2025-01-17] MEDS: ACETAMINOPHEN 500 MG TABLET 1000 MG PO (08:55)
[2025-01-17] MEDS: MULTIVITAMIN/MINERALS 1 TABLET 1 TAB PO (08:56)
[2025-01-17] MEDS: GABAPENTIN 600 MG TABLET PO (08:56)
[2025-01-17] MEDS: SODIUM CHLORIDE 0.9 % (FLUSH) 10 ML SYRINGE 5 ML IVF ×3 (11:42→20:40)
[2025-01-17] MEDS: ACETAMINOPHEN 325 MG TABLET PO (16:25)
--- NOTE | 2025-01-17 16:51 | PM.IMPN1 ---
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 - Stemming from neuropathic ulcer. Initially treated with keflex. When not improving, treated with IV reocephin in clinic. Culture obtained 01/04/25 growing klebsiella oxytoca, enterococcus and staph pseudintermedius. Based on sensitivities, she was transitioned to fluoroquinolone (cipro) to cover all three organisms, but continued to worsen and was sent to ER with concern for developing cellulitis. MRI obtained 01/13 showing concern for abscess, septic arthritis of 2nd MTP and probable osteomyelitis of the 2nd MTP. Discussed with podiatry, Dr. Sims, who agrees to urgent surgical management with debridement this evening. ID has been consulted for assistance with antibiotic regiment - 01/04/25 wound cultures are as follows: Wound Culture* Final ML Organism 1 Klebsiella oxytoca Quantity of Growth Large amount Organism 2 Enterococcus gallinarum Quantity of Growth Moderate amount Organism 3 STAPH PSEUDINTERMEDIUS Quantity of Growth Large amount Kleb oxyto E gallinar STAPH PSEU ABDOULYAE RX ABDOULAYE RX ABDOULAYE RX --------- --- --------- --- --------- --- Ampicillin <=2 S <=2 S Ampicillin/Sulbactam <=2 S Cefazolin >=32 R Cefepime <=0.12 S Ceftazidime >=32 R Ceftriaxone 16 I Ciprofloxacin 0.5 S <=0.5 S <=0.5 S Clindamycin >=4 R Doxycycline 8 I 1 S Erythromycin >=8 R Gentamicin 4 S <=0.5 S Levofloxacin 1 S 1 S <=0.12 S Linezolid 2 S * Meropenem 1 S Nitrofurantoin 32 S * Oxacillin Abdoulaye >=4 R Rifampin 1 S Tetracycline 2 S Tigecycline <=0.12 S Trimethoprim/Sulfamethoxazole <=20 S Vancomycin 1 R <=0.5 S - Initially on IV ampicillin 2g Q6H now for Klebsiella and enterococcus, IV doxycycline for staph pseudointermedius resistant to clinda, erythromycin and oxacillin - Then switched to IV pip/tazo, vanco - 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 Sims - 01/15 Wound cultures from 01/13/25 no growth. I spoke with Dr. Perez, ID from [facility] who recommends stopping Vancomycin, continuing pip/tazo through the weekend and likely transition back to cipro or possibly no need for antibiotics after closure Saturday since surgical treatment may be definitive. She suggested formal ID consult on Saturday after wound closure. I d/c'd Vanco. - 01/16 Stable. WBC wnl, no fever. Continues to ambulate with walker and assistance. Planning wound closure Saturday. - 01/17 on schedule for wound closure tomorrow. Will make NPO after midnight and hold prophylactic enoxaparin. Status: Acute (3) Cellulitis of foot: Problem details: Associated with chronic wound infection, septic 2nd MTP, osteomyelitis of the 2nd metatarsal, abscess and cellulitis Status: Acute (4) Abscess of right foot: Status: Acute (5) Septic arthritis of foot: Status: Acute (6) Osteomyelitis of ankle or foot, right, acute: Status: Acute (7) Heart murmur: Problem details: Aortic stenosis, ECHO in a few months with possible TAVR Status: Chronic (8) Osteoporosis: Problem details: 12/26 -2.7 hip Declined treatment due to headaches Status: Chronic (9) Hyperlipidemia: Problem details: - continue pravastatin Status: Chronic (10) Peripheral neuropathy: Problem details: On moderately high dose of gabapentin. Restarted postoperatively Status: Chronic (11) Diarrhea: Problem details: Probably associated with antibiotics. C diff negative. Imodium and monitor - 01/15/25 Some improvement. Increased probiotics Status: Acute Subjective Time Seen by Provider: 07:52 Date Seen: 01/17/25 Interval history: Sheila is doing well. She has no concerns or complaints. Discussed with Dr. Sims who is planning surgery for wound closure tomorrow. Exam Narrative: Exam Narrative: General: No acute distress. Awake, alert, oriented. No pallor. No jaundice. Cardiovascular: Regular rate and rhythm. Systolic murmur unchanged. Respiratory: Clear to auscultation bilaterally. No wheezes or crackles. Extremities: No lower extremity edema. Bulky right foot bandage is clean, dry, and intact. Const: Vital Signs, click to edit/add: Vital Signs - 24 hr 01/16/25 22:35 01/17/25 01:16 01/17/25 01:17 Temperature 97.7 F 97.8 F Pulse Rate 64 Pulse Rate [Pulse Oximeter] 68 66 Respiratory Rate 18 16 Blood Pressure [Ri ght Arm'] 125/62 127/71 Pulse Oximetry 97 94 Oxygen Delivery Me thod Room Air Room Air 01/17/25 06:20 01/17/25 07:21 01/17/25 07:27 Temperature 97.7 F Pulse Rate 53 L Pulse Rate [Pulse Oximeter] 64 68 Respiratory Rate 16 16 Blood Pressure [Ri ght Arm'] 126/64 143/75 H Pulse Oximetry 95 97 Oxygen Delivery Me thod Room Air Room Air 01/17/25 07:27 01/17/25 11:10 01/17/25 16:01 Temperature 97.7 F 97.7 F Pulse Rate Pulse Rate [Pulse Oximeter] 68 62 78 Respiratory Rate 16 18 20 Blood Pressure [Ri ght Arm'] 129/62 164/79 H Pulse Oximetry 99 99 Oxygen Delivery Me thod Room Air Room Air 01/17/25 16:01 01/17/25 16:33 Temperature Pulse Rate 76 Pulse Rate [Pulse Oximeter] 78 Respiratory Rate 20 Blood Pressure [Ri ght Arm'] Pulse Oximetry Oxygen Delivery Me thod Labs Labs: Laboratory Results - last 24 hr 01/17/25 06:02 WBC 5.56 RBC 3.41 L Hgb 11.2 L Hct 34.7 MCV 102 H MCH 33 MCHC 32 RDW Coeff of Laurent 12.7 Plt Count 222 Neut % (Auto) 55.6 Lymph % (Auto) 29.3 [place] % (Auto) 7.7 Eos % (Auto) 6.5 Baso % (Auto) 0.4 Neut # (Auto) 3.09 Lymph # (Auto) 1.63 [place] # (Auto) 0.40 Eos # (Auto) 0.36 Baso # (Auto) 0.02 Abs Immat Gran (auto) 0.03 Imm/Tot Granulo (auto) 0.5
--- NOTE | 2025-01-17 17:34 | PC.NURSE ---
End of Shift: Patient pleasant and cooperative. Patient vitally stable, lungs clear, BS WNL, IV SL and intact. Patient denies pain, requested tylenol once to stay ahead of discomfort. Patient independent in room. Patient tolerating regular diet, urinating well, and continues to have small loose stools. Loperamide given once. Wound dressing changed by RN. Tele=NSR.
[2025-01-17] MEDS: CELECOXIB 100 MG CAPSULE PO ×2 (18:58→23:41)
[2025-01-17] MEDS: GABAPENTIN 600 MG TABLET 1200 MG PO (18:59)
[2025-01-17] MEDS: PRAVASTATIN SODIUM 20 MG TABLET 10 MG PO (20:36)
[2025-01-17] MEDS: MELATONIN 3 MG TABLET PO (20:39)
[2025-01-17] MEDS: 0.9 % SODIUM CHLORIDE 250 ml IV (23:41)
[2025-01-18] VITALS (14 sets, daily range): BP systolic 113–135; BP diastolic 53–77; PULSE 62–81; RESP 14–20; TEMP 36.4–36.8; O2SAT 94–98
[2025-01-18] MEDS: PIPERACILLIN/TAZOBACTAM 3.375 GM in 0.9 % SODIUM CHLORIDE Mini-bag 100 ML IVPB ×2 (06:06→11:32)
[2025-01-18 06:45] LABS: Basophils Absolute Auto 0.03 K/uL (0.00-0.30); Basophils Percent Auto 0.6 % (0.0-3.0); Eosinophils Absolute Auto 0.33 K/uL (0.00-0.50); Eosinophils Percent Auto 6.2 % (0.0-7.0); Hematocrit 35.5 % (33.0-51.0); Hemoglobin* 11.4 gm/dL (12.0-16.0); Immature Granulocytes Abs Auto 0.03 K/uL (0.00-0.30); Immature Granulocytes Pct Auto 0.6 %; Lymphocytes Absolute Auto 1.53 K/uL (0.90-2.90); Lymphocytes Percent Auto 28.7 % (20-44); Mean Corpuscular HGB Conc 32 gm/dL (32-36); Mean Corpuscular Hemoglobin 33 pg (26-34); Mean Corpuscular Volume 101 fL (80-100); Monocytes Percent Auto 6.4 % (0.0-11.0); Neutrophils Absolute Auto 3.08 K/uL (1.7-7.0); Neutrophils Percent Auto 57.5 % (42.0-72.0); Platelet Count* 235 K/uL (140-440); RDW Coefficient of Variation % 12.4 % (11.5-15.5); Red Blood Count 3.51 m/uL (4.00-5.20); White Blood Count* 5.34 K/uL (4.50-11.00)
[2025-01-18 06:52] LABS: Slide Review Reflex No
--- NOTE | 2025-01-18 07:56 | PC.NURSE ---
End of shift [id number] ? Pt alert, oriented, cooperative. Up independently in room with walker and effectively bears wt on heel of surgical foot. Denies pain, SOB, n/v. Afebrile and VSS during shift. Observed to sleep, appears to be resting comfortably in bed at end of shift with call light within reach.
[2025-01-18] MEDS: ACETAMINOPHEN 500 MG TABLET 1000 MG PO (08:28)
[2025-01-18] MEDS: LACTOBACILLUS ACIDOPHILUS 1 TABLET 1 TAB PO ×3 (08:28→18:02)
[2025-01-18] MEDS: GABAPENTIN 600 MG TABLET PO (08:28)
[2025-01-18] MEDS: MULTIVITAMIN/MINERALS 1 TABLET 1 TAB PO (08:28)
[2025-01-18] MEDS: SODIUM CHLORIDE 0.9 % (FLUSH) 10 ML SYRINGE 5 ML IVF ×2 (08:29→21:21)
--- NOTE | 2025-01-18 10:32 | P.IMPN_ITS ---
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 - Stemming from neuropathic ulcer. Initially treated with keflex. When not improving, treated with IV reocephin in clinic. Culture obtained 01/04/25 growing klebsiella oxytoca, enterococcus and staph pseudintermedius. Based on sensitivities, she was transitioned to fluoroquinolone (cipro) to cover all three organisms, but continued to worsen and was sent to ER with concern for developing cellulitis. MRI obtained 01/13 showing concern for abscess, septic arthritis of 2nd MTP and probable osteomyelitis of the 2nd MTP. Discussed with p odiatrarnel, Dr. Sims, who agrees to urgent surgical management with debridement this evening. ID has been consulted for assistance with antibiotic regiment - 01/04/25 wound cultures are as follows: Wound Culture* Final ML Organism 1 Klebsiella oxytoca Quantity of Growth Large amount Organism 2 Enterococcus gallinarum Quantity of Growth Moderate amount Organism 3 STAPH PSEUDINTERMEDIUS Quantity of Growth Large amount Kleb oxyto E gallinar STAPH PSEU ABDOULAYE RX ABDOULAYE RX ABDOULAYE RX --------- --- --------- --- --------- --- Ampicillin <=2 S <=2 S Ampicillin/Sulbactam <=2 S Cefazolin >=32 R Cefepime <=0.12 S Ceftazidime >=32 R Ceftriaxone 16 I Ciprofloxacin 0.5 S <=0.5 S <=0.5 S Clindamycin >=4 R Doxycycline 8 I 1 S Erythromycin >=8 R Gentamicin 4 S <=0.5 S Levofloxacin 1 S 1 S <=0.12 S Linezolid 2 S * Meropenem 1 S Nitrofurantoin 32 S * Oxacillin Abdoulaye >=4 R Rifampin 1 S Tetracycline 2 S Tigecycline <=0.12 S Trimethoprim/Sulfamethoxazole <=20 S Vancomycin 1 R <=0.5 S - Initially on IV ampicillin 2g Q6H now for Klebsiella and enterococcus, IV doxycycline for staph pseudointermedius resistant to clinda, erythromycin and oxacillin - Then switched to IV pip/tazo, vanco - 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 Sims - 01/15 Wound cultures from 01/13/25 no growth. I spoke with Dr. Perez, ID from [facility] who recommends stopping Vancomycin, continuing pip/tazo through the weekend and likely transition back to cipro or possibly no need for antibiotics after closure Saturday since surgical treatment may be definitive. She suggested formal ID consult on Saturday after wound closure. I d/c'd Vanco. - 01/16 Stable. WBC wnl, no fever. Continues to ambulate with walker and assistance. Planning wound closure Saturday. - 01/17 on schedule for wound closure tomorrow. Will make NPO after midnight and hold prophylactic enoxaparin. - 01/18 wound closed, tissues reported to look good. Consult infectious disease to confirm twice of antibiotic and duration. - id said to switch to Cipro if there is still evidence of cellulitis. Dr. Sims's preference would be to do antibiotic treatment for 7 days until she is seen in clinic. Status: Acute (3) Cellulitis of foot: Problem details: Associated with chronic wound infection, septic 2nd MTP, osteomyelitis of the 2nd metatarsal, abscess and cellulitis Status: Acute (4) Abscess of right foot: Status: Acute (5) Septic arthritis of foot: Status: Acute (6) Osteomyelitis of ankle or foot, right, acute: Status: Acute (7) Heart murmur: Problem details: Aortic stenosis, ECHO in a few months with possible TAVR Status: Chronic (8) Osteoporosis: Problem details: 12/26 -2.7 hip Declined treatment due to headaches Status: Chronic (9) Hyperlipidemia: Problem details: - continue pravastatin Status: Chronic (10) Peripheral neuropathy: Problem details: On moderately high dose of gabapentin. Restarted postoperatively Status: Chronic (11) Diarrhea: Problem details: Probably associated with antibiotics. C diff negative. Imodium and monitor - 01/15/25 Some improvement. Increased probiotics Status: Acute Subjective Time Seen by Provider: 08:22 Date Seen: 01/18/25 Interval history: Sheila feels well. No complaints. Dr. Sims noted that the surgery for wound closure went well and the tissue s look very good at this point. He would like to see her in clinic in 1 week. Exam Narrative: Exam Narrative: General: No acute distress. Awake, alert, oriented. No pallor. No jaundice. Cardiovascular: Regular rate and rhythm. Systolic murmur unchanged. Respiratory: Clear to auscultation bilaterally. No wheezes or crackles. Extremities: No lower extremity edema. Bulky right foot bandage is clean, dry, and intact. Const: Vital Signs, click to edit/add: Vital Signs - 24 hr 01/17/25 11:10 01/17/25 16:01 01/17/25 16:01 Temperature 97.7 F 97.7 F Pulse Rate Pulse Rate [Pulse Oximeter] 62 78 78 Respiratory Rate 18 20 20 Blood Pressure [Ri ght Arm'] 129/62 164/79 H Pulse Oximetry 99 99 Oxygen Delivery Me thod Room Air Room Air 01/17/25 16:33 01/17/25 21:19 01/17/25 23:38 Temperature 97.7 F 98.2 F Pulse Rate 76 Pulse Rate [Pulse Oximeter] 70 66 Respiratory Rate 16 20 Blood Pressure [Ri ght Arm'] 102/58 L 116/58 L Pulse Oximetry 95 98 Oxygen Delivery Me thod Room Air Room Air 01/18/25 01:08 01/18/25 03:00 01/18/25 07:00 Temperature 97.6 F Pulse Rate 63 81 Pulse Rate [Pulse Oximeter] 65 Respiratory Rate 18 Blood Pressure [Ri ght Arm'] 120/53 L Pulse Oximetry 94 Oxygen Delivery Me thod Room Air 01/18/25 07:41 Temperature 97.6 F Pulse Rate Pulse Rate [Pulse Oximeter] 62 Respiratory Rate 18 Blood Pressure [Ri ght Arm'] 130/59 L Pulse Oximetry 98 Oxygen Delivery Me thod Room Air Labs Labs: Laboratory Results - last 24 hr 01/18/25 06:21 WBC 5.34 RBC 3.51 L Hgb 11.4 L Hct 35.5 MCV 101 H MCH 33 MCHC 32 RDW Coeff of Laurent 12.4 Plt Count 235 Neut % (Auto) 57.5 Lymph % (Auto) 28.7 [place] % (Auto) 6.4 Eos % (Auto) 6.2 Baso % (Auto) 0.6 Neut # (Auto) 3.08 Lymph # (Auto) 1.53 [place] # (Auto) 0.30 Eos # (Auto) 0.33 Baso # (Auto) 0.03 Abs Immat Gran (auto) 0.03 Imm/Tot Granulo (auto) 0.6
[2025-01-18] MEDS: BUPIVACAINE 0.25% 30 ML INJECTION (12:10)
--- NOTE | 2025-01-18 12:40 | PC.SOCIAL ---
Discharge planning: soda worker met with pt today in her room. Pt has surgey again this afternoon on her foot. Pt states that she plans to go home after the hospital and feels that she will be able to manage. Pt has two dogs that she walks often, but states that her son is taking care of them right now and will be taking care of them for awhile after she comes home from the hospital. soda worker plans to check back in with the pt tomorrow morning. Social work to follow-up as needed.
--- NOTE | 2025-01-18 13:07 | P.ANES_ITS ---
Anesthesia Charges Start Date/Time Anesthesia Start Date: 01/18/25 Anesthesia Start Time: 11:52 Stop Date/Time Anesthesia Stop Date: 01/18/25 Anesthesia Stop Time: 13:02 Summary Extremes of Age - Over 70 or under 1: CAFETERIA SERVER Coding CPT Codes CPT Codes: ANESTH LOWER LEG BONE SURG - 88542 ([id number]) P3 - PATIENT W/SEVERE SYS DISEASE, QK - CHECKOUT SUPERVISOR 2-4 CNCRNT ANES PROC, QX - CAFETERIA SERVER SVC W/ MD MED DIRECTION Additional Codes: Summary - Extremes of Age - Over 70 or under 1: CAFETERIA SERVER ([id number]) Summary - Emergency: ([id number])
--- NOTE | 2025-01-18 13:07 | W.ANESCHARGE ---
Anesthesia Charges Start Date/Time Anesthesia Start Date: 01/18/25 Anesthesia Start Time: 11:52 Stop Date/Time Anesthesia Stop Date: 01/18/25 Anesthesia Stop Time: 13:02 Summary Extremes of Age - Over 70 or under 1: ASSISTANT PROFESSOR OF CRIMINAL JUSTICE Coding CPT Codes CPT Codes: ANESTH LOWER LEG BONE SURG - 47591 ([id number]) P3 - PATIENT W/SEVERE SYS DISEASE, QK - MILK HANDLER 2-4 CNCRNT ANES PROC, QX - ASSISTANT PROFESSOR OF CRIMINAL JUSTICE SVC W/ MD MED DIRECTION Additional Codes: Summary - Extremes of Age - Over 70 or under 1: ASSISTANT PROFESSOR OF CRIMINAL JUSTICE ([id number]) Summary - Emergency: ([id number])
--- NOTE | 2025-01-18 13:12 | P.ANES_ITS ---
Anesthesia Charges Start Date/Time Anesthesia Start Date: 01/18/25 Anesthesia Start Time: 11:52 Stop Date/Time Anesthesia Stop Date: 01/18/25 Anesthesia Stop Time: 13:02 Summary Extremes of Age - Over 70 or under 1: MDA Coding CPT Codes CPT Codes: ANESTH LOWER LEG BONE SURG - 50982 ([id number]) P3 - PATIENT W/SEVERE SYS DISEASE, QK - STREAM CONTROL OFFICER 2-4 CNCRNT ANES PROC, QX - CLOTHES DRIER ASSEMBLER SVC W/ MD MED DIRECTION Additional Codes: Summary - Extremes of Age - Over 70 or under 1: MDA ([id number])
--- NOTE | 2025-01-18 13:12 | W.ANESCHARGE ---
Anesthesia Charges Start Date/Time Anesthesia Start Date: 01/18/25 Anesthesia Start Time: 11:52 Stop Date/Time Anesthesia Stop Date: 01/18/25 Anesthesia Stop Time: 13:02 Summary Extremes of Age - Over 70 or under 1: MDA Coding CPT Codes CPT Codes: ANESTH LOWER LEG BONE SURG - 13966 ([id number]) P3 - PATIENT W/SEVERE SYS DISEASE, QK - ROD BUSTER 2-4 CNCRNT ANES PROC, QX - LEVERMAN SVC W/ MD MED DIRECTION Additional Codes: Summary - Extremes of Age - Over 70 or under 1: MDA ([id number])
--- NOTE | 2025-01-18 13:40 | W.PM.PODPROC ---
Date of Procedure: 01/18/25 Surgeon: Jericho Sims DPM Pre-op Diagnosis: Open surgical wound following I and D with osteomyelitis right foot Post-op Diagnosis: Open surgical wound following I and D osteomyelitis right foot Type of Procedure: 1. Repeat I and D right foot 2. Secondary closure of surgical wound Indications: Patient underwent extensive I and D with partial 2nd ray resection 5 days ago. Infection has resolved and she is ready for secondary delayed closure. I reviewed the procedure, recovery, expectation potential complications. All questions answered. Potential further surgery may be necessary. Wound healing may be difficult. She was understanding and written consent was obtained. Procedure Description: Patient brought the operating room placed supine position on the operating table to time IV sedation was initiated local anesthetic injected into the right foot. She was prepped and draped in a sterile fashion. Standard time-out protocol followed. Right foot was exsanguinated the tourniquet inflated. Wound was thoroughly irrigated with normal sterile saline. The surgical wound was then debrided with a Versajet device. This allowed us to freshen all edges as well as debrided any soft tissue within the wound that appeared unhealthy. Once all healthy margins were obtained. Wound was then closed completely with 3-0 nylon. Sequence of retention sutures and simple sutures used. We were able to close the wound in its entirety. Sterile dressing was applied. Tourniquet was released and normal capillary fill time returned all digits. Plan for probable discharge home tomorrow. Anesthesia: MAC and local Hemostasis: ankle Estimated blood loss (mL): 2 Specimens: none sent Disposition: floor
[2025-01-18] MEDS: LOPERAMIDE HCL 2 MG CAPSULE PO ×2 (16:53→21:21)
[2025-01-18] MEDS: GABAPENTIN 600 MG TABLET 1200 MG PO (18:51)
--- NOTE | 2025-01-18 18:55 | PC.NURSE ---
Pt alert and oriented. Pt up independently in room. Pt had no complaints of pain. Pt brought down to surgery late morning and brought back to the floor around 1300-Pt recovered per protocol for MAC; see Vital signs.?Pt advanced to regular diet and tolerated well. Pt up walking in hallways with walker.
[2025-01-18] MEDS: ACETAMINOPHEN 325 MG TABLET PO (21:20)
[2025-01-18] MEDS: MELATONIN 3 MG TABLET PO (21:21)
[2025-01-18] MEDS: CIPROFLOXACIN 500 MG TABLET PO (21:21)
[2025-01-18] MEDS: PRAVASTATIN SODIUM 20 MG TABLET 10 MG PO (21:21)
[2025-01-19 05:29] VITALS: BP 104/57; PULSE 63; RESP 16; TEMP 36.4; O2SAT 95
[2025-01-19] MEDS: LOPERAMIDE HCL 2 MG CAPSULE PO ×2 (05:38→09:50)
[2025-01-19] MEDS: ACETAMINOPHEN 325 MG TABLET PO (05:38)
[2025-01-19 07:00] VITALS: BP 103/54; PULSE 76; RESP 16; TEMP 36.8; O2SAT 99
[2025-01-19] MEDS: LACTOBACILLUS ACIDOPHILUS 1 TABLET 1 TAB PO (09:51)
[2025-01-19] MEDS: CIPROFLOXACIN 500 MG TABLET PO (09:51)
[2025-01-19] MEDS: MULTIVITAMIN/MINERALS 1 TABLET 1 TAB PO (09:51)
[2025-01-19] MEDS: ACETAMINOPHEN 500 MG TABLET 1000 MG PO (09:51)
[2025-01-19] MEDS: GABAPENTIN 600 MG TABLET PO (09:52)
--- NOTE | 2025-01-19 10:07 | P.DS_ITS ---
DS: Providers Provider Time Seen by Provider: 07:54 Date Seen: 01/19/25 Date of admission: 01/14/25 09:54 Primary care physician: Lori Barreto PA-C Admitting Clinician: Thomas Marie MD Consults: 01/13/25 14:48 Consult to Infectious Diseases [CONS] Routine Comment: worsening foot ulcer wound despite outpatient abx Consulting Provider: Fabián TeleInfectious Disease 01/13/25 14:49 Consult to Occupational Therapy [CONS] Routine Comment: Reason(s) for OT Consult:: Evaluate and Treat Any Restrictions?:: No Restrictions Consult to Physical Therapy [CONS] Routine Comment: Reason(s) for PT Consult:: Evaluate and Treat Any Restrictions?:: No Restrictions Consult to Education Finance Processor [CONS] Routine Comment: Reason for Consult:: Social Service Consult 01/13/25 22:59 Consult to Physical Therapy [CONS] Routine Comment: Reason(s) for PT Consult:: Gait Training Any Restrictions?:: Partial Wt Bearing Comment: heel WB on right foot 01/15/25 13:11 Consult to Infectious Diseases [CONS] Routine Comment: Consulting Provider: Fabián PalmerInfectious Disease 01/18/25 14:19 Consult to Infectious Diseases [CONS] Routine Comment: Consulting Provider: Fabián TeleInfectious Disease Attending Physician on discharge: Deysi Carrion MD Date of Discharge: 01/19/25 DS: Diagnosis Discharge Diagnosis (1) Neuropathic ulcer of foot: Status: Resolved Problem details: Chronic now acutely infected as noted below (2) Wound infection: Status: Acute Problem details: - Chronic wound infection now with osteomyelitis, abscess and septic arthritis. - Stemming from neuropathic ulcer. Initially treated with keflex. When not improving, treated with IV reocephin in clinic. Culture obtained 01/04/25 growing klebsiella oxytoca, enterococcus and staph pseudintermedius. Based on sensitivities, she was transitioned to fluoroquinolone (cipro) to cover all three organisms, but continued to worsen and was sent to ER with concern for developing cellulitis. MRI obtained 01/13 showing concern for abscess, septic arthritis of 2nd MTP and probable osteomyelitis of the 2nd MTP. Discussed with podiatry, Dr. Sims, who agrees to urgent surgical management with debridement this evening. ID has been consulted for assistance with antibiotic regiment - 01/04/25 wound cultures are as follows: Wound Culture* Final ML Organism 1 Klebsiella oxytoca Quantity of Growth Large amount Organism 2 Enterococcus gallinarum Quantity of Growth Moderate amount Organism 3 STAPH PSEUDINTERMEDIUS Quantity of Growth Large amount Kleb oxyto E gallinar STAPH PSEU ABDOULAYE RX ABDOULAYE RX ABDOULAYE RX --------- --- --------- --- --------- --- Ampicillin <=2 S <=2 S Ampicillin/Sulbactam <=2 S Cefazolin >=32 R Cefepime <=0.12 S Ceftazidime >=32 R Ceftriaxone 16 I Ciprofloxacin 0.5 S <=0.5 S <=0.5 S Clindamycin >=4 R Doxycycline 8 I 1 S Erythromycin >=8 R Gentamicin 4 S <=0.5 S Levofloxacin 1 S 1 S <=0.12 S Linezolid 2 S * Meropenem 1 S Nitrofurantoin 32 S * Oxacillin Abdoulaye >=4 R Rifampin 1 S Tetracycline 2 S Tigecycline <=0.12 S Trimethoprim/Sulfamethoxazole <=20 S Vancomycin 1 R <=0.5 S - Initially on IV ampicillin 2g Q6H now for Klebsiella and enterococcus, IV doxycycline for staph pseudointermedius resistant to clinda, erythromycin and oxacillin - Then switched to IV pip/tazo, vanco - 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 Sims - 01/15 Wound cultures from 01/13/25 no growth. I spoke with Dr. Perez, ID from [facility] who recommends stopping Vancomycin, continuing pip/tazo through the weekend and likely transition back to cipro or possibly no need for antibiotics after closure Saturday since surgical treatment may be definitive. She suggested formal ID consult on Saturday after wound closure. I d/c'd Vanco. - 01/16 Stable. WBC wnl, no fever. Continues to ambulate with walker and assistance. Planning wound closure Saturday. - 01/17 on schedule for wound closure tomorrow. Will make NPO after midnight and hold prophylactic enoxaparin. - 01/18 wound closed, tissues reported to look good. Consult infectious disease to confirm twice of antibiotic and duration. - id said to switch to Cipro if there is still evidence of cellulitis. Dr. Sims's preference would be to do antibiotic treatment for 7 days until she is seen in clinic. - 01/19 doing well. d/ch home in stable condition. Since wound is completely closed, no further wound care clinic needed. F/u with Dr. Sims. (3) Cellulitis of foot: Status: Acute Problem details: Associated with chronic wound infection, septic 2nd MTP, osteomyelitis of the 2nd metatarsal, abscess and cellulitis (4) Abscess of right foot: Status: Acute (5) Septic arthritis of foot: Status: Acute (6) Osteomyelitis of ankle or foot, right, acute: Status: Acute (7) Heart murmur: Status: Chronic Problem details: Aortic stenosis, ECHO in a few months (already scheduled with cardiology) with possible TAVR (8) Osteoporosis: Status: Chronic Problem details: 12/26 -2.7 hip Declined treatment due to headaches (9) Hyperlipidemia: Status: Chronic Problem details: - continue pravastatin (10) Peripheral neuropathy: Status: Chronic Problem details: On moderately high dose of gabapentin. Restarted postoperatively (11) Diarrhea: Status: Acute Problem details: Probably associated with antibiotics. C diff negative. Imodium and monitor - 01/15/25 Some improvement. 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 Patient has been following with podiatry and wound care for a large callous on the plantar aspect of her right foot that developed into a tunneled ulcer and ultimately became infected. A wound culture from 01/04/25 grew 3 organisms (klebsiella oxytoca, enterococcus gallinarum and staph pseudintermedius). She was treated with IV rocephin in clinic and then started on ciprofloxacin as the only antimicrobial that would cover all organisms based on sensitivities was fluoroquinolone. She has not seen any improvement and when she was at the wound clinic today they were concerned about a spreading infection with well-demarcated, warm, erythematous rash extending onto the dorsum of the right foot. The plantar wound was treated, packed and bandaged. She was directed to the ER for further assessment and likely admission with concern for potential underlying osteomyelitis. Patient denies any symptoms other than swelling and erythema of her foot. She has tried to only walk with pressure on her heel to offload. She denies fevers, chills, malaise, pain or fatigue. In the ER, there were no signs of sepsis. XR of the foot did not reveal any evidence of osteomyelitis. She is admitted for [facility]. Following admission, foot MRI was obtained and concerning for septic arthritis with large fluid collection concerning for abscess of the second MTP and possible osteomyelitis of the 2nd MTP head. There is also concern for soft tissue necrosis lateral to this area under the 3rd and 4th ray. I spoke with Dr. Sims from podiatry who feels that emergent surgical management would be prudent and he will come to manage this evening. Please see diagnosis above for full details of hospital stay. She underwent partial 2nd ray amputation and I and D with wide debridement of the deep space of the right foot. She was on broad-spectrum antibiotics for the majority of her hospital stay. When wound cultures resulted, Infectious Disease was called and vancomycin was discontinued. She continued on Zosyn until wound closure. Id was consulted again and recommended antibiotics if there was any concern for ongoing soft tissue infection. Discussion with Dr. Sims who close the wound, recommended to continue antibiotics until she is seen him in clinic next week. Therefore she was transitioned over to oral ciprofloxacin to which all 3 pathogens were sensitive. She is discharged home today in improved and stable condition. Time Spent with Patient Time attestation: Total time spent providing and/or coordinating discharge services: Today I spent 35 minutes seeing the patient, discussing with Dr. Sims, [facility] notes/diagnostics/labs, discussing the care plan with our care team that includes social work, PT/OT, pharmacy, RT, retirement and documenting my impressions, and completing discharge orders. Exam Narrative: Exam Narrative: General: No acute distress. Awake, alert, oriented. No pallor. No jaundice. Cardiovascular: Regular rate and rhythm. Systolic murmur unchanged. Respiratory: Clear to auscultation bilaterally. No wheezes or crackles. Extremities: No lower extremity edema. Right foot bandage is clean dry and intact. Her foot is in a open toed shoe. Const: Vital Signs, click to edit/add: Vital Signs - 24 hr 01/18/25 10:54 01/18/25 13:00 01/18/25 13:01 Temperature 97.8 F 97.5 F L Pulse Rate [Pulse Oximeter] 64 65 65 Respiratory Rate 16 14 Blood Pressure [Le ft Arm] 115/54 L Blood Pressure [Ri ght Arm'] 130/77 Pulse Oximetry 98 96 Oxygen Delivery Me thod Room Air Room Air Oxygen Flow Rate 0 0 01/18/25 13:15 01/18/25 13:30 01/18/25 13:45 Temperature 97.5 F L 97.8 F 97.8 F Pulse Rate [Pulse Oximeter] 65 67 65 Respiratory Rate 14 16 16 Blood Pressure [Le ft Arm] 124/69 124/62 128/71 Blood Pressure [Ri ght Arm'] Pulse Oximetry 96 96 97 Oxygen Delivery Me thod Room Air Room Air Room Air Oxygen Flow Rate 01/18/25 14:00 01/18/25 15:52 01/18/25 20:13 Temperature 98.2 F 98.1 F 98.1 F Pulse Rate [Pulse Oximeter] 63 73 68 Respiratory Rate 18 16 20 Blood Pressure [Le ft Arm] 135/61 113/57 L Blood Pressure [Ri ght Arm'] 119/66 Pulse Oximetry 95 96 94 Oxygen Delivery Me thod Room Air Room Air Room Air Oxygen Flow Rate 01/18/25 22:53 01/19/25 05:29 01/19/25 07:00 Temperature 97.5 F L 98.2 F Pulse Rate [Pulse Oximeter] 63 76 Respiratory Rate 18 16 16 Blood Pressure [Le ft Arm] Blood Pressure [Ri ght Arm'] 104/57 L 103/54 L Pulse Oximetry 95 99 Oxygen Delivery Me thod Room Air Room Air Oxygen Flow Rate 01/19/25 07:00 Temperature Pulse Rate [Pulse Oximeter] 76 Respiratory Rate 16 Blood Pressure [Le ft Arm] Blood Pressure [Ri ght Arm'] Pulse Oximetry Oxygen Delivery Me thod Oxygen Flow Rate DS: Data Data Completed and Pending Completed studies during hospitalization: Ordering Physician: Marianna Martinez M.D. Date of Service: 01/13/25 Procedure(s): MR foot RT wo/w con Accession Number(s): [id number] cc: Lori WYNN; Marianna Martinez M.D.~ For Patients: As a result of the 21st Century Cures Act, medical imaging exams and procedure reports are released immediately into your electronic medical record. You may view this report before your referring provider. If you have questions, please contact your health care provider. Indication: Ongoing and worsening infection. Concern for osteomyelitis. Technique: MRI of the right forefoot performed with and without intravenous contrast (15 milliliters of Dotarem). Comparison: 01/04/2025 right foot radiographs Findings: There is a soft tissue defect in the skin plantar to the 2nd metatarsal head measuring 5 millimeters (/15). There is a 4 x 3.4 centimeter heterogeneously T2 hyperintense fluid collection surrounding the 2nd metatarsophalangeal joint, the 2nd proximal phalanx, and the 2nd metatarsal neck which demonstrates irregular peripheral enhancement and is highly concerning for an abscess (11/14). The aforementioned collection appears to be contiguous with the 2nd metatarsophalangeal joint highly concerning for septic arthritis. The aforementioned collection also abuts the lateral aspect of the great toe proximal phalanx and the medial aspect of the 3rd metatarsal head. There is edematous nonenhancing tissue in the plantar forefoot at the lateral margin of the aforementioned collection deep to the 3rd and 4th ray which is suspicious for soft tissue necrosis (11/18). Status post screw arthrodesis of the great toe interphalangeal joint. Susceptibility artifact associated with the arthrodesis limits evaluation of adjacent structures. Hallux valgus positioning of the forefoot. Chronically attenuated appearance of the 3rd and 4th proximal phalanx base which is presumed to be postoperative. Mildly attenuated appearance of the 2nd and 5th proximal phalanx base, possibly also postoperative. There is moderate degenerative change of the 1st MTP joint. There are otherwise scattered mild degenerative changes throughout the field of view. Faint marrow edema associated with the 2nd metatarsal head may represent reactive change or osteomyelitis. The Lisfranc ligament is intact. Diffuse soft tissue edema throughout the field of view. Diffuse muscular atrophy and fatty infiltration throughout the field of view. Grossly intact visualized tendons. Impression: Soft tissue defect in the skin plantar to the 2nd metatarsal connecting to a 4 cm peripherally enhancing fluid collection which surrounds the 2nd ray at the 2nd metatarsophalangeal joint and appears to be contiguous with the 2nd metatarsophalangeal joint. These findings are highly concerning for abscess with septic arthritis. There is nonenhancing tissue in the plantar forefoot lateral to this collection and deep to the 3rd and 4th ray which is suspicious for soft tissue necrosis. Faint marrow edema associated with the 2nd metatarsal head may represent reactive change or osteomyelitis. Diffuse soft tissue edema throughout the field of view. Additional details are described above. Dictated by Sky Daugherty MD @ 01/13/2025 7:11:05 PM (Electronically Signed) Labs on day of discharge: Preliminary micro results at discharge 01/13/25 22:30 Aerobic Culture - Preliminary Foot Right Discharge Plan Discharge Disposition: Home, Self-Care Date of Admission: 01/14/25 09:54 Attending Provider on Discharge: Deysi Carrion Consulting Providers: Madison Rutherford; Kymberly Perez Primary Care Provider: Lori Barreto Condition: Improved Anticipated Discharge Date/Time: 01/19/25 10:20 Discharge Medications: New ciprofloxacin HCl 500 mg Tablet 500 mg PO BID 7 Days Qty: 14 0RF loperamide 2 mg Capsule 2 mg PO Q2H PRNQty: 30 0RF Continued Probiotic 3 billion cell capsule 3,000 mmu cells PO BID multivitamin [Multiple Vitamins] Tablet 1 tab PO DAILY ibandronate 150 mg tablet 150 mg PO MONTHLY Qty: 3 0RF pravastatin 10 mg tablet 10 mg PO HS Qty: 90 3RF celecoxib 100 mg capsule 100 mg PO BID PRN (Reason: pain) cranberry 500 mg capsule 500 mg PO DAILY Rx Instructions: administer with a meal naproxen sodium [Aleve] 220 mg tablet 220 mg PO DAILY sumatriptan succinate [Imitrex] 50 mg tablet 50 mg PO Q2H PRN (Reason: migraine headache) acetaminophen 500 mg capsule 1,000 mg PO DAILY MDD 3000mg gabapentin 600 mg tablet 1,200 mg PO QHS gabapentin 600 mg tablet 600 mg PO QAM Discontinued ciprofloxacin HCl 500 mg tablet 500 mg PO BID Discharge Orders: Discharge Order (Routine); Ordered 01/19/25 Ordered By: Deysi Carrion Patient Education: Deep Sedation (DC), Incision and Drainage (DC) Activity Level: Use Walker Activity Detail: Try to limit alpesh bearing on the right to the heel in the surgical shoe Discharge Diet: Regular Follow Up Appointments: Barreto,Mukti B, PA-C [Primary Care Provider] - (as needed) Jericho Sims, DPM [Staff Physician] - (next Saturday) Forms: MyHealth Info Instructions Discharge Comments: F/u with Dr. Sims on 01/26
--- NOTE | 2025-01-19 12:25 | PC.NURSE ---
Discharge-- Pleasant and cooperative, alert and oriented patient discharged to home via wheelchair with son at approximately 1115. VSS and pt is afebrile. SPO2 maintained >90% on RA. Pain appears well managed with Tylenol daily and PRN. Dressing to right foot was C/D/I. Pt was up to BR and ambulating in hallway independently and tolerated it well. Discharge education was provided including diagnosis info, symptoms to report, medications and follow up plan. No further questions asked and SL was removed with tip intact.
--- NOTE | 2025-01-19 13:18 | PC.SOCIAL ---
Discharge planning: ironworker apprentice met with pt today before she discharged. Pt has an appointment next Saturday the for a check-up with Dr. Sims in [place] at [facility]. Pt will find a ride. Pt also has [facility] four [facility] starting on the of this month. Pt will find her own transportation for those appointments and is looking forward to going home today. No other social service needs at this time. Social work to follow-up as needed.
== END 2025-01-19 11:15 | disposition home or self-care (01) | DRG 464 ==
LOC: ED 12:43 → MEDSURG 13:16
PROVIDERS: Family Medicine; Internal Medicine; Podiatrist; Admitting Provider Family Medicine; Emergency Provider Family Medicine; PCP Physician Assistant Medical; Visit Provider Family Medicine
PROC: 0Y6M0ZB Detachment at Right Foot, Partial 2nd Ray, Open Approach (ICD-10-PCS; principal; 2025-01-13 21:15)
PROC: 0JDQ0ZZ Extraction of Right Foot Subcutaneous Tissue and Fascia, Open Approach (ICD-10-PCS; principal; 2025-01-18 12:45)
DX: M86.171 Other acute osteomyelitis, right ankle and foot (principal); L02.611 Cutaneous abscess of right foot; M00.871 Arthritis due to other bacteria, right ankle and foot; L03.115 Cellulitis of right lower limb; L97.414 Non-pressure chronic ulcer of right heel and midfoot with necrosis of bone; Z16.24 Resistance to multiple antibiotics; L97.515 Non-pressure chronic ulcer of other part of right foot with muscle involvement without evidence of necrosis; B95.7 Other staphylococcus as the cause of diseases classified elsewhere; B95.2 Enterococcus as the cause of diseases classified elsewhere; B96.1 Klebsiella pneumoniae [K. pneumoniae] as the cause of diseases classified elsewhere; G60.8 Other hereditary and idiopathic neuropathies; I35.0 Nonrheumatic aortic (valve) stenosis; R01.1 Cardiac murmur, unspecified; R19.7 Diarrhea, unspecified; M81.0 Age-related osteoporosis without current pathological fracture; E78.5 Hyperlipidemia, unspecified; L97.512 Non-pressure chronic ulcer of other part of right foot with fat layer exposed; S91.301A Unspecified open wound, right foot, initial encounter; G90.09 Other idiopathic peripheral autonomic neuropathy; Z76.0 Encounter for issue of repeat prescription; L03.031 Cellulitis of right toe
CPT/HCPCS: 01480; 11043; 36415; 73720; 80048; 80053; 83605; 84145; 85025; 86140; 87070; 87075; 87081; 87205; 87493; 88304; 88311; 97161; 97165; 97530; 97535; 99100; 99140; 99284; 99285; G0463; A9153; A9270; A9575; G0378; J0290; J0330; J0665; J1100; J1650; J2371; J2405; J2543; J2704; J3010; J3370; J3372; J7050; J7120

== ENCOUNTER 2025-01-21 07:52 | Emergency (ER) | payer MEDICARE, SELFPAY ==
[2025-01-21 07:52] VITALS: BP 131/68; PULSE 72; RESP 16; TEMP 36.5; O2SAT 97; BMI 22.8
--- OUTSIDE RECORDS SUMMARY | 2025-01-21 07:53 | XMS_ITS | Clinical Summary ---
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 Scanning was performed on a Slipstream scanner. Reporting is completed in the form [...] in the lateral decubitus position using a [employer] ProdigNodePrime densitometer. Indications for VFA: T-score of -1.0 or worse and age (female>69) Confounding factors for VFA: Arthritis/degenerative disc disease, scoliosis and rib shadows. The LVA scan is interpretable from T7 to T12 and L4. VFA Findings: Using the semi-quantitative analysis of Genradha there was evidence of spinal deformity as follows: moderate (grade 2) wedge fracture of T9. VFA Impression: Sheila Palacios Bere has one vertebral fracture identified on the LVA. If alternative etiologies for the presence of vertebral fractures are excluded, the diagnosis is consistent with severe osteoporosis. us Elvin Pierre MD IMG DEXA ORDERABLES Final Result from Last 3 Months or Most Recently Relevant to Health Maintenance Insurance UCARE MEDICARE UCARE MEDICARE Care Teams Tack Welder Relationship Specialty Start Date End Date Rajinder Mars MD [facility] [address] [place] [phone] PCP - General Family Practice 07/29/15
--- OUTSIDE RECORDS SUMMARY | 2025-01-21 07:53 | XMS_ITS | Clinical Summary ---
Author Organization [facility] Address [address] [place] [address] Care Team Providers Care Wet Crown Blocking Operator Name Role Phone Unavailable Primary Care Provider Unavailabl e Source Comments You are receiving this document as you are listed as the primary care provider,follow-up provider, or the patient has been referred to you for consultation.This is in compliance with the Medicare andMedicaid EHR Incentive Program,which states Providers who transition their patient to another setting of careor provider of care or refers their patient to another provider of care shouldprovide summary care record for each transition of care or referral. [facility] Allergies No known active allergies Medications No known medications Social History Tobacco Use Types Packs/Day Years Used Date Smoking Tobacco: Never Assessed Comments Unknown Sex and Gender Information Value Date Recorded Sex Assigned at Not on file Legal Sex Female 5:33 AM CDT Gender Identity Not on file Sexual Orientation [...] patient's age to complete this topic Pneumococcal 50+ Yrs Completed 10/28/2019, 03/17/2015, 06/16/2009 Zoster/Shingles Completed [...] on patient's age to complete this topic Meningococcal B Aged Out No longer el igible based on patient's age to complete this topic Insurance UCARE MEDICARE UCARE MEDICARE
--- OUTSIDE RECORDS SUMMARY | 2025-01-21 07:53 | XMS_ITS | Clinical Summary ---
Author Organization [facility] Address [address] [place] [address] Care Team Providers Care Rolling Mill Plugger Name Role Phone Rosa Barreto PA-C Unavailable [phone] Pcp, No Primary Care Provider Unavailabl [...] Encounters Date Type Department Care Team Description 01/19/2025 Telephone [facility] [address] [facility] [address] Jericho Sims DPM Appointment Request 01/18/2025 Orders Only [facility] Scanner 1 scan: (1-Ord) [facility], REPEAT I AND D RT FOOT, 01/18/2025 01/14/2025 Lab Requisition [facility] [phone] Jericho Sims DPM 01/13/2025 Orders Only [facility] Scanner 1 scan: (1-Ord) [facility], FOOT RT, 01/13/2025 01/13/2025 Orders Only [facility] Scanner 1 scan: (1-Ord) [place], GRAM STAIN, AEROBI CULTURE, 01/13/2025 01/13/2025 Orders Only [facility] Scanner 1 scan: (1-Ord) [facility], FOOT RIGHT CULTURE, 01/13/2025 01/13/2025 Orders Only [facility] Scanner 1 scan: (1-Ord) [place], GRAM STAIN, 01/13/2025 01/13/2025 Orders Only [facility] Scanner 1 scan: (1-Ord) [facility], RT FOOT CULTURE RESULTS, 01/13/2025 01/13/2025 Orders Only [facility] Scanner 1 scan: (1-Ord) [facility], 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 [address] [place] [address] Terrance House MD Results (Heart Monitor) 01/04/2025 Orders Only [facility] [address] [place] [address] Sara Blanchard 1 scan: (1-Ord) Zio Report 12/24/2024 10:00 AM EDUCATION FINANCE PROCESSOR Office Visit [facility] [place] [address] [place] [address] Terrance House MD 12/16/2024 1:00 PM EDUCATION FINANCE PROCESSOR Ancillary Procedure [facility] [place] [address] [place] [address] from Last 3 Months Immunizations Name Administration [...] on file Legal Sex Female 6:53 AM EDUCATION FINANCE PROCESSOR Gender Identity Not on file Sexual Orientation Not on file Obstetrics History Last Filed Vital Signs Vital Sign Reading Time Taken Comments Blood Pressure 116/62 07/10/2022 3:01 PM CDT Pulse 62 07/10/2022 3:01 PM CDT Temperature 36.6 C (97.8 F) 02/04/2022 12:25 PM EDUCATION FINANCE PROCESSOR Respiratory Rate 16 02/04/2022 12:25 PM EDUCATION FINANCE PROCESSOR Oxygen Saturation 96% 07/10/2022 3:01 PM CDT Inhaled Oxygen Concentration - - Weight 79.4 kg (175 lb) 07/10/2022 3:01 PM CDT Height 177.8 cm (5' 10) 07/10/2022 3:01 PM CDT Body Mass Index 25.11 07/10/2022 3:01 PM CDT Plan of Treatment Upcoming Encounters Date Type Department Care Team (Late st Contact Info) Description 01/26/2025 3:15 PM EDUCATION FINANCE PROCESSOR Office Visit [facility] [address] [place] [address] Jericho Sims DPM [address] [place] [address] Health Maintenance Due Date Last Done Comments [...] Procedure Name Priority Date/Time Associated Diagnosis Comments SCAN-OPERATIVE/PROC EDURE REPORT 01/18/2025 12:00 AM EDUCATION FINANCE PROCESSOR PATH TISSUE EXAM Routine 01/13/2025 9:55 PM EDUCATION FINANCE PROCESSOR LAB TRACKING EVENT Routine 01/13/2025 12 :00 PM EDUCATION FINANCE PROCESSOR SCAN-PATHOLOGY REPORT 01/13/2025 12:00 AM EDUCATION FINANCE PROCESSOR SCAN-PATHOLOGY REPORT 01/13/2025 12:00 AM EDUCATION FINANCE PROCESSOR SCAN-PATHOLOGY REPORT 01/13/2025 12:00 AM EDUCATION FINANCE PROCESSOR SCAN-PATHOLOGY REPORT 01/13/2025 12:00 AM EDUCATION FINANCE PROCESSOR SCAN-PATHOLOGY REPORT 01/13/2025 12:00 AM EDUCATION FINANCE PROCESSOR SCAN-OPERATIVE/PROC EDURE REPORT 01/13/2025 12:00 AM EDUCATION FINANCE PROCESSOR EXTENDED HOLTER Routine 01/04/2025 PVC (premature ventricular contraction) ECHO TTE COMPLETE WO CONTRAST Routine 12/16/2024 1:46 PM EDUCATION FINANCE PROCESSOR Cardiac murmur from Last 3 Months Results * SCAN-OPERATIVE/PROCEDURE REPORT (01/18/2025 12:00 AM EDUCATION FINANCE PROCESSOR) us Scanner OTHER Final Result * PATH TISSUE EXAM (01/13/2025 9:55 PM EDUCATION FINANCE PROCESSOR) Case Report Pathology Report Case: [id number] Authorizing Provider: Jericho Sims DPM Collected: 01/13/20252154 Ordering Location: [facility] Received: 01/14/2025 1444 Pathologist: Memo De Paz MD Specimen: Bone 01/18/2025 4:21 PM EDUCATION FINANCE PROCESSOR [facility] EN[facility]AL LABORATORY Final Diagnosis A) BONE, RIGHT FOOT, SECOND METATARSAL, CLEAR MARGIN, RESECTION: 1. 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 01/18/2025 4:21 PM EDUCATION FINANCE PROCESSOR [facility] Gross Description A) Received in formalin, labeled with the patient's name and clear margin second metatarsal, is a 1.3 x 1.0 x 0.4 cm firm mackenzie discoid bone fragment, entirely submitted in 1 cassette after decalcification. ADW 01/14/2025 01/18/2025 4:21 PM EDUCATION FINANCE PROCESSOR [facility] Microscopic Description The final diagnosis is based on microscopic examination of appropriate sections of all specimens. 01/18/2025 4:21 PM EDUCATION FINANCE PROCESSOR [facility] Additional Information Interpreted at [facility], Central Laboratory - [address] [place] [address], [place] [address] 01/18/2025 4:21 PM [facility] ENTRAL LABORAT[facility] Other SPECIMEN FROM BONE / Unknown 01/13/2025 9:55 PM EDUCATION FINANCE PROCESSOR 01/14/2025 2:44 PM EDUCATION FINANCE PROCESSOR us Jericho Sims DPM PATHOLOGY/CYTOLOGY Final Result Performing Organization Address City/[facility]/ZIP Co de Phone Number [facility] [address] [place] [phone], [place] * LAB TRACKING EVENT (01/13/2025 12:00 PM EDUCATION FINANCE PROCESSOR) Other (Other) Client Collect / Unknown 01/13/2025 12:00 PM EDUCATION FINANCE PROCESSOR 01/14/2025 1:53 PM EDUCATION FINANCE PROCESSOR us Jericho DURANM LAB BILL ONLY Final Res ult Performing Organization Address City/[facility]/ZIP Co de Phone Number [facility] [address] [place] [phone], [place] * SCAN-OPERATIVE/PROCEDURE REPORT (01/13/2025 12:00 AM EDUCATION FINANCE PROCESSOR) us Scanner OTHER Final Result * SCAN-PATHOLOGY REPORT (01/13/2025 12:00 AM EDUCATION FINANCE PROCESSOR) Only the most recent of5 resultswithin the time period is included. us Scanner OTHER Final Result * EXTENDED HOLTER (01/04/2025) us Terrance House MD CARDIAC SERVICES ORD F inal Result * ECHO TTE COMPLETE WO CONTRAST (12/16/2024 1:46 PM EDUCATION FINANCE PROCESSOR) AORTIC VALVE MEAN PG 25 mmHg EJECTION FRACTION 63 % PEAK TR VELOCITY 2.3 m/s LVEDD 3.8 cm Anatomical Region Laterality Modality Ultrasound 12/16/2024 1:01 PM EDUCATION FINANCE PROCESSOR Narrative 12/16/2024 1:57 PM EDUCATION FINANCE PROCESSOR ECHOCARDIOGRAM SHEILA BLACKBURN : 1940 84 years Study Date: 12/16/2024 1:01:36 PM Gender: F BP: 126/73 mmHg Height: 170.00 cm BSA: 1.81 m Weight: 70.00 kg Tech: DAHLIA Referring MD: ROSA BARRETO Site: [facility] Reading Location: Mobile OP Patient [...] . This study was interpreted by an [facility] accredited facility. CC: [facility] ([facility]) [facility]. Final Procedure Note Eric Gamble MD - 12/16/2024 ECHOCARDIOGRAM SHEILA BLACKBURN : 1940 84 years Study Date: 12/16/2024 1:01:36 PM Gender: F BP: 126/73 mmHg Height: 170.00 cm BSA: 1.81 m Weight: 70.00 kg Tech: [facility] Referring MD: ROSA BARRETO Site: [facility] Reading Location: Mobile OP Patient [...] interpreted by an [facility] accredited facility. CC: [facility] ([facility]) [facility]. Final Rosa Barreto PA-C ECHO ORD Final Result from Last 3 Months Insurance [facility] MEDICARE ADVANTAGE MR Care Teams Rolling Mill Plugger Relationship Specialty Start Date End Date Pcp, No . PCP - General 11/13/23 Rosa Barreto, SHAVONC [address] [place] [phone] Family Practice Physician Organization Development Consultant 02/27/22
--- OUTSIDE RECORDS SUMMARY | 2025-01-21 08:23 | XMS_ITS | Clinical Summary ---
Author Organization [facility] Address [address] [place] [address] Care Team Providers Care Public Events Facilities Rental Manager Name Role Phone Rosa Barreto PA-C Unavailable Pcp, No Primary Care Provider Unavailabl e [...] Type Department Care Team Description 01/19/2025 Telephone [facility] [address] [facility] [address] Jericho Sims DPM Appointment Request 01/18/2025 Orders Only [facility] Scanner 1 scan: (1-Ord) [facility], REPEAT I AND D RT FOOT, 01/18/2025 01/14/2025 Lab Requisition [facility] [phone] Jericho Sims DPM 01/13/2025 Orders Only [facility] Scanner 1 scan: (1-Ord) [facility], FOOT RT, 01/13/2025 01/13/2025 Orders Only [facility] Scanner 1 scan: (1-Ord) [place], GRAM STAIN, AEROBI CULTURE, 01/13/2025 01/13/2025 Orders Only [facility] Scanner 1 scan: (1-Ord) [facility], FOOT RIGHT CULTURE, 01/13/2025 01/13/2025 Orders Only [facility] Scanner 1 scan: (1-Ord) [place], GRAM STAIN, 01/13/2025 01/13/2025 Orders Only [facility] Scanner 1 scan: (1-Ord) [facility], RT FOOT CULTURE RESULTS, 01/13/2025 01/13/2025 Orders Only [facility] Scanner 1 scan: (1-Ord) [facility], 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, 01/13/2025 01/04/2025 Telephone [facility] [address] [facility] [address] [place] [address] Terrance House MD Results (Heart Monitor) 01/04/2025 Orders Only [facility] [address] [place] [address] Sara Blanchard 1 scan: (1-Ord) Zio Report 12/24/2024 10:00 AM CLINICAL CONSULTANT Office Visit [facility] [address] [place] [address] Terrance House MD 12/16/2024 1:00 PM CLINICAL CONSULTANT Ancillary Procedure [facility] [address] [place] [address] from Last 3 Months Immunizations Name Administration [...] on file Legal Sex Female 6:53 AM CLINICAL CONSULTANT Gender Identity Not on file Sexual Orientation Not on file Obstetrics History Last Filed Vital Signs Vital Sign Reading Time Taken Comments Blood Pressure 116/62 07/10/2022 3:01 PM CDT Pulse 62 07/10/2022 3:01 PM CDT Temperature 36.6 C (97.8 F) 02/04/2022 12:25 PM CLINICAL CONSULTANT Respiratory Rate 16 02/04/2022 12:25 PM CLINICAL CONSULTANT Oxygen Saturation 96% 07/10/2022 3:01 PM CDT Inhaled Oxygen Concentration - - Weight 79.4 kg (175 lb) 07/10/2022 3:01 PM CDT Height 177.8 cm (5' 10) 07/10/2022 3:01 PM CDT Body Mass Index 25.11 07/10/2022 3:01 PM CDT Plan of Treatment Upcoming Encounters Date Type Department Care Team (Late st Contact Info) Description 01/26/2025 3:15 PM CLINICAL CONSULTANT Office Visit [facility] [address] [place] [address] Jericho Sims DPM [address] [place] [address] Health Maintenance Due Date Last Done Comments [...] Comments SCAN-OPERATIVE/PROC EDURE REPORT 01/18/2025 12:00 AM CLINICAL CONSULTANT PATH TISSUE EXAM Routine 01/13/2025 9:55 PM CLINICAL CONSULTANT LAB TRACKING EVENT Routine 01/13/2025 12 :00 PM CLINICAL CONSULTANT SCAN-PATHOLOGY REPORT 01/13/2025 12:00 AM CLINICAL CONSULTANT SCAN-PATHOLOGY REPORT 01/13/2025 12:00 AM CLINICAL CONSULTANT SCAN-PATHOLOGY REPORT 01/13/2025 12:00 AM CLINICAL CONSULTANT SCAN-PATHOLOGY REPORT 01/13/2025 12:00 AM CLINICAL CONSULTANT SCAN-PATHOLOGY REPORT 01/13/2025 12:00 AM CLINICAL CONSULTANT SCAN-OPERATIVE/PROC EDURE REPORT 01/13/2025 12:00 AM CLINICAL CONSULTANT EXTENDED HOLTER Routine 01/04/2025 PVC (premature ventricular contraction) ECHO TTE COMPLETE WO CONTRAST Routine 12/16/2024 1:46 PM CLINICAL CONSULTANT Cardiac murmur from Last 3 Months Results * SCAN-OPERATIVE/PROCEDURE REPORT (01/18/2025 12:00 AM CLINICAL CONSULTANT) us Scanner OTHER Final Result * PATH TISSUE EXAM (01/13/2025 9:55 PM CLINICAL CONSULTANT) Case Report Pathology Report Case: [id number] Authorizing Provider: Jericho Sims DPM Collected: 01/13/20252154 Ordering Location: [facility] Received: 01/14/2025 1444 Pathologist: Memo De Paz MD Specimen: Bone 01/18/2025 4:21 PM CLINICAL CONSULTANT [facility] ENTRAL LABORATORY Final Diagnosis A) BONE, RIGHT FOOT, SECOND METATARSAL, CLEAR MARGIN, RESECTION: 1. 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 01/18/2025 4:21 PM CLINICAL CONSULTANT [facility] Gross Description A) Received in formalin, labeled with the patient's name and clear margin second metatarsal, is a 1.3 x 1.0 x 0.4 cm firm mackenzie discoid bone fragment, entirely submitted in 1 cassette after decalcification. ADW 01/14/2025 01/18/2025 4:21 PM CLINICAL CONSULTANT [facility] Microscopic Description The final diagnosis is based on microscopic examination of appropriate sections of all specimens. 01/18/2025 4:21 PM CLINICAL CONSULTANT [facility]AT[facility] Additional Information Interpreted at [facility], Central Laboratory - [address] [place] [address] [address] 01/18/2025 4:21 PM [facility] ENTRAL LABORATORY Other SPECIMEN FROM BONE / Unknown 01/13/2025 9:55 PM CLINICAL CONSULTANT 01/14/2025 2:44 PM CLINICAL CONSULTANT us Jericho Sims DPM PATHOLOGY/CYTOLOGY Final Result Performing Organization Address City/[facility]/ZIP Co de Phone Number [facility] [address] [place] [phone], [place] * LAB TRACKING EVENT (01/13/2025 12:00 PM CLINICAL CONSULTANT) Other (Other) Client Collect / Unknown 01/13/2025 12:00 PM CLINICAL CONSULTANT 01/14/2025 1:53 PM CLINICAL CONSULTANT us Jericho DURANM LAB BILL ONLY Final Res ult Performing Organization Address City/[facility]/ZIP Co de Phone Number [facility] [address] [place] [address], [place] * SCAN-OPERATIVE/PROCEDURE REPORT (01/13/2025 12:00 AM CLINICAL CONSULTANT) us Scanner OTHER Final Result * SCAN-PATHOLOGY REPORT (01/13/2025 12:00 AM CLINICAL CONSULTANT) Only the most recent of5 resultswithin the time period is included. us Scanner OTHER Final Result * EXTENDED HOLTER (01/04/2025) us Terrance House MD CARDIAC SERVICES ORD F inal Result * ECHO TTE COMPLETE WO CONTRAST (12/16/2024 1:46 PM CLINICAL CONSULTANT) AORTIC VALVE MEAN PG 25 mmHg EJECTION FRACTION 63 % PEAK TR VELOCITY 2.3 m/s LVEDD 3.8 cm Anatomical Region Laterality Modality Ultrasound 12/16/2024 1:01 PM CLINICAL CONSULTANT Narrative 12/16/2024 1:57 PM CLINICAL CONSULTANT ECHOCARDIOGRAM SHEILA BLACKBURN : 1940 84 years Study Date: 12/16/2024 1:01:36 PM Gender: F BP: 126/73 mmHg Height: 170.00 cm BSA: 1.81 m Weight: 70.00 kg Tech: DAHLIA Referring MD: ROSA BARRETO Site: [facility] Reading Location: Mobile OP Patient [...] . This study was interpreted by an [facility] accredited facility. CC: [facility] ([facility]) [facility]. Final Procedure Note Eric Gamble MD - 12/16/2024 ECHOCARDIOGRAM SHEILA BLACKBURN : 1940 84 years Study Date: 12/16/2024 1:01:36 PM Gender: F BP: 126/73 mmHg Height: 170.00 cm BSA: 1.81 m Weight: 70.00 kg Tech: [facility] Referring MD: ROSA BARRETO Site: [facility] Reading Location: Mobile OP Patient [...] by an [facility] accredited facility. CC: [facility] ([facility]) [facility]. Final Rosa Barreto PA-C ECHO ORD Final Result from Last 3 Months Insurance [facility] MEDICARE ADVANTAGE MR Care Teams Public Events Facilities Rental Manager Relationship Specialty Start Date End Date Pcp, No . PCP - General 11/13/23 Rosa Barreto, SHAVONC [address] [place] [address] Family Practice Physician Auricular Therapist 02/27/22
--- OUTSIDE RECORDS SUMMARY | 2025-01-21 08:23 | XMS_ITS | Clinical Summary ---
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 Scanning was performed on a [employer] scanner. Reporting is completed in the form [...] in the lateral decubitus position using a [employer] densitometer. Indications for VFA: T-score of -1.0 [...] Insurance [employer] MEDICARE UCARE MEDICARE Care Teams Sheet Rock Finisher Relationship Specialty Start Date End Date Rajinder Mars MD [facility] [address] [place] [phone] PCP - General Family Practice 07/29/15
--- OUTSIDE RECORDS SUMMARY | 2025-01-21 08:23 | XMS_ITS | Clinical Summary ---
Author Organization [facility] Address [address] [place] [address] Care Team Providers Care Residue Furnace Operator Name Role Phone Unavailable Primary Care [...]
--- NOTE | 2025-01-21 09:03 | ED.NURSE ---
Pt right foot wrapped with ABD pad, kerlix, and coban. Pt tolerated well, scant bleeding at this time was observed.
--- NOTE | 2025-01-21 09:13 | ED.GENADULT ---
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 She had associated abscess and osteomyelitis, discharged on antibiotics. She has been walking on her heel, she does have 7 stairs to navigate at home, lives independently in a house. She says she gets around fine. She has not noted any significant swelling and has not had any pain, woke up this morning with the bandage soaked with blood. Not anticoagulated. Denies any trauma. Related Data Home Medications ?Medication ?Instructions ?Recorded ?Confirmed lactobacillus combination no.4 3 3,000 mmu cells PO BID 08/10/22 01/13/25 billion cell capsule (Probiotic) multivitamin (Multiple Vitamins 1 tab PO DAILY 10/30/23 01/13/25 tablet) gabapentin 600 mg tablet 1,200 mg PO QHS 01/27/24 01/13/25 gabapentin 600 mg tablet 600 mg PO QAM 01/27/24 01/13/25 acetaminophen 500 mg capsule 1,000 mg PO DAILY 01/13/25 01/13/25 celecoxib 100 mg capsule 100 mg PO BID PRN pain 01/13/25 01/13/25 cranberry 500 mg capsule 500 mg PO DAILY 01/13/25 01/13/25 naproxen sodium 220 mg tablet 220 mg PO DAILY 01/13/25 01/13/25 (Aleve) sumatriptan succinate 50 mg tablet 50 mg PO Q2H PRN migraine headache 01/13/25 01/13/25 (Imitrex) Previous Rx's ?Medication ?Instructions ?Recorded pravastatin 10 mg tablet 10 mg PO HS heart #90 tabs 01/16/24 ibandronate 150 mg tablet 150 mg PO MONTHLY #3 tabs 01/04/25 ciprofloxacin HCl 500 mg tablet 500 mg PO BID 7 days #14 tabs 01/19/25 loperamide 2 mg capsule 2 mg PO Q2H PRN #30 caps 01/19/25 Allergies Allergy/AdvReac Type Severity Reaction Status Date / Time alendronate sodium (From Allergy Severe Verified 01/13/25 12:18 Fosamax) codeine AdvReac Mild nausea and Verified 01/13/25 12:18 vomitting morphine AdvReac Mild Nausea Verified 01/13/25 12:18 Review of Systems Status of ROS: Reports: 6 or more systems reviewed and unremarkable except as noted in History and below [facility] Medical History Osteopenia (12/11/10) ?M85.80 - Other specified disorders of bone density and structure, unspecified site (ICD-10) 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 (ICD-10) Hyponatremia ?E87.1 - Hypo-osmolality and hyponatremia (ICD-10) Polyp of colon (12/11/10) ?K63.5 - Polyp of colon (ICD-10) Mean red blood cell volume increased ?R71.8 - Other abnormality of red blood cells (ICD-10) Lung nodule (12/11/10) ?R91.1 - Solitary pulmonary nodule (ICD-10) Instability of left foot joint ?M25.375 - Other instability, left foot (ICD-10) Tubular adenoma of colon (07/28/19) ?D12.6 - Benign neoplasm of colon, unspecified (ICD-10) Hordeolum of right lower eyelid ?H00.012 - Hordeolum externum right lower eyelid (ICD-10) Blister (nonthermal), right foot, initial encounter ?S90.821A - Blister (nonthermal), right foot, initial encounter (ICD-10) Right foot pain ?M79.671 - Pain in right foot (ICD-10) Counseling regarding advanced directives (11/19/17) ?Z71.89 - Other specified counseling (ICD-10) Scapular dyskinesis ?G25.89 - Other specified extrapyramidal and movement disorders (ICD-10) Right rotator cuff tear arthropathy ?M75.101 - Unspecified rotator cuff tear or rupture of right shoulder, not specified as traumatic (ICD-10) ?M12.811 - Other specific arthropathies, not elsewhere classified, right shoulder (ICD-10) Osteoarthritis of left knee ?M17.12 - Unilateral primary osteoarthritis, left knee (ICD-10) Surgical History S/P right hemicolectomy ?Z90.49 - Acquired absence of other specified parts of digestive tract (ICD-10) 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) ?Z96.619 - Presence of unspecified artificial shoulder joint (ICD-10) 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) ?Z96.611 - Presence of right artificial shoulder joint (ICD-10) History of cholecystectomy (12/11/10) ?Z90.49 - Acquired absence of other specified parts of digestive tract (ICD-10) History of tubal ligation (12/11/10) ?Z98.51 - Tubal ligation status (ICD-10) History of tonsillectomy (12/11/10) ?Z90.89 - Acquired absence of other organs (ICD-10) History of hysterectomy (02/29/12) ?Z90.710 - Acquired absence of both cervix and uterus (ICD-10) History of colonoscopy with polypectomy ?Z98.890 - Other specified postprocedural states (ICD-10) ?Z86.010 - Personal history of colonic polyps (ICD-10) Status post bilateral foot surgery (04/07/08) ?Z98.890 - Other specified postprocedural states (ICD-10) Status post finger joint fusion (01/04/10) ?Z98.1 - Arthrodesis status (ICD-10) Status post right foot surgery (01/04/10) ?Z98.890 - Other specified postprocedural states (ICD-10) Status post arthroscopy of right shoulder (06/02/14) ?Z98.890 - Other specified postprocedural states (ICD-10) Status post left foot surgery (~2019) ?Z98.890 - Other specified postprocedural states (ICD-10) 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 She has 2 dogs that she takes for a walk every day for about 2 miles. She does her own lawn mowing. She lives very independently. Closest family is her son, Naseem De Leon, of [place] who was taking care of her dogs and is designated healthcare power of substation maintenance technician . Secondary healthcare power of substation maintenance technician would be her brother Jai Blackburn who lives in [place]. Does not drink alcohol Does not use illicit drugs Former smoker What is your current living situation?: I presently have a place to live Problems where you live: no known problems Problems where you live details: N/A In the past 12 months, utilities in danger of being shut off: no In past 12 months, lack of transportation kept you from medical appts, meetings, work, or getting things needed for daily living: no In the past 12 mos, have been you worried that your food would run out before you had money to buy more?: never true In the past 12 mos, the food you bought just didn't last and you didn't have money to buy more?: never true Highest level of school completed/degree received: Associate degree: occupational, technical, vocational program Smoking Status: Former smoker What tobacco products do you use: cigarettes Smoking quit date/years: >15 years ago Do you use any of these nicotine containing products: None Second hand tobacco smoke exposure: No How often do you have a drink containing alcohol: monthly or less Alcohol type details: once a year How many standard drinks containing alcohol do you have on a typical day: 1 or 2 How often do you have six or more drinks on one occasion: Never AUDIT-C Alcohol total score: 1 Non-prescribed substance use: denies use Caffeine: Yes How often does anyone, including family, friends and others, physically hurt you: never How often does anyone, including family, friends and others, insult or talk down to you: never How often does anyone, including family, friends and others, threaten you with harm: never How often does anyone, including family, friends and others, scream or curse at you: never service: No Exam Narrative: Exam Narrative: Vital signs reviewed In general, alert, well-appearing elderly woman. She looks comfortable. Arrives via EMS. Extremities: The dressing on the foot was taken down. The dressing was soaked with blood, but there was no significant bleeding noted from the wound. There is no swelling, no erythema, no tenderness. CMS is intact. Const: Vital Signs, click to edit/add: Vital Signs - 24 hr 01/21/25 07:52 Temperature 97.7 F Pulse Rate [Pulse Oximeter] 72 Respiratory Rate 16 Blood Pressure [Ri ght Upper Arm] 131/68 Pulse Oximetry 97 Oxygen Delivery Me thod Room Air Course Course ED Course: At this time, there was no significant bleeding. I discussed her care with Dr. Sims, he recommended just placing another dressing, suspect she has been on it more than she should be and asked that she take it easy for the next few days. She has an appointment with him in clinic next week for recheck. We placed an ABD, Kerlix and Coban. Discussed with her she notices recurrent bleeding, she can certainly take the dressing down and apply some pressure to see if that stops it. If it does not or she feels uncomfortable with that she can always return to the emergency department. Asked her to stay off her foot for the most part over the next few days, follow-up as planned. No evidence of infection at this time. Vital Signs Vital signs: Initial Vital Signs Temperature 97.7 F 01/21/25 07:52 Temperature Source Temporal Artery Scan 01/21/25 07:52 Pulse Rate 72 01/21/25 07:52 Respiratory Rate 16 01/21/25 07:52 Blood Pressure 131/68 01/21/25 07:52 Blood Pressure Mean 89 01/21/25 07:52 Blood Pressure Position Supine 01/21/25 07:52 Pulse Oximetry 97 01/21/25 07:52 Oxygen Delivery Method Room Air 01/21/25 07:52 Vital Signs Temperature 97.7 F 01/21/25 07:52 Pulse Rate 72 01/21/25 07:52 Respiratory Rate 16 01/21/25 07:52 Blood Pressure 131/68 01/21/25 07:52 Pulse Oximetry 97 01/21/25 07:52 Oxygen Delivery Method Room Air 01/21/25 07:52 Temperature 97.7 F 01/21/25 07:52 Pulse Rate 72 01/21/25 07:52 Respiratory Rate 16 01/21/25 07:52 Blood Pressure 131/68 01/21/25 07:52 Pulse Oximetry 97 01/21/25 07:52 Oxygen Delivery Method Room Air 01/21/25 07:52 Discharge Plan Discharge Clinical Impression: Post-op bleeding Patient Disposition: Home, Self-Care Condition: Improved Instructions: Postoperative Bleeding (ED) Additional Instructions: As of right now, your bleeding is controlled. I talked with Dr. Sims. He asked that you try to stay off of your foot as much as possible over the next few days to let this stabilize. If you have recurrent bleeding, I would try pressure on this area 1st for about 15 minutes. If it does not respond to pressure, return to the emergency department. Prescriptions: No Action Probiotic 3 billion cell capsule 3,000 mmu cells PO BID multivitamin [Multiple Vitamins] Tablet 1 tab PO DAILY ibandronate 150 mg tablet 150 mg PO MONTHLY Qty: 3 0RF pravastatin 10 mg tablet 10 mg PO HS Qty: 90 3RF celecoxib 100 mg capsule 100 mg PO BID PRN (Reason: pain) cranberry 500 mg capsule 500 mg PO DAILY Rx Instructions: administer with a meal naproxen sodium [Aleve] 220 mg tablet 220 mg PO DAILY sumatriptan succinate [Imitrex] 50 mg tablet 50 mg PO Q2H PRN (Reason: migraine headache) acetaminophen 500 mg capsule 1,000 mg PO DAILY MDD 3000mg ciprofloxacin HCl 500 mg Tablet 500 mg PO BID 7 Days Qty: 14 0RF loperamide 2 mg Capsule 2 mg PO Q2H PRNQty: 30 0RF gabapentin 600 mg tablet 1,200 mg PO QHS gabapentin 600 mg tablet 600 mg PO QAM Follow Up/Referrals: Lori Barreto PA-C [Primary Care Provider] - Stand Alone Forms: MyHealth Info Instructions
== END 2025-01-21 09:03 | disposition home or self-care (01) ==
PROVIDERS: Emergency Provider Emergency Medicine; PCP Physician Assistant Medical
DX: M96.830 Postprocedural hemorrhage of a musculoskeletal structure following a musculoskeletal system procedure (principal)
CPT/HCPCS: 99282; 99283

== ENCOUNTER 2025-03-19 15:04 | Outpatient (CLI) | payer MEDICARE, SELFPAY | END 2025-03-19 15:05 | disposition home or self-care (01) | LOC: NFLDREF 03-24 02:06 | PROVIDERS: PCP Physician Assistant Medical; Referring Provider Physician Assistant Medical; Visit Provider Family Medicine | DX: R30.0 Dysuria (principal); N39.0 Urinary tract infection, site not specified; R39.89 Other symptoms and signs involving the genitourinary system | CPT/HCPCS: 87086 ==

== ENCOUNTER 2025-04-13 13:45 | Outpatient (CLI) | payer MEDICARE, SELFPAY | END 2025-04-13 13:46 | disposition home or self-care (01) | LOC: NFLDREF 04-21 00:12 | PROVIDERS: PCP Physician Assistant Medical; Referring Provider Physician Assistant Medical; Visit Provider Physician Assistant Medical | DX: N30.00 Acute cystitis without hematuria (principal) | CPT/HCPCS: 87086 ==

== ENCOUNTER 2025-05-24 12:42 | Outpatient (CLI) | payer MEDICARE, SELFPAY ==
--- OUTSIDE RECORDS SUMMARY | 2025-05-25 01:23 | XMS_ITS | Clinical Summary ---
Author Organization [facility] Address [address] [place] [address] Care Team Providers Care Dental Ceramist Name Role Phone Unavailable Primary Care Provider Unavailabl e Source Comments You are receiving this document as you are listed as the primary care provider,follow-up provider, or the patient has been referred to you for consultation.This is in compliance with the Medicare and[facility],which states Providers who [...] Date Last Done Comments Dexa 2006 RSV Vaccine (1 - 1-dose 75+ series) 2016 COVID-19 Vaccine ( season) 2024 10/05/2022, 03/21/2022, 08/30/2021, Additional history exists Medicare Annual Wellness Visit 12/02/2024 Influenza Vaccine (Season Ended) 2025 08/16/2022, 08/23/2021, 08/09/2020, Additional history exists DTaP/Tdap/Td Vaccine (2 - Tdap) 09/09/2030 09/09/2020, 11/19/2006 HepA Vaccine Aged Out 09/10/2008, 02/18/2008 No lo nger eligible based on patient's age to complete this topic Pneumococcal Vaccine 50+ Yrs Completed , 03/17/2015, 06/16/2009 Zoster/Shingles Vaccine Completed 07/25/2022, 05/05 HepB Vaccine Aged Out No longer eligi ble based on patient's age to complete this topic Hib Vaccine Aged Out No longer eligi ble based on patient's age to complete this topic MCV4 Vaccine Aged Out No longer eligi ble based on patient's age to complete this topic Meningococcal B Vaccine Aged Out No l onger eligible based on patient's age to complete this topic Insurance MEDICARE MEDICARE
--- OUTSIDE RECORDS SUMMARY | 2025-05-25 01:24 | XMS_ITS | Clinical Summary ---
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 Gender Identity Not on file Sexual Orientation Not on file Plan of Treatment Health Maintenance Due Date Last Done Comments ADVANCE CARE PLANNING 1940 ANNUAL REVIEW OF HM ORDERS 1940 FALL RISK ASSESSMENT 2006 MEDICARE ANNUAL WELLNESS VISIT 2006 RSV VACCINE (1 - 1-dose 75+ series) 2016 COVID-19 VACCINE ( season) 2024 10/05/2022, 03/21/2022, 08/30/2021, Additional history exists PHQ-2 (once per calendar year) 2024 INFLUENZA VACCINE (Season Ended) 2025 08/16/2022, 08/16/2022, 08/23/2021, Additional history exists DTAP/TDAP/TD VACCINE (2 - Td or Tdap) 09/09/2030 09/09/2020, 11/19/2006 DEXA 09/15/2030 09/15/2015, 09/07/2015 PNEUMOCOCCAL VACCINE 50+ YEARS Completed 10/28/2019, 03/17/2015, 06/16/2009 ZOSTER VACCINE Completed 07/25/2022, 05/05/2022 HPV VACCINE Aged Out No longer eligi ble based on patient's age to complete this topic MENINGITIS VACCINE Aged Out No longer eligible based on patient's age to complete [...] Narrative 09/15/2015 12:00 PM CDT BONE DENSITOMETRY [address] [address] 09/15/2015 PATIENT: Sheila Blackburn CHART: [id number] : 1940 AGE: [age] year old SEX: female REFERRING PROVIDER: Elvin Pierre MD PROCEDURE: Bone density scanning was performed using DXA technology of the lumbar spine and hip. Scanning was performed on a [employer] scanner. Reporting is completed in the form [...] in the lateral decubitus position using a [employer] densitometer. Indications for VFA: T-score of -1.0 [...] Insurance UCARE MEDICARE UCARE MEDICARE Care Teams Separating Machine Operator Relationship Specialty Start Date End Date Rajinder Mars MD [facility] [id number] [place] [phone] PCP - General Family Practice 07/29/15
--- OUTSIDE RECORDS SUMMARY | 2025-05-25 01:24 | XMS_ITS | Data Portability ---
Author Organization [facility], [facility] [place] Address [address] [place] [address] Care Team Providers Care Life Scientist Name Role Phone VANESSA PEREZALBA Primary Care Provider [phone] Assessment No assessment recorded. Plan of Treatment Reminders Order Date Submit Date Provider Last Modified By Organization Details Last Modified Time Details Appointments None recorded. Lab None recorded. Referral None recorded. Procedures None recorded. Surgeries None recorded. Imaging None recorded. Medication Orders Gemtesa 75 mg tablet 2023 [facility], [id number], [address], 4 10:07:06 Gemtesa 75 mg tablet 2023 024 [email or web address] [facility], [address] [place], [address], 4 09:51:51 Gemtesa 75 mg tablet 2023 024 [email or web address] 9 [facility], [address] [place], [address], 4 09:51:51 tolterodine ER 2 mg capsule,ext ended release 24 hr 2023 024 [facility], [address] [place], [address], 4 14:44:52 solifenacin 5 mg tablet 2023 024 RICARDO [facility], [address], [place], [address], 4 14:33:46 trospium 20 mg tablet 2022 023 [email or web address] [facility], [address], [place], [address], 4 11:31:58 Patient TargetsNo targets recorded. Patient Instructions Encounter Date Encounter Id Patient Instructions Last Modified By Organization Details Last Modified Time 03/27/2023 [id number] History of prola pse surgery, nocturia, daytime frequency and incontinence: -Encourage double voiding. PVR low today. -Improvement with trospium 20 mg BID. Continue. -UDS 01/16/23- no good contraction. -Patient not interested in PFPT. -Follow up in 12 months, sooner if issues. [email or web address] Not available 03/27/2023 15:47:50 04/01/2024 [id number] History of prola pse surgery, nocturia, daytime frequency and incontinence: -Encourage double voiding. PVR low today. -Improvement with trospium 20 mg BID. discontinue. -UDS 01/16/23- no good contraction. -Patient not interested in PFPT. -Trial vesicare 5 mg once daily. monitor for s/e. -Follow up in 2 months with pvr [email or web address] Not available 04/01/2024 11:33:08 06/11/2024 [id number] History of prola pse surgery, nocturia, daytime [...] pvr rbourget Not available 06/11/2024 11:40:10 07/20/2024 [id number] History of prola pse surgery, nocturia, daytime [...] pvr rbourget Not available 07/20/2024 14:45:19 10/14/2024 [id number] History of prola pse surgery, nocturia, daytime [...] Address Organization Details Recorded Time Chronic cystitis 84341591 Active 2018 N30.20 : Chronic cystitis Not Available [facility] 0 23:42:04 Cystitis 94809047 Active 2012 N30.90 : Cystitis Not Available [facility] 0 23:42:04 Overactiv e urinary bladder 963334999 Active 2018 N32.81 : Bladder muscle dysfunctio n - overactive Not Available [facility] 0 23:42:04 Nocturia 495957330 Active 2012 R35.1 : Nocturia Not Available [facility] 0 23:42:04 Urinary tract infectiou s disease 14354515 Active 2012 N39.0 : Urinary tract infectious disease Not Available [facility] 0 23:42:04 Hyperchol esterolem ia 43884755 Active 2023 Allison la [facility] 4 11:07:14 History of statin therapy 019924269 Active 2023 Allison la [facility] 4 11:07:45 Problem Notes None recorded. Procedures Surgical History Date Name Laterality Status Provider Name and Address Organization Details Recorded Time COMPLEX VISIT completed QASIM Landry [address] [place] [address],[address], [address], [facility] 10/13/2024 22:31:45 024 Bladder Scan completed QASIM Landry [address] [place] [address],[address], [address], [facility] 10/14/2024 09:57:23 024 COMPLEX VISIT completed QASIM Landry [address] [place] [address],[address], [address], [facility] 07/19/2024 19:32:09 024 Bladder Scan completed Allison Pablo [facility] 07/20/2024 14:26:35 024 Bladder Scan completed QASIM Landry [address] [facility],[address], [place], [address], [facility] 06/11/2024 11:21:18 024 COMPLEX VISIT completed QASIM Landry [address] [facility],[address], [place], [address], [facility] 04/01/2024 11:15:33 024 Past Data Reviewed completed QASIM Landry [address] [place] [address],[address], [place], [address], [facility] 04/01/2024 11:15:50 024 Bladder Scan completed Allison Pablo [facility] 04/01/2024 11:25:35 023 Bladder Scan completed QASIM Landry [address] [place] [address],[address], [place], [address], [facility] 03/27/2023 15:40:29 023 Urodynamic Studies completed Radha Byers MD [address] [place] [address],[address], [place], [address], [facility] 01/18/2023 08:42:29 023 Urinalysis completed JOSH ENCINAS [address] [place] [address],[address], [place], [address], [facility] 01/15/2023 10:37:53 022 Past Data Reviewed completed Radha Byers MD [address] [place] [address],[address], [place], [address], [facility] 10/01/2022 08:50:58 022 In and Out Catheterization- female completed Radha Byers MD [address] [place] [address],[address], [place], [address], [facility] 10/01/2022 15:59:54 020 Insert bladder catheter completed Not Available [facility] 05/12/2020 13:36:11 019 Resect phalanx of toe tumor completed Not Available [facility] 05/12/2020 13:36:11 019 Us urine capacity measure completed Not Available [facility] 05/12/2020 13:36:11 019 Insert bladder catheter completed Not Available [facility] 05/12/2020 13:36:11 014 Colonoscopy thru stoma spx completed Not Available [facility] 05/12/2020 13:36:11 013 Cystourethroscopy completed Not Available [facility] 05/12/2020 13:36:11 013 Insert bladder catheter completed Not Available [facility] 05/12/2020 13:36:11 Division of fallopian tube completed Not Available [facility] 05/12/2020 13:36:11 Removal of tonsils completed Not Available [facility] 05/12/2020 13:36:11 Removal of gallbladder completed Not Available [facility] 05/12/2020 13:36:11 Hysterectomy/revise vagina completed Not Available [facility] 05/12/2020 13:36:11 Anterior colporrhaphy completed Not Available [facility] 05/12/2020 13:36:11 Total knee arthroplasty completed Not Available [facility] 05/12/2020 13:36:11 Imaging Results None recorded. Procedure Notes None recorded. Medical Equipment None Reported. Allergies Allergen ID Allergen Name Allergen Category Reaction Reaction Severity Criticality Documentation Date Start Date Code Code System Note Provider Name and Address Organization Details Recorded Time 129202 morphine sulfate medicatio n Not available Not available Not available 05/11/2020 63409 RxNorm Not Available [facility] 0 23:47:24 964319 codeine medicatio n vomiting Not available Not available 05/11/2020 2670 RxNorm Not Available [facility] 0 23:47:24 Medications Name Sig Start Date Stop Date [...] Updated DateTime 04/01/2024 172.72 cm 22.8 kg/m2 30234.86 g Allison Pablo [facility] 04/01/2024 11:06:44 Date Recorded Body height Body mass index (BMI) Body weight Provider Name and Address Organization Details Last Updated DateTime 06/11/2024 172.72 cm 22.8 kg/m2 66571.86 g Allison Pablo [facility] 06/11/2024 11:06:15 Date Recorded Body height Body mass index (BMI) Body weight Provider Name and Address Organization Details Last Updated DateTime 07/20/2024 172.72 cm 22.8 kg/m2 67612.86 g Allison Pablo [facility] 07/20/2024 14:21:08 Date Recorded Body weight Provider Name an d Address Organization Details Last Updated DateTime 10/14/2024 42532.04 g Allison Pablo [facility] 10/14/2024 09:51:27 Date Recorded Body height Body [...] available 10/13/2024 What Is Your Level Of Caffeine Consumption? Moderate [email or web address] Information not available 10/13/2024 How Much Tobacco Do You Chew? None [email or web address] Information not available 10/13/2024 When Did You Quit Smoking? 16+yearssince lastcigarette [email or web address] Information not available 10/14/2024 Race White [email or web address] Information n ot available 05/12/2020 Ethnicity Not /Lati no Information not available 04/01/2024 Preferred Language Colombian [email or web address] Information not available 04/01/2024 Number Of Pregnancies 4 [email or web address] Information not available 04/01/2024 Number Of Vaginal Deliveries 4 [email or web address] Information not available 04/01/2024 Number Of Caesarean Sections 0 [email or web address] Information not available 10/13/2024 Could You Be ? No [email or web address] Information not available 04/01/2024 Marital Status Single [email or web address] Informati on not available 05/12/2020 Do You Have A Medical Power Of [employer] Finisher? Yes [email or web address] Information not available 10/13/2024 What Was The Date Of Your Most Recent Tobacco Screening? 10/14/2024 [email or web address] Information not available 10/13/2024 What Is Your Relationship Status? [email or web address] Information not available 10/13/2024 Are You Sexually Active? No [email or web address] Information not available 10/13/2024 Has Tobacco Cessation Counseling Been Provided? No [email or web address] Information not available 01/28/2023 How Many Years Have You Smoked Tobacco? 28 [email or web address] Information not available 10/13/2024 How Many Days In The Past Year Have You Consumed 4 Or More Drinks? 0 [email or web address] Information no t available 10/13/2024 Sex: Unknown Functional Status Question Answer Note LastModified by Organizat ion Details LastModified Time Do you use any illicit or recreational drugs? No [email or web address] Information not available 10/13/2024 Do you or have you ever used any other forms of tobacco or nicotine? No [email or web address] Information not available 01/28/2023 What is your level of alcohol consumption? None [email or web address] Information not available 10/14/2024 Do you or have you ever used smokeless tobacco? Never used smokeless tobacco [email or web address] Information not available 10/13/2024 Are you currently employed? No [email or web address] Information not available 04/01/2024 Do you or have you ever used e-cigarettes or vape? Never used electronic cigarettes [email or web address] Information not available 10/13/2024 Mental Status None recorded. Family History Nothing Reported Notes:Cancer-reoriductive sy stem :Father Cancer, breast:Mother Congestive Heart Failure:Mother COPD:Sister Cancer, stomach:Father Glaucoma:Sister arthritis:Sister Cancer-reoriductive system :Mother Osteoporosis:Mother Medical History Condition Response Diabetes N Sexually Transmitted Infection N Other N Bleeding Disorder N High Blood Pressure N Kidney Stones N High Cholesterol Y GERD/Acid Reflux N Heart Disease N Cancer N Lung Disease N Depression N Gynecological History Statement/Question Response Irregular periods [...] mcg/0.3 mL dose 1 completed Shira la, [facility] 10/01/2022 15:44:50 Influenza, high-dose, trivalent, PF 8 completed Shira la, [facility] 10/01/2022 15:44:50 Pneumococcal conjugate [facility]V 13 [facility] 15:44:50 COVID-19, mRNA, LNP-S, PF, 30 mcg/0.3 mL dose, alejandro-sucrose 2 [facility] 15:44:50 Novel [id number], all formulations 0 completed Shira la, [facility] 10/01/2022 15:44:50 Influenza, split virus, trivalent, preservative 8 completed Shira la, [facility] 10/01/2022 15:44:50 Hep B, adult 8 completed Shira la, [facility] 10/01/2022 15:44:50 Hep A, adult 8 completed Shira la, [facility] 10/01/2022 15:44:50 Influenza, split virus, trivalent, preservative 3 completed Shira L Raulito null, [facility] 10/01/2022 15:44:50 Hep A, adult 8 completed Shira L Raulito null, [facility] 10/01/2022 15:44:50 typhoid, ViCPs 8 completed Shira L Raulito null, [facility] 10/01/2022 15:44:50 Hep B, adult 8 completed Shira L Raulito null, [facility] 10/01/2022 15:44:50 Influenza, adjuvanted, quadrivalent, PF 2 completed Shira L Raulito null, [facility] 10/01/2022 15:44:50 Influenza, adjuvanted, quadrivalent, PF 1 completed Shira L Raulito null, [facility] 10/01/2022 15:44:50 Influenza, high-dose, trivalent, PF 7 completed Shira L Raulito null, [facility] 10/01/2022 15:44:50 Hep B, adult 8 completed Shira L Raulito null, [facility] 10/01/2022 15:44:50 Influenza, adjuvanted, quadrivalent, PF 0 completed Hsira L Raulito null, [facility] 10/01/2022 15:44:50 Tdap 0 completed Shira L Raulito null, [facility] 10/01/2022 15:44:50 Influenza, high-dose, trivalent, PF 5 completed Shira L Raulito null, [facility] 10/01/2022 15:44:50 Influenza, split virus, quadrivalent, PF 0 completed Shira L Raulito null, [facility] 10/01/2022 15:44:50 Influenza, split virus, trivalent, preservative 2 completed Shira L Raulito null, [facility] 10/01/2022 15:44:50 COVID-19, mRNA, LNP-S, PF, 30 mcg/0.3 mL dose 1 completed Shira la, [facility] 10/01/2022 15:44:50 Td (adult), 5 Lf tetanus toxoid, preservative free, adsorbed 6 completed Shira la, [facility] 10/01/2022 15:44:50 pneumococcal polysaccharide PPV23 9 completed Shira la, [facility] 10/01/2022 15:44:50 zoster recombinant 2 completed Shira la, [facility] 10/01/2022 15:44:50 zoster recombinant 2 completed Shira la, [facility] 10/01/2022 15:44:50 Influenza, high-dose, trivalent, PF 9 completed Shira la, [facility] 10/01/2022 15:44:50 COVID-19, mRNA, LNP-S, PF, 30 mcg/0.3 mL dose 1 completed Shira la, [facility] 10/01/2022 15:44:50 Pneumococcal conjugate PCV 13 9 completed Shira la, [facility] 10/01/2022 15:44:50 Past Encounters Encounter ID Performer Location Encounter Start Date Encounter Closed Date Diagnosis/Indication Diagnosis SNOMED-CT Code Diagnosis ICD10 Code Diagnosis Note [id number] Radha Byers MD [facility] [address] [facility] [address] [place] [address] 10/01/2022 15:27:54 10/01/2022 16:08:56 Atrophic vaginitis 91482201 N95.2 chronic stable Chronic cystitis 3757298 2 N30.20 chronic improved Nocturia 440509448 R35.1 new Incomplete emptying of urinary bladder 128898936 R39.14 new [id number] Radha Byers MD [facility] [address] [facility] [address] [place] [address] 01/16/2023 13:52:49 01/16/2023 16:57:43 Incomplete emptying of urinary bladder 057499171 R39.14 Overactive urinary bladder 043529884 N32.81 [id number] Radha Byers MD [facility] [address] [place] [address],[address] [place] [address] 01/28/2023 11:39:59 01/28/2023 13:02:28 Atrophic vaginitis 18510736 N95.2 chronic stable Chronic cystitis 6816701 2 N30.20 chronic improved Nocturia 425740184 R35.1 new [id number] QASIM Landry [facility] [address] [place] [address],[address] [place] [address] 03/27/2023 15:33:51 03/27/2023 16:02:53 Atrophic vaginitis 68497377 N95.2 chronic stable Chronic cystitis 1187634 2 N30.20 chronic improved Nocturia 068025585 R35.1 chronic, improved [id number] QASIM Landry [facility] [address] [place] [address],[facility] [address] [place] [address] 04/01/2024 11:01:39 04/01/2024 11:36:20 Nocturia 283883076 R35.1 chronic Overactive urinary bladder 098883978 N32.81 chronic [id number] [facility] [address] [place] [address],[facility] [address] [place] [address] 06/11/2024 11:00:43 06/11/2024 14:11:28 Nocturia 698405261 R35.1 chronic Overactive urinary bladder 015036641 N32.81 chronic [id number] [facility] [address] [place] [address],[address] [place] [address] 07/20/2024 14:16:25 07/20/2024 14:53:03 Nocturia 906952226 R35.1 chronic, improved with regimen of tylenol pm and melatonin Overactive urinary bladder 063165116 N32.81 chronic [id number] [facility]IM [facility] [address] [place] [address],[address] [place] [address] 10/14/2024 09:46:44 10/15/2024 10:38:00 Nocturia 140815802 R35.1 chronic, improved with regimen of tylenol pm and melatonin Overactive urinary bladder 432832105 N32.81 chronic Health Concerns Section Related Observation LastModified by Organization Richard ls LastModified Time None Recorded Concern Status LastModified by Organization Details LastModified Time None Recorded Advance Directives Directive Y: Payers Insurance Date Sequence Insurance Name Policy Number Policy De Luna Covered Member ID De Luna Member ID Guarantor Name 10/21/2024 1 [employer] - DOS ON OR AFTER 19 (MEDICARE REPLACEMENT/ ADVANTAGE - HMO) [id number] Sheila Blackburn [id number] Sheila Blackburn Notes Date Note Type Note Provider Name [...] minimal leakage. Has been routinely double voiding. 5-76-24 (Dr. Byers -video) last seen in [facility], she is up 2-3 times at nightusing [...] hx of pop repair with mesh at [place] and hx of mixed incotnience with utis.when [...] with water.BMs: more diarrhea, daily. QASIM Landry [address] [place] [address],[address], [place], [address], [facility] 03/27/2023 15:48:02 04/01/2024 text/html 04/01/24:Patient presents [...] minimal leakage. Has been routinely double voiding. 6-54-35 (Dr. Byers -video)last seen in [facility], she is up 2-3 times at nightusing [...] hx of pop repair with mesh at [place] and hx of mixed incotnience with utis.when [...] with water.BMs: more diarrhea, daily. QASIM Landry [address] [place] [address],[address], [place], [address], [facility] 04/01/2024 11:35:01 06/11/2024 text/html 06/11/24:Patient presents [...] minimal leakage. Has been routinely double voiding. 0-96-05 (Dr. Byers -video)last seen in [facility], she is up 2-3 times at nightusing [...] hx of pop repair with mesh at [place] and hx of mixed incotnience with utis.when last seen was using estrogren for UTI prevention, she is not using the estrogren cream for at least 2 years.2 Cr 0.78no urines listed in her chartingno [...] water.BMs: more diarrhea, daily. QASIM Landry [address] [facility],[address], [place], [address], [facility] 06/11/2024 11:40:19 07/20/2024 text/html 07/20/24:Patient presents [...] minimal leakage. Has been routinely double voiding. 6-35-22 (Dr. Byers -video)last seen in [facility], she is up 2-3 times at nightusing [...] hx of pop repair with mesh at [place] and hx of mixed incotnience with utis.when [...] water.BMs: more diarrhea, daily. QASIM Landry [address] [facility],[address], [place], [address], [facility] 07/20/2024 14:45:22 10/14/2024 text/html 10/14/24:Patient presents [...] minimal leakage. Has been routinely double voiding. 3-84-02 (Dr. Byers -video)last seen in [facility], she is up 2-3 times at nightusing [...] hx of pop repair with mesh at [place] and hx of mixed incotnience with utis.when last seen was using estrogren for UTI prevention, she is not using the estrogren cream for at least 2 years.2 Cr 0.78no urines listed in her chartingno [...] water.BMs: more diarrhea, daily. QASIM Landry [address] [facility],[address], [place], [address], [facility] 10/14/2024 10:07:54 OBGyn Episode No OBEpisode recorded.
== END 2025-05-24 12:43 | disposition home or self-care (01) ==
LOC: RAD 12:43
PROVIDERS: PCP Physician Assistant Medical; Visit Provider Internal Medicine
DX: I35.0 Nonrheumatic aortic (valve) stenosis (principal); I35.2 Nonrheumatic aortic (valve) stenosis with insufficiency
CPT/HCPCS: 93306

== ENCOUNTER 2025-06-07 06:39 | Day surgery (SDC) | payer MEDICARE, SELFPAY ==
[2025-06-07] VITALS (7 sets, daily range): BP systolic 111–136; BP diastolic 56–71; PULSE 66–73; RESP 13–16; TEMP 36.6; O2SAT 94–98; BMI 23.6
[2025-06-07] MEDS: BUPIVACAINE 0.5% 30 ML INJECTION (06:49)
[2025-06-07] MEDS: LIDOCAINE 1%-EPI 1:100,000 20 ML INFILTRATI (06:55)
[2025-06-07] MEDS: ETHYL CHLORIDE 1 APPLICATION 1 APPLIC TOPICAL (06:57)
--- NOTE | 2025-06-07 07:46 | P.ORPRC_ITS ---
Procedure Note Date of procedure: 06/07/25 Procedure: PREOPERATIVE DIAGNOSIS: 1. Right carpal tunnel syndrome POSTOPERATIVE DIAGNOSIS: 1. Right carpal tunnel syndrome PROCEDURE: 1. Right open carpal tunnel release SURGEON: Home Neal MD. [employer]TER: CATHLEEN Pineda ANESTHESIA: Local anesthetic (50:50 mixture of 1% lidocaine with epi and 0.5% marcaine plain) - 10ml total IMPLANTS: None EBL: 2 mL TOURNIQUET: None COMPLICATIONS: None evident INDICATIONS: The patient is a pleasant 85-year-old female who has experienced right hand numbess/tingling affecting the radial 3.5 digits for multiple months. It has progressively gotten worse. Nonoperative management has been tried and failed, and therefore surgery was recommended. DESCRIPTION OF PROCEDURE: Following a thorough discussion of risks, benefits, and alternatives consent was obtained and the operative extremity was marked. The patient was brought to the operating room and placed supine on the operating table. Local anesthesia induction was undertaken in preop holding. No antibiotics were administered as this was planned to be a local case only. Proper time-out was performed identifying proper patient, site, and procedure. The operative extremity was prepped and draped in the appropriate sterile fashion using ChloraPrep. An incision was made in line with the radial border of the ring finger beginning 1 cm distal to the distal wrist crease and progressing for another 2.5cm distal. Caution was taken to stay proximal to Shook's cardinal line. Sharp incision through the skin, subcutaneous tissue, and palmar fascia was performed. The thenar musculature was bluntly elevated off the transverse carpal ligament. The ligament was directly visualized, and divided sharply with a 15 blade. This was released from its most proximal to the most distal extent. Metzenbaum scissor was also utilized to release the fascia extension proximally. We confirmed complete release of the transverse carpal ligament. Closure was performed with 4-O nylon in interrupted fashion. Soft dressings were applied, and the patient was transferred to the recovery room in stable condition. PLAN: 1. Encourage elevation of the operative extremity. 2. Range of motion of the fingers and hand/wrist as tolerated. 3. Ibuprofen/acetaminophen as needed for pain control. 4. Follow up with PA visit or nurse visit in 12-16 days for wound check and suture removal.
--- NOTE | 2025-06-07 07:49 | SUR.PREOP ---
SAME DAY SURGERY LOCAL INJECTION SITE VERIFICATION WAS PERFORMED BY SURGEON/PA AND PATIENT PRIOR TO LOCAL ANESTHETIC BEING INJECTED TO OPERATIVE SITE.
--- NOTE | 2025-06-07 08:03 | SUR.PHASEII ---
Upon return from the OR, patient sitting in chair. Patient dressed independently, tolerated water. Patient verbalized readiness to be discharged and understanding of discharge instructions.
== END 2025-06-07 08:05 | disposition home or self-care (01) ==
PROVIDERS: PCP Physician Assistant Medical; Visit Provider Orthopaedic Surgery Sports Medicine
PROC: (CPT 64721; principal; 2025-06-07 07:15)
DX: G56.01 Carpal tunnel syndrome, right upper limb (principal)
CPT/HCPCS: 64721; J0665

== ENCOUNTER 2025-07-07 10:02 | Outpatient (CLI) | payer MEDICARE, SELFPAY ==
--- NOTE | 2025-07-07 10:15 | CRLHL7_ITS ---
For Patients: As a result of the Century Cures Act, medical imaging exams and procedure reports are released immediately into your electronic medical record. You may view this report before your referring provider. If you have questions, please contact your health care provider. INDICATION: BILATERAL SCREENING MAMMOGRAM, ASYMPTOMATIC 85 Y/O FEMALE COMPARISON: 06/09/2024, 05/29/2023, 05/28/2022 TECHNIQUE: Digital mammogram in CC and MLO projections including computer-aided detection (CAD) and tomosynthesis. BREAST COMPOSITION: The breasts are almost entirely fatty. FINDINGS: No suspicious findings. ASSESSMENT: BI-RADS 2 Benign RECOMMENDATION: Annual screening mammogram. A lay language report of this examination will be provided to the patient. Dictated by: Tian Sharpe MD @ 07/08/2025 09:55:11 (Electronically Signed)
== END 2025-07-07 10:03 | disposition home or self-care (01) ==
LOC: MAMMO 10:03
PROVIDERS: PCP Physician Assistant Medical; Visit Provider Physician Assistant Medical
DX: Z12.31 Encounter for screening mammogram for malignant neoplasm of breast (principal)
CPT/HCPCS: 77063; 77067

== ENCOUNTER 2025-08-06 11:20 | Outpatient (CLI) | payer MEDICARE, SELFPAY | END 2025-08-06 11:21 | disposition home or self-care (01) | LOC: NFLDREF 08-11 14:00 | PROVIDERS: PCP Physician Assistant Medical; Referring Provider Physician Assistant Medical; Visit Provider Physician Assistant Medical | DX: R35.0 Frequency of micturition (principal) | CPT/HCPCS: 87086 ==

== ENCOUNTER 2025-08-21 10:42 | Outpatient (CLI) | payer MEDICARE, SELFPAY | END 2025-08-21 10:43 | disposition home or self-care (01) | LOC: NFLDREF 08-25 11:39 | PROVIDERS: PCP Physician Assistant Medical; Referring Provider Physician Assistant Medical; Visit Provider Nurse Practitioner Family | DX: N30.90 Cystitis, unspecified without hematuria (principal) | CPT/HCPCS: 87086 ==

== ENCOUNTER 2025-09-15 14:47 | Outpatient (CLI) | payer MEDICARE, SELFPAY | END 2025-09-15 14:48 | disposition home or self-care (01) | LOC: NFLDREF 09-17 17:57 | PROVIDERS: PCP Physician Assistant Medical; Referring Provider Physician Assistant Medical; Visit Provider Physician Assistant Medical | DX: N32.81 Overactive bladder (principal); R30.0 Dysuria; N30.00 Acute cystitis without hematuria | CPT/HCPCS: 87086 ==

== ENCOUNTER 2025-09-26 18:39 | Emergency (ER) | payer MEDICARE, SELFPAY ==
[2025-09-26] VITALS (20 sets, daily range): BP systolic 116–149; BP diastolic 52–85; PULSE 58–76; RESP 16–25; TEMP 36.6; O2SAT 89–98; BMI 24.8
--- NOTE | 2025-09-26 19:33 | CRLHL7_ITS ---
For Patients: As a result of the Century Cures Act, medical imaging exams and procedure reports are released immediately into your electronic medical record. You may view this report before your referring provider. If you have questions, please contact your health care provider. INDICATION: sob TECHNIQUE: Chest 2 views COMPARISON: 02/10/2025 FINDINGS: Chronic elevation left hemidiaphragm. Scoliotic deformity. Right shoulder replacement. Vascular calcifications. Clear lungs. IMPRESSION: No acute findings. Dictated by Tian Sharpe MD @ 09/26/2025 8:24:23 PM (Electronically Signed)
[2025-09-26 19:59] LABS: Lactate* 0.8 mmol/L (0.5-1.9)
[2025-09-26 20:02] LABS: Hematocrit* 39.3 % (33.0-51.0); Hemoglobin* 13.2 gm/dL (12.0-16.0); Immature Granulocytes Pct Auto 0.2 %; Lymphocytes Absolute Auto 2.03 K/uL (0.90-2.90); Mean Corpuscular HGB Conc 34 gm/dL (32-36); Mean Corpuscular Hemoglobin 34 pg (26-34); Mean Corpuscular Volume 102 fL (80-100); RDW Coefficient of Variation % 12.3 % (11.5-15.5); Red Blood Count* 3.84 m/uL (4.00-5.20); White Blood Count* 6.12 K/uL (4.50-11.00)
[2025-09-26 20:03] LABS: Immature Granulocytes Abs Auto 0.01 K/uL (0.00-0.30)
--- NOTE | 2025-09-26 20:10 | ED.GENADULT ---
HPI - General Adult General Chief complaint: Chest Pain <Marianna Mireles MD - Last Filed: 09/26/25 21:42> Stated complaint: Chest Pains <Marianna Mireles MD - Last Filed: 09/26/25 21:42> Time Seen by Provider: 09/26/25 19:25 <Marianna Mireles MD - Last Filed: 09/26/25 21:42> Source: patient <Marianna Mireles MD - Last Filed: 09/26/25 21:42> Mode of arrival: ambulatory <Marianna Mireles MD - Last Filed: 09/26/25 21:42> Limitations: no limitations <Marianna Mireles MD - Last Filed: 09/26/25 21:42> History of Present Illness HPI narrative: 85-year-old female presenting today with chest pain. Patient states that the pain started right she finished mowing her lawn. Patient does have a self-propelled push mower. She states that she walks 1 to 1-1/2 miles daily, did not have any chest pain when she walked yesterday. She did not walk today. She states that the pain is been present for about 5 hours. It is much more dull than it was when it 1st started. It is well localized over the left chest wall, ?underneath my Boob?. Nothing seems to make it better or worse. Patient did choose 3 baby aspirin prior to her arrival. She denies feeling short of breath, dizzy or lightheaded. She is not diaphoretic. Her pain does not change with movement, does not change with eating. Patient has no history of coronary artery disease that she tells me. She does have a history of hyperlipidemia, peripheral neuropathy, overactive bladder and a heart murmur. She denies any new medications. She does not use tobacco products. <Marianna Mireles MD - Last Filed: 09/26/25 21:42> Related Data Home medications: Home Medications ?Medication ?Instructions ?Recorded ?Confirmed lactobacillus combination no.4 3 3,000 mmu cells PO BID 08/10/22 09/15/25 billion cell capsule (Probiotic) multivitamin (Multiple Vitamins 1 tab PO DAILY 10/30/23 09/15/25 tablet) acetaminophen 500 mg capsule 1,000 mg PO DAILY 01/13/25 09/15/25 cranberry 500 mg capsule 500 mg PO DAILY 01/13/25 09/15/25 gabapentin 600 mg tablet 600 mg PO DIRECTED 03/19/25 09/15/25 vibegron 75 mg tablet (Gemtesa) 75 mg PO DAILY 03/19/25 09/15/25 erythromycin 5 mg/gram (0.5 %) eye ophthalmic (eye) 08/21/25 09/15/25 ointment lifitegrast 5 % eye drops in a drp ophthalmic (eye) 08/21/25 09/15/25 dropperette (Xiidra) Previous Rx's ?Medication ?Instructions ?Recorded celecoxib 100 mg capsule 100 mg PO BID PRN pain #180 caps 02/17/25 pravastatin 10 mg tablet 10 mg PO HS heart #90 tabs 04/02/25 cefdinir 300 mg capsule 300 mg PO BID #10 caps 09/15/25 <Marianna Mireles MD - Last Filed: 09/26/25 21:42> Allergies/adverse reactions: Allergies Allergy/AdvReac Type Severity Reaction Status Date / Time alendronate sodium (From Allergy Severe Verified 08/21/25 10:46 Fosamax) codeine AdvReac Mild nausea and Verified 08/21/25 10:46 vomitting morphine AdvReac Mild Nausea Verified 08/21/25 10:46 <Marianna Mireles MD - Last Filed: 09/26/25 21:42> Review of Systems Status of ROS: Reports: 10 or more systems reviewed and unremarkable except as noted in History and below <Marianna Mireles MD - Last Filed: 09/26/25 21:42> [facility] Medical History: Medical History Bowel obstruction ?K56.609 - Unspecified intestinal obstruction, unspecified as to partial versus complete obstruction (ICD-10) Wound infection ?T14.8XXA - Other injury of unspecified body region, initial encounter (ICD-10) ?L08.9 - Local infection of the skin and subcutaneous tissue, unspecified (ICD-10) Cellulitis of foot ?L03.119 - Cellulitis of unspecified part of limb (ICD-10) UTI (urinary tract infection) ?N39.0 - Urinary tract infection, site not specified (ICD-10) Cataracts, bilateral ?H26.9 - Unspecified cataract (ICD-10) Right carpal tunnel syndrome ?G56.01 - Carpal tunnel syndrome, right upper limb (ICD-10) Left carpal tunnel syndrome ?G56.02 - Carpal tunnel syndrome, left upper limb (ICD-10) 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 (ICD-10) Hyponatremia ?E87.1 - Hypo-osmolality and hyponatremia (ICD-10) Polyp of colon (12/11/10) ?K63.5 - Polyp of colon (ICD-10) Mean red blood cell volume increased ?R71.8 - Other abnormality of red blood cells (ICD-10) Lung nodule (12/11/10) ?R91.1 - Solitary pulmonary nodule (ICD-10) Instability of left foot joint ?M25.375 - Other instability, left foot (ICD-10) Tubular adenoma of colon (07/28/19) ?D12.6 - Benign neoplasm of colon, unspecified (ICD-10) Hordeolum of right lower eyelid ?H00.012 - Hordeolum externum right lower eyelid (ICD-10) Blister (nonthermal), right foot, initial encounter ?S90.821A - Blister (nonthermal), right foot, initial encounter (ICD-10) Counseling regarding advanced directives (11/19/17) ?Z71.89 - Other specified counseling (ICD-10) Scapular dyskinesis ?G25.89 - Other specified extrapyramidal and movement disorders (ICD-10) Right rotator cuff tear arthropathy ?M75.101 - Unspecified rotator cuff tear or rupture of right shoulder, not specified as traumatic (ICD-10) ?M12.811 - Other specific arthropathies, not elsewhere classified, right shoulder (ICD-10) Osteoarthritis of left knee ?M17.12 - Unilateral primary osteoarthritis, left knee (ICD-10) <Marianna Mireles MD - Last Filed: 09/26/25 21:42> Surgical History: Surgical History History of carpal tunnel surgery of right wrist (06/07/25) ?Z98.890 - Other specified postprocedural states (ICD-10) S/P right hemicolectomy ?Z90.49 - Acquired absence of other specified parts of digestive tract (ICD-10) 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) ?Z96.619 - Presence of unspecified artificial shoulder joint (ICD-10) 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) ?Z96.611 - Presence of right artificial shoulder joint (ICD-10) History of cholecystectomy (12/11/10) ?Z90.49 - Acquired absence of other specified parts of digestive tract (ICD-10) History of tubal ligation (12/11/10) ?Z98.51 - Tubal ligation status (ICD-10) History of tonsillectomy (12/11/10) ?Z90.89 - Acquired absence of other organs (ICD-10) History of hysterectomy (02/29/12) ?Z90.710 - Acquired absence of both cervix and uterus (ICD-10) History of colonoscopy with polypectomy ?Z98.890 - Other specified postprocedural states (ICD-10) ?Z86.010 - Personal history of colonic polyps (ICD-10) Status post bilateral foot surgery (04/07/08) ?Z98.890 - Other specified postprocedural states (ICD-10) Status post finger joint fusion (01/04/10) ?Z98.1 - Arthrodesis status (ICD-10) Status post right foot surgery (01/04/10) ?Z98.890 - Other specified postprocedural states (ICD-10) Status post arthroscopy of right shoulder (06/02/14) ?Z98.890 - Other specified postprocedural states (ICD-10) Status post left foot surgery (~2019) ?Z98.890 - Other specified postprocedural states (ICD-10) 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) ?Z96.659 - Presence of unspecified artificial knee joint (ICD-10) History of foot surgery (09/20/10) ?Z98.890 - Other specified postprocedural states (ICD-10) <Marianna Mireles MD - Last Filed: 09/26/25 21:42> Family History: Family History Mother Breast cancer CHF (congestive heart failure) Sister COPD (chronic obstructive pulmonary disease) Father Stomach cancer <Marianna Mireles MD - Last Filed: 09/26/25 21:42> Social History: Social History Narrative: She lives alone in [place]. She has 2 dogs that she takes for a walk every day for about 2 miles. She does her own lawn mowing. She lives very independently. Closest family is her son, Naseem De Leon, of [place] who was taking care of her dogs and is designated healthcare power of contracts attorney . Secondary healthcare power of contracts attorney would be her brother Jai Blackburn who lives in [place]. Does not drink alcohol Does not use illicit drugs Former smoker What is your current living situation?: I presently have a place to live Problems where you live: no known problems Problems where you live details: N/A In the past 12 months, utilities in danger of being shut off: no In past 12 months, lack of transportation kept you from medical appts, meetings, work, or getting things needed for daily living: no In the past 12 mos, have been you worried that your food would run out before you had money to buy more?: never true In the past 12 mos, the food you bought just didn't last and you didn't have money to buy more?: never true Highest level of school completed/degree received: Associate degree: occupational, technical, vocational program Smoking Status: Former smoker What tobacco products do you use: cigarettes Smoking quit date/years: >15 years ago Do you use any of these nicotine containing products: None Second hand tobacco smoke exposure: No How often do you have a drink containing alcohol: monthly or less Alcohol type details: once a year How many standard drinks containing alcohol do you have on a typical day: 1 or 2 How often do you have six or more drinks on one occasion: Never AUDIT-C Alcohol total score: 1 Non-prescribed substance use: denies use Caffeine: Yes How often does anyone, including family, friends and others, physically hurt you: never How often does anyone, including family, friends and others, insult or talk down to you: never How often does anyone, including family, friends and others, threaten you with harm: never How often does anyone, including family, friends and others, scream or curse at you: never service: No <Marianna Mireles MD - Last Filed: 09/26/25 21:42> Exam Narrative: Exam Narrative: Well-nourished well-developed elderly patient in no acute distress. Alert and oriented x3. Answers questions appropriately. Mood and affect are appropriate. Thoughts are goal oriented and rational. No tangential or magical thinking noted. Patient speaks in full sentences without needing to catch her breath. HEENT: Normocephalic atraumatic. Pupils are equally round reactive to light. Extraocular muscles are intact. Conjunctivae are moist without any icterus noted. Moist mucous membranes. Cardiovascular: Heart is regular rate and rhythm S1 and S2 are present with a 2/6 systolic murmur. Lungs: Clear to auscultation bilaterally no wheezes rhonchi or rales are appreciated. Patient takes deep breaths without any discomfort. Cannot reproduce her pain with palpation. Abdomen: Soft and nontender nondistended with normal bowel sounds. Extremities: Bilateral lower extremities are without edema. Skin: Well perfused. <Marianna Mireles MD - Last Filed: 09/26/25 21:42> Const: Vital Signs, click to edit/add: Vital Signs - 24 hr 09/26/25 18:59 09/26/25 19:53 09/26/25 19:54 Temperature 97.8 F Pulse Rate 65 63 Pulse Rate [Pulse Oximeter] 76 Respiratory Rate 16 18 Blood Pressure 128/52 L Blood Pressure [Ri ght Upper Arm] 149/85 H Pulse Oximetry 95 97 96 Oxygen Delivery Me thod Room Air 09/26/25 20:01 09/26/25 20:15 09/26/25 20:30 Temperature Pulse Rate 66 62 61 Pulse Rate [Pulse Oximeter] Respiratory Rate 19 20 Blood Pressure 116/66 Blood Pressure [Ri ght Upper Arm] Pulse Oximetry 95 97 97 Oxygen Delivery Me thod 09/26/25 20:32 09/26/25 20:33 09/26/25 20:45 Temperature Pulse Rate 63 63 64 Pulse Rate [Pulse Oximeter] Respiratory Rate 21 19 20 Blood Pressure 135/71 Blood Pressure [Ri ght Upper Arm] Pulse Oximetry 97 97 97 Oxygen Delivery Me thod 09/26/25 21:00 09/26/25 21:02 09/26/25 21:15 Temperature Pulse Rate 64 59 L 65 Pulse Rate [Pulse Oximeter] Respiratory Rate 18 16 19 Blood Pressure 126/66 Blood Pressure [Ri ght Upper Arm] Pulse Oximetry 96 97 98 Oxygen Delivery Me thod 09/26/25 21:30 09/26/25 21:32 09/26/25 21:58 Temperature Pulse Rate 66 65 70 Pulse Rate [Pulse Oximeter] Respiratory Rate 19 16 20 Blood Pressure 119/76 Blood Pressure [Ri ght Upper Arm] Pulse Oximetry 98 98 89 Oxygen Delivery Me thod 09/26/25 22:00 09/26/25 22:05 09/26/25 22:06 Temperature Pulse Rate 73 65 63 Pulse Rate [Pulse Oximeter] Respiratory Rate 25 H 19 Blood Pressure Blood Pressure [Ri ght Upper Arm] Pulse Oximetry 96 97 98 Oxygen Delivery Me thod 09/26/25 22:15 09/26/25 22:45 Temperature Pulse Rate 66 58 L Pulse Rate [Pulse Oximeter] Respiratory Rate 19 17 Blood Pressure Blood Pressure [Ri ght Upper Arm] Pulse Oximetry 95 Oxygen Delivery Me thod <Marianna Mireles MD - Last Filed: 09/26/25 21:42> Vital Signs, click to edit/add: Vital Signs - 24 hr 09/26/25 18:59 09/26/25 19:53 09/26/25 19:54 Temperature 97.8 F Pulse Rate 65 63 Pulse Rate [Pulse Oximeter] 76 Respiratory Rate 16 18 Blood Pressure 128/52 L Blood Pressure [Ri ght Upper Arm] 149/85 H Pulse Oximetry 95 97 96 Oxygen Delivery Me thod Room Air 09/26/25 20:01 09/26/25 20:15 09/26/25 20:30 Temperature Pulse Rate 66 62 61 Pulse Rate [Pulse Oximeter] Respiratory Rate 19 20 Blood Pressure 116/66 Blood Pressure [Ri ght Upper Arm] Pulse Oximetry 95 97 97 Oxygen Delivery Me thod 09/26/25 20:32 09/26/25 20:33 09/26/25 20:45 Temperature Pulse Rate 63 63 64 Pulse Rate [Pulse Oximeter] Respiratory Rate 21 19 20 Blood Pressure 135/71 Blood Pressure [Ri ght Upper Arm] Pulse Oximetry 97 97 97 Oxygen Delivery Me thod 09/26/25 21:00 09/26/25 21:02 09/26/25 21:15 Temperature Pulse Rate 64 59 L 65 Pulse Rate [Pulse Oximeter] Respiratory Rate 18 16 19 Blood Pressure 126/66 Blood Pressure [Ri ght Upper Arm] Pulse Oximetry 96 97 98 Oxygen Delivery Me thod 09/26/25 21:30 09/26/25 21:32 09/26/25 21:58 Temperature Pulse Rate 66 65 70 Pulse Rate [Pulse Oximeter] Respiratory Rate 19 16 20 Blood Pressure 119/76 Blood Pressure [Ri ght Upper Arm] Pulse Oximetry 98 98 89 Oxygen Delivery Me thod 09/26/25 22:00 09/26/25 22:05 09/26/25 22:06 Temperature Pulse Rate 73 65 63 Pulse Rate [Pulse Oximeter] Respiratory Rate 25 H 19 Blood Pressure Blood Pressure [Ri ght Upper Arm] Pulse Oximetry 96 97 98 Oxygen Delivery Me thod 09/26/25 22:15 09/26/25 22:45 Temperature Pulse Rate 66 58 L Pulse Rate [Pulse Oximeter] Respiratory Rate 19 17 Blood Pressure Blood Pressure [Ri ght Upper Arm] Pulse Oximetry 95 Oxygen Delivery Me thod <Tian Arriaga MD - Last Filed: 09/27/25 07:55> Course Course ED Course: EKG, read by me, shows normal sinus rhythm with a pulse of 69. Normal QRS, QTC and NC intervals. Chest x-ray, read by me, does not show any acute findings. A point of care troponin is within normal limits. Unremarkable CBC. Sodium slightly low at 130, BUN elevated at 31, creatinine 0.8. A normal magnesium. Normal LFTs. Normal troponin. Normal lipase. D-dimer however, elevated at 1.14. Above what I would expect even corrected for age. Therefore, we did proceed with a chest CT PE protocol. <Marianna Mireles MD - Last Filed: 09/26/25 21:42> Reevaluation(s) Reevaluation #1: Bart -- I did receive this patient in hand off at change of shift with concern of left-sided chest pain over the course of the afternoon. Discontinued at a mild level. Initial EKG and laboratory evaluation is unremarkable other than mildly elevated D-dimer and is pending CTA of her chest at this point along with repeat EKG. Discussed expected results and likely discharge plan with outgoing provider. Repeat troponin looks to be negative. Repeat EKG independently reviewed by me was essentially unchanged in normal sinus rhythm first-degree block at a rate of 63. I did independently review CT of chest. Not appreciate any clear evidence of infiltrate in lungs Per radiology over-read CTA chest was without pulmonary embolus. Essentially unchanged ascending aortic aneurysm. Vitals stable and improved. Discharged with unchanged plan Indication: Chest pain Technique: Postcontrast CTA of the chest following 95 mL Isovue 370 IV contrast. Axial MIP images obtained. Comparison: CT chest performed 08/31/2010 Findings: Pulmonary arteries: No pulmonary embolism appreciated. Lungs: Basilar faint patchy opacities and areas of mild bronchiectasis and endobronchial filling defects. No effusion. No consolidation. No pneumothorax. Mediastinum: No acute abnormality appreciated. Slight increase in aneurysmal dilation of the ascending aorta measuring 4.3 cm, previously 4.1 cm in 2009. calcified and noncalcified atherosclerosis. Lymph nodes: No gross lymphadenopathy. Upper abdomen: Cholecystectomy. Soft tissues: No acute abnormality appreciated. Bones: No acute abnormality appreciated. Degenerative changes of the spine and left shoulder. Right shoulder replacement. Dextroscoliosis. Impression: Patchy basilar opacities with associated bronchiectasis and endobronchial filling defects distally. Differential would include chronic aspiration and/or a chronic atypical pneumonia. Additional chronic findings as above with no other acute abnormality appreciated. Please note that all CT scans at this facility use dose modulation, iterative reconstruction, and/or weight-based dosing when appropriate to reduce radiation dose to as low as reasonably achievable. Dictated by Bam Steven MD @ 09/26/2025 10:07:28 PM <Tian Arriaga MD - Last Filed: 09/27/25 07:55> Vital Signs Vital signs: Initial Vital Signs Temperature 97.8 F 09/26/25 18:59 Temperature Source Temporal Artery Scan 09/26/25 18:59 Pulse Rate 76 09/26/25 18:59 Pulse Rhythm Regular 09/26/25 18:59 Respiratory Rate 16 09/26/25 18:59 Blood Pressure 149/85 H 09/26/25 18:59 Blood Pressure Mean 106 H 09/26/25 18:59 Blood Pressure Position Sitting 09/26/25 18:59 Pulse Oximetry 95 09/26/25 18:59 Oxygen Delivery Method Room Air 09/26/25 18:59 Vital Signs Temperature 97.8 F 09/26/25 18:59 Pulse Rate 76 09/26/25 18:59 Respiratory Rate 16 09/26/25 18:59 Blood Pressure 149/85 H 09/26/25 18:59 Pulse Oximetry 95 09/26/25 18:59 Oxygen Delivery Method Room Air 09/26/25 18:59 Temperature 97.8 F 09/26/25 18:59 Pulse Rate 58 L 09/26/25 22:45 Respiratory Rate 17 09/26/25 22:45 Blood Pressure 119/76 09/26/25 21:32 Pulse Oximetry 95 09/26/25 22:45 Oxygen Delivery Method Room Air 09/26/25 18:59 <Marianna Mireles MD - Last Filed: 09/26/25 21:42> Initial Vital Signs Temperature 97.8 F 09/26/25 18:59 Temperature Source Temporal Artery Scan 09/26/25 18:59 Pulse Rate 76 09/26/25 18:59 Pulse Rhythm Regular 09/26/25 18:59 Respiratory Rate 16 09/26/25 18:59 Blood Pressure 149/85 H 09/26/25 18:59 Blood Pressure Mean 106 H 09/26/25 18:59 Blood Pressure Position Sitting 09/26/25 18:59 Pulse Oximetry 95 09/26/25 18:59 Oxygen Delivery Method Room Air 09/26/25 18:59 Vital Signs Temperature 97.8 F 09/26/25 18:59 Pulse Rate 76 09/26/25 18:59 Respiratory Rate 16 09/26/25 18:59 Blood Pressure 149/85 H 09/26/25 18:59 Pulse Oximetry 95 09/26/25 18:59 Oxygen Delivery Method Room Air 09/26/25 18:59 Temperature 97.8 F 09/26/25 18:59 Pulse Rate 58 L 09/26/25 22:45 Respiratory Rate 17 09/26/25 22:45 Blood Pressure 119/76 09/26/25 21:32 Pulse Oximetry 95 09/26/25 22:45 Oxygen Delivery Method Room Air 09/26/25 18:59 <Tian Arriaga MD - Last Filed: 09/27/25 07:55> Medications Administered Medications: Discontinued Medications Generic Name Dose Route Start Last Admin Trade Name Freq PRN Reason Stop Dose Admin Acetaminophen 500 mg 09/26/25 21:32 09/26/25 22:08 Acetaminophen 500 Mg Tablet PO 09/26/25 21:33 500 mg ONCE ONE Administration <Marianna Mireles MD - Last Filed: 09/26/25 21:42> Discontinued Medications Generic Name Dose Route Start Last Admin Trade Name Chele PRN Reason Stop Dose Admin Acetaminophen 500 mg 09/26/25 21:32 09/26/25 22:08 Acetaminophen 500 Mg Tablet PO 09/26/25 21:33 500 mg ONCE ONE Administration <Tian Arriaga MD - Last Filed: 09/27/25 07:55> Medical Decision Making MDM Narrative Medical decision making narrative: 85-year-old female with chest pain. Given her workup and symptoms this seems less likely to be cardiac in nature. Her heart score is 3, giving her a low risk of adverse cardiac event We discussed symptomatic treatment with Tylenol, heat to the chest wall. We discussed reasons to return to the emergency department including worsening pain, dizziness, nausea, shortness of breath. <Marianna Mireles MD - Last Filed: 09/26/25 21:42> Lab Data Labs: Lab Results 09/26/25 09/26/25 09/26/25 Range/Units 19:34 19:45 21:28 WBC 6.12 (4.50-11.00) K/uL RBC 3.84 L (4.00-5.20) m/uL Hgb 13.2 (12.0-16.0) gm/dL Hct 39.3 (33.0-51.0) % MCV 102 H (80-100) fL MCH 34 (26-34) pg MCHC 34 (32-36) gm/dL RDW Coeff of Laurent 12.3 (11.5-15.5) % Plt Count 190 (140-440) K/uL Neut % (Auto) 57.0 (42.0-72.0) % Lymph % (Auto) 33.2 (20-44) % Bond % (Auto) 7.7 (0.0-11.0) % Eos % (Auto) 1.6 (0.0-7.0) % Baso % (Auto) 0.3 (0.0-3.0) % Neut # (Auto) 3.49 (1.7-7.0) K/uL Lymph # (Auto) 2.03 (0.90-2.90) K/uL Bond # (Auto) 0.50 (0.00-0.90) K/UL Eos # (Auto) 0.10 (0.00-0.50) K/uL Baso # (Auto) 0.02 (0.00-0.30) K/uL Abs Immat Gran (auto) 0.01 (0.00-0.30) K/uL Imm/Tot Granulo (auto) 0.2 % D-Dimer Quant (PE/DVT) 1.14 H (0.00-0.50) ug/ml Sodium 130 L (135-149) mmol/L Potassium 4.0 (3.6-5.1) mmol/L Chloride 95 L (96-114) mmol/L Carbon Dioxide 28 (20-32) mmol/L Anion Gap 7 (7-15) mEq/L BUN 31 H (7-30) mg/dL Creatinine 0.8 (0.5-1.5) mg/dL Estimated Creat Clear 42.25 Estimated GFR 73 ml/min Glucose 92 (60-115) mg/dL Lactate 0.8 (0.5-1.9) mmol/L Calcium 9.2 (8.4-10.6) mg/dL Magnesium 2.0 (1.5-2.6) mg/dL Total Bilirubin 0.4 (0.1-1.5) mg/dL Direct Bilirubin 0.2 (0.0-0.5) mg/dL AST 26 (12-35) U/L ALT 13 (4-35) U/L Alkaline Phosphatase 111 (40-150) U/L Troponin I < 0.01 (0.01-0.04) ng/mL C-Reactive Protein < 0.5 L (0.5-1.0) mg/dL Total Protein 6.9 (6.0-8.3) g/dL Albumin 4.0 (3.3-5.0) g/dL Lipase 181 (23-300) U/L POC Troponin I 0.01 0.00 L (0.01-0.04) ng/ml <Marianna Mireles MD - Last Filed: 09/26/25 21:42> Lab Results 09/26/25 09/26/25 09/26/25 Range/Units 19:34 19:45 21:28 WBC 6.12 (4.50-11.00) K/uL RBC 3.84 L (4.00-5.20) m/uL Hgb 13.2 (12.0-16.0) gm/dL Hct 39.3 (33.0-51.0) % MCV 102 H (80-100) fL MCH 34 (26-34) pg MCHC 34 (32-36) gm/dL RDW Coeff of Laurent 12.3 (11.5-15.5) % Plt Count 190 (140-440) K/uL Neut % (Auto) 57.0 (42.0-72.0) % Lymph % (Auto) 33.2 (20-44) % Bond % (Auto) 7.7 (0.0-11.0) % Eos % (Auto) 1.6 (0.0-7.0) % Baso % (Auto) 0.3 (0.0-3.0) % Neut # (Auto) 3.49 (1.7-7.0) K/uL Lymph # (Auto) 2.03 (0.90-2.90) K/uL Bond # (Auto) 0.50 (0.00-0.90) K/UL Eos # (Auto) 0.10 (0.00-0.50) K/uL Baso # (Auto) 0.02 (0.00-0.30) K/uL Abs Immat Gran (auto) 0.01 (0.00-0.30) K/uL Imm/Tot Granulo (auto) 0.2 % D-Dimer Quant (PE/DVT) 1.14 H (0.00-0.50) ug/ml Sodium 130 L (135-149) mmol/L Potassium 4.0 (3.6-5.1) mmol/L Chloride 95 L (96-114) mmol/L Carbon Dioxide 28 (20-32) mmol/L Anion Gap 7 (7-15) mEq/L BUN 31 H (7-30) mg/dL Creatinine 0.8 (0.5-1.5) mg/dL Estimated Creat Clear 42.25 Estimated GFR 73 ml/min Glucose 92 (60-115) mg/dL Lactate 0.8 (0.5-1.9) mmol/L Calcium 9.2 (8.4-10.6) mg/dL Magnesium 2.0 (1.5-2.6) mg/dL Total Bilirubin 0.4 (0.1-1.5) mg/dL Direct Bilirubin 0.2 (0.0-0.5) mg/dL AST 26 (12-35) U/L ALT 13 (4-35) U/L Alkaline Phosphatase 111 (40-150) U/L Troponin I < 0.01 (0.01-0.04) ng/mL C-Reactive Protein < 0.5 L (0.5-1.0) mg/dL Total Protein 6.9 (6.0-8.3) g/dL Albumin 4.0 (3.3-5.0) g/dL Lipase 181 (23-300) U/L POC Troponin I 0.01 0.00 L (0.01-0.04) ng/ml <Tian Arriaga MD - Last Filed: 09/27/25 07:55> Imaging Data Chest x-ray: Attestation: I have reviewed the pertinent imaging results. <Marianna Mireles MD - Last Filed: 09/26/25 21:42> Radiologist's impression: TECHNIQUE: Chest 2 views COMPARISON: 02/10/2025 FINDINGS: Chronic elevation left hemidiaphragm. Scoliotic deformity. Right shoulder replacement. Vascular calcifications. Clear lungs. IMPRESSION: No acute findings. <Marianna Mireles MD - Last Filed: 09/26/25 21:42> Discharge Plan Discharge Clinical Impression: Chest pain <Marianna Mireles MD - Last Filed: 09/26/25 21:42> Patient Disposition: Home, Self-Care <Marianna Mireles MD - Last Filed: 09/26/25 21:42> Condition: Stable <Marianna Mireles MD - Last Filed: 09/26/25 21:42> Additional Instructions: The reason for your chest pain today is not clear. There was no evidence of a heart attack. No evidence of lung disease. You should return to the emergency department if you develop worsening pain, dizziness, nausea, shortness of breath. You should follow-up with your primary care provider in the next 48-72 hours to discuss your symptoms and to see how you are doing. Okay to take Tylenol for discomfort. Okay to use a heating pad to the uncomfortable area-do not apply heat directly to the skin and do not use for more than 20 minutes at a time every hour. <Marianna Mireles MD - Last Filed: 09/26/25 21:42> Prescriptions: No Action Probiotic 3 billion cell capsule 3,000 mmu cells PO BID multivitamin [Multiple Vitamins] Tablet 1 tab PO DAILY gabapentin 600 mg tablet 600 mg PO DIRECTED Rx Instructions: 1 po qam, 1 in afternoon 2 po qhs Gemtesa 75 mg tablet 75 mg PO DAILY cefdinir 300 mg capsule 300 mg PO BID Qty: 10 0RF erythromycin 5 mg/gram (0.5 %) ointment ophthalmic (eye) Xiidra 5 % dropperette ophthalmic (eye) Patient Comments: [NO ORIGINAL SIG] cranberry 500 mg capsule 500 mg PO DAILY Rx Instructions: administer with a meal acetaminophen 500 mg capsule 1,000 mg PO DAILY MDD 3000mg celecoxib 100 mg capsule 100 mg PO BID PRN (Reason: pain) Qty: 180 3RF pravastatin 10 mg tablet 10 mg PO HS Qty: 90 2RF <Marianna Mireles MD - Last Filed: 09/26/25 21:42> Follow Up/Referrals: Lori Barreto PA-C [Primary Care Provider, Family Practice] <Marianna Mireles MD - Last Filed: 09/26/25 21:42> Stand Alone Forms: MyHealth Info Instructions <Marianna Mireles MD - Last Filed: 09/26/25 21:42>
--- OUTSIDE RECORDS SUMMARY | 2025-09-26 20:11 | XMS_ITS | Data Portability ---
Author Organization [facility], [facility] Address [address] [place] [address] Care Team Providers Care Artificial Flower Maker Name Role Phone VANESSA PEREZALBA Primary Care Provider [phone] Assessment No assessment recorded. Plan of Treatment Reminders Order Date Submit Date Provider Last Modified By Organization Details Last Modified Time Details Appointments None recorded. Lab None recorded. Referral None recorded. Procedures None recorded. Surgeries None recorded. Imaging None recorded. Medication Orders Gemtesa 75 mg tablet 2023 [facility], [id number], [address], 4 10:07:06 Gemtesa 75 mg tablet 2023 024 [email or web address] [facility], [id number], [address], 4 09:51:51 Gemtesa 75 mg tablet 2023 024 [email or web address] [facility], [address] [place], [address], 4 09:51:51 tolterodine ER 2 mg capsule,ext ended release 24 hr 2023 024 [facility], [address] [place], [address], 4 14:44:52 solifenacin 5 mg tablet 2023 024 RICARDO [facility], [address], [place], [address], 4 14:33:46 trospium 20 mg tablet 2022 023 [email or web address] [facility], [address], [place], [address], 4 11:31:58 Patient TargetsNo targets recorded. Patient Instructions Encounter Date Encounter Id Patient Instructions Last Modified By Organization Details Last Modified Time 03/27/2023 [id number] History of prola pse surgery, nocturia, daytime frequency and incontinence: -Encourage double voiding. PVR low today. -Improvement with trospium 20 mg BID. Continue. -UDS 01/16/23- no good contraction. -Patient not interested in PFPT. -Follow up in 12 months, sooner if issues. [email or web address] Not available 03/27/2023 15:47:50 04/01/2024 [id number] History of prola pse surgery, nocturia, daytime frequency and incontinence: -Encourage double voiding. PVR low today. -Improvement with trospium 20 mg BID. discontinue. -UDS 01/16/23- no good contraction. -Patient not interested in PFPT. -Trial vesicare 5 mg once daily. monitor for s/e. -Follow up in 2 months with pvr [email or web address] Not available 04/01/2024 11:33:08 06/11/2024 [id number] History of prola pse surgery, nocturia, daytime [...] pvr rbourget Not available 06/11/2024 11:40:10 07/20/2024 [id number] History of prola pse surgery, nocturia, daytime [...] pvr rbourget Not available 07/20/2024 14:45:19 10/14/2024 [id number] History of prola pse surgery, nocturia, daytime [...] Name and Address Organization Details Recorded Time Urinary tract infectiou s disease 71932766 Active 2012 N39.0 : Urinary tract infectious disease Not Available [facility] 0 23:42:04 Cystitis 81926437 Active 2012 N30.90 : Cystitis Not Available [facility] 0 23:42:04 Nocturia 355430376 Active 2012 R35.1 : Nocturia Not Available [facility] 0 23:42:04 Chronic cystitis 11070852 Active 2018 N30.20 : Chronic cystitis Not Available [facility] 0 23:42:04 Overactiv e urinary bladder 112700739 Active 2018 N32.81 : Bladder muscle dysfunctio n - overactive Not Available [facility] 0 23:42:04 Hyperchol esterolem ia 78098979 Active 2023 Allison la [facility] 4 11:07:14 History of statin therapy 148101496 Active 2023 Allison la [facility] 4 11:07:45 Problem Notes None recorded. Procedures Surgical History Date Name Laterality Status Provider Name and Address Organization Details Recorded Time COMPLEX VISIT completed Abril Ty [facility] 10/13/2024 22:31:45 024 Bladder Scan completed Abril Ty [facility] 10/14/2024 09:57:23 024 COMPLEX VISIT completed Abril Ty [facility] 07/19/2024 19:32:09 024 Bladder Scan completed Allison Pablo [facility] 07/20/2024 14:26:35 024 Bladder Scan completed Abril Ty [facility] 06/11/2024 11:21:18 024 COMPLEX VISIT completed Abril Ty [facility] 04/01/2024 11:15:33 024 Past Data Reviewed completed Abril Ty [facility] 04/01/2024 11:15:50 024 Bladder Scan completed Allison Pablo [facility] 04/01/2024 11:25:35 023 Bladder Scan completed Abril Ty [facility] 03/27/2023 15:40:29 023 Urodynamic Studies completed Radha Byers MD [address] [place] [address],[address], [place], [address], [facility] 01/18/2023 08:42:29 023 Urinalysis completed JOSH ENCINAS [address] [place] [address],[facility] [address], [place], [address], [facility] 01/15/2023 10:37:53 022 Past Data Reviewed completed Radha Byers MD [address] [place] [address],[facility] [address], [place], [address], [facility] 10/01/2022 08:50:58 022 In and Out Catheterization- female completed Radha Byers MD [address] [place] [address],[address], [address], [facility] 10/01/2022 15:59:54 020 Insert bladder catheter completed Not Available [facility] 05/12/2020 13:36:11 019 Resect phalanx of toe tumor completed Not Available [facility] 05/12/2020 13:36:11 019 Us urine capacity measure completed Not Available [facility] 05/12/2020 13:36:11 019 Insert bladder catheter completed Not Available [facility] 05/12/2020 13:36:11 014 Colonoscopy thru stoma spx completed Not Available [facility] 05/12/2020 13:36:11 013 Cystourethroscopy completed Not Available [facility] 05/12/2020 13:36:11 013 Insert bladder catheter completed Not Available [facility] 05/12/2020 13:36:11 Division of fallopian tube completed Not Available [facility] 05/12/2020 13:36:11 Removal of tonsils completed Not Available [facility] 05/12/2020 13:36:11 Removal of gallbladder completed Not Available [facility] 05/12/2020 13:36:11 Hysterectomy/revise vagina completed Not Available [facility] 05/12/2020 13:36:11 Anterior colporrhaphy completed Not Available [facility] 05/12/2020 13:36:11 Total knee arthroplasty completed Not Available [facility] 05/12/2020 13:36:11 Imaging Results None recorded. Procedure Notes None recorded. Medical Equipment None Reported. Allergies Allergen ID Allergen Name Allergen Category Reaction Reaction Severity Criticality Documentation Date Start Date Code Code System Note Provider Name and Address Organization Details Recorded Time 750843 morphine sulfate medicatio n Not available Not available Not available 05/11/2020 76546 RxNorm Not Available [facility] 0 23:47:24 485732 codeine medicatio n vomiting Not available Not available 05/11/2020 2670 RxNorm Not Available [facility] 0 23:47:24 Medications Name Sig Start [...] Updated DateTime 04/01/2024 172.72 cm 22.8 kg/m2 34590.86 g Allison Pablo [facility] 04/01/2024 11:06:44 Date Recorded Body height Body mass index (BMI) Body weight Provider Name and Address Organization Details Last Updated DateTime 06/11/2024 172.72 cm 22.8 kg/m2 43542.86 g Allison Pablo [facility] 06/11/2024 11:06:15 Date Recorded Body height Body mass index (BMI) Body weight Provider Name and Address Organization Details Last Updated DateTime 07/20/2024 172.72 cm 22.8 kg/m2 10600.86 g Allison Pablo [facility] 07/20/2024 14:21:08 Date Recorded Body weight Provider Name an d Address Organization Details Last Updated DateTime 10/14/2024 69032.04 rosie Pablo [facility] 10/14/2024 09:51:27 Date Recorded Body height Body [...] When Did You Quit Smoking? 16+yearssince [email or web address] Information not available 10/14/2024 Race White Information n ot available 05/12/2020 Ethnicity Not /Lati no Information not available 04/01/2024 Preferred Language Bahamian [email or web address] Information not available 04/01/2024 Number Of Pregnancies 4 [email or web address] Information not available 04/01/2024 Number Of Vaginal Deliveries 4 Information not available 04/01/2024 Number Of Caesarean Sections 0 [email or web address] Information not available 10/13/2024 Could You Be ? No [email or web address] Information not available 04/01/2024 Marital Status Single Informati on not available 05/12/2020 Do You Have A Medical Power Of Him Assistant? Yes [email or web address] Information not available 10/13/2024 What Was The Date Of Your Most Recent Tobacco Screening? 10/14/2024 [email or web address] Information not available 10/13/2024 What Is Your Relationship Status? [email or web address] Information not available 10/13/2024 Are You Sexually Active? No [email or web address] Information not available 10/13/2024 Has Tobacco Cessation Counseling Been Provided? No Information not available 01/28/2023 How Many Years [...] other forms of tobacco or nicotine? No [email or web address] Information not available 01/28/2023 What is your level of alcohol consumption? None [email or web address] Information not available 10/14/2024 Do you or have you ever used smokeless tobacco? Never used smokeless tobacco [email or web address] Information not available 10/13/2024 Are you currently employed? No [email or web address] Information not available 04/01/2024 Do you or [...] dose 1 completed Shira L Raulito null, [facility] 10/01/2022 15:44:50 Influenza, high-dose, trivalent, PF 8 completed Shira L Raulito null, [facility] 10/01/2022 15:44:50 Pneumococcal conjugate PCV 13 5 completed Shira L Raulito null, [facility] 10/01/2022 15:44:50 COVID-19, mRNA, LNP-S, PF, 30 mcg/0.3 mL dose, alejandro-sucrose 2 completed [facility] L [facility] null, [facility] 10/01/2022 15:44:50 Novel Ccopipxae-[id number], all formulations 0 completed Shira L Raulito null, [facility] 10/01/2022 15:44:50 Influenza, split virus, trivalent, preservative 8 completed Shira L Raulito null, [facility] 10/01/2022 15:44:50 Hep B, adult 8 completed Shira L Raulito null, [facility] 10/01/2022 15:44:50 Hep A, adult 8 completed Shira L Raulito null, [facility] 10/01/2022 15:44:50 Influenza, split virus, trivalent, preservative 3 completed Shira L Raulito null, [facility] 10/01/2022 15:44:50 Hep A, adult 8 completed Shira L Raulito null, [facility] 10/01/2022 15:44:50 typhoid, ViCPs 8 completed Shira L Raulito null, [facility] 10/01/2022 15:44:50 Hep B, adult 8 completed Shira L Raulito null, [facility] 10/01/2022 15:44:50 Influenza, adjuvanted, quadrivalent, PF 2 completed Shira L Raulito null, [facility] 10/01/2022 15:44:50 Influenza, adjuvanted, quadrivalent, PF 1 completed Shira L Raulito null, [facility] 10/01/2022 15:44:50 Influenza, high-dose, trivalent, PF 7 completed Shira L Raulito null, [facility] 10/01/2022 15:44:50 Hep B, adult 8 completed Shira L Raulito null, [facility] 10/01/2022 15:44:50 Influenza, adjuvanted, quadrivalent, PF 0 completed Shira L Raulito null, [facility] 10/01/2022 15:44:50 Tdap 0 completed Shira L Raulito null, [facility] 10/01/2022 15:44:50 Influenza, high-dose, trivalent, PF 5 completed Shira L Raulito null, [facility] 10/01/2022 15:44:50 Influenza, split virus, quadrivalent, PF 0 completed Shira L Raulito null, [facility] 10/01/2022 15:44:50 Influenza, split virus, trivalent, preservative 2 completed Shira L Raulito null, [facility] 10/01/2022 15:44:50 COVID-19, mRNA, LNP-S, PF, 30 mcg/0.3 mL dose 1 completed Shira L Raulito null, [facility] 10/01/2022 15:44:50 Td (adult), 5 Lf tetanus toxoid, preservative free, adsorbed 6 completed Shira L Raulito null, [facility] 10/01/2022 15:44:50 pneumococcal polysaccharide PPV23 9 completed Shira L Raulito null, [facility] 10/01/2022 15:44:50 zoster recombinant 2 completed Shira L Raulito null, [facility] 10/01/2022 15:44:50 zoster recombinant 2 completed Shira la, [facility] 10/01/2022 15:44:50 Influenza, high-dose, trivalent, PF 9 completed Shira la, [facility] 10/01/2022 15:44:50 COVID-19, mRNA, LNP-S, PF, 30 mcg/0.3 mL dose 1 completed Shira la, [facility] 10/01/2022 15:44:50 Pneumococcal conjugate PCV 13 9 completed Shira la, [facility] 10/01/2022 15:44:50 Past Encounters Encounter ID Performer Location Encounter Start Date Encounter Closed Date Diagnosis/Indication Diagnosis SNOMED-CT Code Diagnosis ICD10 Code Diagnosis IMO Codes Diagnosis Note [id number] MD Viridiana [facility]ledger[facility] [address] [place] [phone] 10/01/2022 15:27:54 10/01/2022 16:08:56 Atrophic vaginitis 23471455 N95.2 chronic stable Chronic cystitis 7146532 2 N30.20 chronic improved Nocturia 767067457 R35.1 new Incomplete emptying of urinary bladder 836672846 R39.14 new [id number] Radha Byers MD [facility] [address] [place] [address] 01/16/2023 13:52:49 01/16/2023 16:57:43 Incomplete emptying of urinary bladder 505640645 R39.14 Overactive urinary bladder 218741492 N32.81 [id number] MD Viridiana [facility] [address] [place] [address] [place] [phone] 01/28/2023 11:39:59 01/28/2023 13:02:28 Atrophic vaginitis 85887900 N95.2 chronic stable Chronic cystitis 5171939 2 N30.20 chronic improved Nocturia 794982691 R35.1 new [id number] [facility] [address] [place] [address] [address] [place] [address] 03/27/2023 15:33:51 03/27/2023 16:02:53 Atrophic vaginitis 81620556 N95.2 chronic stable Chronic cystitis 6145876 2 N30.20 chronic improved Nocturia 415817668 R35.1 chronic, improved [id number] QASIM Landry [facility] [address] [place] [address],[facility] e [address] [place] [phone] 04/01/2024 11:01:39 04/01/2024 11:36:20 Nocturia 937645997 R35.1 chronic Overactive urinary bladder 671217398 N32.81 chronic [id number] QASIM Landry [facility] [address] [place] [address],[address] [address] 06/11/2024 11:00:43 06/11/2024 14:11:28 Nocturia 496835082 R35.1 chronic Overactive urinary bladder 470432908 N32.81 chronic [id number] QASIM Landry [facility] [address] [place] [address],[facility] e [address] [place] [address] 07/20/2024 14:16:25 07/20/2024 14:53:03 Nocturia 079179559 R35.1 chronic, improved with regimen of tylenol pm and melatonin Overactive urinary bladder 687792826 N32.81 chronic [id number] QASIM Landry [facility] [address] [place] [address],[facility] e [address] [place] [address] 10/14/2024 09:46:44 10/15/2024 10:38:00 Nocturia 637483955 R35.1 chronic, improved with regimen of tylenol pm and melatonin Overactive urinary bladder 027951653 N32.81 chronic Health Concerns Section Related Observation [...] AFTER 19 (MEDICARE REPLACEMENT/ ADVANTAGE - HMO) [id number] Sheila Blackburn [id number] Sheila Blackburn Notes Date Note Type Note [...] minimal leakage. Has been routinely double voiding. 3-46-20 (Dr. Byers -video) last seen in [facility], she is up 2-3 times at [...] hx of pop repair with mesh at [place] and hx of mixed incotnience with utis.when [...] night time with water.BMs: more diarrhea, daily. STEFANY Doe - [facility] 03/27/2023 15:48:02 04/01/2024 text/html 04/01/24:Patient presents [...] minimal leakage. Has been routinely double voiding. 7-42-18 (Dr. yBers -video)last seen in [facility], she is up 2-3 times at [...] hx of pop repair with mesh at [place] and hx of mixed incotnience with utis.when [...] night time with water.BMs: more diarrhea, daily. STEFANY Doe - [facility] 04/01/2024 11:35:01 06/11/2024 text/html 06/11/24:Patient presents [...] minimal leakage. Has been routinely double voiding. 5-72-69 (Dr. Byers -video)last seen in [facility], she is up 2-3 times at [...] hx of pop repair with mesh at [place] and hx of mixed incotnience with utis.when [...] night time with water.BMs: more diarrhea, daily. Abril Ty [place], [place] - [facility] 06/11/2024 11:40:19 07/20/2024 text/html 07/20/24:Patient presents [...] minimal leakage. Has been routinely double voiding. 9-34-01 (Dr. Byers -video)last seen in [facility], she is up 2-3 times at [...] hx of pop repair with mesh at [place] and hx of mixed incotnience with utis.when [...] night time with water.BMs: more diarrhea, daily. Abril la [place] - [facility] 07/20/2024 14:45:22 10/14/2024 text/html 10/14/24:Patient presents [...] minimal leakage. Has been routinely double voiding. 9-04-06 (Dr. Byers -video)last seen in [facility], she is up 2-3 times at [...] hx of pop repair with mesh at [place] and hx of mixed incotnience with utis.when [...] night time with water.BMs: more diarrhea, daily. Abril la [place] - [facility] 10/14/2024 10:07:54 OBGyn Episode No OBEpisode recorded.
--- OUTSIDE RECORDS SUMMARY | 2025-09-26 20:11 | XMS_ITS | Clinical Summary ---
Author Organization [facility] Address [address] [place] [address] Care Team Providers Care Seating And Mobility Technologist Name Role Phone Unavailable Primary Care Provider [...] Vaccine (1 - 1-dose 75+ series) 2016 Medicare Annual Wellness Visit 12/02/2024 COVID-19 Vaccine (2024- season) 2025 10/05/2022, 03/21/2022, 08/30/2021, Additional history exists Influenza Vaccine (#1) 2025 2, 08/23/2021, 08/09/2020, Additional history exists DTaP/Tdap/Td Vaccine [...]
--- OUTSIDE RECORDS SUMMARY | 2025-09-26 20:11 | XMS_ITS | Clinical Summary ---
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 Gender Identity Not on file Sexual Orientation Not on file Plan of Treatment Health Maintenance Due Date Last Done Comments ADVANCE CARE PLANNING 1940 ANNUAL REVIEW OF HM ORDERS 1940 FALL RISK ASSESSMENT 2006 MEDICARE ANNUAL WELLNESS VISIT 2006 PHQ-2 (once per calendar year) 2024 COVID-19 VACCINE ( season) 2025 10/05/2022, 03/21/2022, 08/30/2021, Additional history exists INFLUENZA VACCINE (#1) 2025 2, 08/16/2022, 08/23/2021, Additional history exists DTAP/TDAP/TD VACCINE (2 - Td or Tdap) 09/09/2030 09/09/2020, 11/19/2006 DEXA 09/15/2030 09/15/2015, 09/07/2015 PNEUMOCOCCAL VACCINE 50+ YEARS Completed 10/28/2019, 03/17/2015, 06/16/2009 ZOSTER VACCINE Completed 07/25/2022, 05/05/2022 RSV VACCINE Completed 11/02/2023 HPV VACCINE (No Doses Required) Completed MENINGITIS VACCINE Aged Out No longer eligible [...] Narrative 09/15/2015 12:00 PM CDT BONE DENSITOMETRY [address] [address] 09/15/2015 PATIENT: Sheila Blackburn CHART: [id number] : 1940 AGE: [age] year old SEX: female REFERRING PROVIDER: Elvin Pierre MD PROCEDURE: Bone density scanning was performed using DXA technology of the lumbar spine and hip. Scanning was performed on a [employer] scanner. Reporting is completed in the form [...] in the lateral decubitus position using a Novalys Prodigy densitometer. Indications for VFA: T-score of -1.0 [...] Insurance UCARE MEDICARE UCARE MEDICARE Care Teams Instructor Apparel Manufacture Relationship Specialty Start Date End Date Rajinder Mars MD [facility] [address] [place] [address] PCP - General Family Practice 07/29/15
--- OUTSIDE RECORDS SUMMARY | 2025-09-26 20:11 | XMS_ITS | Clinical Summary ---
Author Organization [facility] Address [address] [place] [id number] Care Team Providers Care Acute Care Occupational Therapist Name Role Phone Lori Barreto PA-C Unavailable [phone] Pcp, No Primary Care Provider Unavailabl [...] Tablet by mouth two times daily. 12/16/19 Active ciprofloxacin (CIPRO) 500 mg tablet Take 1 Tablet by mouth two times daily. 01/19/20 Active celecoxib 100 mg capsule TAKE ONE CAPSULE BY MOUTH TWICE A DAY NEEDED FOR PAIN* 02/18/20 25 Active melatonin 5 mg capsule Bedtime Active cycloSPORINE 0.05 % dropIndications:Ke ratitis sicca, bilateral Place 1 Drop into both eyes two times daily. 10 mL 3 08/19/20 25 Active lifitegrast (Xiidra) 5 % ophthalmic solutionIndication s:Keratitis sicca, bilateral Place 1 Drop into both eyes every 12 hours. 60 Each 2 08/20/20 25 Active erythromycin ophthalmic ointment 0.5%Indications:Ke ratitis sicca, bilateral Apply 1 Strip to right eye at bedtime for 14 days. 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 Blepharitis of upper eyelids of both eyes 2016 Nuclear senile cataract of both eyes 12/13/2016 VITREOUS DEGENERATION-OD 01/07/2003 THROMBOPHLEBITIS NOS 10/28/2000 ALLERGIES 05/27/2000 SINUSITIS, ACUTE NOS BRONCHITIS, ACUTE Encounters Date Type Department Care Team Description 09/13/2025 11:00 AM CDT Office Visit [facility] [address] [place] [address] Shaheed Marley, OD Follow Up (4 Week Keratitis Sicca Bilateral Follow Up ) 09/13/2025 Travel 08/19/2025 11:40 AM CDT Office Visit [facility] [address] [place] [address] Sahheed Marley, OD Eye Problem (Soreness Right Eye) 08/19/2025 Telephone [facility] [address] [place] [address] Shaheed Marley, OD Questions (Restasis) 08/19/2025 Travel from Last 3 Months Immunizations Immunization Administration Dates Next Due Influenza, IIV3 (Age >=3 years) 10/06/2002 Family History Medical History Relation Name Comments Genetic Other nil for cancer ~no family history with anesthesia Other Sister glaucoma Relation Name Status Comments Other Sister Social History Tobacco Use Types Packs/Day Years Used Date Smoking Tobacco: Former Cigarettes Smokeless Tobacco: Never Tobacco Cessation:Counseling Given: Yes Comments:1991 Alcohol Use Standard Drinks/Week Comments Not Asked 0 (1 standard drink = 0.6 oz pur e alcohol) rare Social Connections Answer Date Recorded Frequency of Communication with Friends and Fami ly Not on file 07/10/2022 Comments No Sex and Gender Information Value Date Recorded Sex Assigned at Not on file Legal Sex Female 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 Gender Identity Not on file Sexual Orientation Not on file Obstetrics History Last Filed Vital Signs Vital Sign Reading Time Taken Comments Blood Pressure 115/74 06/22/2025 1:00 PM CDT Pulse 72 06/22/2025 1:00 PM CDT Temperature 36.3 C (97.4 F) 02/09/2025 1:58 PM CDT Respiratory Rate 16 02/04/2022 12:25 PM ACCREDITATION MANAGER Oxygen Saturation 95% 03/23/2025 1:00 PM CDT Inhaled Oxygen Concentration - - Weight 73 kg (161 lb) 06/22/2025 1:00 PM CDT Height 177.8 cm (5' 10) 07/10/2022 3:01 PM CDT Body Mass Index 23.1 07/10/2022 3:01 PM CDT Plan of Treatment Upcoming Encounters Date Type Department Care Team (Late st Contact Info) Description 10/14/2025 11:00 AM ACCREDITATION MANAGER Office [facility] [address] [place] [address] [place] [address] [address] [place], [place] [id number] Health Maintenance Due Date Last Done Comments Tetanus booster 1952 Depression screening for age 12+ 1953 Pneumococcal series for age 50+ (1 of 2 - PCV) 1960 Zoster (shingles) series for age 50+ (1 of 2) 1991 DEXA/DXA scan for age 65+ 2006 Medicare Wellness for age 65+ 2006 RSV vaccine for adults or (1 - 1-dose 75+ series) 2016 BMI (ht and wt on same day) for age 18+ 07/10/2023 07/10/2022 Influenza Vaccine (#1) 2025 10/06/2002 COVID-19 vaccine series Completed 04/13/20 25, 09/16/2024, 10/05/2022, Additional history exists Hepatitis B series for 19+ Aged Out N o longer eligible based on patient's age to complete this topic Insurance [employer]AGE MR Care Teams Acute Care Occupational Therapist Relationship Specialty Start Date End Date Pcp, No . PCP - General 11/13/23 Lori Barreto, SHAVONC [address] [place] [id number] Family Practice Physician Machine Joint Cutter 02/27/22
[2025-09-26 20:13] LABS: Troponin, Point-of-Care* 0.01 ng/ml (0.01-0.04)
[2025-09-26 20:16] LABS: Slide Review Reflex No
[2025-09-26 20:27] LABS: Albumin* 4.0 g/dL (3.3-5.0); Chloride* 95 mmol/L (96-114)
[2025-09-26 20:28] LABS: Potassium* 4.0 mmol/L (3.6-5.1); Sodium* 130 mmol/L (135-149)
[2025-09-26 20:30] LABS: Blood Urea Nitrogen* 31 mg/dL (7-30); Creatinine* 0.8 mg/dL (0.5-1.5); Est. Creatinine Clearance* 42.25; Estimated Glomerular Filt Rate 73 ml/min
[2025-09-26 20:31] LABS: Alanine Aminotransferase* 13 U/L (4-35); Alkaline Phosphatase* 111 U/L (40-150); Anion Gap 7 mEq/L (7-15); Aspartate Amino Transferase* 26 U/L (12-35); Bilirubin Direct* 0.2 mg/dL (0.0-0.5); Bilirubin Total* 0.4 mg/dL (0.1-1.5); Calcium* 9.2 mg/dL (8.4-10.6); Carbon Dioxide* 28 mmol/L (20-32); Glucose* 92 mg/dL (60-115); Total Protein* 6.9 g/dL (6.0-8.3)
[2025-09-26 20:32] LABS: D Dimer Quantitative* 1.14 ug/ml (0.00-0.50)
--- NOTE | 2025-09-26 20:44 | CRLHL7_ITS ---
For Patients: As a result of the Century Cures Act, medical imaging exams and procedure reports are released immediately into your electronic medical record. You may view this report before your referring provider. If you have questions, please contact your health care provider. Indication: Chest pain Technique: Postcontrast CTA of the chest following 95 mL Isovue 370 IV contrast. Axial MIP images obtained. Comparison: CT chest performed 08/31/2010 Findings: Pulmonary arteries: No pulmonary embolism appreciated. Lungs: Basilar faint patchy opacities and areas of mild bronchiectasis and endobronchial filling defects. No effusion. No consolidation. No pneumothorax. Mediastinum: No acute abnormality appreciated. Slight increase in aneurysmal dilation of the ascending aorta measuring 4.3 cm, previously 4.1 cm in 2010. calcified and noncalcified atherosclerosis. Lymph nodes: No gross lymphadenopathy. Upper abdomen: Cholecystectomy. Soft tissues: No acute abnormality appreciated. Bones: No acute abnormality appreciated. Degenerative changes of the spine and left shoulder. Right shoulder replacement. Dextroscoliosis. Impression: Patchy basilar opacities with associated bronchiectasis and endobronchial filling defects distally. Differential would include chronic aspiration and/or a chronic atypical pneumonia. Additional chronic findings as above with no other acute abnormality appreciated. Please note that all CT scans at this facility use dose modulation, iterative reconstruction, and/or weight-based dosing when appropriate to reduce radiation dose to as low as reasonably achievable. Dictated by Bam Steven MD @ 09/26/2025 10:07:28 PM (Electronically Signed)
[2025-09-26 21:59] LABS: Troponin, Point-of-Care* 0.00 ng/ml (0.01-0.04)
[2025-09-26] MEDS: ACETAMINOPHEN 500 MG TABLET PO (22:08)
== END 2025-09-26 23:08 | disposition home or self-care (01) ==
PROVIDERS: Emergency Provider Family Medicine; PCP Physician Assistant Medical
DX: R07.9 Chest pain, unspecified (principal)
CPT/HCPCS: 36415; 71046; 71275; 80048; 80076; 83605; 83690; 83735; 84484; 85025; 85379; 86140; 93005; 94761; 99284; 99285; A9270; Q9967

== ENCOUNTER 2025-10-12 10:28 | Outpatient (CLI) | payer MEDICARE, SELFPAY | END 2025-10-12 10:29 | disposition home or self-care (01) | LOC: NFLDREF 10-19 05:27 | PROVIDERS: PCP Physician Assistant Medical; Referring Provider Physician Assistant Medical; Visit Provider Physician Assistant Medical | DX: N39.0 Urinary tract infection, site not specified (principal) | CPT/HCPCS: 87086 ==

== ENCOUNTER 2025-11-15 14:16 | Outpatient (CLI) | payer MEDICARE, SELFPAY | END 2025-11-15 14:17 | disposition home or self-care (01) | LOC: NFLDREF 11-18 12:14 | PROVIDERS: PCP Physician Assistant Medical; Referring Provider Physician Assistant Medical; Visit Provider Nurse Practitioner Family | DX: N39.0 Urinary tract infection, site not specified (principal) | CPT/HCPCS: 87086 ==

== ENCOUNTER 2025-11-27 13:18 | Emergency (ER) | payer MEDICARE, SELFPAY ==
--- OUTSIDE RECORDS SUMMARY | 2025-11-27 13:21 | XMS_ITS | Data Portability ---
Author Organization [facility], [facility] Address [address] [place] [address] Care Team Providers Care Automatic Grinder Operator Name Role Phone ANA ROSA Primary Care Provider Assessment No assessment recorded. Plan of Treatment Reminders Order DateSubmit DateProviderLast Modified ByOrganization DetailsLast Modified TimeDetailsAppointmentsESTABLISHED 03:20PMRaQASIM Jacobs-CNot availableNot availableNot availableLabNone recorded.ReferralNone recorded. ProceduresNone recorded.SurgeriesNone recorded.ImagingNone recorded.Medication OrdersGemtesa 75 mg [id number], [address] [place] [address], [address], 51/ 10:07:06Gemtesa 75 mg otzwrl56stevens29[facility], [address] [place] [address], [address], 87 09:51:51Gemtesa 75 mg qfsged87stevens29[facility], [address] [place] [address], [address], 04 09:51:51tolterodine ER 2 mg capsule,extended release 24 [facility], [address] [place], [address], 29/ 14:44:52 solifenacin 5 mg ogjxtx37/[facility], [facility] [place], [address], 71/ 14:33:46trospium 20 mg swvcpy50/rbourgetCub [facility], [facility] [address] [place], [address], 19/12/2023 11:31:58 Patient TargetsNo targets recorded. Patient Instructions Encounter Date Encounter Id Patient Instructions Last Modified By Organization Details Last Modified Time 03/27/2023 [id number] History of prola pse surgery, nocturia, daytime frequency and incontinence: -Encourage double voiding. PVR low today. -Improvement with trospium 20 mg BID. Continue. -UDS 01/16/23- no good contraction. -Patient not interested in PFPT. -Follow up in 12 months, sooner if issues.rbourgetNot feqrgoggg17/26/2023 15:47:[id number] of prolapse surgery, nocturia, daytime frequency and incontinence: -Encourage double voiding. PVR low today. -Improvement with trospium 20 mg BID. discontinue. -UDS 01/16/23- no good contraction. -Patient not interested in PFPT. -Trial vesicare 5 mg once daily. monitor for s/e. -Follow up in 2 months with pvrrbourgetNot eriafllxh20/01/2024 11:33:08 [id number] of prolapse surgery, nocturia, daytime frequency and incontinence: -Encourage double voiding. pvr 166 cc today. continue to monitor. -UDS 01/16/23-no VEENA, no detrusor overactivity, compliance intact no inc tonus limb, able to empty her bladder variably, but down to 55 with good flow, coordinated EMG weak detrusor pressure noted, no clear good contraction. - Patient will go to PFPT. referralplaced. -Improvement with trospium 20 mg BID initially but discontinued at last visit due to more leakage. -Failed Vesicare 5 mg once daily. Had dry mouth and no benefit -trial tolterodine ER 2 mg once daily. monitor for s/e. -Follow up in 2 months with pvrrbourgetNot qnnovypzq40/11/2024 11:40:10 [id number] of prolapse surgery, nocturia, daytime frequency and incontinence: -Encourage double voiding. emptying well today. continue to monitor. -UDS 01/16/23-no VEENA, no detrusor overactivity, compliance intact no inc tonus limb, able to empty her bladder variably, but down to 55 with good flow, coordinated EMG weak detrusor pressure noted, no clear good contraction. - continue PFPT and home exercises. -Failed trospium 20 [...] consider. -Follow up in 2 months with pvrrbourgetNot ybetsxvso68/19/2024 14:45:19 [id number] of prolapse surgery, nocturia, daytime frequency and incontinence: -Encourage double voiding. emptying well today. continue to monitor. -UDS 01/16/23-no VEENA, no detrusor overactivity, compliance intact no inc tonus limb, able to empty her bladder variably, but down to 55 with good flow, coordinated EMG weak detrusor pressure noted, no clear good contraction. - continue PFPT and home exercises. -Failed trospium 20 [...] months, sooner if needing to change treatment plan.rbourgetNot vnsfdopap76/13/2024 10:07:42 Reason for Referral None Reported. Problems Name Problem SNOMED Code Status Onset Date Resolution Date Notes Provider Name and Address Organization Details Recorded Time Urinary tract infectious disease 88187041 Active 04/2013 N39.0 : Urinary tract infectious diseaseNot QqqsngvimLwgnoxHbrkok36/10/2020 23:42:05Pcfzesmt02058965Acohjo13/05/1762Z63.90 : CystitisNot Available AvztonGddawd29/10/2020 23:42:12Bhsrxmlh958461950Uixxyr22/05/0114F07.1 : Nocturia Not VycjfzmwoFutitfSyefdw73/10/2020 23:42:04Chronic ojvpqhtj70695322Mfuuan 06/09/2019N30.20 : Chronic cystitisNot VvbbpuesnJvqmanIgjuqu43/10/2020 23:42:04 Overactive urinary zlgjulu632289371Nnkutd63/20/4990R24.81 : Bladder muscle dysfunction - overactiveNot YdyafpoqsAczmrxWmmypl13/10/2020 23:42:04 Rgqdtxonvgpsazdcmlxz84683015Xhjymg77/11/2024attSTEFANY [facility]ett [facility]06/11/2024 11:07:14History of statin azzufnx159160641 Zmfngh4106/11/2024[facility] STEFANY [facility]ccle[facility]and [facility] Zjnnlvk2906/11/2024 11:07:45 Problem Notes None recorded. Procedures Surgical History Date Name Laterality Status Provider Name and Address Organization Details Recorded Time 10/14/2024 COMPLEX VISIT [facility] Fpdqhmw78/12/2024 22:31:45112/14/2023 Bladder ScancompletedRachel [place] [address]3112/14/2023 09:57:23 07/20/2024OMPLEX VISITcompletedRachel RaymundoJohn [facility]07/19/2024 19:32:0907/20/2024ladder ScancompletedPattana Carrillo [facility] 07/20/2024 14:26:3507ladder Scancompleted[facility]06/11/2024 11:21:1805OMPLEX VISITcompletedRaM[facility]04/01/2024 11:15:3305ast Data ReviewedcompletedRaMarshall [facility] Medical Center04/01/2024 11:15:5005ladder Scancompleted Allison PabloSTEFANY [facility]04/01/2024 11:25:3504ladder Scan completed[facility]03/27/2023 15:40:29001/16/2023 Urodynamic StudiescompletedRadha Byers MD [address] [place] [address],[address], [address], [facility]01/18/2023 08:42:29001/16/2023UrinalysiscompletedNATHALINE JAHNAGILE [address] [place] [address], [address] [place] [address], [facility]01/15/2023 10:37:5310ast Data Reviewedcompleted Radha Byers MD [address] [place] [address],[address], [address] [place] [address], [place] [address] 08:50:5810In and Out Catheterization- femalecompletedRadha Byers MD [address] [place] [address], [address] [place] [address], [place] [address] 15:59:5403Insert bladder catheter completedNot RwlmpodgyUihrlwFsahrp49/11/2020 13:36:1111Resect phalanx of toe tumorcompletedNot FubibjygqXfbpvcAmprzx55/11/2020 13:36:11007/21/2019Us urine capacity measurecompletedNot SyluqopnaQugswjZgygwb37/11/2020 13:36:11006/09/2019 Insert bladder cathetercompletedNot HfdqnypkpUhhdhdBlvvos18/11/2020 13:36:11 07/10/2014Colonoscopy thru stoma spxcompletedNot LjptyyovySrnqxkNyvnxl39/11/2020 13:36:CystourethroscopycompletedNot TjiuvzpvyXzjhmgMxwsuw48/11/2020 13:36:Insert bladder cathetercompletedNot [facility] 05/12/2020 13:36:11Division of fallopian tubecompletedNot [facility] 05/12/2020 13:36:11Removal of tonsilscompletedNot [facility] 05/12/2020 13:36:11Removal of gallbladdercompletedNot [facility] 05/12/2020 13:36:11Hysterectomy/revise vaginacompletedNot [facility] 05/12/2020 13:36:11Anterior colporrhaphycompletedNot [facility] 05/12/2020 13:36:11Total knee arthroplastycompletedNot [facility] 05/12/2020 13:36:11 Imaging Results None recorded. Procedure Notes None recorded. Medical Equipment None Reported. Allergies Allergen ID Allergen Name Allergen Category Reaction Reaction Severity Criticality Documentation Date Start Date Code Code System Note Provider Name and Address Organization Details Recorded Time 135144 morphine sulfate medication Not availab le Not available Not /10/[id number] WawpgnhvtUdatmsPoemte78/10/2020 23:47:24 010286fvmspozvtxeacxafazyuddwmx Not available Not nupwoyqva06/10/52285606TpRmnxRan AuamtskisPinsbmIknimy13/10/2020 23:47:24 564872oipfqtmfzrfllmpuuoCus available Not available [facility]59565354ZmDfgexxspntdeofzn reaction (text: *Unknown, code: [id number]) (from external source)Not Available[facility] [employer] [facility]11/12/2025 12:12:58421633jvsvreorwdn sodiummedicationNot available Not available [facility]5203152RxNormbad headachesNot Availablefirst[facility] [employer] [facility]11/12/2025 12:12:43 Medications Name Sig Start Date Stop Date Status Note LastModified by Organization Details LastModified Time tolterodine ER 2 mg capsule, extended release 24 hr TAKE ONE CAPSULE BY MOUTH EVERY MORNING* 4completedNot AvailableNot AvailableNot Availablegabapentin 600 mg tablettake 1 tablet by mouth in the morning and 2 tablets at bedtime*activeNot AvailableNot AvailableNot Availableazithromycin 250 mg tabletTAKE 2 TABLETS BY MOUTH ON DAY 1, THEN 1 TABLET DAILY ON DAYS 2-5*4completedNot Available Not AvailableNot Availablehydrocodone 5 mg-acetaminophen 325 mg tabletTAKE ONE TABLET BY MOUTH EVERY SIX HOURS NEEDED FOR PAIN*activeNot AvailableNot AvailableNot Availablesumatriptan 25 mg tabletTAKE 1 TABLET BY MOUTH FOR MIGRAINE LMKXTY2904/01/2024ompletedNot AvailableNot AvailableNot Available tramadol 50 mg tabletTAKE ONE TABLET BY MOUTH TWICE A DAY NEEDED FOR PAIN 04/01/2024ompletedNot AvailableNot AvailableNot Availableamoxicillin 875 mg tabletTAKE ONE TABLET BY MOUTH TWICE DAILY FOR 10 DAYS2completedNot AvailableNot AvailableNot Availablepravastatin 10 mg tabletTAKE 1 TABLET BY MOUTH AT BEDTIME FOR HEART (CHOLESTEROL)*activeNot AvailableNot AvailableNot Availablecephalexin 500 mg capsuleTAKE 1 CAPSULE BY MOUTH 4 TIMES DAILY FOR 7 DAYS*activeNot AvailableNot AvailableNot Availableerythromycin 5 mg/gram (0.5 %) eye ointment1/4 INCH RIBBON IN THE RIGHT EYE THREE TIMES DAILY X 7 DAYS 04/01/2024ompletedNot AvailableNot AvailableNot Availablepolymyxin B sulfate 10,000 unit-trimethoprim 1 mg/mL eye dropsplace 1 drop into each eye four times daily for 7 days*4completedNot AvailableNot AvailableNot Available omeprazole 20 mg capsule,delayed releaseTAKE 1 CAPSULE BY MOUTH ONE TIME DAILY 4completedNot AvailableNot AvailableNot Availablerosuvastatin 20 mg tabletTAKE ONE TABLET BY MOUTH EVERY NIGHT AT ICJISAN7504/01/2024ompletedNot AvailableNot AvailableNot Availablenitrofurantoin monohydrate/macrocrystals 100 mg capsuleTAKE ONE CAPSULE BY MOUTH TWICE DAILY FOR 3 DAYS PRIOR TO URODYNAMICS 3completedNot AvailableNot AvailableNot Availabletrospium 20 mg tablet TAKE 1 TABLET BY MOUTH TWICE DAILY*04/01/2024ompletedNot AvailableNot Available Not Availablesolifenacin 5 mg tabletTAKE 1 TABLET BY MOUTH ONE TIME DAILY* 4completedNot AvailableNot AvailableNot AvailableGemtesa 75 mg tablet Take 1 tablet every day by oral route.5activeNot AvailableNot Available Not Available Vitals Date Recorded Body height Body mass index (BMI) Body weight Provider Name and Address Organization Details Last Updated DateTime 04/01/2024 172.72 cm 22.8 kg/m2 83201.86 g Allison Pablo [facility] 04/01/2024 11:06:44 Date Recorded Body height Body mass index (BMI) Body weight Provider Name and Address Organization Details Last Updated DateTime 06/11/2024 172.72 cm 22.8 kg/m2 42791.86 g Allison Pablo [facility] 06/11/2024 11:06:15 Date Recorded Body height Body mass index (BMI) Body weight Provider Name and Address Organization Details Last Updated DateTime 07/20/2024 172.72 cm 22.8 kg/m2 84388.86 g Allison Pablo [facility] 07/20/2024 14:21:08 Date Recorded Body weight Provider Name an d Address Organization Details Last Updated DateTime 10/14/2024 65290.04 g Allison Pablo [facility] 10/14/2024 09:51:27 Date Recorded Body height Body mass index (BMI) Provider Name and Address Organization Details Last Updated DateTime 10/14/2024 175.26 cm 22.4 kg/m2 Not Available Health Note 09:49:10 Social History Question Answer Notes LastModified by Organization D etails LastModified Time Tobacco Smoking Status Former Smoker Not AvailableHealth Note10/13/2024 16:24:38Do You Have An Advance Directive?Yes [email or web address] not nyquccczi76/12/2024What Is Your Level Of Caffeine Consumption?ModerateAPI-685Information not /12/2024How Much Tobacco Do You Chew?NoneAPI-685Information not zlifjsaba64/12/2024When Did You Quit Smoking?16+mwrfoglgenpavxajqavytsddfgaktze53Dlsberslrqs not rapfgofea85/13/2024 RaceWhitesbhusal1.63Information not jnjufbihj04/11/2020EthnicityNot /Ilzwcfjkomqjbz41Bezznhcdhij not uhiekcjoe93/01/2024referred Language Jktjcugxcvrxtaz37Midlcunwqrk not ttvwuytvt02/01/2024Number Of Pregnancies4 hvxftzbp82Xnwolcvovkf not ewgetrgux87/01/2024Number Of Vaginal Deliveries4 biktgcsp53Djdmjyrszux not gymssxmre98/01/2024Number Of Caesarean Sections0 API-685Information not hyifqpryz50/12/2024ould You Be ?Egxmjkccta65 Information not btydepoba62/01/2024Marital StatusSinglesbhusal1.63Information not dyshnwiuj02/11/2020Do You Have A Medical Power Of Blowing Engineer?YesAPI-685 Information not flnzsbgoz09/12/2024What Was The Date Of Your Most Recent Tobacco Screening?10/14/2024PI-685Information not ououexouh75/12/2024What Is Your Relationship Status?DivorcedAPI-685Information not eoqzkqyyd18/12/2024re You Sexually Active?NoAPI-685Information not /12/2024Has Tobacco Cessation Counseling Been Provided?Eddkgkugae80Nklarukeknk not available 01/28/2023How Many Years Have You Smoked Tobacco?28API-685Information not vldsdvysz60/12/2024How Many Days In The Past Year Have You Consumed 4 Or More Drinks?0API-685Information not usefvpzhh97/12/2024 Sex: Unknown Functional Status Question Answer Note LastModified by Organization D etails LastModified Time Do you use any illicit or recreational drugs? No API-685Information not jhifqywxl63/12/2024o you or have you ever used any other forms of tobacco or nicotine?Kjxngjrmal93Eggsgurzpog not foygwmlwz54/27/2023What is your level of alcohol consumption?Dlnxygpxzwcd32Frtqcjfxryo not available 10/14/2024o you or have you ever used smokeless tobacco?Never used smokeless tobaccoAPI-685Information not tsaepeoog82/12/2024re you currently employed?No uszqbsmn32Pqucbzesimf not aihvslwnp57/01/2024o you or have you ever used e- cigarettes or vape?Never used electronic cigarettesAPI-685Information not kquijigms92/12/2024 Mental Status None recorded. Family History Nothing [...] Organization Details Recorded Time pneumococcal polysaccharide PPV23 08/15/2022 complet ed Not AvailableHealth Note10/13/2024 16:24:97MBHJ-HBA-5 (COVID-19) vaccine, YIUYZIISYGC58/09/2024completedNot AvailableHealth Note10/13/2024 16:24:42 influenza, unspecified oyuzgjlxtbf46/09/2024completedNot AvailableHealth Note 10/13/2024 16:24:42zoster live09/29/2020completedNot AvailableHealth Note 10/13/2024 16:24:42Pneumococcal conjugate PCV 1303completedNot Available Health Note10/13/2024 16:24:42COVID-19, mRNA, LNP-S, PF, 30 mcg/0.3 mL dose 1completedStacy Lilliam la [facility] Bnabqqu25/31/2022 15:44:50Influenza, high-dose, trivalent, PF 09/23/2018completedStacy Lilliam la [facility] Xqzyuwo31/31/2022 15:44:50Pneumococcal conjugate PCV 13003/17/2015 completedStacy Lilliam la [facility] Gbmniix98/31/2022 15:44:50COVID-19, mRNA, LNP-S, PF, 30 mcg/0.3 mL dose, alejandro-fwzaxha0103/21/2022ompletedStacy Lilliam la [facility] Hrqsdfk11/31/2022 15:44:50Novel Tipteueru-O0R1-41, all tshrnjcoheze92/25/2010completedStacy L Raulito null, [facility] Cgwjgoy88/31/2022 15:44:50Influenza, split virus, trivalent, fohavokuihnw76/31/2008completedStacy L Raulito null, [place] [address] 15:44:50Hep B, adult03/29/2008completedStacy L Raulito null, [place] [address] 15:44:50Hep A, adult02/18/2008completedStacy L Raulito null, [place] [address] 15:44:50Influenza, split virus, trivalent, elvjlpajbrab69/15/2003completedStacy L Raulito null, [place] [address] 15:44:50Hep A, adult09/10/2008completedStacy L Raulito null, [place] [address] 15:44:50typhoid, ViCPs02/18/2008completedStacy L Raulito null, [place] [address] 15:44:50Hep B, adult09/10/2008completedStacy L Raulito null, [place] [address] 15:44:50Influenza, adjuvanted, quadrivalent, PF 2completedStacy L Raulito null, [place] [address] 15:44:50Influenza, adjuvanted, quadrivalent, PF 1completedStacy L Raulito null, [place] [address] 15:44:50Influenza, high-dose, trivalent, PF 08/06/2017completedStacy L Raulito null, [place] [address] 15:44:50Hep B, adult02/18/2008completedStacy L Raulito null, [facility] Tujwdpl91/31/2022 15:44:50Influenza, adjuvanted, quadrivalent, PF 08/09/2020completedStacy Lilliam la, [facility] Ccuglaj42/31/2022 15:44:00Uioz42completedStacy Lilliam la, [facility] Notusor54/31/2022 15:44:50Influenza, high-dose, trivalent, PF 09/22/2015completedStacy Lilliam la, [facility] Vbytktp98/31/2022 15:44:50Influenza, split virus, quadrivalent, PF12/26/2009completedStacy Lilliam Cabe[place] null, [facility] Yzfczhp66/31/2022 15:44:50Influenza, split virus, trivalent, lxtlolrrhyov15/09/2012completedStacy Lilliam la, [facility] Lppebkq92/31/2022 15:44:50COVID-19, mRNA, LNP-S, PF, 30 mcg/0.3 mL dose1completedStacy Lilliam la, [place] [address] 15:44:50Td (adult), 5 Lf tetanus toxoid, preservative free, /19/2006completedStacy Lilliam la, [facility] Xmjmlos0810/01/2022 15:44:50pneumococcal polysaccharide PPV23 06/16/2009completedStacy Lilliam la, [facility] Qgktfqj66/31/2022 15:44:50zoster dtxshgpbsuo57/24/2022completed Shira la, [facility] Ptbhmmm95/31/2022 15:44:50zoster oxzwdhkdngn26/04/2022completed Shira la, [facility] Fvibhhh24/31/2022 15:44:50Influenza, high-dose, trivalent, PF 09/07/2019completedStacy Lilliam la, [facility] Ngbjjfp12/31/2022 15:44:50COVID-19, mRNA, LNP-S, PF, 30 mcg/0.3 mL dose1completedStacy Lilliam la, [facility] Onsxnwp85/31/2022 15:44:50Pneumococcal conjugate PCV 13112/28/2018 completedStvonnie Cabezas [place], [place] - [place] Pzcoddq55/31/2022 15:44:50 Past Encounters Encounter ID Performer Location Encounter Start Date Encounter Closed Date Diagnosis/Indication Diagnosis SNOMED-CT Code Diagnosis ICD10 Code Diagnosis IMO Codes Diagnosis Note [id number] Radha Byers MD [facility] [address] [place] [address],[address] [address] 10/01/2022 15:27:54 10/01/2022 16:08:56 Atrophic vaginitis 43042007 N95.2 chronic stableChronic gjjjqndy56886282W14.20 chronic ckyhyfoyBbxwtspb917985235E08.1 newIncomplete emptying of urinary slkvjwr489387111Z06.14 [id number] Byers [facility] [address] [place] [address] 01/16/2023 13:52:49001/16/2023 16:57:43Incomplete emptying of urinary bladder 172175670V31.14 Overactive urinary fpsorsl893257386X72.81 [id number] Byers [address] [address] 01/28/2023 11:39:59001/28/2023 13:02:28Atrophic tekskbthr51651351C12.2 chronic stableChronic ijptjinh62932754Z80.20 chronic ijveamplIjablnww174647109J86.1 [id number] Johnson, [address] [address] 03/27/2023 15:33:51003/27/2023 16:02:53Atrophic qjlqsyjlw82411151L84.2 chronic stableChronic uprhbffl37850107M57.20 chronic zidjfnllRjdeyhek179524716K39.1 chronic, komekwdd797141Rtufut Johnson, [address] [address] 04/01/2024 11:01:39004/01/2024 11:36:43Wpohcfjc183173785B05.1 chronicOveractive urinary ckhxfev381338290T37.81 bldzrxi830571Voiwvu Johnson, [address] [address] 06/11/2024 11:00:4307 14:11:39Ktvrsbxr110497564W09.1 chronicOveractive urinary dhtfxux074476306L30.81 windgtn468523Ixccky Johnson, [address] [address] 07/20/2024 14:16:2508 14:53:85Xwjlzylx730127751W70.1 chronic, improved with regimen of tylenol pm and melatoninOveractive urinary vnkblnj419037715R47.81 jvixbzk047003Jbngpz Johnson, [address] [address] 10/14/2024 09:46:4411 10:38:88Tgozamcu481263328F92.1 chronic, improved with regimen of tylenol pm and melatoninOveractive urinary hlizgcw195742131I26.81 chronic Health Concerns Section Related Observation LastModified by Organization Detai ls LastModified Time None Recorded Concern Status LastModified by Organization Details LastModified Time None Recorded Advance Directives Directive Y: Payers Insurance Date Sequence Insurance Name Policy Number Policy De Luna Covered Member ID De Luna Member ID Guarantor Name 10/21/2024 1 [employer] - DOS ON O R AFTER 19 (MEDICARE REPLACEMENT/ADVANTAGE - HMO) [id number] Sheila Blackburn [id number] Sheila Blackburn Notes Date Note Type Note Provider Name and Address Orga nization Details Recorded Time 03/27/2023 text/html 03/27/23:Patient presents [...] minimal leakage. Has been routinely double voiding. 7-26-18 (Dr. Byers -video) last seen in [facility], she is up 2-3 times at nightusing [...] hx of pop repair with mesh at cotton and hx of mixed incotnience with utis.when [...] with water.BMs: more diarrhea, daily. [facility] Nkenmjr3003/27/2023 15:48:02004/01/2024text/html 04/01/24:Patient presents to follow up for nocturia/ OAB.Taking trospium 20 mg BID. Feels like she leaks a lot. She wakes up 1 times a night. She voids 6-7 t imes a day. More if has pop/carbonated beverages. She uses 6-7 pads per day. Changes pads even for small amount of leakage. Denies UTIs in the past year. 03/27/23:Patient presents to follow up for incontinence.Taking Trospium [...] minimal leakage. Has been routinely double voiding. 7-56-17 (Dr. Byers -video)last seen in [facility], she is up 2-3 times at nightusing [...] hx of pop repair with mesh at cotton and hx of mixed incotnience with utis. when last seen was using estrogren for UTI prevention, she is not using the estrogren cream for at least 2 years.01/07 Cr 0.78no urines listed in her charting no infections as she used to. she is not using soap near the vaginashe is coming back as she is bothered with nocturia 3-4 times per night.DF q 2 hrs day times, she is drinking more as wellusing a pantyliner (even a drop irritates her) caffeine: 2 cups 8 oz in the morningstops fluids at night near dinner also pills at night time with water.BMs: more diarrhea, daily.STEFANY Doe - [place] Hinisyp9004/01/2024 11:35:01006/11/2024text/html 06/11/24:Patient presents to follow up for overactive [...] leakage. Denies UTIs in the past year. 03/27/23:Patient presents to follow up for incontinence.Taking Trospium [...] minimal leakage. Has been routinely double voiding. 1-59-26 (Dr. Byers -video)last seen in [facility], she is up 2-3 times at nightusing [...] hx of pop repair with mesh at cotton and hx of mixed incotnience with utis.when last seen was using estrogren for UTI prevention, she is not using the estrogren cream for at least 2 years.01/07 Cr 0.78no urines listed in her chartingno infections as she used to. she is not using soap near the vaginashe is coming back as she is bothered with nocturia 3- 4 times per night.DF q 2 hrs day times, she is drinking more as wellusing a pantyliner (even a drop irritates her)caffeine: 2 cups 8 oz in the morningstops fluids at night near dinner also pills at night time with water.BMs: more diarrhea, daily.Abril [facility] Bmebkld0706/11/2024 11:40:19007/20/2024text/html 07/20/24:Patient presents to follow up for overactive bladder (OAB). Taking tolterodine 2 mg. Side effects of dry eyes but not too bothersome. Has gone to 1 session of pelvic floor physical therapy so far, next one this week. She wakes up 1 times a night, with taking tylenol PN and melatonin. She voids 2- 3 hours during the day. She uses 10 pads per day, changes for even a small drop of leakage, 1 overnight as well. thicker pad when walking the dogs otherwise if around the house, will wear a small panty liner. 06/11/24:Patient presents to follow up for overactive [...] leakage. Denies UTIs in the past year. 03/27/23:Patient presents to follow up for incontinence.Taking Trospium [...] minimal leakage. Has been routinely double voiding. 8-73-01 (Dr. Byers -video)last seen in [facility], she is up 2-3 times at nightusing [...] hx of pop repair with mesh at cotton and hx of mixed incotnience with utis.when last seen was using estrogren for UTI prevention, she is not using the estrogren cream for at least 2 years.01/07 Cr 0.78no urines listed in her chartingno infections as she used to. she is not using soap near the vaginashe is coming back as she is bothered with nocturia 3- 4 times per night.DF q 2 hrs day times, she is drinking more as wellusing a pantyliner (even a drop irritates her)caffeine: 2 cups 8 oz in the morningstops fluids at night near dinner also pills at night time with water.BMs: more diarrhea, [facility] 14:45:text/html 10/14/24:Patient presents to follow up for oabTook the gemtesa samples and worked well but was expensive. No pa was done. not taking anything forbladder right now. she would rather try another medication if gemtesa can't become cheaper.no longer doing tylenol pm but takes melatonin at night. She wakes up 2 times a night. She voids 9 times a day. She uses 5 pads per day. (SARAY-6):9, (IIQ-7):2, Continence Function Questionnaire:15 07/20/24: Patient presents to follow up for overactive bladder (OAB). Taking tolterodine 2 mg. Side effects of dry eyes but not too bothersome. Has gone to 1 session of pelvic floor physical therapy so far, next one this week. She wakes up 1 times a night, with taking tylenol PN and melatonin. She voids 2- 3 hours during the day. She uses 10 pads per day, changes for even a small drop of leakage, 1 overnight as well. thicker pad when walking the dogs otherwise if around the house, will wear a small panty liner. 06/11/24:Patient presents to follow up for overactive [...] leakage. Denies UTIs in the past year. 03/27/23:Patient presents to follow up for incontinence.Taking Trospium [...] minimal leakage. Has been routinely double voiding. 3-19-06 (Dr. Byers -video)last seen in [facility], she is up 2-3 times at nightusing [...] hx of pop repair with mesh at cotton and hx of mixed incotnience with utis.when last seen was using estrogren for UTI prevention, she is not using the estrogren cream for at least 2 years./ Cr 0.78no urines listed in her chartingno infections as she used to. she is not using soap near the vaginashe is coming back as she is bothered with nocturia 3- 4 times per night.DF q 2 hrs day times, she is drinking more as wellusing a pantyliner (even a drop irritates her)caffeine: 2 cups 8 oz in the morningstops fluids at night near dinner also pills at night time with water.BMs: more diarrhea, daily.Abril la [place] Rggkmlf50/13/2024 10:07:54 OBGyn Episode No OBEpisode recorded.
--- OUTSIDE RECORDS SUMMARY | 2025-11-27 13:21 | XMS_ITS | Clinical Summary ---
Author Organization [facility] Address [address] [place] [address] Care Team Providers Care Parks And Recreation Worker Name Role Phone Lori Barreot PA-C Unavailable [phone] Pcp, No Primary Care Provider Unavailabl e Allergies Active AllergyReactionsCriticalityNoted TgtiScwhlfibViuhtddJytrtzqt26/12/2007 Morphine*OqlihtlDaqs02/11/2019 Medications MedicationSigDispense QuantityRefillsLast FilledStart DateEnd DateStatus rejonntfvqynl-vctnposf-mzkwcw (Multivitamin 50 Plus) tab tablet Take 1 Tablet by mouth once daily.Active pravastatin (PRAVACHOL) 10 mg tablet Indications:Hyperlipidemia, unspecified hyperlipidemia typeTake 1 Tablet (10 mg) by mouth at bedtime. 90 Tablet ctive acetaminophen (TYLENOL EXTRA STRGTH) 500 mg tablet Take 1-2 Tablets (500-1,000 mg) by mouth 3 times daily if needed. Max acetaminophen dose: 4000mg in24 hrs.01/28/2024ctive Lactobacillus rhamnosus GG (Culturelle) 15 billion cell capsule Take 1 Capsule by mouth once daily.01/28/2024ctive gabapentin (NEURONTIN) 600 mg tablet Take 1 Tablet (600 mg) by mouth every morning AND 2 Tablets (1,200 mg) at bedtime.01/28/2024ctive oxyCODONE (ROXICODONE) 5 mg immediate release tablet Take 0.5-1 Tablets (2.5-5 mg) by mouth every 4 hours if needed for Pain. 01/28/2024ctive sennosides-docusate (SENOKOT S) (8.6-50 mg) tablet Take 1-4 Tablets by mouth 2 times daily if needed for Constipation.01/28/2024 Active trospium (SANCTURA) 20 mg tablet Take 1 Tablet by mouth two times daily.4Active ciprofloxacin (CIPRO) 500 mg tablet Take 1 Tablet by mouth two times daily.5Active celecoxib 100 mg capsule TAKE ONE CAPSULE BY MOUTH TWICE A DAY NEEDED FOR PAIN*5Active melatonin 5 mg capsule BedtimeActive cycloSPORINE 0.05 % drop Indications:Keratitis sicca, bilateralPlace 1 Drop into both eyes two times daily. 10 mL 5Active lifitegrast (Xiidra) 5 % ophthalmic solution Indications:Keratitis sicca, bilateralPlace 1 Drop into both eyes every 12 hours. 60 Each 5Active Active Problems ProblemNoted DateDiagnosed DateMyopia of both eyes with astigmatism and fhrdjsxaez27/12/2017Blepharitis of upper eyelids of both eyes12/13/2016Nuclear senile cataract of both eyes12/13/2016VITREOUS DEGENERATION-OD01/07/2003 THROMBOPHLEBITIS NOS10/28/20000137LOGXIVZPN28/26/2000SINUSITIS, ACUTE NOSBRONCHITIS, ACUTE Encounters DateTypeDepartmentCare HafjHusyllvzyym89/13/2025 11:00 AM CDTOffice Visit [facility] [address] [place] [address] Shaheed Marley, [place] Follow Up (4 Week Keratitis Sicca Bilateral Follow Up )09/13/2025Travelfrom Last 3 Months Immunizations ImmunizationAdministration DatesNext DueInfluenza, IIV3 (Age >=3 years) 10/06/2002 Family History Medical HistoryRelationNameCommentsGeneticOthernil for cancer ~no family history with anesthesiaOtherSisterglaucomaRelationNameStatusCommentsOtherSister Social History Tobacco UseTypesPacks/DayYears UsedDateSmoking Tobacco: FormerCigarettes Smokeless Tobacco: Never Tobacco Cessation:Counseling Given: Yes Comments:1991 Alcohol UseStandard Drinks/WeekCommentsNot Asked0 (1 standard drink = 0.6 oz pure alcohol)rareSocial ConnectionsAnswerDate RecordedFrequency of Communication with Friends and FamilyNot on file07/10/2022CommentsNoSex and Gender InformationValueDate RecordedSex Assigned at BirthNot on fileLegal SexFemale 12/15/2012 6:53 AM CSTGender IdentityNot on fileSexual OrientationNot on file Last Filed Vital Signs Vital SignReadingTime TakenCommentsBlood Wqlacmjn893/7407 1:00 PM CDT Uhezi0213/22/2025 1:00 PM RKOSktgctezgec79.3 ??C (97.4 ??F)02/09/2025 1:58 PM CDTRespiratory Fylj799002/04/2022 12:25 PM CSTOxygen Vjrpuishsr23%03/23/2025 1:00 PM CDTInhaled Oxygen Concentration--Iyraxv00 kg (161 lb)06/22/2025 1:00 PM CDT Svfmnu574.8 cm (5' 10)07/10/2022 3:01 PM CDTBody Mass Index23.108 3:01 PM CDT Plan of Treatment Health MaintenanceDue DateLast DoneCommentsTetanus dbmszec61/06/1952Depression screening for age 12+3Pneumococcal series for age 50+ (1 of 2 - PCV) 1960Zoster (shingles) series for age 50+ (1 of 2)1991DEXA/DXA scan for age 65+2006Medicare Wellness for age 65+2006RSV vaccine for adults or (1 - 1-dose 75+ series)2016BMI (ht and wt on same day) for age 18+/2COVID-19 vaccine series ( season) /, 09/16/2024, 10/05/2022, Additional history existsInfluenza Vaccine (#1)/04/2002Hepatitis B series for 19+Aged OutNo longer eligible based on patient's age to complete this topic Insurance * Guarantor: Sheila Blackburn TypeRelation to PatientDate of BirthPhone Billing AddressPersonal/EoqwddBetf1940 [address] [place] [address] Care Teams Team MemberRelationshipSpecialtyStart DateEnd Date Pcp, No [address] [place] [address] PCP - Ppzhgno66/13/23 Lori Barreto, SHAVONC [address] [place] [phone] Family PracticePhysician Assistant02/27/22
--- OUTSIDE RECORDS SUMMARY | 2025-11-27 13:21 | XMS_ITS | Clinical Summary ---
Author Organization [facility] Address [address] [place] [address] Care Team Providers Care Vehicle Maintenance Supervisor Name Role Phone Rajinder Mars MD Primary Care Provider + [phone] Resolved Problems ProblemNoted DateDiagnosed DateResolved DateMuscle weakness (generalized) Mixed fueizppdajtr51Urinary frequency Social History Tobacco UseTypesPacks/DayYears UsedDateSmoking Tobacco: Never AssessedAdolescent EducationAnswerDate RecordedGetting School Help NeededNot on file09/01/2023 CommentsUnknownSex and Gender InformationValueDate RecordedSex Assigned at BirthNot on fileLegal EvjOfzbfn40/04/2012 3:25 AM CSTGender IdentityNot on fileSexual OrientationNot on file Plan of Treatment Health MaintenanceDue DateLast DoneCommentsADVANCE CARE [id number] REVIEW OF HM [id number] 1941FALL RISK YEGBHQKPIX39/06/2006MEDICARE ANNUAL WELLNESS VISIT2006PHQ-2 (once per calendar year)5COVID-19 VACCINE ( season)511/03/2022, 03/21/2022, 08/30/2021, Additional history existsINFLUENZA VACCINE (#1)509/, 08/16/2022, 08/23/2021, Additional history existsDTAP/TDAP/TD VACCINE (2 - Td or Tdap) /08/2020, 11/19/2006DEXA1, 09/07/2015PNEUMOCOCCAL VACCINE 50+ GSJYYJwvjkjyub74/27/2019, 03/17/2015, 06/16/2009ZOSTER VACCINE Asgfjpktx35/24/2022, 2RSV VKZLQAQXaojtrovu20/02/2023HPV VACCINE (No Doses Required)CompletedMENINGITIS VACCINEAged OutNo longer eligible based on patient's age to complete this topic Procedures Procedure NamePriorityDate/TimeAssociated DiagnosisCommentsDX BONE DENSITY Hqfwklo1409/15/2015 10:35 AM CDT Asymptomatic menopausal state from Last 3 Months or Most Recently Relevant to Health Maintenance Results * DX Hip/Pelvis/Spine (09/15/2015 10:35 AM CDT)Anatomical RegionLaterality ModalityDexaComputed RadiographySpecimen (Source)Anatomical Location / LateralityCollection Method / VolumeCollection TimeReceived Time Impressions 09/15/2015 12:00 PM CDT Severe osteoporosis [...] Narrative 09/15/2015 12:00 PM CDT BONE DENSITOMETRY [address] [address] 09/15/2015 PATIENT: Sheila Blackburn CHART: [id number] : 1940 AGE: [age] year old SEX: female REFERRING PROVIDER: Elvin Pierre MD PROCEDURE: Bone density scanning was performed using DXA technology of the lumbar spine and hip. Scanning was performed on a SimpliField scanner. Reporting is completed in the form [...] in the lateral decubitus position using a [employer]BlogTVig[employer] ??densitometer. Indications for VFA: T-score of -1.0 [...] the diagnosis is consistent with severe osteoporosis. Authorizing ProviderResult TypeResult StatusMatthegracie Pierre MDIMG DEXA ORDERABLES Final Result from Last 3 Months or Most Recently Relevant to Health Maintenance Insurance Care Teams Team MemberRelationshipSpecialtyStart DateEnd Date Rajinder Mars MD [facility] [address] [place] [phone] PCP - Ginny Bergeron07/29/15
--- OUTSIDE RECORDS SUMMARY | 2025-11-27 13:21 | XMS_ITS | Clinical Summary ---
Author Organization [facility] Address [address] [place] [address] Care Team Providers Care Extension Course Coordinator Name Role Phone Unavailable Primary Care [...] Medications No known medications Social History Tobacco UseTypesPacks/DayYears UsedDateSmoking Tobacco: Never Assessed CommentsUnknownSex and Gender InformationValueDate RecordedSex Assigned at Not on fileLegal YdpYrbgmz21/10/2012 5:33 AM CDTGender IdentityNot on fileSexual OrientationNot on file Last Filed Vital Signs Vital SignReadingTime TakenCommentsBlood Pressure--Pulse--Temperature-- Respiratory Rate--Oxygen Saturation--Inhaled Oxygen Concentration--Nqsrlu65.9 kg (154 lb)06/27/2023 10:11 AM QHWDqjqpb649.7 cm (5' 8)06/27/2023 10:11 AM CDTBody Mass Index23.42006/27/2023 10:11 AM CDT Plan of Treatment Health MaintenanceDue DateLast YmguNpwbbibiOjph98/06/2006RSV Vaccine (1 - 1-dose 75+ series)2016Medicare Annual Wellness Visit5COVID-19 Vaccine ( season)511/03/2022, 03/21/2022, 08/30/2021, Additional history existsInfluenza Vaccine (#1)509/, 08/23/2021, 08/09/2020, Additional history existsDTaP/Tdap/Td Vaccine (2 - Tdap)09/09/2030 09/09/2020, 11/19/2006HepA VaccineAged Out09/10/2008, 02/18/2008No longer eligible based on patient's age to complete this topicPneumococcal Vaccine 50+ PqoMefdzabdy81/27/2019, 03/17/2015, 06/16/2009Zoster/Shingles VaccineCompleted 07/25/2022, 05/05/2022HepB VaccineAged OutNo longer eligible based on patient's age to complete this topicHib VaccineAged OutNo longer eligible based on patient's age to complete this topicMCV4 VaccineAged OutNo longer eligible based on patient's age to complete this topicMeningococcal B VaccineAged OutNo longer eligible based on patient's age to complete this topic Insurance
[2025-11-27 13:59] VITALS: BP 139/76; PULSE 80; RESP 16; TEMP 37.6; O2SAT 93; BMI 24.9
--- NOTE | 2025-11-27 14:22 | ED.GENADULT ---
HPI - General Adult General Chief complaint: Cough Stated complaint: Covid + Time Seen by Provider: 11/27/25 13:48 History of Present Illness HPI narrative: This 85-year-old female comes in stating that she tested positive for COVID today. She is interested in getting PACs elevated. She states that her symptoms began yesterday morning and today she felt some raspy throat and some coughing. She arrives here with normal vital signs. Related Data Home Medications ?Medication ?Instructions ?Recorded ?Confirmed lactobacillus combination no.4 3 3,000 mmu cells PO BID 08/10/22 11/15/25 billion cell capsule (Probiotic) multivitamin (Multiple Vitamins 1 tab PO DAILY 10/30/23 11/15/25 tablet) acetaminophen 500 mg capsule 1,000 mg PO DAILY 01/13/25 11/15/25 cranberry 500 mg capsule 500 mg PO DAILY 01/13/25 11/15/25 gabapentin 600 mg tablet 600 mg PO DIRECTED 03/19/25 11/15/25 vibegron 75 mg tablet (Gemtesa) 75 mg PO DAILY 03/19/25 11/15/25 lifitegrast 5 % eye drops in a drp ophthalmic (eye) 08/21/25 11/15/25 dropperette (Xiidra) Previous Rx's ?Medication ?Instructions ?Recorded celecoxib 100 mg capsule 100 mg PO BID PRN pain #180 caps 02/17/25 pravastatin 10 mg tablet 10 mg PO HS heart #90 tabs 04/02/25 triamcinolone acetonide 0.1 % 1 applic topical BID #15 grams 11/09/25 topical cream nirmatrelvir 150 mg (10)-ritonavir See Rx Instructions PO .COMPLEX 11/27/25 100 mg (10) tablets in a dose pack #20 ea (Paxlovid) Allergies Allergy/AdvReac Type Severity Reaction Status Date / Time alendronate sodium (From Allergy Severe Verified 11/27/25 13:58 Fosamax) codeine AdvReac Mild nausea and Verified 11/27/25 13:58 vomitting morphine AdvReac Mild Nausea Verified 11/27/25 13:58 Review of Systems Status of ROS: Reports: 10 or more systems reviewed and unremarkable except as noted in History and below Narrative: Constitutional: No fevers, no weight gain or loss. Eyes: No discharge. No vision changes. HENT: No congestion, no sore throat, no ear pain. Cardiovascular: No chest pain, no palpitations. Respiratory: No shortness of breath, no wheezes. She reports a cough. Gastrointestinal: No abdominal pain, no vomiting, no diarrhea. Genitourinary: No dysuria, no hematuria. Musculoskeletal: Normal range of motion. Skin: No rashes, no pruritis. Neurological: No dizziness, weakness, sensory change, speech change. Endo/Heme/Allergies: No bruising or bleeding. No polydipsia. Pysch: no suicidality, no anxiety, no insomnia. All other systems reviewed and are negative. [facility] Medical History Bowel obstruction ?K56.609 - Unspecified intestinal obstruction, unspecified as to partial versus complete obstruction (ICD-10) Wound infection ?T14.8XXA - Other injury of unspecified body region, initial encounter (ICD-10) ?L08.9 - Local infection of the skin and subcutaneous tissue, unspecified (ICD-10) Cellulitis of foot ?L03.119 - Cellulitis of unspecified part of limb (ICD-10) Cataracts, bilateral ?H26.9 - Unspecified cataract (ICD-10) Right carpal tunnel syndrome ?G56.01 - Carpal tunnel syndrome, right upper limb (ICD-10) Left carpal tunnel syndrome ?G56.02 - Carpal tunnel syndrome, left upper limb (ICD-10) 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 (ICD-10) Polyp of colon (12/11/10) ?K63.5 - Polyp of colon (ICD-10) Mean red blood cell volume increased ?R71.8 - Other abnormality of red blood cells (ICD-10) Lung nodule (12/11/10) ?R91.1 - Solitary pulmonary nodule (ICD-10) Tubular adenoma of colon (07/28/19) ?D12.6 - Benign neoplasm of colon, unspecified (ICD-10) Counseling regarding advanced directives (11/19/17) ?Z71.89 - Other specified counseling (ICD-10) Scapular dyskinesis ?G25.89 - Other specified extrapyramidal and movement disorders (ICD-10) Right rotator cuff tear arthropathy ?M75.101 - Unspecified rotator cuff tear or rupture of right shoulder, not specified as traumatic (ICD-10) ?M12.811 - Other specific arthropathies, not elsewhere classified, right shoulder (ICD-10) Osteoarthritis of left knee ?M17.12 - Unilateral primary osteoarthritis, left knee (ICD-10) Surgical History History of carpal tunnel surgery of right wrist (06/07/25) ?Z98.890 - Other specified postprocedural states (ICD-10) S/P right hemicolectomy ?Z90.49 - Acquired absence of other specified parts of digestive tract (ICD-10) 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) ?Z96.619 - Presence of unspecified artificial shoulder joint (ICD-10) 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) ?Z96.611 - Presence of right artificial shoulder joint (ICD-10) History of cholecystectomy (12/11/10) ?Z90.49 - Acquired absence of other specified parts of digestive tract (ICD-10) History of tubal ligation (12/11/10) ?Z98.51 - Tubal ligation status (ICD-10) History of tonsillectomy (12/11/10) ?Z90.89 - Acquired absence of other organs (ICD-10) History of hysterectomy (02/29/12) ?Z90.710 - Acquired absence of both cervix and uterus (ICD-10) History of colonoscopy with polypectomy ?Z98.890 - Other specified postprocedural states (ICD-10) ?Z86.010 - Personal history of colonic polyps (ICD-10) Status post bilateral foot surgery (04/07/08) ?Z98.890 - Other specified postprocedural states (ICD-10) Status post finger joint fusion (01/04/10) ?Z98.1 - Arthrodesis status (ICD-10) Status post right foot surgery (01/04/10) ?Z98.890 - Other specified postprocedural states (ICD-10) Status post arthroscopy of right shoulder (06/02/14) ?Z98.890 - Other specified postprocedural states (ICD-10) Status post left foot surgery (~2019) ?Z98.890 - Other specified postprocedural states (ICD-10) 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) ?Z96.659 - Presence of unspecified artificial knee joint (ICD-10) History of foot surgery (09/20/10) ?Z98.890 - Other specified postprocedural states (ICD-10) Family History Mother Breast cancer CHF (congestive heart failure) Sister COPD (chronic obstructive pulmonary disease) Father Stomach cancer Social History Narrative: She lives alone in [place]. She has 2 dogs that she takes for a walk every day for about 2 miles. She does her own lawn mowing. She lives very independently. Closest family is her son, Naseem De Leon, of [place] who was taking care of her dogs and is designated healthcare power of assistant county attorney . Secondary healthcare power of assistant county attorney would be her brother Jai Blackburn who lives in [place]. Does not drink alcohol Does not use illicit drugs Former smoker What is your current living situation?: I presently have a place to live Problems where you live: no known problems Problems where you live details: N/A In the past 12 months, utilities in danger of being shut off: no In past 12 months, lack of transportation kept you from medical appts, meetings, work, or getting things needed for daily living: no In the past 12 mos, have been you worried that your food would run out before you had money to buy more?: never true In the past 12 mos, the food you bought just didn't last and you didn't have money to buy more?: never true Highest level of school completed/degree received: Associate degree: occupational, technical, vocational program Smoking Status: Former smoker What tobacco products do you use: cigarettes Smoking quit date/years: >15 years ago Do you use any of these nicotine containing products: None Second hand tobacco smoke exposure: No How often do you have a drink containing alcohol: monthly or less Alcohol type details: once a year How many standard drinks containing alcohol do you have on a typical day: 1 or 2 How often do you have six or more drinks on one occasion: Never AUDIT-C Alcohol total score: 1 Non-prescribed substance use: denies use Caffeine: Yes How often does anyone, including family, friends and others, physically hurt you: never How often does anyone, including family, friends and others, insult or talk down to you: never How often does anyone, including family, friends and others, threaten you with harm: never How often does anyone, including family, friends and others, scream or curse at you: never service: No Exam Narrative: Exam Narrative: Constitutional: Well-developed, well-nourished, no acute distress. HEENT: Normocephalic, atraumatic. Neck: Normal range of motion. Nontender. Supple. Heart: Regular. Systolic ejection murmur. Normal rate. Intact distal pulses. Lungs: Clear to auscultation. No chest discomfort. No wheezes, rhonchi, or rales. Abdomen: Normal bowel sounds. Nontender. No rebound tenderness. Genitalia: Deferred. Back: No midline tenderness. Normal range of motion. Extremities: Normal range of motion. No injury. Skin: Intact. No rash. Warm. No erythema or pallor. Neurologic: No altered sensation. No weakness. Alert and oriented. Nursing notes and vitals signs are reviewed. Const: Vital Signs, click to edit/add: Vital Signs - 24 hr 11/27/25 13:59 Temperature 99.7 F H Pulse Rate [Pulse Oximeter] 80 Respiratory Rate 16 Blood Pressure [Ri ght Upper Arm] 139/76 Pulse Oximetry 93 Oxygen Delivery Me thod Room Air Course Vital Signs Vital signs: Initial Vital Signs Temperature 99.7 F H 11/27/25 13:59 Temperature Source Temporal Artery Scan 11/27/25 13:59 Pulse Rate 80 11/27/25 13:59 Respiratory Rate 16 11/27/25 13:59 Blood Pressure 139/76 11/27/25 13:59 Blood Pressure Mean 97 11/27/25 13:59 Pulse Oximetry 93 11/27/25 13:59 Oxygen Delivery Method Room Air 11/27/25 13:59 Vital Signs Temperature 99.7 F H 11/27/25 13:59 Pulse Rate 80 11/27/25 13:59 Respiratory Rate 16 11/27/25 13:59 Blood Pressure 139/76 11/27/25 13:59 Pulse Oximetry 93 11/27/25 13:59 Oxygen Delivery Method Room Air 11/27/25 13:59 Temperature 99.7 F H 11/27/25 13:59 Pulse Rate 80 11/27/25 13:59 Respiratory Rate 16 11/27/25 13:59 Blood Pressure 139/76 11/27/25 13:59 Pulse Oximetry 93 11/27/25 13:59 Oxygen Delivery Method Room Air 11/27/25 13:59 Medical Decision Making MDM Narrative Medical decision making narrative: This patient comes in reporting some mild symptoms of cough and raspy throat. She comes in because she tested positive for COVID at home and was interested in having Paxil of it. A nasal swabs obtained here and actually returns negative for COVID, influenza, and RSV. The patient's vital signs are normal and she states that she actually feels rather normal. She is a candidate for Paxil of it if needed for COVID infections so I did prescribe it to her preferred pharmacy but stated that she can decide to fill it and take it if symptoms are worsening or if she rechecks and gets positive result on a COVID test in the future. Lab Data Labs: Lab Results 11/27/25 11/27/25 Range/Units 14:15 15:00 SARS-CoV-2 (PCR) Negative SARS-CoV-2 (Negative) Influenza Type A (PCR) Negative PCR FLU A (Negative) Influenza Type B (PCR) Negative PCR FLU B (Negative) RSV (PCR) Negative PCR RSV (Negative) SARS-CoV-2 Ag (Rapid) Cancelled Discharge Plan Discharge Clinical Impression: Acute upper respiratory infection Patient Disposition: Home, Self-Care Condition: Stable Additional Instructions: Use [id number] medicines as needed and directed. Began Paxil of it if symptoms are recurrent or if repeat testing for COVID is positive. Follow up with MD return if worsening. Prescriptions: New Paxlovid 150 mg (10)- 100 mg (10) tablets,dose pack See Rx Instructions .ROUTE .COMPLEX Qty: 20 0RF Rx Instructions: orally per package directions No Action Probiotic 3 billion cell capsule 3,000 mmu cells PO BID multivitamin [Multiple Vitamins] Tablet 1 tab PO DAILY gabapentin 600 mg tablet 600 mg PO DIRECTED Rx Instructions: 1 po qam, 1 in afternoon 2 po qhs Gemtesa 75 mg tablet 75 mg PO DAILY Xiidra 5 % dropperette ophthalmic (eye) Patient Comments: [NO ORIGINAL SIG] triamcinolone acetonide 0.1 % cream 1 applic topical BID Qty: 15 0RF cranberry 500 mg capsule 500 mg PO DAILY Rx Instructions: administer with a meal acetaminophen 500 mg capsule 1,000 mg PO DAILY MDD 3000mg celecoxib 100 mg capsule 100 mg PO BID PRN (Reason: pain) Qty: 180 3RF pravastatin 10 mg tablet 10 mg PO HS Qty: 90 2RF Follow Up/Referrals: Lori Barreto PA-C [Primary Care Provider, Family Practice] Stand Alone Forms: [employer] Info Instructions
[2025-11-27 14:56] LABS: PCR FLU A Negative PCR FLU A (Negative); PCR FLU B Negative PCR FLU B (Negative); PCR RSV Negative PCR RSV (Negative); SARS PCR* Negative SARS-CoV-2 (Negative)
== END 2025-11-27 15:50 | disposition home or self-care (01) ==
PROVIDERS: Emergency Provider Emergency Medicine Emergency Medical Services; PCP Physician Assistant Medical
DX: J06.9 Acute upper respiratory infection, unspecified (principal)
CPT/HCPCS: 87426; 87631; 99283; 99284